=== PATIENT | female | born 1935 | race Caucasian/White ===

== ENCOUNTER 2022-04-01 21:53 | Outpatient (RCR) | payer OTHER, SELFPAY ==
[2022-04-01 22:41] LABS: Basophils Absolute Auto 0.02 K/uL (0.00-0.30); Basophils Percent Auto 0.3 % (0.0-3.0); Eosinophils Absolute Auto 0.11 K/uL (0.00-0.50); Eosinophils Percent Auto 1.4 % (0.0-7.0); Hematocrit 32.9 % (33.0-51.0); Hemoglobin* 10.2 gm/dL (12.0-16.0); Immature Granulocytes Abs Auto 0.04 K/uL (0.00-0.30); Lymphocytes Percent Auto 8.6 % (20-44); Mean Corpuscular HGB Conc 31 gm/dL (32-36); Mean Corpuscular Hemoglobin 27 pg (26-34); Mean Corpuscular Volume 88 fL (80-100); Monocytes Percent Auto 7.4 % (0.0-11.0); Neutrophils Percent Auto 81.8 % (42.0-72.0); Platelet Count* 230 K/uL (140-440); RDW Coefficient of Variation % 14.9 % (11.5-15.5); Red Blood Count 3.72 m/uL (4.00-5.20)
[2022-04-01 22:43] LABS: Slide Review Reflex No
[2022-04-01 22:58] LABS: Ferritin* 11.1 ng/mL (11.1-264.0)
== END 2023-03-08 23:00 | disposition home or self-care (01) ==
LOC: LAB 21:53
PROVIDERS: PCP Emergency Medicine; Visit Provider Internal Medicine Medical Oncology
DX: D50.9 Iron deficiency anemia, unspecified (principal)
CPT/HCPCS: 36415; 82728; 85025

== ENCOUNTER 2022-06-22 22:59 | Outpatient (REF) | payer OTHER, SELFPAY ==
--- OUTSIDE RECORDS SUMMARY | 2022-06-22 23:04 | XMS_ITS ---
:1935 Author Care Team Providers Name Role Phone Markell Bell Primary Care Provider Unavailable Allergies Code Code System Name Reaction Severity Status Onset 78539 RxNorm Oxybutynin ? ? Active ? Penicillins ? ? Active ? Medications Name Status Start Date Stop Date ? ? allopurinol 300 mg tablet Active ? Not av ailable amlodipine 5 mg tablet Active ? Not avail able atorvastatin 20 mg tablet Active ? Not av ailable cephalexin 500 mg capsule Active ? Not av ailable ciprofloxacin 250 mg tablet Active ? Not available levothyroxine 100 mcg tablet Active ? Not available levothyroxine 88 mcg tablet Active ? Not available lisinopril 40 mg tablet Active ? Not avai lable metoprolol tartrate 25 mg tablet Active ? Not available omeprazole 40 mg capsule,delayed release Active ? Not available sertraline 50 mg tablet Active ? Not avai lable warfarin 4 mg tablet Active ? Not availab le warfarin 5 mg tablet Active ? Not availab le Problems Name Status Onset Date Source ? Essential Hypertension Active 03/27/2019 ? Congestive Heart Failure Active 03/27/2019 ? History of Malignant Neoplasm of Skin Active 03/27/2019 ? Procedures Notes: hysterectomy Left hip Results Lab Results None recorded. Past Encounters None recorded. Social History Tobacco Smoking Status Never Smoker Vaccine List None recorded. Plan of Care Reminders Provider Appointments None recorded. ? ? Lab None recorded. ? ? Referral None recorded. ? ? Procedures None recorded. ? ? Surgeries None recorded. ? ? Imaging None recorded. ? ? Vitals None recorded.
--- OUTSIDE RECORDS SUMMARY | 2022-06-22 23:04 | XMS_ITS | Clinical Summary ---
:1935 Author Organization [place] Address [address] [facility] [place] [address] Care Team Providers Name Role Phone Gabriella Mariano MD Primary Care Provider Gabriella Mariano MD Unavailable Allergies Active Allergy Reactions Severity Noted Date Comments Oxybutynin 09/01/2016 Penicillins 09/01/2016 Medications Medication Sig Dispensed Refills Start Date End Date Status warfarin (COUMADIN) 4 Take 4 mg by 0 Active MG tablet mouth daily sertraline (ZOLOFT) 50 Take 50 mg by 0 Active MG tablet mouth daily omeprazole (PRILOSEC) Take 40 mg by 0 Active 40 MG capsule mouth daily metoprolol (LOPRESSOR) Take 25 mg by 0 Active 25 MG tablet mouth 2 times daily levothyroxine Take 88 mcg by 0 A ctive (SYNTHROID/LEVOTHROID) mouth daily 88 MCG tablet atorvastatin (LIPITOR) Take 20 mg by 0 Active 20 MG tablet mouth daily allopurinol (ZYLOPRIM) Take 300 mg by 0 Active 300 MG tablet mouth daily lisinopril Take 2 tablets 60 tablet 1 09/02/2016 Act adelaida (PRINIVIL/ZESTRIL) 20 (40 mg) by mouth MG tabletIndications: daily Essential hypertension amLODIPine (NORVASC) 5 Take 1 tablet (5 30 tablet 0 09/02/2016 Active MG tabletIndications: mg) by mouth Essential hypertension daily nitroFURantoin, Take 1 capsule 20 capsule 0 05/21/2017 Active macrocrystal-monohydra (100 mg) by mouth te, (MACROBID) 100 MG 2 times daily capsuleIndications: Urinary tract infection rosuvastatin (CRESTOR) Take 1 tablet by 0 11/29/2020 Active 10 MG tablet mouth every evening nitroGLYcerin Place 1 tablet 0 11/29/2020 Active (NITROSTAT) 0.4 MG under the tongue sublingual tablet every 5 minutes as needed for chest pain metoprolol tartrate Take 1 tablet by 0 11/29/2020 Active (LOPRESSOR) 25 MG mouth every 12 tablet hours loperamide (IMODIUM Take 1 capsule by 0 11/29/2020 Active A-D) 2 MG capsule mouth as needed After each loose stool, not to exceed 16 mg (8 capsules) per day. levothyroxine Take 100 mcg by 0 11/29/2020 Active (TIROSINT) 100 MCG mouth every 24 capsule hours ferrous fumarate 65 Take 2 tablets by 0 11/29/2020 Active mg, [place]. FE,-Vitamin mouth daily C 125 mg (VITRON-C) 65-125 MG TABS tablet Coenzyme Q10 (CO Q-10) Take 2 capsules 0 11/29/2020 Active 30 MG CAPS by mouth daily clobetasol (TEMOVATE) Apply topically 2 0 11/29/2020 Active 0.05 % external times daily as ointment needed amLODIPine (NORVASC) 5 Take 1 tablet by 0 11/29/2020 Active MG tablet mouth daily acetaminophen Take 2 tablets by 0 11/29/2020 Active (TYLENOL) 500 MG mouth daily as tablet needed for pain omeprazole (PRILOSEC) Take 40 mg by [address] capsule mouth daily lisinopril (ZESTRIL) Take 40 mg by 0 Active 40 MG tablet mouth daily sertraline (ZOLOFT) Take 100 mg by 0 Active 100 MG tablet mouth every evening warfarin ANTICOAGULANT Take 1 tablet 7 tablet 0 07/10/2021 Active (COUMADIN) 2.5 MG (2.5 mg) by mouth tabletIndications: daily Personal history of DVT (deep vein thrombosis) gabapentin (NEURONTIN) Take 1 capsule 60 capsule 1 07/10/2021 Active 100 MG (100 mg) by mouth capsuleIndications: 2 times daily Acute right-sided low back pain without sciatica oxyCODONE (ROXICODONE) Take 0.5 tablets 8 tablet 0 07/10/2021 Active 5 MG (2.5 mg) by mouth tabletIndications: every 6 hours as Acute right-sided low needed for back pain without moderate to sciatica severe pain methocarbamol Take 1 tablet 30 tablet 0 07/10/2021 A ctive (ROBAXIN) 500 MG (500 mg) by mouth tabletIndications: 3 times daily as Acute right-sided low needed for muscle back pain without spasms sciatica Active Problems Problem Noted Date Acute right-sided low back pain without sciatica 07/01 Severe uncontrolled hypertension 09/02/2016 Social History Tobacco Use Types Packs/Day Years Used Date Smoking Tobacco: Never Smokeless Tobacco: Never Sex Assigned at Date Recorded Female 10/29/2021 4:35 PM CDT Last Filed Vital Signs Vital Sign Reading Time Taken Comments Blood Pressure 119/53 07/10/2021 3:30 PM WIRE WEAVER CLOTH Pulse 56 07/10/2021 3:30 PM WIRE WEAVER CLOTH Temperature 36 ??C (96.8 ??F) 07/10/2021 3:30 PM WIRE WEAVER CLOTH Respiratory Rate 16 07/10/2021 3:30 PM WIRE WEAVER CLOTH Oxygen Saturation 93% 07/10/2021 3:30 PM WIRE WEAVER CLOTH Inhaled Oxygen Concentration - - Weight 74.8 kg (165 lb) 07/02/2021 2:30 PM WIRE WEAVER CLOTH Height 160 cm (5' 3) 07/02/2021 2:30 PM WIRE WEAVER CLOTH Body Mass Index 29.23 07/02/2021 2:30 PM WIRE WEAVER CLOTH Plan of Treatment Health Maintenance Due Date Last Done Comments ADVANCE CARE PLANNING 1935 ANNUAL REVIEW OF HM ORDERS 1935 DEXA 1935 HEPATITIS B IMMUNIZATION (1 1935 of 3 - 3-dose series) ZOSTER IMMUNIZATION (1 of 1987 2) FALL RISK ASSESSMENT 2002 MEDICARE ANNUAL WELLNESS 2002 VISIT DTAP/TDAP/TD IMMUNIZATION 02/03/2013 02/02/2013 (1 - Tdap) COVID-19 Vaccine (3 - 11/30/2020 10/05/2020, 09/14/2020 Booster for Pfizer series) PHQ-2 (once per calendar 08/09/2021 year) INFLUENZA VACCINE (#1) 2022 06/16/2021, 06/03/2020, 06/08/2019, Additional history exists Pneumococcal Vaccine: 65+ Completed 05/27/2018, 06/08/2017 , Years 06/06/2014 IPV IMMUNIZATION Aged Out No longer eligi ble based on patient 's age to complete this topic MENINGITIS IMMUNIZATION Aged Out No longe r eligible based on patient 's age to complete this topic Insurance Payer Benefit Plan / Subscriber ID Effective Dates Phone Addre ss Type Group HUMANA HUMANA MEDICARE [id number] 2019-Presen [id number] [address] [address] Medicare ADVANTAGE t [address] [place] [address] HUMANA HUMANA MEDICARE [id number] 2019-Presen [phone] [address] [address] Medicare ADVANTAGE t 0 [place] [address] Advance Directives For more information, please contact: [phone] Latest Code Status on File Code Status Date Activated Date Inactivated Comments No CPR- Do NOT Intubate 07/10/2021 12:48 PM Question Answer Comments Code status determined by: Discussion with patient/ legal de cision maker Code Status History Code Status Date Activated Date Inactivated Comments No CPR- Do NOT 07/02/2021 1:46 AM 07/10/2021 12:48 PM NO basic o r advanced Intubate life-sustaining interventions ar e performed Question Answer Comments Code status determined by: Discussion with patient/ legal de cision maker Full Code 09/02/2016 7:43 AM 02/27/2019 2:04 PM Full Code 09/02/2016 12:12 AM 09/02/2016 7:43 AM Care Teams Patch Machine Operator Relationship Specialty Start Date End Date Gabriella Mariano MD PCP - General 07/01/21 [facility] [address] [place] [address] Gabriella Mraiano MD 07/01/[address] [address]
--- OUTSIDE RECORDS SUMMARY | 2022-06-22 23:05 | XMS_ITS | Encounter Summary ---
:1935 Author Organization [place] Address [address] [facility] [place] [address] Care Team Providers Name Role Phone Gabriella Mariano MD Primary Care Provider Reason for Referral [employer] - Closed Specialty Diagnoses / Procedures Referred By Contact Refer red To Contact Diagnoses Labial irritation Lorena Mars MD [address] [facility] [address] [place], [place] [address] Referral ID Status Reason Start Date Expiration Date Visits Requ ested Visits Authorized [id number] Closed 05/19/2017 05/19/2018 1 1 Reason for Visit Reason Comments Follow Up Encounter Details Date Type Department Care Team Description 05/19/2017 Office Visit [facility] Lorena Mars (Primary Dx); U[facility] Clinic Vanessa Fernandez MD Mixed incontinence; [address] [facility] [address] Labial irritation [address] [facility] [address] [place] [address] [place], [place] [phone] (Wo rk) Social History Tobacco Use Types Packs/Day Years Used Date Smoking Tobacco: Never Smokeless Tobacco: Never Sex Assigned at Date Recorded Female 10/29/2021 4:35 PM CDT documented as of this encounter Last Filed Vital Signs Vital Sign Reading Time Taken Comments Blood Pressure 110/60 05/19/2017 12:37 PM CDT Pulse 60 05/19/2017 12:37 PM CDT Temperature - - Respiratory Rate - - Oxygen Saturation - - Inhaled Oxygen Concentration - - Weight 77.1 kg (170 lb) 05/19/2017 12:37 PM CDT Height 165.1 cm (5' 5) 05/19/2017 12:37 PM CDT Body Mass Index 28.29 05/19/2017 12:37 PM CDT documented in this encounter Patient Instructions Patient InstructionsLorena Mars MD - 05/19/2017 12:30 PM CDT Please see a cra officer for a biopsy We will let you know about the urine test results Please do a bladder diary (measure intake and output) Please schedule urodynamics testing (bladder testing) and then return to see me afterwards documented in this encounter Progress Notes Lorena Mars MD - 05/19/2017 12:30 PM CDT May 19, 2017 Return visit Patient returns today for follow up. She has not seen me since 02/2016. States that she is starting to have more urinary incontinence over the past couple months. Also some vaginal burning. She denies any changes in her health since last visit. BP 110/60 Pulse 60 Ht 1.651 m (5' 5) Wt 77.1 kg (170 lb) BMI 28.29 kg/m2 She is comfortable, in no distress, non-labored breathing. Her perineum is very erythematous and tender, barely able to do an exam A/P: 81 year old F with dysuria, mixed urinary incontinence, labial irritation Catheterized urine sent for UA/UC Given the persistent labial/perineal irritation for over a year I have recommended biopsy. We are unable to do this in our office today so will have her follow up with a guest services lead for this. RTC for UDS and possible cystoscopy in the near future 15 minutes were spent with the patient today, > 50% in counseling and coordination of care Lorena Mars MD MPH [facility] Patient Care Team: Gabriella Mariano MD as PCP - General documented in this encounter Plan of Treatment Scheduled Referrals Name Type Priority Associated Diagnoses Order S chedule [employer] REFERRAL Referral Routine Labial irritation Ordered : 05/19/2017 documented as of this encounter Procedures Procedure Name Priority Date/Time Associated Comments Diagnosis UREAPLASMA CULTURE Routine 05/19/2017 1:06 PM Dysuria Res ults for this CDT procedure are i n the results section. MYCOPLASM LARGE Routine 05/19/2017 1:06 PM Dysuria Result s for this COLONY CULTURE CDT procedure are in the results section. documented in this encounter Results Mycoplasma large colony culture [[id number]] (05/19/2017 1:06 PM CDT) Component Value Ref Test Analysis Performed At [facility] gist Range Method Time Signature Specimen Catheterized INFECTIOUS Description Urine DISEASE DIAGNOSTIC LABORATORY Special Specimen 05/19/2017 [facility] Requests received in 6:52 PM CDT [facility] Culture Micro No large colony 05/26/2017 INFECTIOU S Mycoplasma 1:30 PM CDT DISEASE species DIAGNOSTIC isolated LABORATORY Specimen (Source) Anatomical Collection Method Collection Time Re ceived Time Location / / Volume Laterality Urine specimen 05/19/2017 1:06 05/19/2017 1:07 collection, PM CDT PM CDT catheterized (procedure) Lorena Mars MD LAB - MICRO GENERAL ORDERABL ES Performing Organization Address City/State/ZIP Code Phon e Number INFECTIOUS DISEASES [address] [place] [address] DIAGNOSTIC LABORATORY, [facility] INFECTIOUS DISEASE [address] [place] [address], [facility] DIAGNOSTIC LABORATORY [address] [address], [facility] Ureaplasma culture [[id number]] (05/19/2017 1:06 PM CDT) Component Value Ref Test Analysis Performed At [facility] Range Method Time Signature Specimen Catheterized INFECTIOUS Description Urine DISEASE DIAGNOSTIC LABORATORY Special Specimen 05/19/2017 [facility] Requests received in 6:52 PM CDT [facility] Culture Micro No Ureaplasma 05/26/2017 INFECTIOUS species 1:31 PM CDT DISEASE isolated DIAGNOSTIC LABORATORY Specimen (Source) Anatomical Collection Method Collection Time Re ceived Time Location / / Volume Laterality Urine specimen 05/19/2017 1:06 05/19/2017 1:07 collection, PM CDT PM CDT catheterized (procedure) Lorena Mars MD LAB - MICRO GENERAL ORDERABL ES Performing Organization Address City/State/ZIP Code Phon e Number INFECTIOUS DISEASES [address] [place] [address] DIAGNOSTIC LABORATORY, [facility] INFECTIOUS DISEASE [address] [place], [place] [id number] [place] [address] DIAGNOSTIC LABORATORY [id number] [place] [address] documented in this encounter Visit Diagnoses Diagnosis Dysuria - Primary Mixed incontinence Mixed incontinence urge and stress (male )(female) Labial irritation Other specified noninflammatory disorder of vulva and perineum documented in this encounter Care Teams [employer] Social Worker Relationship Specialty Start Date End Date Gabriella Mariano MD PCP - General 02/27/16 06/30/21 [place] [address] [address], [place] [address] documented as of this encounter
--- OUTSIDE RECORDS SUMMARY | 2022-06-22 23:05 | XMS_ITS | Encounter Summary ---
:1935 Author Organization [place] Address [address] [facility] [place] [address] Care Team Providers Name Role Phone Gabriella Mariano MD Primary Care Provider Reason for Visit Reason Comments Diarrhea Encounter Details Date Type Department Care Team Description 08/18/2019 [facility] Emergency Dept [address] [place] [address] Social History Tobacco Use Types Packs/Day Years Used Date Smoking Tobacco: Never Smokeless Tobacco: Never Sex Assigned at Date Recorded Female 10/29/2021 4:35 PM CDT documented as of this encounter Last Filed Vital Signs Vital Sign Reading Time Taken Comments Blood Pressure 116/84 08/18/2019 11:23 AM NAME PLATE STAMPING MACHINE OPERATOR Pulse - - Temperature 36.6 ??C (97.9 ??F) 08/18/2019 11:23 AM NAME PLATE STAMPING MACHINE OPERATOR Respiratory Rate 16 08/18/2019 11:23 AM NAME PLATE STAMPING MACHINE OPERATOR Oxygen Saturation 97% 08/18/2019 11:23 AM NAME PLATE STAMPING MACHINE OPERATOR Inhaled Oxygen Concentration - - Weight 74.6 kg (164 lb 7.4 oz) 08/18/2019 11:23 AM NAME PLATE STAMPING MACHINE OPERATOR Height - - Body Mass Index 27.37 05/19/2017 12:37 PM CDT documented in this encounter Medications at Time of Discharge Medication Sig Dispensed Refills Start Date End Date allopurinol (ZYLOPRIM) 300 Take 300 mg by mouth 0 MG tablet daily amLODIPine (NORVASC) 5 MG Take 1 tablet (5 mg) 30 tablet 0 09/02/2016 tabletIndications: by mouth daily Essential hypertension atorvastatin (LIPITOR) 20 Take 20 mg by mouth 0 MG tablet daily levothyroxine Take 88 mcg by mouth 0 (SYNTHROID/LEVOTHROID) 88 daily MCG tablet lisinopril Take 2 tablets (40 60 tablet 1 09/02/2016 (PRINIVIL/ZESTRIL) 20 MG mg) by mouth daily tabletIndications: Essential hypertension metoprolol (LOPRESSOR) 25 Take 25 mg by mouth 0 MG tablet 2 times daily nitroFURantoin, Take 1 capsule (100 20 capsule 0 05/21/2017 macrocrystal-monohydrate, mg) by mouth 2 times (MACROBID) 100 MG daily capsuleIndications: Urinary tract infection omeprazole (PRILOSEC) 40 Take 40 mg by mouth 0 MG capsule daily sertraline (ZOLOFT) 50 MG Take 50 mg by mouth 0 tablet daily warfarin (COUMADIN) 4 MG Take 4 mg by mouth 0 tablet daily documented as of this encounter ED Notes Jessica Keller RN - 08/18/2019 11:21 AM CST A&Ox4. ABC's intact. Pt c/o diarrhea for years, but increasing frequency at least everyday. Stomach pain 2-3/10 at this time, 7/10 when it gets worse right before she is about to have a BM. Last BMthis morning. Odor is worse and consistency changes all the time. Denies ATB in the past 6 months. PLATE STAMPING MACHINE OPERATOR documented in this encounter Plan of Treatment Not on filedocumented as of this encounter Visit Diagnoses Not on filedocumented in this encounter Care Teams Freezing Room Worker Relationship Specialty Start Date End Date Gabriella Mariano MD PCP - General 02/27/16 06/30/21 [place] [address] documented as of this encounter
--- OUTSIDE RECORDS SUMMARY | 2022-06-22 23:05 | XMS_ITS | Encounter Summary ---
:1935 Author Organization [place] Address [address] [facility] [place] [address] Care Team Providers Name Role Phone Gabriella Mariano MD Primary Care Provider Encounter Details Date Type Department Care Team Description 08/18/2019 Travel Social History Tobacco Use Types Packs/Day Years Used Date Smoking Tobacco: Never Smokeless Tobacco: Never Sex Assigned at Date Recorded Female 10/29/2021 4:35 PM CDT documented as of this encounter Plan of Treatment Not on filedocumented as of this encounter Visit Diagnoses Not on filedocumented in this encounter Care Teams Accounting Director Relationship Specialty Start Date End Date Gabriella Mariano MD PCP - General 02/27/16 06/30/21 [facility] [address] [place] [address] documented as of this encounter
--- OUTSIDE RECORDS SUMMARY | 2022-06-22 23:05 | XMS_ITS | Encounter Summary ---
:1935 Author Organization [place] Address [address] [place] [address] Care Team Providers Name Role Phone Gabriella Mariano MD Primary Care Provider Gabriella Mariano MD Unavailable Reason for Visit Reason Comments Back Pain Auth/Cert Specialty Diagnoses / Procedures Referred By Contact Refer red To Contact EMERGENCY MEDICINE Diagnoses Acute right-sided low back pain without sciatica Acute right-sided low back pain without sciatica Emergency Dept [address] [place] [address] Phone: Fax: Referral ID Status Reason Start Date Expiration Date Visits Requ ested Visits Authorized [id number] 1 1 Encounter Details Date Type Department Care Team Description 07/01/2021 - Emergency [facility] Michael Sears MD [facility] [address] [place], [place] [id number] Personal history of DVT (deep vein throm bosis) (Primary Dx); 07/10/2021 [facility] Ally Zavaleta DO [facility] [address] [facility] [place] [id number] Acute right-sided low back pain without sciatica [address] Jamie Malave MD [address] [place], [place] [id number] [place], [place] Marito Fritz DO [facility] [address] [place], [place] [id number] Merary Jimenez, Social History Tobacco Use Types Packs/Day Years Used Date Smoking Tobacco: Never Assessed Sex Assigned at Date Recorded Female 10/29/2021 4:35 PM CDT COVID-19 Exposure Response Date Recorded In the last month, have you been in contact with No / Unsure 07/01/2021 3:51 PM DIRECTOR OF INTEGRATED MARKETING someone who was confirmed or suspected to have Coronavirus / COVID-19? documented as of this encounter Last Filed Vital Signs Vital Sign Reading Time Taken Comments Blood Pressure 119/53 07/10/2021 3:30 PM DIRECTOR OF INTEGRATED MARKETING Pulse 56 07/10/2021 3:30 PM DIRECTOR OF INTEGRATED MARKETING Temperature 36 ??C (96.8 ??F) 07/10/2021 3:30 PM DIRECTOR OF INTEGRATED MARKETING Respiratory Rate 16 07/10/2021 3:30 PM DIRECTOR OF INTEGRATED MARKETING Oxygen Saturation 93% 07/10/2021 3:30 PM DIRECTOR OF INTEGRATED MARKETING Inhaled Oxygen Concentration - - Weight 74.8 kg (165 lb) 07/02/2021 2:30 PM DIRECTOR OF INTEGRATED MARKETING Height 160 cm (5' 3) 07/02/2021 2:30 PM DIRECTOR OF INTEGRATED MARKETING Body Mass Index 29.23 07/02/2021 2:30 PM DIRECTOR OF INTEGRATED MARKETING documented in this encounter Discharge Summaries Alec Jordan MD - 07/10/2021 3:58 PM CST [facility] Discharge Summary Name: Meseret Lakhani Date of : 1935 Age: [age] year old Date of Discharge: 07/10/2021 Date of Admission: 07/01/2021 Primary Care Provider: Gabriella Mariano Discharge Physician: Alec Jordan MD Discharging Service: Hospitalist Discharge Diagnosis: Reason for Stay (Diagnosis): Acute hypoxic respiratory failure with unclear etiology possibly secondary to her underlying cardiomyopathy ?? Assessment and Plan: Summary of Stay: Meseret Lakhani is a 86 year old female with past medical history significant for hypertension, factor V Leiden with previous DVT on chronic anticoagulation, hyperlipidemia, major depressive disorder, anxiety, and GERD who presented to [facility] on 07/01/2021 with left lower back pain and was found to have musculoskeletal strain. ??Developed hypoxia in the emergency department without clear etiology at this time. ?? Acute Hypoxic Respiratory Failure, stable Possible Cardiomyopathy Patient now requiring oxygen which she does not use at baseline. ??She is not experiencing any dyspnea but was noted to be hypoxemic on bedside monitor. ??Chest x-ray without any lobar opacities but with some cardiomegaly, vascular congestion and interstitial edema. Procalcitonin and NTBNP negative. Two doses of Lasix IV were provided with improvement in respiratory function; she is now only requiring 1L oxygen. TTE, however, with normal systolic function and possible early diastolic dysfunction butwithout RV dilation. It did note that WMA could not be excluded; ECG obtained without ST segment changes or signs of ischemia. CXR also with possible tracheal deviation; considered external tracheal compression, though no stridor was appreciated on exam.ABG with notable hypoxemia. ??CT with atelectasis and cardiomegaly, but no sign of pulmonary edema or pneumonia. Suspect that patient has oxygen needs due to prolonged bedrest from injury. Continue incentive spirometry and wean as able. -Continuous oximetry -Supplemental oxygen PRN-oxygen support wean off. May discontinue continuous oximetry if continues to tolerate off oxygen support -Incentive spirometry -Currently not using any oxygen support ?? Low Back Pain Likely Muscular Strain Physical deconditioning Patient with left lower back pain for several days only present now with movement. ??Requiring 2 person assist when she has independent at baseline. ??Imaging nondiagnostic for any fractures. ??Suspectmusculoskeletal in etiology. ??PT/OT assisting with evaluation and treatment while in hospital. Willneed social work assistance in finding rehab facility as patient is still requiring assist of 1 without of bed activity. ??-Oxycodone 2.5mg Q6H PRN -Acetaminophen TID -Lidocaine patches -Ice packs -Pain consult work -She is working with therapy services and she is hopeful if she can just be discharged straight to home without doing TCU placement ?? Dysphagia: OVER SHORT AND DAMAGE CLERK consulting. 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 Increase lisinopril dosing to 20 mg daily Hyperlipidemia: Continue HOSPICE CLINICAL MARKETER statin. MDD/RONALDO: Continue HOSPICE CLINICAL MARKETER sertraline. GERD: Continue PPI. Hypothyroidism: Continue HOSPICE CLINICAL MARKETER levothyroxine. ?? -Black tarry stools occurred last 07/08/2021 as no further recurrence Repeat hemoglobin remained stable at 12 g Remain on anticoagulation. Therapeutic INR ? Diet:??Orders Placed This Encounter ?Regular Diet Adult ??DVT Prophylaxis: On warfarin Shearer Catheter:Not present Code Status:??No CPR- Do NOT Intubate? Expected discharge: Awaiting for TCU placement Remain on observation status as per previous utilization review recommendations ?? Other Diagnosis: No past medical history on file. Discharge Disposition: Discharged to rehabilitation facility Allergies: Allergies Allergen Reactions ??? Oxybutynin ??? Penicillins Discharge Medications: Discharge Medication List as of 07/10/2021 3:44 PM START taking these medications Details gabapentin (NEURONTIN) 100 MG capsule Take 1 capsule (100 mg) by mouth 2 times daily, Disp-60 capsule, R-1, Local Print oxyCODONE (ROXICODONE) 5 MG tablet Take 0.5 tablets (2.5 mg) by mouth every 6 hours as needed for moderate to severe pain, Disp-8 tablet, R-0, Local Print CONTINUE these medications which have CHANGED Details methocarbamol (ROBAXIN) 500 MG tablet Take 1 tablet (500 mg) by mouth 3 times daily as needed for muscle spasms, Disp-30 tablet, R-0, Local Print warfarin ANTICOAGULANT (COUMADIN) 2.5 MG tablet Take 1 tablet (2.5 mg) by mouth daily, Disp-7 tablet, R-0, Transitional CONTINUE these medications which have NOT CHANGED Details acetaminophen (TYLENOL) 500 MG tablet Take 2 tablets by mouth daily as needed for pain, Historical amLODIPine (NORVASC) 5 MG tablet Take 1 tablet by mouth daily, Historical clobetasol (TEMOVATE) 0.05 % external ointment Apply topically 2 times daily as neededHistorical Coenzyme Q10 (CO Q-10) 30 MG CAPS Take 2 capsules by mouth daily, Historical ferrous fumarate 65 mg, [place]. FE,-Vitamin C 125 mg (VITRON-C) 65-125 MG TABS tablet Take 2 tablets by mouth daily , Historical levothyroxine (TIROSINT) 100 MCG capsule Take 100 mcg by mouth every 24 hours, Historical lisinopril (ZESTRIL) 40 MG tablet Take 40 mg by mouth daily, Historical loperamide (IMODIUM A-D) 2 MG capsule Take 1 capsule by mouth as needed After each loose stool, not to exceed 16 mg (8 capsules) per day., Historical metoprolol tartrate (LOPRESSOR) 25 MG tablet Take 1 tablet by mouth every 12 hours, Historical nitroGLYcerin (NITROSTAT) 0.[address] 1 tablet under the tongue every 5 minutes as needed for chest pain, Historical omeprazole (PRILOSEC) [address] capsule Take 40 mg by mouth daily, Historical rosuvastatin (CRESTOR) 10 MG tablet Take 1 tablet by mouth every evening , Historical sertraline (ZOLOFT) 100 MG tablet Take 100 mg by mouth every evening, Historical Condition on Discharge: Discharge condition: Stable Discharge vitals: Blood pressure 119/53, pulse 56, temperature 96.8 ??F (36 ??C), temperature sourceTemporal, resp. rate 16, height 1.6 m (5' 3), weight 74.8 kg (165 lb), SpO2 93 %. Code status on discharge: DNR / DNI History of Present Illness: See detailed admission note for full details. Significant Physical Exam Findings Day of Discharge: HEENT; Atraumatic, normocephalic, pinkish conjuctiva, pupils bilateral reactive Skin: warm and moist, no rashes Lymphatics: no cervical or axillary lymphandenopathy Lungs: equal chest expansion, clear to auscultation, no wheezes, no stridor, no crackles, Heart: normal rate, normal rhythm, no rubs or gallops. Abdomen: normal bowel sounds, no tenderness, no peritoneal signs, no guarding Extremities: no deformities, no edema Neuro; follow commands, alert and oriented x3, spontaneous speech, coherent, moves all extremities spontaneously Psych; no hallucination, euthymic mood, not agitated Procedures other than Imaging: none Imaging: Results for orders placed or performed during the hospital encounter of 07/01/[address] w/o contrast Narrative EXAM: CT LUMBAR SPINE W/O CONTRAST LOCATION: [facility] DATE/TIME: 07/01/2021 6:19 PM INDICATION: Right-sided low back pain, on Coumadin. COMPARISON: None. TECHNIQUE: Routine CT lumbar spine without IV contrast. Multiplanar reformats. Dose reduction techniques were used. FINDINGS: VERTEBRA: There are five lumbar-type vertebral bodies identified. There is mild S-shaped lumbar curve convex to the right L1, convex to the left L4. Overall vertebral body height is satisfactory. Thereis 1 mm degenerative anterior subluxation L2-L3, L4-L5 noted. Articular pillars are intact. Lower lumbar spine facet joint arthropathy. No evidence for facet joint space widening or interspace widening. Perforating vascular channel right superior articular process L4 series 7 image 40, series 8 image 30. No fracture or posttraumatic subluxation. No displaced lower rib fractures are evident. Degenerative changes both SI joints. CANAL/FORAMINA: There is no high grade spinal stenosis present. No traumatic disc herniations. Moderate spinal stenoses are identified L1-L2, L3-L4, and L4- L5 levels. There is some ectasia of the nerveroot sleeves at L5-S1, left more prominent than right. No severe foraminal compromise. PARASPINAL: There is some dorsal paraspinous muscular atrophy/fatty replacement on a chronic basis at the lower lumbar level. No retroperitoneal solid mass or adenopathy. Vascular calcification is present. Degenerative changes anterior SI joints. Granite Polisher Apprentice localizer shows total hip arthroplasty components. Impression IMPRESSION: 1. No fracture or posttraumatic subluxation. 2. No high grade spinal canal or neural foraminal stenosis. 3. Multilevel moderate spinal stenosis on a chronic degenerative basis with no traumatic disc herniations evident. XR Chest 2 Views Narrative XR CHEST 2 VW 07/02/2021 2:24 PM INDICATION: dyspnea COMPARISON: None Impression IMPRESSION: Cardiomegaly with pulmonary vascular congestion and probable mild interstitial edema. No focal infiltrate or pleural effusion. JAISON JOHNSTON MD SYSTEM ID: [id number] CT Chest w/o Contrast Narrative EXAM: CT CHEST W/O CONTRAST LOCATION: [facility] DATE/TIME: 07/04/2021 6:20 PM INDICATION: Respiratory failure. COMPARISON: None. TECHNIQUE: CT chest without IV contrast. Multiplanar reformats were obtained. Dose reduction techniques were used. CONTRAST: None. FINDINGS: LUNGS AND PLEURA: Minor dependent atelectatic changes in both lungs. No pleural effusion. MEDIASTINUM/AXILLAE: Ascending thoracic aorta mildly ectatic at 4.1 cm. The heart is enlarged. No thoracic or axillary adenopathy. CORONARY ARTERY CALCIFICATION: Severe. UPPER ABDOMEN: The spleen is mildly enlarged. MUSCULOSKELETAL: Unremarkable. Impression IMPRESSION: 1. Cardiomegaly and severe coronary atherosclerosis. 2. Ectatic ascending thoracic aorta. Echocardiogram Complete Value LVEF 55-60% [facility] [id number]^ALEA^LOY [facility] Echocardiography Laboratory [address] [place] [id number] Name: MESERET LAKHANI : 1935 Study Date: 07/03/2021 09:37 AM Age: 86 yrs Gender: Female Patient Location: [facility] Reason For Study: Dyspnea Ordering Physician: LOY ARMAS Performed By: Lorena Bishop BSA: 1.8 m2 Height: 63 in Weight: 165 lb HR: 55 BP: 130/55 mmHg Procedure Complete Portable Echo Adult. Interpretation Summary Left ventricular systolic function is normal. The visual ejection fraction is 55-60%. Technically difficult, suboptimal study. No hemodynamically significant valvular abnormalities on 2D or color flow imaging. There is no comparison study available. Left Ventricle (The upper limit of normal is 5.6cm for left ventricular size in end- diastole.). Left ventricular systolic function is normal. The visual ejection fraction is 55-60%. Grade I or early diastolic dysfunction. Regional wall motion abnormalities cannot be excluded due to limited visualization. Right Ventricle The right ventricle is not well visualized. The right ventricular systolic function is normal. Atria Left atrial enlargement is noted on two-dimensional imaging. Right atrium not well visualized. Mitral Valve There is mild mitral annular calcification. There is trace mitral regurgitation. There is no mitral valve stenosis. Tricuspid Valve The tricuspid valve is not well visualized, but is grossly normal. The right ventricular systolic pressure is approximated at 21.7 mmHg plus the right atrial pressure. Aortic Valve The aortic valve is trileaflet with aortic valve sclerosis. No aortic stenosis is present. Pulmonic Valve The pulmonic valve is not well visualized. Normal pulmonic valve velocity. Vessels Normal size aorta. The ascending aorta is Mildly dilated. The inferior vena cava is normal. Pericardium There is no pericardial effusion. MMode/2D Measurements & Calculations IVSd: 1.0 cm LVIDd: 5.6 cm LVIDs: 4.0 cm LVPWd: 1.1 cm FS: 27.9 % LV mass(C)d: 233.0 grams LV mass(C)dI: 130.8 grams/m2 Ao root diam: 3.2 cm LA dimension: 4.3 cm asc Aorta Diam: 4.0 cm LA/Ao: 1.3 LVOT diam: 1.9 cm LVOT area: 2.8 cm2 RWT: 0.39 Doppler Measurements & Calculations MV E max martell: 77.6 cm/sec MV A max martell: 119.0 cm/sec MV E/A: 0.65 MV max P.2 mmHg MV mean P.0 mmHg MV V2 VTI: 36.9 cm MVA(VTI): 2.1 cm2 MV P1/2t max martell: 82.5 cm/sec MV P1/2t: 114.0 msec MVA(P1/2t): 1.9 cm2 MV dec slope: 212.0 cm/sec2 MV dec time: 0.32 sec LV V1 max P.3 mmHg LV V1 max: 125.0 cm/sec LV V1 VTI: 27.6 cm SV(LVOT): 78.3 ml SI(LVOT): 43.9 ml/m2 PA acc time: 0.13 sec TR max martell: 233.0 cm/sec TR max P.7 mmHg E/E' av.1 Lateral E/e': 11.9 Medial E/e': 18.3 Report approved by: Izabela Sarabia 07/03/2021 12:05 PM Consultations: No consultations were requested during this admission. Recent Lab Results: Recent Labs Lab 07/09/21 0835 07/08/21 1824 07/08/21 0607 07/07/21 0849 07/06/21 0749 WBC -- -- 5.5 6.1 4.8 HGB 12.8 12.1 11.4* 12.3 11.7 HCT -- -- 38.6 42.0 40.1 MCV -- -- 100 102* 102* PLT -- -- 154 184 148* No results for input(s): CULT in the last 168 hours. Recent Labs Lab 07/10/21 0816 07/09/21 0835 07/08/21 0607 07/07/21 0849 07/06/21 0749 NA -- -- 141 142 143 POTASSIUM 3.9 4.0 3.9 3.7 4.3 CHLORIDE -- -- 109 109 109 CO2 -- -- 28 28 31 ANIONGAP -- -- 4 5 3 GLC -- -- 142* 159* 117* BUN -- -- 20 20 18 CR -- -- 0.59 0.67 0.65 GFRESTIMATED -- -- 84 81 82 JAMIN -- -- 9.7 9.9 9.8 Recent Labs Lab 07/08/21 0607 07/07/21 0849 07/06/21 0749 07/05/21 0659 07/04/21 1244 GLC 142* 159* 117* 123* 118* No results for input(s): LACT in the last 168 hours. No results for input(s): TROPONIN, TROPI, TROPR in the last 168 hours. Invalid input(s): TROP, TROPONINIES No results for input(s): COLOR, APPEARANCE, URINEGLC, URINEBILI, URINEKETONE, SG, UBLD, URINEPH, PROTEIN, UROBILINOGEN, NITRITE, LEUKEST, RBCU, WBCU in the last 168 hours. Pending Results: Unresulted Labs Ordered in the Past 30 Days of this Admission No orders found from 06/01/2021 to 07/02/2021. Discharge Instructions and Follow-Up: Discharge diet: Orders Placed This Encounter Regular Diet Adult Diet Discharge activity: Activity as tolerated Discharge follow-up: 1-2 weeks with PCP Outpatient therapy: None Other instructions: None Hospital Course: Meseret Is doing well as she is not requiring any O2 support. Remained afebrile. Labs remained stable. Pain is under control Discharged with low dose oxycodone to continue at TCU, tolerating muscle relaxants. INR monitoring at TCU. Modified her warfarin dosing here and adjust accordingly. I was informed about TCU bed availability today as she has been waiting for bed placement for several days now. Total time spent in face to face contact with the patient and coordinating discharge was: > 30 Minutes. CTOR OF INTEGRATED MARKETING documented in this encounter Discharge Instructions Discharge InstructionsJennifer Dawn LSW - 07/04/2021 3:21 PM CST [facility] has arranged home care, for you after you return home from the hospital. The Home Care Agency Arranged is [facility] (p: [phone] or [phone] f: [phone]). You will be contacted by phone within a few days after your hospital stay by the Home Care Agency toset up your first visit. If you have not heard from the Home Care Agency within 1-2 Days after discharge from the hospital, please contact the number provided above. CTOR OF INTEGRATED MARKETING documented in this encounter Medications at Time of Discharge Medication Sig Dispensed Refills Start Date End Date acetaminophen (TYLENOL) Take 2 tablets by 0 11/29 500 MG tablet mouth daily as needed for pain allopurinol (ZYLOPRIM) Take 300 mg by mouth 0 300 MG tablet daily amLODIPine (NORVASC) 5 MG Take 1 tablet by 0 11/08 tablet mouth daily amLODIPine (NORVASC) 5 MG Take 1 tablet (5 mg) 30 tablet 0 09/02/2016 tabletIndications: by mouth daily Essential hypertension atorvastatin (LIPITOR) 20 Take 20 mg by mouth 0 MG tablet daily clobetasol (TEMOVATE) Apply topically 2 0 021 0.05 % external ointment times daily as needed Coenzyme Q10 (CO Q-10) 30 Take 2 capsules by 0 MG CAPS mouth daily ferrous fumarate 65 mg, Take 2 tablets by 0 11/29 [place]. FE,-Vitamin C 125 mouth daily mg (VITRON-C) 65-125 MG TABS tablet gabapentin (NEURONTIN) Take 1 capsule (100 60 capsule 1 09/2020 100 MG mg) by mouth 2 times capsuleIndications: Acute daily right-sided low back pain without sciatica levothyroxine Take 88 mcg by mouth 0 (SYNTHROID/LEVOTHROID) 88 daily MCG tablet levothyroxine (TIROSINT) Take 100 mcg by mouth 0 11/29/2020 100 MCG capsule every 24 hours lisinopril Take 2 tablets (40 60 tablet 1 09/02/2016 (PRINIVIL/ZESTRIL) 20 MG mg) by mouth daily tabletIndications: Essential hypertension lisinopril (ZESTRIL) 40 Take 40 mg by mouth 0 MG tablet daily loperamide (IMODIUM A-D) Take 1 capsule by 0 11/08 2 MG capsule mouth as needed After each loose stool, not to exceed 16 mg (8 capsules) per day. methocarbamol (ROBAXIN) Take 1 tablet (500 30 tablet 0 09/2020 500 MG tabletIndications: mg) by mouth 3 times Acute right-sided low daily as needed for back pain without muscle spasms sciatica metoprolol (LOPRESSOR) 25 Take 25 mg by mouth 2 0 MG tablet times daily metoprolol tartrate Take 1 tablet by 0 11/29/2020 (LOPRESSOR) 25 MG tablet mouth every 12 hours nitroFURantoin, Take 1 capsule (100 20 capsule 0 05/21/2017 macrocrystal-monohydrate, mg) by mouth 2 times (MACROBID) 100 MG daily capsuleIndications: Urinary tract infection nitroGLYcerin (NITROSTAT) Place 1 tablet under 0 11/29/2020 0.4 MG sublingual tablet the tongue every 5 minutes as needed for chest pain omeprazole (PRILOSEC) 40 Take 40 mg by mouth 0 MG capsule daily omeprazole (PRILOSEC) 40 Take 40 mg by mouth [address] capsule daily oxyCODONE (ROXICODONE) 5 Take 0.5 tablets (2.5 8 tablet 0 07/10/2021 MG tabletIndications: mg) by mouth every 6 Acute right-sided low hours as needed for back pain without moderate to severe sciatica pain rosuvastatin (CRESTOR) 10 Take 1 tablet by 0 11/08 MG tablet mouth every evening sertraline (ZOLOFT) 100 Take 100 mg by mouth 0 MG tablet every evening sertraline (ZOLOFT) 50 MG Take 50 mg by mouth 0 tablet daily warfarin (COUMADIN) 4 MG Take 4 mg by mouth 0 tablet daily warfarin ANTICOAGULANT Take 1 tablet (2.5 7 tablet 0 07/10 (COUMADIN) 2.5 MG mg) by mouth daily tabletIndications: Personal history of DVT (deep vein thrombosis) documented as of this encounter Progress Notes Shelli Tejada RN - 07/10/2021 3:58 PM CST Pt left for [facility] TCU via [facility] w/c transport. Personal belongings gathered and sent with pt. Orders faxed and sent with pt. Abigail Vila RN - 07/10/2021 1:33 PM CST PAS-RR D: Per [facility] regulation, SW completed and submitted PAS-RR to [place] [employer] on Aging Direct Connect via [facility] LinkAge Line. PAS-RR confirmation # is : [id number] P: Further questions may be directed to Senior LinkAge Line at # , option #4 for PAS-RRstaff. Little Bedolla RN BSN [facility] [phone] Alec Henson MD - 07/10/2021 10:37 AM CST [facility] Hospitalist Progress Note Alec Jordan MD, MD 07/10/2021 (Text Page) Reason for Stay (Diagnosis): Acute hypoxic respiratory failure with unclear etiology possibly secondary to her underlying cardiomyopathy Assessment and Plan: Summary of Stay: Meseret Lakhani is a 86 year old female with past medical history significant for hypertension, factor V Leiden with previous DVT on chronic anticoagulation, hyperlipidemia, major depressive disorder, anxiety, and GERD who presented to [facility] on 07/01/2021 with left lower back pain and was found to have musculoskeletal strain. Developed hypoxia in the emergency department without clear etiology at this time. ?? Acute Hypoxic Respiratory Failure, stable Possible Cardiomyopathy Patient now requiring oxygen which she does not use at baseline. She is not experiencing any dyspneabut was noted to be hypoxemic on bedside monitor. Chest x-ray without any lobar opacities but with some cardiomegaly, vascular congestion and interstitial edema. Procalcitonin and NTBNP negative. Two doses of Lasix IV were provided with improvement in respiratory function; she is now only requiring 1Loxygen. TTE, however, with normal systolic function and possible early diastolic dysfunction but without RV dilation. It did note that WMA could not be excluded; ECG obtained without ST segment changesor signs of ischemia. CXR also with possible tracheal deviation; considered external tracheal compression, though no stridor was appreciated on exam.ABG with notable hypoxemia. CT with atelectasis and cardiomegaly, but no sign of pulmonary edema or pneumonia. Suspect that patient has oxygen needs due to prolonged bedrest from injury. Continue incentive spirometry and wean as able. -Continuous oximetry -Supplemental oxygen PRN-oxygen support wean off. May discontinue continuous oximetry if continues to tolerate off oxygen support -Incentive spirometry -Currently not using any oxygen support ?? Low Back Pain Likely Muscular Strain Physical deconditioning Patient with left lower back pain for several days only present now with movement. Requiring 2 person assist when she has independent at baseline. Imaging nondiagnostic for any fractures. Suspect musculoskeletal in etiology. PT/OT assisting with evaluation and treatment while in hospital. Will need soc ial work assistance in finding rehab facility as patient is still requiring assist of 1 with out of bed activity. -Oxycodone 2.5mg Q6H PRN -Acetaminophen TID -Lidocaine patches -Ice packs -Pain consult work -She is working with therapy services and she is hopeful if she can just be discharged straight to home without doing TCU placement ?? Dysphagia: OVER SHORT AND DAMAGE CLERK consulting. 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 Increase lisinopril dosing to 20 mg daily Hyperlipidemia: Continue HOSPICE CLINICAL MARKETER statin. MDD/RONALDO: Continue HOSPICE CLINICAL MARKETER sertraline. GERD: Continue PPI. Hypothyroidism: Continue HOSPICE CLINICAL MARKETER levothyroxine. -Black tarry stools occurred last 07/08/2021 as no further recurrence Repeat hemoglobin remained stable at 12 g Remain on anticoagulation. Therapeutic INR ?? Diet: Orders Placed This Encounter Regular Diet Adult DVT Prophylaxis: On warfarin Shearer Catheter:Not present Code Status: No CPR- Do NOT Intubate Expected discharge: Awaiting for TCU placement Remain on observation status as per previous utilization review recommendations Interval History (Subjective): Continuing service care today. Seen and examined. Chart reviewed. Case discussed with nursing service. I found our patient sleeping soundly during this morning encounter. Reportedly she had a hard time getting decent sleep last night. No reported nausea, vomiting nor any recurrence of black tarry stooling. Afebrile. Not requiring any oxygen support. Physical Exam: Last Vital Signs: BP (!) 171/74 Pulse 74 Temp 97 ??F (36.1 ??C) Resp 16 Ht 1.6 m (5' 3) Wt 74.8 kg (165 lb) SpO2 92% BMI 29.23 kg/m?? I/O last 3 completed shifts: In: 120 [P.O.:120] Out: - Wt Readings from Last 1 Encounters: 07/02/21 74.8 kg (165 lb) Vitals: 07/02/21 1430 Weight: 74.8 kg (165 lb) Constitutional: Awake, alert, cooperative, no apparent distress Respiratory: Clear to auscultation bilaterally, no crackles or wheezing Cardiovascular: Normal rate at 60 bpm and rhythm, normal S1 and S2 Abdomen: Normal bowel sounds, soft, protuberant, non-tender Skin: No rashes, no cyanosis, dry to touch Neuro: Alert and oriented x3, no weakness, spontaneous and coherent speech Extremities: No edema, normal range of motion Other(s): Euthymic mood, not agitated All other systems: Negative Medications: All current medications were reviewed with changes reflected in problem list. Data: All new lab and imaging data was reviewed. Labs: No results for input(s): CULT in the last 168 hours. Recent Labs Lab 07/09/21 0835 07/08/21 1824 07/08/21 0607 07/07/21 0849 07/06/21 0749 WBC -- -- 5.5 6.1 4.8 HGB 12.8 12.1 11.4* 12.3 11.7 HCT -- -- 38.6 42.0 40.1 MCV -- -- 100 102* 102* PLT -- -- 154 184 148* Recent Labs Lab 07/10/21 0816 07/09/21 0835 07/08/21 0607 07/07/21 0849 07/06/21 0749 NA -- -- 141 142 143 POTASSIUM 3.9 4.0 3.9 3.7 4.3 CHLORIDE -- -- 109 109 109 CO2 -- -- 28 28 31 ANIONGAP -- -- 4 5 3 GLC -- -- 142* 159* 117* BUN -- -- 20 20 18 CR -- -- 0.59 0.67 0.65 GFRESTIMATED -- -- 84 81 82 JAMIN -- -- 9.7 9.9 9.8 No results for input(s): SED, CRP in the last 168 hours. Recent Labs Lab 07/08/21 0607 07/07/21 0849 07/06/21 0749 07/05/21 0659 07/04/21 1244 GLC 142* 159* 117* 123* 118* Recent Labs Lab 07/10/21 0816 07/09/21 0835 07/08/21 0607 INR 3.03* 2.79* 2.70* No results for input(s): CHOL, HDL, LDL, TRIG, CHOLHDLRATIO in the last 168 hours. No results for input(s): TROPONIN, TROPI, TROPR in the last 168 hours. Invalid input(s): TROP, TROPONINIES No results for input(s): COLOR, APPEARANCE, URINEGLC, URINEBILI, URINEKETONE, SG, UBLD, URINEPH, PROTEIN, UROBILINOGEN, NITRITE, LEUKEST, RBCU, WBCU in the last 168 hours. Imaging: Results for orders placed or performed during the hospital encounter of 07/01/[address] w/o contrast Narrative EXAM: CT LUMBAR SPINE W/O CONTRAST LOCATION: [facility] DATE/TIME: 07/01/2021 6:19 PM INDICATION: Right-sided low back pain, on Coumadin. COMPARISON: None. TECHNIQUE: Routine CT lumbar spine without IV contrast. Multiplanar reformats. Dose reduction techniques were used. FINDINGS: VERTEBRA: There are five lumbar-type vertebral bodies identified. There is mild S-shaped lumbar curve convex to the right L1, convex to the left L4. Overall vertebral body height is satisfactory. Thereis 1 mm degenerative anterior subluxation L2-L3, L4-L5 noted. Articular pillars are intact. Lower lumbar spine facet joint arthropathy. No evidence for facet joint space widening or interspace widening. Perforating vascular channel right superior articular process L4 series 7 image 40, series 8 image 30. No fracture or posttraumatic subluxation. No displaced lower rib fractures are evident. Degenerative changes both SI joints. CANAL/FORAMINA: There is no high grade spinal stenosis present. No traumatic disc herniations. Moderate spinal stenoses are identified L1-L2, L3-L4, and L4- L5 levels. There is some ectasia of the nerveroot sleeves at L5-S1, left more prominent than right. No severe foraminal compromise. PARASPINAL: There is some dorsal paraspinous muscular atrophy/fatty replacement on a chronic basis at the lower lumbar level. No retroperitoneal solid mass or adenopathy. Vascular calcification is present. Degenerative changes anterior SI joints. Granite Polisher Apprentice localizer shows total hip arthroplasty components. Impression IMPRESSION: 1. No fracture or posttraumatic subluxation. 2. No high grade spinal canal or neural foraminal stenosis. 3. Multilevel moderate spinal stenosis on a chronic degenerative basis with no traumatic disc herniations evident. XR Chest 2 Views Narrative XR CHEST 2 VW 07/02/2021 2:24 PM INDICATION: dyspnea COMPARISON: None Impression IMPRESSION: Cardiomegaly with pulmonary vascular congestion and probable mild interstitial edema. No focal infiltrate or pleural effusion. JAISON JOHNSTON MD SYSTEM ID: [id number] CT Chest w/o Contrast Narrative EXAM: CT CHEST W/O CONTRAST LOCATION: [facility] DATE/TIME: 07/04/2021 6:20 PM INDICATION: Respiratory failure. COMPARISON: None. TECHNIQUE: CT chest without IV contrast. Multiplanar reformats were obtained. Dose reduction techniques were used. CONTRAST: None. FINDINGS: LUNGS AND PLEURA: Minor dependent atelectatic changes in both lungs. No pleural effusion. MEDIASTINUM/AXILLAE: Ascending thoracic aorta mildly ectatic at 4.1 cm. The heart is enlarged. No thoracic or axillary adenopathy. CORONARY ARTERY CALCIFICATION: Severe. UPPER ABDOMEN: The spleen is mildly enlarged. MUSCULOSKELETAL: Unremarkable. Impression IMPRESSION: 1. Cardiomegaly and severe coronary atherosclerosis. 2. Ectatic ascending thoracic aorta. Echocardiogram Complete Value LVEF 55-60% Narrative [id number]^ARMAS^[facility] [address] [place] [id number] Name: MESERET LAKHANI : 1935 Study Date: 07/03/2021 09:37 AM Age: 86 yrs Gender: Female Patient Location: [facility] Reason For Study: Dyspnea Ordering Physician: LOY ARMAS Performed By: Lorena Bishop BSA: 1.8 m2 Height: 63 in Weight: 165 lb HR: 55 BP: 130/55 mmHg Procedure Complete Portable Echo Adult. Interpretation Summary Left ventricular systolic function is normal. The visual ejection fraction is 55-60%. Technically difficult, suboptimal study. No hemodynamically significant valvular abnormalities on 2D or color flow imaging. There is no comparison study available. Left Ventricle (The upper limit of normal is 5.6cm for left ventricular size in end- diastole.). Left ventricular systolic function is normal. The visual ejection fraction is 55-60%. Grade I or early diastolic dysfunction. Regional wall motion abnormalities cannot be excluded due to limited visualization. Right Ventricle The right ventricle is not well visualized. The right ventricular systolic function is normal. Atria Left atrial enlargement is noted on two-dimensional imaging. Right atrium not well visualized. Mitral Valve There is mild mitral annular calcification. There is trace mitral regurgitation. There is no mitral valve stenosis. Tricuspid Valve The tricuspid valve is not well visualized, but is grossly normal. The right ventricular systolic pressure is approximated at 21.7 mmHg plus the right atrial pressure. Aortic Valve The aortic valve is trileaflet with aortic valve sclerosis. No aortic stenosis is present. Pulmonic Valve The pulmonic valve is not well visualized. Normal pulmonic valve velocity. Vessels Normal size aorta. The ascending aorta is Mildly dilated. The inferior vena cava is normal. Pericardium There is no pericardial effusion. MMode/2D Measurements & Calculations IVSd: 1.0 cm LVIDd: 5.6 cm LVIDs: 4.0 cm LVPWd: 1.1 cm FS: 27.9 % LV mass(C)d: 233.0 grams LV mass(C)dI: 130.8 grams/m2 Ao root diam: 3.2 cm LA dimension: 4.3 cm asc Aorta Diam: 4.0 cm LA/Ao: 1.3 LVOT diam: 1.9 cm LVOT area: 2.8 cm2 RWT: 0.39 Doppler Measurements & Calculations MV E max martell: 77.6 cm/sec MV A max martell: 119.0 cm/sec MV E/A: 0.65 MV max P.2 mmHg MV mean P.0 mmHg MV V2 VTI: 36.9 cm MVA(VTI): 2.1 cm2 MV P1/2t max martell: 82.5 cm/sec MV P1/2t: 114.0 msec MVA(P1/2t): 1.9 cm2 MV dec slope: 212.0 cm/sec2 MV dec time: 0.32 sec LV V1 max P.3 mmHg LV V1 max: 125.0 cm/sec LV V1 VTI: 27.6 cm SV(LVOT): 78.3 ml SI(LVOT): 43.9 ml/m2 PA acc time: 0.13 sec TR max martell: 233.0 cm/sec TR max P.7 mmHg E/E' av.1 Lateral E/e': 11.9 Medial E/e': 18.3 Report approved by: Izabela Sarabia 07/03/2021 12:05 PM Eunice Camacho LICSW - 07/10/2021 10:12 AM CST Care Management Follow Up Length of Stay (days): 0 Expected Discharge Date: 07/11/2021 Concerns to be Addressed: all concerns addressed in this encounter Patient plan of care discussed at interdisciplinary rounds: Yes Anticipated Discharge Disposition: Transitional Care Disposition Comments: TCU Anticipated Discharge Services: None Anticipated Discharge DME: None Patient/family educated on Medicare website which has current facility and service quality ratings: yes Education Provided on the Discharge Plan: Patient/Family in Agreement with the Plan: yes Referrals Placed by CM/SW: Post Acute Facilities Private pay costs discussed: Not applicable Additional Information: BOB placed calls to referred TCU facilities to check on bed availability for the pt. [facility] reports [facility] do not have a bed for the pt at this time. SW left for [facility] requesting call back about ability to accept. STEFANY Fair Addendum: BOB checked back with [facility] who report they can review again. BOB resent referral. 10:57 AM SW received acceptance of pt to [facility]. They request pt bring her own cpap. BOB met with pt to discuss. Pt agreeable with placement at [facility]. She reports that the Cpap at the hospital is hers and she will bring it along. Discussed transport and she requests wheelchair transport be arranged. BOB informed her of the potential for private pay cost and she reports understanding and agreement. BOB provided her with information on [facility] as she had indicated to her nurse that she was interested in [facility] sometime in the near future. BOB discussed this process with pt and pt notes she has already done some work in considering [facility] and looking into options but needs to start meeting with some facilities. BOB encouraged her to also speak with the TCU SW about this.She reports understanding. BOB updated MD of accepting bed via text page. BOB set up [facility] wheelchair transport at 4:00 PM. BOB updated facility, RN, and charge of the ride time. BOB also updated pts daughter, Maryuri. Jesus completed orders to [facility]. 12:53 PM CTOR OF INTEGRATED MARKETING Chery Kate, OVER SHORT AND DAMAGE CLERK - 07/09/2021 1:21 PM CST Images from the original note were not included. [facility] OUTPATIENT SPEECH LANGUAGE PATHOLOGY EVALUATION PLAN OF TREATMENT FOR OUTPATIENT REHABILITATION (COMPLETE FOR INITIAL CLAIMS ONLY) Patient's Last Name, First Name, M.I. Date of : 1935 Meseret Lakhani Provider's Name [facility] Onset Date: 07/01/21 Start of Care Date: 07/02/21 Type: ___PT ___OT _X_SLP Medical Diagnosis: (P) Acute Hypoxic Respiratory Failure, dysphagia OVER SHORT AND DAMAGE CLERK Diagnosis: dysphagia Visits from SOC: 1 Plan of Treatment/Functional Goals Planned Interventions: Dysphagia Treatment Instruction of safe swallow strategies Goals: See Speech Language Pathology Goals on Care Plan in [facility] electronic health record. Therapy Frequency:2 times/wk Predicted Duration of Therapy Intervention: 1 week I CERTIFY THE NEED FOR THESE SERVICES FURNISHED UNDER THIS PLAN OF TREATMENT AND WHILE UNDER MY CARE (Physician co-signature of this document indicates review and certification of the therapy plan). Certification date from: 07/02/21 Certification date to: 07/09/21 Referring Physician: Loy Armas MD Initial Assessment See Speech Language Pathology documentation in Epic electronic health record, evaluation dated 07/02/21 [employer]OR OF INTEGRATED MARKETING Associated attestation - Loy Armas MD - 07/19/2021 4:16 PM DIRECTOR OF INTEGRATED MARKETING Physician Attestation I agree with the information in this note. Joan Oro MSW - 07/09/2021 9:31 AM CST Care Management Follow Up Length of Stay (days): 0 Expected Discharge Date: 07/09/2021 Concerns to be Addressed: Patient plan of care discussed at interdisciplinary rounds: Yes Anticipated Discharge Disposition: Anticipated Discharge Services: Anticipated Discharge DME: Patient/family educated on Medicare website which has current facility and service quality ratings: Education Provided on the Discharge Plan: Patient/Family in Agreement with the Plan: Referrals Placed by CM/SW: Private pay costs discussed: Not applicable Additional Information: Per chart review BOB Rodriguez on 07/04 sent a referral to [facility] p: [phone], f: [phone] for home care. However on 07/06 and going forward therapies have recommended TCU. Received a phone call from [facility] with [facility] who reports they are stillreviewing. BOB updated them at this time we are looking for TCU. Referrals pending at [facility]. Declined TCU at [facility] due to no bed ANAHI Guerrero CTOR OF INTEGRATED MARKETING Alec Jordan MD - 07/09/2021 9:27 AM CST [facility] Hospitalist Progress Note Alec Jordan MD, MD 07/09/2021 (Text Page) Reason for Stay (Diagnosis): Acute hypoxic respiratory failure with unclear etiology possibly secondary to her underlying cardiomyopathy Assessment and Plan: Summary of Stay: Meseret Lakhani is a 86 year old female with past medical history significant for hypertension, factor V Leiden with previous DVT on chronic anticoagulation, hyperlipidemia, major depressive disorder, anxiety, and GERD who presented to [facility] on 07/01/2021 with left lower back pain and was found to have musculoskeletal strain. Developed hypoxia in the emergency department without clear etiology at this time. ?? Acute Hypoxic Respiratory Failure, stable Possible Cardiomyopathy Patient now requiring oxygen which she does not use at baseline. She is not experiencing any dyspneabut was noted to be hypoxemic on bedside monitor. Chest x-ray without any lobar opacities but with some cardiomegaly, vascular congestion and interstitial edema. Procalcitonin and NTBNP negative. Two doses of Lasix IV were provided with improvement in respiratory function; she is now only requiring 1Loxygen. TTE, however, with normal systolic function and possible early diastolic dysfunction but without RV dilation. It did note that WMA could not be excluded; ECG obtained without ST segment changesor signs of ischemia. CXR also with possible tracheal deviation; considered external tracheal compression, though no stridor was appreciated on exam.ABG with notable hypoxemia. CT with atelectasis and cardiomegaly, but no sign of pulmonary edema or pneumonia. Suspect that patient has oxygen needs due to prolonged bedrest from injury. Continue incentive spirometry and wean as able. -Continuous oximetry -Supplemental oxygen PRN-oxygen support wean off. May discontinue continuous oximetry if continues to tolerate off oxygen support -Incentive spirometry -Currently not using any oxygen support ?? Low Back Pain Likely Muscular Strain Physical deconditioning Patient with left lower back pain for several days only present now with movement. Requiring 2 person assist when she has independent at baseline. Imaging nondiagnostic for any fractures. Suspect musculoskeletal in etiology. PT/OT assisting with evaluation and treatment while in hospital. Will need soc ial work assistance in finding rehab facility as patient is still requiring assist of 1 with out of bed activity. -Oxycodone 2.5mg Q6H PRN -Acetaminophen TID -Lidocaine patches -Ice packs -Pain consult work -She is working with therapy services and she is hopeful if she can just be discharged straight to home without doing TCU placement ?? Dysphagia: OVER SHORT AND DAMAGE CLERK consulting. 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 Acquired coagulopathy secondary to anticoagulant use with warfarin Hypertension: Continue HOSPICE CLINICAL MARKETER amlodipine, lisinopril, -Will decrease her metoprolol dosing given asymptomatic bradycardia -Currently blood pressure levels within acceptable ranges, heart rate stable Hyperlipidemia: Continue HOSPICE CLINICAL MARKETER statin. MDD/RONALDO: Continue HOSPICE CLINICAL MARKETER sertraline. GERD: Continue PPI. Hypothyroidism: Continue HOSPICE CLINICAL MARKETER levothyroxine. -Black tarry stools occurred last 07/08/2021 as no further recurrence Repeat hemoglobin remained stable at 12 g Remain on anticoagulation. Therapeutic INR ?? Diet: Orders Placed This Encounter Regular Diet Adult DVT Prophylaxis: On warfarin Shearer Catheter:Not present Code Status: No CPR- Do NOT Intubate Expected discharge: TCU placement awaiting Remain on observation status as per previous utilization review recommendations Interval History (Subjective): Continuing service care today. Seen and examined. Chart reviewed. Case discussed with nursing service. Ms. Carl is in good spirits as she mentioned that she was able to work better and participate more with therapy services. No reported recurrence of earlier black tarry stooling No bleeding tendencies seen. Stable hemodynamics. Not hypoxic. Afebrile. Physical Exam: Last Vital Signs: BP (!) 165/65 (BP Location: Left arm) Pulse 56 Temp (!) 96.4 ??F (35.8 ??C) (Temporal) Resp 18 Ht 1.6 m (5' 3) Wt 74.8 kg (165 lb) SpO2 96% BMI 29.23 kg/m?? I/O last 3 completed shifts: In: 925 [P.O.:925] Out: - Wt Readings from Last 1 Encounters: 07/02/21 74.8 kg (165 lb) Vitals: 07/02/21 1430 Weight: 74.8 kg (165 lb) Constitutional: Awake, alert, cooperative, no apparent distress Respiratory: Clear to auscultation bilaterally, no crackles or wheezing Cardiovascular: Normal rate at 60 bpm and rhythm, normal S1 and S2 Abdomen: Normal bowel sounds, soft, protuberant, non-tender Skin: No rashes, no cyanosis, dry to touch Neuro: Alert and oriented x3, no weakness, spontaneous and coherent speech Extremities: No edema, normal range of motion Other(s): Euthymic mood, not agitated All other systems: Negative Medications: All current medications were reviewed with changes reflected in problem list. Data: All new lab and imaging data was reviewed. Labs: No results for input(s): CULT in the last 168 hours. Recent Labs Lab 07/09/21 0835 07/08/21 1824 07/08/21 0607 07/07/21 0849 07/06/21 0749 WBC -- -- 5.5 6.1 4.8 HGB 12.8 12.1 11.4* 12.3 11.7 HCT -- -- 38.6 42.0 40.1 MCV -- -- 100 102* 102* PLT -- -- 154 184 148* Recent Labs Lab 07/09/21 0835 07/08/21 0607 07/07/21 0849 07/06/21 0749 NA -- 141 142 143 POTASSIUM 4.0 3.9 3.7 4.3 CHLORIDE -- 109 109 109 CO2 -- 28 31 ANIONGAP -- 4 5 3 GLC -- 142* 159* 117* BUN -- 20 20 18 CR -- 0.59 0.67 0.65 GFRESTIMATED -- 84 81 82 JAMIN -- 9.7 9.9 9.8 No results for input(s): SED, CRP in the last 168 hours. Recent Labs Lab 07/08/21 0607 07/07/21 0849 07/06/21 0749 07/05/21 0659 07/04/21 1244 GLC 142* 159* 117* 123* 118* Recent Labs Lab 07/09/21 0835 07/08/21 0607 07/07/21 0849 INR 2.79* 2.70* 2.55* No results for input(s): CHOL, HDL, LDL, TRIG, CHOLHDLRATIO in the last 168 hours. No results for input(s): TROPONIN, TROPI, TROPR in the last 168 hours. Invalid input(s): TROP, TROPONINIES No results for input(s): COLOR, APPEARANCE, URINEGLC, URINEBILI, URINEKETONE, SG, UBLD, URINEPH, PROTEIN, UROBILINOGEN, NITRITE, LEUKEST, RBCU, WBCU in the last 168 hours. Imaging: Results for orders placed or performed during the hospital encounter of 07/01/[address] w/o contrast Narrative EXAM: CT LUMBAR SPINE W/O CONTRAST LOCATION: [facility] DATE/TIME: 07/01/2021 6:19 PM INDICATION: Right-sided low back pain, on Coumadin. COMPARISON: None. TECHNIQUE: Routine CT lumbar spine without IV contrast. Multiplanar reformats. Dose reduction techniques were used. FINDINGS: VERTEBRA: There are five lumbar-type vertebral bodies identified. There is mild S-shaped lumbar curve convex to the right L1, convex to the left L4. Overall vertebral body height is satisfactory. Thereis 1 mm degenerative anterior subluxation L2-L3, L4-L5 noted. Articular pillars are intact. Lower lumbar spine facet joint arthropathy. No evidence for facet joint space widening or interspace widening. Perforating vascular channel right superior articular process L4 series 7 image 40, series 8 image 30. No fracture or posttraumatic subluxation. No displaced lower rib fractures are evident. Degenerative changes both SI joints. CANAL/FORAMINA: There is no high grade spinal stenosis present. No traumatic disc herniations. Moderate spinal stenoses are identified L1-L2, L3-L4, and L4- L5 levels. There is some ectasia of the nerveroot sleeves at L5-S1, left more prominent than right. No severe foraminal compromise. PARASPINAL: There is some dorsal paraspinous muscular atrophy/fatty replacement on a chronic basis at the lower lumbar level. No retroperitoneal solid mass or adenopathy. Vascular calcification is present. Degenerative changes anterior SI joints. Granite Polisher Apprentice localizer shows total hip arthroplasty components. Impression IMPRESSION: 1. No fracture or posttraumatic subluxation. 2. No high grade spinal canal or neural foraminal stenosis. 3. Multilevel moderate spinal stenosis on a chronic degenerative basis with no traumatic disc herniations evident. XR Chest 2 Views Narrative XR CHEST 2 VW 07/02/2021 2:24 PM INDICATION: dyspnea COMPARISON: None Impression IMPRESSION: Cardiomegaly with pulmonary vascular congestion and probable mild interstitial edema. No focal infiltrate or pleural effusion. JAISON JOHNSTON MD SYSTEM ID: [id number] CT Chest w/o Contrast Narrative EXAM: CT CHEST W/O CONTRAST LOCATION: [facility] DATE/TIME: 07/04/2021 6:20 PM INDICATION: Respiratory failure. COMPARISON: None. TECHNIQUE: CT chest without IV contrast. Multiplanar reformats were obtained. Dose reduction techniques were used. CONTRAST: None. FINDINGS: LUNGS AND PLEURA: Minor dependent atelectatic changes in both lungs. No pleural effusion. MEDIASTINUM/AXILLAE: Ascending thoracic aorta mildly ectatic at 4.1 cm. The heart is enlarged. No thoracic or axillary adenopathy. CORONARY ARTERY CALCIFICATION: Severe. UPPER ABDOMEN: The spleen is mildly enlarged. MUSCULOSKELETAL: Unremarkable. Impression IMPRESSION: 1. Cardiomegaly and severe coronary atherosclerosis. 2. Ectatic ascending thoracic aorta. Echocardiogram Complete Value LVEF 55-60% [facility] [id number]^ALEA^LOY [facility] Echocardiography Laboratory [address] [place] [address] Name: MESERET LAKHANI : 1935 Study Date: 07/03/2021 09:37 AM Age: 86 yrs Gender: Female Patient Location: [facility] Reason For Study: Dyspnea Ordering Physician: LOY ARMAS Performed By: Lorena Bishop BSA: 1.8 m2 Height: 63 in Weight: 165 lb HR: 55 BP: 130/55 mmHg Procedure Complete Portable Echo Adult. Interpretation Summary Left ventricular systolic function is normal. The visual ejection fraction is 55-60%. Technically difficult, suboptimal study. No hemodynamically significant valvular abnormalities on 2D or color flow imaging. There is no comparison study available. Left Ventricle (The upper limit of normal is 5.6cm for left ventricular size in end- diastole.). Left ventricular systolic function is normal. The visual ejection fraction is 55-60%. Grade I or early diastolic dysfunction. Regional wall motion abnormalities cannot be excluded due to limited visualization. Right Ventricle The right ventricle is not well visualized. The right ventricular systolic function is normal. Atria Left atrial enlargement is noted on two-dimensional imaging. Right atrium not well visualized. Mitral Valve There is mild mitral annular calcification. There is trace mitral regurgitation. There is no mitral valve stenosis. Tricuspid Valve The tricuspid valve is not well visualized, but is grossly normal. The right ventricular systolic pressure is approximated at 21.7 mmHg plus the right atrial pressure. Aortic Valve The aortic valve is trileaflet with aortic valve sclerosis. No aortic stenosis is present. Pulmonic Valve The pulmonic valve is not well visualized. Normal pulmonic valve velocity. Vessels Normal size aorta. The ascending aorta is Mildly dilated. The inferior vena cava is normal. Pericardium There is no pericardial effusion. MMode/2D Measurements & Calculations IVSd: 1.0 cm LVIDd: 5.6 cm LVIDs: 4.0 cm LVPWd: 1.1 cm FS: 27.9 % LV mass(C)d: 233.0 grams LV mass(C)dI: 130.8 grams/m2 Ao root diam: 3.2 cm LA dimension: 4.3 cm asc Aorta Diam: 4.0 cm LA/Ao: 1.3 LVOT diam: 1.9 cm LVOT area: 2.8 cm2 RWT: 0.39 Doppler Measurements & Calculations MV E max martell: 77.6 cm/sec MV A max martell: 119.0 cm/sec MV E/A: 0.65 MV max P.2 mmHg MV mean P.0 mmHg MV V2 VTI: 36.9 cm MVA(VTI): 2.1 cm2 MV P1/2t max martell: 82.5 cm/sec MV P1/2t: 114.0 msec MVA(P1/2t): 1.9 cm2 MV dec slope: 212.0 cm/sec2 MV dec time: 0.32 sec LV V1 max P.3 mmHg LV V1 max: 125.0 cm/sec LV V1 VTI: 27.6 cm SV(LVOT): 78.3 ml SI(LVOT): 43.9 ml/m2 PA acc time: 0.13 sec TR max martell: 233.0 cm/sec TR max P.7 mmHg E/E' av.1 Lateral E/e': 11.9 Medial E/e': 18.3 Report approved by: Dilcia uNnes MDon 07/03/2021 12:05 PM [employer] Joan Caruso MSW - 07/08/2021 2:10 PM CST Care Management Follow Up Length of Stay (days): 0 Expected Discharge Date: 07/08/2021 Concerns to be Addressed: Patient plan of care discussed at interdisciplinary rounds: Yes Anticipated Discharge Disposition: Anticipated Discharge Services: Anticipated Discharge DME: Patient/family educated on Medicare website which has current facility and service quality ratings: Education Provided on the Discharge Plan: Patient/Family in Agreement with the Plan: Referrals Placed by CM/SW: Private pay costs discussed: Not applicable Additional Information: PT re eval on 07/08 still recommending TCU. Referrals pending at [facility]. Declined at [facility] due to no bed ANAHI Guerrero [phone] [employer] Alec Jordan MD - 07/08/2021 12:00 PM CST [facility] Hospitalist Progress Note Alec Jordan MD, MD 07/08/2021 (Text Page) Reason for Stay (Diagnosis): Acute hypoxic respiratory failure with unclear etiology possibly secondary to her underlying cardiomyopathy Assessment and Plan: Summary of Stay: Meseret Lakhani is a 86 year old female with past medical history significant for hypertension, factor V Leiden with previous DVT on chronic anticoagulation, hyperlipidemia, major depressive disorder, anxiety, and GERD who presented to [facility] on 07/01/2021 with left lower back pain and was found to have musculoskeletal strain. Developed hypoxia in the emergency department without clear etiology at this time. ?? Acute Hypoxic Respiratory Failure, stable Possible Cardiomyopathy Patient now requiring oxygen which she does not use at baseline. She is not experiencing any dyspneabut was noted to be hypoxemic on bedside monitor. Chest x-ray without any lobar opacities but with some cardiomegaly, vascular congestion and interstitial edema. Procalcitonin and NTBNP negative. Two doses of Lasix IV were provided with improvement in respiratory function; she is now only requiring 1Loxygen. TTE, however, with normal systolic function and possible early diastolic dysfunction but without RV dilation. It did note that WMA could not be excluded; ECG obtained without ST segment changesor signs of ischemia. CXR also with possible tracheal deviation; considered external tracheal compression, though no stridor was appreciated on exam.ABG with notable hypoxemia. CT with atelectasis and cardiomegaly, but no sign of pulmonary edema or pneumonia. Suspect that patient has oxygen needs due to prolonged bedrest from injury. Continue incentive spirometry and wean as able. -Continuous oximetry -Supplemental oxygen PRN-oxygen support wean off. May discontinue continuous oximetry if continues to tolerate off oxygen support -Incentive spirometry ?? Low Back Pain Likely Muscular Strain Patient with left lower back pain for several days only present now with movement. Requiring 2 person assist when she has independent at baseline. Imaging nondiagnostic for any fractures. Suspect musculoskeletal in etiology. PT/OT assisting with evaluation and treatment while in hospital. Will need soc ial work assistance in finding rehab facility as patient is still requiring assist of 1 with out of bed activity. -Oxycodone 2.5mg Q6H PRN -Acetaminophen TID -Lidocaine patches -Ice packs -Pain consult work -She is working with therapy services and she is hopeful if she can just be discharged straight to home without doing TCU placement ?? Dysphagia: OVER SHORT AND DAMAGE CLERK consulting. 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 Coagulopathy secondary to anticoagulant use with warfarin Hypertension: Continue HOSPICE CLINICAL MARKETER amlodipine, lisinopril, -Will decrease her metoprolol dosing given asymptomatic bradycardia -Currently normotensive, heart rate normal rate Hyperlipidemia: Continue HOSPICE CLINICAL MARKETER statin. MDD/RONALDO: Continue HOSPICE CLINICAL MARKETER sertraline. GERD: Continue PPI. Hypothyroidism: Continue HOSPICE CLINICAL MARKETER levothyroxine. -Black tarry stools this morning. Continue to monitor for any GI bleeding events. Repeat hemoglobin this afternoon. -Most recent hemoglobin stable this morning however she is higher risk for bleeding given concurrentuse of anticoagulation with therapeutic INR. ?? Diet: Orders Placed This Encounter Regular Diet Adult DVT Prophylaxis: Enoxaparin (Lovenox) SQ Shearer Catheter:Not present Code Status: No CPR- Do NOT Intubate Expected discharge: TCU placement awaiting Remain on observation status as per previous utilization review recommendations Interval History (Subjective): Continuing service care today. Seen and examined. Chart reviewed. Case discussed with nursing service. Ms. Carl denies any ongoing abdominal pain, nausea, vomiting. Still with intermittent back discomfort. No complaints of chest pain, shortness of breath. Not hypoxic. Not requiring any oxygen support. However nursing service reported to me that they noticed black tarry stools during this morning nursing rounds No other bleeding tendencies reported such as hematuria, bright red blood per rectum, coffee-ground emesis Physical Exam: Last Vital Signs: BP (!) 148/58 Pulse 51 Temp 97.4 ??F (36.3 ??C) (Temporal) Resp 20 Ht 1.6 m (5' 3) Wt 74.8 kg (165 lb) SpO2 92% BMI 29.23 kg/m?? I/O last 3 completed shifts: In: 240 [P.O.:240] Out: - Wt Readings from Last 1 Encounters: 07/02/21 74.8 kg (165 lb) Vitals: 07/02/21 1430 Weight: 74.8 kg (165 lb) Constitutional: Awake, alert, cooperative, no apparent distress Respiratory: Clear to auscultation bilaterally, no crackles or wheezing Cardiovascular: Normal rate at 60 bpm and rhythm, normal S1 and S2 Abdomen: Normal bowel sounds, soft, protuberant, non-tender Skin: No rashes, no cyanosis, dry to touch Neuro: Alert and oriented x3, no weakness, spontaneous and coherent speech Extremities: No edema, normal range of motion Other(s): Euthymic mood, not agitated All other systems: Negative Medications: All current medications were reviewed with changes reflected in problem list. Data: All new lab and imaging data was reviewed. Labs: No results for input(s): CULT in the last 168 hours. Recent Labs Lab 07/08/21 0607 07/07/21 0849 07/06/21 0749 WBC 5.5 6.1 4.8 HGB 11.4* 12.3 11.7 HCT 38.6 42.0 40.1 MCV 100 102* 102* PLT 154 184 148* Recent Labs Lab 07/08/21 0607 07/07/21 0849 07/06/21 0749 NA 141 142 143 POTASSIUM 3.9 3.7 4.3 CHLORIDE 109 109 109 CO2 28 28 31 ANIONGAP 4 5 3 GLC 142* 159* 117* BUN 20 20 18 CR 0.59 0.67 0.65 GFRESTIMATED 84 81 82 JAMIN 9.7 9.9 9.8 No results for input(s): SED, CRP in the last 168 hours. Recent Labs Lab 07/08/21 0607 07/07/21 0849 07/06/21 0749 07/05/21 0659 07/04/21 1244 GLC 142* 159* 117* 123* 118* Recent Labs Lab 07/08/21 0607 07/07/21 0849 07/06/21 0749 INR 2.70* 2.55* 2.40* No results for input(s): CHOL, HDL, LDL, TRIG, CHOLHDLRATIO in the last 168 hours. No results for input(s): TROPONIN, TROPI, TROPR in the last 168 hours. Invalid input(s): TROP, TROPONINIES Recent Labs Lab 07/01/21 184 COLOR Yellow APPEARANCE Clear URINEGLC Negative URINEBILI Negative URINEKETONE Negative SG 1.017 UBLD Negative URINEPH 5.0 PROTEIN Negative NITRITE Negative LEUKEST Trace* RBCU 1 WBCU 4 Imaging: Results for orders placed or performed during the hospital encounter of 07/01/[address] w/o contrast Narrative EXAM: CT LUMBAR SPINE W/O CONTRAST LOCATION: [facility] DATE/TIME: 07/01/2021 6:19 PM INDICATION: Right-sided low back pain, on Coumadin. COMPARISON: None. TECHNIQUE: Routine CT lumbar spine without IV contrast. Multiplanar reformats. Dose reduction techniques were used. FINDINGS: VERTEBRA: There are five lumbar-type vertebral bodies identified. There is mild S-shaped lumbar curve convex to the right L1, convex to the left L4. Overall vertebral body height is satisfactory. Thereis 1 mm degenerative anterior subluxation L2-L3, L4-L5 noted. Articular pillars are intact. Lower lumbar spine facet joint arthropathy. No evidence for facet joint space widening or interspace widening. Perforating vascular channel right superior articular process L4 series 7 image 40, series 8 image 30. No fracture or posttraumatic subluxation. No displaced lower rib fractures are evident. Degenerative changes both SI joints. CANAL/FORAMINA: There is no high grade spinal stenosis present. No traumatic disc herniations. Moderate spinal stenoses are identified L1-L2, L3-L4, and L4- L5 levels. There is some ectasia of the nerveroot sleeves at L5-S1, left more prominent than right. No severe foraminal compromise. PARASPINAL: There is some dorsal paraspinous muscular atrophy/fatty replacement on a chronic basis at the lower lumbar level. No retroperitoneal solid mass or adenopathy. Vascular calcification is present. Degenerative changes anterior SI joints. [employer]ite [employer] Apprentice localizer shows total hip arthroplasty components. Impression IMPRESSION: 1. No fracture or posttraumatic subluxation. 2. No high grade spinal canal or neural foraminal stenosis. 3. Multilevel moderate spinal stenosis on a chronic degenerative basis with no traumatic disc herniations evident. XR Chest 2 Views Narrative XR CHEST 2 VW 07/02/2021 2:24 PM INDICATION: dyspnea COMPARISON: None Impression IMPRESSION: Cardiomegaly with pulmonary vascular congestion and probable mild interstitial edema. No focal infiltrate or pleural effusion. JAISON JOHNSTON MD SYSTEM ID: [id number] CT Chest w/o Contrast Narrative EXAM: CT CHEST W/O CONTRAST LOCATION: [facility] DATE/TIME: 07/04/2021 6:20 PM INDICATION: Respiratory failure. COMPARISON: None. TECHNIQUE: CT chest without IV contrast. Multiplanar reformats were obtained. Dose reduction techniques were used. CONTRAST: None. FINDINGS: LUNGS AND PLEURA: Minor dependent atelectatic changes in both lungs. No pleural effusion. MEDIASTINUM/AXILLAE: Ascending thoracic aorta mildly ectatic at 4.1 cm. The heart is enlarged. No thoracic or axillary adenopathy. CORONARY ARTERY CALCIFICATION: Severe. UPPER ABDOMEN: The spleen is mildly enlarged. MUSCULOSKELETAL: Unremarkable. Impression IMPRESSION: 1. Cardiomegaly and severe coronary atherosclerosis. 2. Ectatic ascending thoracic aorta. Echocardiogram Complete Value LVEF 55-60% [facility] [id number]^ALEA^LOY [facility] Echocardiography Laboratory [address] [place] [id number] Name: MESERET LAKHANI : 1935 Study Date: 07/03/2021 09:37 AM Age: 86 yrs Gender: Female Patient Location: [facility] Reason For Study: Dyspnea Ordering Physician: LOY ARMAS Performed By: Lorena Bishop BSA: 1.8 m2 Height: 63 in Weight: 165 lb HR: 55 BP: 130/55 mmHg Procedure Complete Portable Echo Adult. Interpretation Summary Left ventricular systolic function is normal. The visual ejection fraction is 55-60%. Technically difficult, suboptimal study. No hemodynamically significant valvular abnormalities on 2D or color flow imaging. There is no comparison study available. Left Ventricle (The upper limit of normal is 5.6cm for left ventricular size in end- diastole.). Left ventricular systolic function is normal. The visual ejection fraction is 55-60%. Grade I or early diastolic dysfunction. Regional wall motion abnormalities cannot be excluded due to limited visualization. Right Ventricle The right ventricle is not well visualized. The right ventricular systolic function is normal. Atria Left atrial enlargement is noted on two-dimensional imaging. Right atrium not well visualized. Mitral Valve There is mild mitral annular calcification. There is trace mitral regurgitation. There is no mitral valve stenosis. Tricuspid Valve The tricuspid valve is not well visualized, but is grossly normal. The right ventricular systolic pressure is approximated at 21.7 mmHg plus the right atrial pressure. Aortic Valve The aortic valve is trileaflet with aortic valve sclerosis. No aortic stenosis is present. Pulmonic Valve The pulmonic valve is not well visualized. Normal pulmonic valve velocity. Vessels Normal size aorta. The ascending aorta is Mildly dilated. The inferior vena cava is normal. Pericardium There is no pericardial effusion. MMode/2D Measurements & Calculations IVSd: 1.0 cm LVIDd: 5.6 cm LVIDs: 4.0 cm LVPWd: 1.1 cm FS: 27.9 % LV mass(C)d: 233.0 grams LV mass(C)dI: 130.8 grams/m2 Ao root diam: 3.2 cm LA dimension: 4.3 cm asc Aorta Diam: 4.0 cm LA/Ao: 1.3 LVOT diam: 1.9 cm LVOT area: 2.8 cm2 RWT: 0.39 Doppler Measurements & Calculations MV E max martell: 77.6 cm/sec MV A max martell: 119.0 cm/sec MV E/A: 0.65 MV max P.2 mmHg MV mean P.0 mmHg MV V2 VTI: 36.9 cm MVA(VTI): 2.1 cm2 MV P1/2t max martell: 82.5 cm/sec MV P1/2t: 114.0 msec MVA(P1/2t): 1.9 cm2 MV dec slope: 212.0 cm/sec2 MV dec time: 0.32 sec LV V1 max P.3 mmHg LV V1 max: 125.0 cm/sec LV V1 VTI: 27.6 cm SV(LVOT): 78.3 ml SI(LVOT): 43.9 ml/m2 PA acc time: 0.13 sec TR max martell: 233.0 cm/sec TR max P.7 mmHg E/E' av.1 Lateral E/e': 11.9 Medial E/e': 18.3 Report approved by: Dilcia Nunes MDon 07/03/2021 12:05 PM [employer] Corazon Varela OT - 07/08/2021 8:00 AM CST Images from the original note were not included. [facility] OUTPATIENT OCCUPATIONAL THERAPY EVALUATION PLAN OF TREATMENT FOR OUTPATIENT REHABILITATION (COMPLETE FOR INITIAL CLAIMS ONLY) Patient's Last Name, First Name, M.I. Date of : 1935 Meseret Lakhani Provider's Name [facility] Onset Date: 07/01/21 Start of Care Date: (P) 07/02/21 Type: ___PT _X_OT ___SLP Medical Diagnosis: (P) back pain OT Diagnosis: decreased ADLS/IADls Visits from SOC: 1 _ Plan of Treatment/Functional Goals Planned Interventions: ADL retraining,progressive activity/exercise,transfer training Goals: See Occupational Therapy Goals on Care Plan in [facility] electronic health record. Therapy Frequency: 5x/week Predicted Duration of Therapy Intervention: _ I CERTIFY THE NEED FOR THESE SERVICES FURNISHED UNDER THIS PLAN OF TREATMENT AND WHILE UNDER MY CARE (Physician co-signature of this document indicates review and certification of the therapy plan). Certification date from: (P) 07/02/21, Certification date to: (P) 07/12/21 Referring Physician: Loy Armas MD Initial Assessment See Occupational Therapy evaluation dated (P) 07/02/21 in [facility] electronic health record. [employer] Associated attestation - Loy Armas MD - 07/19/2021 4:21 PM DIRECTOR OF [employer] MARKETING Physician Attestation I agree with the information in this note. Racquel Redman SLP - 07/07/2021 11:36 AM CST Images from the original note were not included. [facility] OUTPATIENT SPEECH LANGUAGE PATHOLOGY EVALUATION PLAN OF TREATMENT FOR OUTPATIENT REHABILITATION (COMPLETE FOR INITIAL CLAIMS ONLY) Patient's Last Name, First Name, M.I. Date of : 1935 Meseret Lakhani Provider's Name [facility] Onset Date: 07/01/21 Start of Care Date: Type: ___PT ___OT _X_SLP Medical Diagnosis: OVER SHORT AND DAMAGE CLERK Diagnosis: dysphagia Visits from SOC: 1 Plan of Treatment/Functional Goals Planned Interventions: Dysphagia Treatment Instruction of safe swallow strategies Goals: See Speech Language Pathology Goals on Care Plan in [facility] electronic health record. Therapy Frequency:2 times/wk Predicted Duration of Therapy Intervention: 1 week I CERTIFY THE NEED FOR THESE SERVICES FURNISHED UNDER THIS PLAN OF TREATMENT AND WHILE UNDER MY CARE (Physician co-signature of this document indicates review and certification of the therapy plan). Referring Physician: Loy Armas MD Initial Assessment See Speech Language Pathology documentation in [facility] electronic health record, evaluation dated [employer] Associated attestation - Loy Armas MD - 07/19/2021 4:15 PM [employer]OR [employer]ET[employer] Physician Attestation I agree with the information in this note. Alec Davies MD - 07/07/2021 10:59 AM CST [facility] Hospitalist Progress Note Alec Jordan MD, MD 07/07/2021 (Text Page) Reason for Stay (Diagnosis): Acute hypoxic respiratory failure with unclear etiology possibly secondary to her underlying cardiomyopathy Assessment and Plan: Summary of Stay: Meseret Lakhani is a 86 year old female with past medical history significant for hypertension, factor V Leiden with previous DVT on chronic anticoagulation, hyperlipidemia, major depressive disorder, anxiety, and GERD who presented to [facility] on 07/01/2021 with left lower back pain and was found to have musculoskeletal strain. Developed hypoxia in the emergency department without clear etiology at this time. ?? Acute Hypoxic Respiratory Failure, stable Possible Cardiomyopathy Patient now requiring oxygen which she does not use at baseline. She is not experiencing any dyspneabut was noted to be hypoxemic on bedside monitor. Chest x-ray without any lobar opacities but with some cardiomegaly, vascular congestion and interstitial edema. Procalcitonin and NTBNP negative. Two doses of Lasix IV were provided with improvement in respiratory function; she is now only requiring 1Loxygen. TTE, however, with normal systolic function and possible early diastolic dysfunction but without RV dilation. It did note that WMA could not be excluded; ECG obtained without ST segment changesor signs of ischemia. CXR also with possible tracheal deviation; considered external tracheal compression, though no stridor was appreciated on exam.ABG with notable hypoxemia. CT with atelectasis and cardiomegaly, but no sign of pulmonary edema or pneumonia. Suspect that patient has oxygen needs due to prolonged bedrest from injury. Continue incentive spirometry and wean as able. -Continuous oximetry -Supplemental oxygen PRN-oxygen support wean off. May discontinue continuous oximetry if continues to tolerate off oxygen support -Incentive spirometry ?? Low Back Pain Likely Muscular Strain Patient with left lower back pain for several days only present now with movement. Requiring 2 person assist when she has independent at baseline. Imaging nondiagnostic for any fractures. Suspect musculoskeletal in etiology. PT/OT assisting with evaluation and treatment while in hospital. Will need soc ial work assistance in finding rehab facility as patient is still requiring assist of 1 with out of bed activity. -Oxycodone 2.5mg Q6H PRN -Acetaminophen TID -Lidocaine patches -Ice packs -Pain consult ?? Dysphagia: OVER SHORT AND DAMAGE CLERK consulting. 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 Coagulopathy secondary to anticoagulant use with warfarin Hypertension: Continue HOSPICE CLINICAL MARKETER amlodipine, lisinopril, -Will decrease her metoprolol dosing given asymptomatic bradycardia -Currently normotensive, heart rate normal rate Hyperlipidemia: Continue HOSPICE CLINICAL MARKETER statin. MDD/RONALDO: Continue HOSPICE CLINICAL MARKETER sertraline. GERD: Continue PPI. Hypothyroidism: Continue HOSPICE CLINICAL MARKETER levothyroxine. ?? Diet: Orders Placed This Encounter Regular Diet Adult DVT Prophylaxis: Enoxaparin (Lovenox) SQ Shearer Catheter:Not present Code Status: No CPR- Do NOT Intubate Expected discharge: TCU placement awaiting Remain on observation status as per previous utilization review recommendations Interval History (Subjective): Continuing service care today. Seen and examined. Chart reviewed. Case discussed with nursing service. No significant reported events overnight. Still having some intermittent back discomfort but currently controlled. Afebrile. Has been titrated and wean off from oxygen support Tolerating oral diet. No mental status changes. Physical Exam: Last Vital Signs: BP 130/55 (BP Location: Left arm) Pulse 61 Temp (!) 96.4 ??F (35.8 ??C) (Temporal) Resp 16 Ht 1.6 m (5' 3) Wt 74.8 kg (165 lb) SpO2 93% BMI 29.23 kg/m?? I/O last 3 completed shifts: In: 480 [P.O.:480] Out: - Wt Readings from Last 1 Encounters: 07/02/21 74.8 kg (165 lb) Vitals: 07/02/21 1430 Weight: 74.8 kg (165 lb) Constitutional: Awake, alert, cooperative, no apparent distress Respiratory: Clear to auscultation bilaterally, no crackles or wheezing Cardiovascular: Normal rate at 60 bpm and rhythm, normal S1 and S2 Abdomen: Normal bowel sounds, soft, protuberant, non-tender Skin: No rashes, no cyanosis, dry to touch Neuro: Alert and oriented x3, no weakness, spontaneous and coherent speech Extremities: No edema, normal range of motion Other(s): Euthymic mood, not agitated All other systems: Negative Medications: All current medications were reviewed with changes reflected in problem list. Data: All new lab and imaging data was reviewed. Labs: No results for input(s): CULT in the last 168 hours. Recent Labs Lab 07/07/21 0849 07/06/21 0749 07/05/21 0659 WBC 6.1 4.8 4.6 HGB 12.3 11.7 11.5* HCT 42.0 40.1 38.1 MCV 102* 102* 101* PLT 184 148* 145* Recent Labs Lab 07/07/21 0849 07/06/21 0749 07/05/21 0659 NA 142 143 145* POTASSIUM 3.7 4.3 3.6 CHLORIDE 109 109 110* CO2 28 31 31 ANIONGAP 5 3 4 GLC 159* 117* 123* BUN 20 18 17 CR 0.67 0.65 0.59 GFRESTIMATED 81 82 84 JAMIN 9.9 9.8 9.7 No results for input(s): SED, CRP in the last 168 hours. Recent Labs Lab 07/07/21 0849 07/06/21 0749 07/05/21 0659 07/04/21 1244 07/03/21 0834 GLC 159* 117* 123* 118* 149* Recent Labs Lab 07/07/21 0849 07/06/21 0749 07/05/21 0659 INR 2.55* 2.40* 2.59* No results for input(s): CHOL, HDL, LDL, TRIG, CHOLHDLRATIO in the last 168 hours. No results for input(s): TROPONIN, TROPI, TROPR in the last 168 hours. Invalid input(s): TROP, TROPONINIES Recent Labs Lab 07/01/21 1847 COLOR Yellow APPEARANCE Clear URINEGLC Negative URINEBILI Negative URINEKETONE Negative SG 1.017 UBLD Negative URINEPH 5.0 PROTEIN Negative NITRITE Negative LEUKEST Trace* RBCU 1 WBCU 4 Imaging: Results for orders placed or performed during the hospital encounter of 07/01/[address] w/o contrast Narrative EXAM: CT LUMBAR SPINE W/O CONTRAST LOCATION: [facility] DATE/TIME: 07/01/2021 6:19 PM INDICATION: Right-sided low back pain, on Coumadin. COMPARISON: None. TECHNIQUE: Routine CT lumbar spine without IV contrast. Multiplanar reformats. Dose reduction techniques were used. FINDINGS: VERTEBRA: There are five lumbar-type vertebral bodies identified. There is mild S-shaped lumbar curve convex to the right L1, convex to the left L4. Overall vertebral body height is satisfactory. Thereis 1 mm degenerative anterior subluxation L2-L3, L4-L5 noted. Articular pillars are intact. Lower lumbar spine facet joint arthropathy. No evidence for facet joint space widening or interspace widening. Perforating vascular channel right superior articular process L4 series 7 image 40, series 8 image 30. No fracture or posttraumatic subluxation. No displaced lower rib fractures are evident. Degenerative changes both SI joints. CANAL/FORAMINA: There is no high grade spinal stenosis present. No traumatic disc herniations. Moderate spinal stenoses are identified L1-L2, L3-L4, and L4- L5 levels. There is some ectasia of the nerveroot sleeves at L5-S1, left more prominent than right. No severe foraminal compromise. PARASPINAL: There is some dorsal paraspinous muscular atrophy/fatty replacement on a chronic basis at the lower lumbar level. No retroperitoneal solid mass or adenopathy. Vascular calcification is present. Degenerative changes anterior SI joints. Granite Polisher Apprentice localizer shows total hip arthroplasty components. Impression IMPRESSION: 1. No fracture or posttraumatic subluxation. 2. No high grade spinal canal or neural foraminal stenosis. 3. Multilevel moderate spinal stenosis on a chronic degenerative basis with no traumatic disc herniations evident. XR Chest 2 Views Narrative XR CHEST 2 VW 07/02/2021 2:24 PM INDICATION: dyspnea COMPARISON: None Impression IMPRESSION: Cardiomegaly with pulmonary vascular congestion and probable mild interstitial edema. No focal infiltrate or pleural effusion. JAISON JOHNSTON MD SYSTEM ID: [id number] CT Chest w/o Contrast Narrative EXAM: CT CHEST W/O CONTRAST LOCATION: [facility] DATE/TIME: 07/04/2021 6:20 PM INDICATION: Respiratory failure. COMPARISON: None. TECHNIQUE: CT chest without IV contrast. Multiplanar reformats were obtained. Dose reduction techniques were used. CONTRAST: None. FINDINGS: LUNGS AND PLEURA: Minor dependent atelectatic changes in both lungs. No pleural effusion. MEDIASTINUM/AXILLAE: Ascending thoracic aorta mildly ectatic at 4.1 cm. The heart is enlarged. No thoracic or axillary adenopathy. CORONARY ARTERY CALCIFICATION: Severe. UPPER ABDOMEN: The spleen is mildly enlarged. MUSCULOSKELETAL: Unremarkable. Impression IMPRESSION: 1. Cardiomegaly and severe coronary atherosclerosis. 2. Ectatic ascending thoracic aorta. Echocardiogram Complete Value LVEF 55-60% Narrative [id number]^ALEA^LOY [facility] Echocardiography Laboratory [address] [place] [id number] Name: MESEERT LAKHANI : 1935 Study Date: 07/03/2021 09:37 AM Age: 86 yrs Gender: Female Patient Location: [facility] Reason For Study: Dyspnea Ordering Physician: LOY ARMAS Performed By: Lorena Bishop BSA: 1.8 m2 Height: 63 in Weight: 165 lb HR: 55 BP: 130/55 mmHg Procedure Complete Portable Echo Adult. Interpretation Summary Left ventricular systolic function is normal. The visual ejection fraction is 55-60%. Technically difficult, suboptimal study. No hemodynamically significant valvular abnormalities on 2D or color flow imaging. There is no comparison study available. Left Ventricle (The upper limit of normal is 5.6cm for left ventricular size in end- diastole.). Left ventricular systolic function is normal. The visual ejection fraction is 55-60%. Grade I or early diastolic dysfunction. Regional wall motion abnormalities cannot be excluded due to limited visualization. Right Ventricle The right ventricle is not well visualized. The right ventricular systolic function is normal. Atria Left atrial enlargement is noted on two-dimensional imaging. Right atrium not well visualized. Mitral Valve There is mild mitral annular calcification. There is trace mitral regurgitation. There is no mitral valve stenosis. Tricuspid Valve The tricuspid valve is not well visualized, but is grossly normal. The right ventricular systolic pressure is approximated at 21.7 mmHg plus the right atrial pressure. Aortic Valve The aortic valve is trileaflet with aortic valve sclerosis. No aortic stenosis is present. Pulmonic Valve The pulmonic valve is not well visualized. Normal pulmonic valve velocity. Vessels Normal size aorta. The ascending aorta is Mildly dilated. The inferior vena cava is normal. Pericardium There is no pericardial effusion. MMode/2D Measurements & Calculations IVSd: 1.0 cm LVIDd: 5.6 cm LVIDs: 4.0 cm LVPWd: 1.1 cm FS: 27.9 % LV mass(C)d: 233.0 grams LV mass(C)dI: 130.8 grams/m2 Ao root diam: 3.2 cm LA dimension: 4.3 cm asc Aorta Diam: 4.0 cm LA/Ao: 1.3 LVOT diam: 1.9 cm LVOT area: 2.8 cm2 RWT: 0.39 Doppler Measurements & Calculations MV E max martell: 77.6 cm/sec MV A max martell: 119.0 cm/sec MV E/A: 0.65 MV max P.2 mmHg MV mean P.0 mmHg MV V2 VTI: 36.9 cm MVA(VTI): 2.1 cm2 MV P1/2t max martell: 82.5 cm/sec MV P1/2t: 114.0 msec MVA(P1/2t): 1.9 cm2 MV dec slope: 212.0 cm/sec2 MV dec time: 0.32 sec LV V1 max P.3 mmHg LV V1 max: 125.0 cm/sec LV V1 VTI: 27.6 cm SV(LVOT): 78.3 ml SI(LVOT): 43.9 ml/m2 PA acc time: 0.13 sec TR max martell: 233.0 cm/sec TR max P.7 mmHg E/E' av.1 Lateral E/e': 11.9 Medial E/e': 18.3 Report approved by: Izabela Sarabia 07/03/2021 12:05 PM [employer]OR [employer] Violette Lemos - 07/06/2021 3:20 PM CST Care Management Follow Up Length of Stay (days): 5 days (observation status) Expected Discharge Date: 07/07/2021 Concerns to be Addressed: Disposition plan: TCU vs home with home care Patient plan of care discussed at interdisciplinary rounds: Yes Anticipated Discharge Disposition: TCU vs Home with home care Anticipated Discharge Services: Rehab- PT/OT Anticipated Discharge DME: TBD Patient/family educated on Medicare website which has current facility and service quality ratings: yes Education Provided on the Discharge Plan: yes Patient/Family in Agreement with the Plan: yes Referrals Placed by CM/SW: TCU referrals. Private pay costs discussed: None discussed at this time. Additional Information: Human Resources Executive Assistant met with Meseret. Explained that PT is recommending TCU at this time. She is aware and is willing to go to TCU if needed. Meseret reports her preference is to return home and she is willing to participate in Home Care services. She reports she has a dog that her daughter is currently caring for. Second option is to attend a TCU. Human Resources Executive Assistant left pt with list of [employer] TCUs and SNF packet and explained that it could take a while to find an opening and obtain authorization for TCU and encouraged Isabela use this time to become more consistent with her mobility. Reviewed being able to look at medicare.gov star ratings. Meseret expressed desire to remain close to home if possible and was okay with referrals being made to [facility], [facility], and [facility]. SWS will follow up for more choices on Wednesday. Human Resources Executive Assistant called daughter Maryuri, with patient's permission, to review TCU recommendation and options for placement. Human Resources Executive Assistant left message for Maryuri and requested a return call. Addendum 3:54pm Daughter returned call, she is unable to come to hospital as she is sick. She is in support of plan to begin looking at TCUs, but focus on returning home if possible. She defers to pt regarding TCU choices. Violette Lemos [facility], [facility] Ed Transporter Inpatient Care Coordination [facility] [phone] [employer] Alec Jordan MD - 07/06/2021 10:09 AM CST [facility] Hospitalist Progress Note Alec Jordan MD, MD 07/06/2021 (Text Page) Reason for Stay (Diagnosis): Acute hypoxic respiratory failure with unclear etiology possibly secondary to her underlying cardiomyopathy Assessment and Plan: Summary of Stay: Meseret Lakhani is a 86 year old female with past medical history significant for hypertension, factor V Leiden with previous DVT on chronic anticoagulation, hyperlipidemia, major depressive disorder, anxiety, and GERD who presented to [facility] on 07/01/2021 with left lower back pain and was found to have musculoskeletal strain. Developed hypoxia in the emergency department without clear etiology at this time. ?? Acute Hypoxic Respiratory Failure, stable Possible Cardiomyopathy Patient now requiring oxygen which she does not use at baseline. She is not experiencing any dyspneabut was noted to be hypoxemic on bedside monitor. Chest x-ray without any lobar opacities but with some cardiomegaly, vascular congestion and interstitial edema. Procalcitonin and NTBNP negative. Two doses of Lasix IV were provided with improvement in respiratory function; she is now only requiring 1Loxygen. TTE, however, with normal systolic function and possible early diastolic dysfunction but without RV dilation. It did note that WMA could not be excluded; ECG obtained without ST segment changesor signs of ischemia. CXR also with possible tracheal deviation; considered external tracheal compression, though no stridor was appreciated on exam.ABG with notable hypoxemia. CT with atelectasis and cardiomegaly, but no sign of pulmonary edema or pneumonia. Suspect that patient has oxygen needs due to prolonged bedrest from injury. Continue incentive spirometry and wean as able. -Continuous oximetry -Supplemental oxygen PRN -Incentive spirometry ?? Low Back Pain Likely Muscular Strain Patient with left lower back pain for several days only present now with movement. Requiring 2 person assist when she has independent at baseline. Imaging nondiagnostic for any fractures. Suspect musculoskeletal in etiology. PT/OT assisting with evaluation and treatment while in hospital. Will need soc ial work assistance in finding rehab facility as patient is still requiring assist of 1 with out of bed activity. -Oxycodone 2.5mg Q6H PRN -Acetaminophen TID -Lidocaine patches -Ice packs -Pain consult ?? Dysphagia: OVER SHORT AND DAMAGE CLERK consulting. 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 Hypertension: Continue HOSPICE CLINICAL MARKETER amlodipine, lisinopril, -Will decrease her metoprolol dosing given asymptomatic bradycardia Hyperlipidemia: Continue HOSPICE CLINICAL MARKETER statin. MDD/RONALDO: Continue HOSPICE CLINICAL MARKETER sertraline. GERD: Continue PPI. Hypothyroidism: Continue HOSPICE CLINICAL MARKETER levothyroxine. ?? Diet: Orders Placed This Encounter Regular Diet Adult DVT Prophylaxis: Enoxaparin (Lovenox) SQ Shearer Catheter:Not present Code Status: No CPR- Do NOT Intubate Expected discharge: anticipate in the next 24-36 hours?? Interval History (Subjective): I assume service care today. Seen and examined. Chart reviewed. Case discussed with nursing service. She mentioned that she is doing better. Earlier pain issues is resolved. However she is still on minimal oxygen support. Denies any ongoing coughing spells, nausea, vomitingor abdominal pain. Passing gas and moving a BM. Voiding freely. No mental status changes. Afebrile. Earlier had some episodes of bradycardia but appears to be asymptomatic from it. Physical Exam: Last Vital Signs: BP (!) 160/58 (BP Location: Left arm) Pulse (!) 49 Temp (!) 96.4 ??F (35.8 ??C) (Temporal) Resp 16 Ht 1.6 m (5' 3) Wt 74.8 kg (165 lb) SpO2 96% BMI 29.23 kg/m?? I/O last 3 completed shifts: In: 660 [P.O.:660] Out: 240 [Urine:240] Wt Readings from Last 1 Encounters: 07/02/21 74.8 kg (165 lb) Vitals: 07/02/21 1430 Weight: 74.8 kg (165 lb) Constitutional: Awake, alert, cooperative, no apparent distress Respiratory: Clear to auscultation bilaterally, no crackles or wheezing Cardiovascular: Bradycardic rate at 54 and rhythm, normal S1 and S2, and no murmur noted Abdomen: Normal bowel sounds, soft, protuberant, non-tender Skin: No rashes, no cyanosis, dry to touch Neuro: Alert and oriented x3, no weakness, spontaneous and coherent speech Extremities: No edema, normal range of motion Other(s): Euthymic mood, not agitated All other systems: Negative Medications: All current medications were reviewed with changes reflected in problem list. Data: All new lab and imaging data was reviewed. Labs: No results for input(s): CULT in the last 168 hours. Recent Labs Lab 07/06/21 0749 07/05/21 0659 07/04/21 1244 WBC 4.8 4.6 6.9 HGB 11.7 11.5* 11.6* HCT 40.1 38.1 37.3 MCV 102* 101* 100 PLT 148* 145* 159 Recent Labs Lab 07/06/21 0749 07/05/21 0659 07/04/21 1244 NA 143 145* 143 POTASSIUM 4.3 3.6 4.2 CHLORIDE 109 110* 109 CO2 31 31 30 ANIONGAP 3 4 4 GLC 117* 123* 118* BUN 18 17 21 CR 0.65 0.59 0.58 GFRESTIMATED 82 84 85 JAMIN 9.8 9.7 9.7 No results for input(s): SED, CRP in the last 168 hours. Recent Labs Lab 07/06/21 0749 07/05/21 0659 07/04/21 1244 07/03/21 0834 07/01/21 1800 GLC 117* 123* 118* 149* 121* Recent Labs Lab 07/06/21 0749 07/05/21 0659 07/04/21 1244 INR 2.40* 2.59* 2.66* No results for input(s): CHOL, HDL, LDL, TRIG, CHOLHDLRATIO in the last 168 hours. No results for input(s): TROPONIN, TROPI, TROPR in the last 168 hours. Invalid input(s): TROP, TROPONINIES Recent Labs Lab 07/01/21 1847 COLOR Yellow APPEARANCE Clear URINEGLC Negative URINEBILI Negative URINEKETONE Negative SG 1.017 UBLD Negative URINEPH 5.0 PROTEIN Negative NITRITE Negative LEUKEST Trace* RBCU 1 WBCU 4 Imaging: Results for orders placed or performed during the hospital encounter of 07/01/[address] w/o contrast Narrative EXAM: CT LUMBAR SPINE W/O CONTRAST LOCATION: [facility] DATE/TIME: 07/01/2021 6:19 PM INDICATION: Right-sided low back pain, on Coumadin. COMPARISON: None. TECHNIQUE: Routine CT lumbar spine without IV contrast. Multiplanar reformats. Dose reduction techniques were used. FINDINGS: VERTEBRA: There are five lumbar-type vertebral bodies identified. There is mild S-shaped lumbar curve convex to the right L1, convex to the left L4. Overall vertebral body height is satisfactory. Thereis 1 mm degenerative anterior subluxation L2-L3, L4-L5 noted. Articular pillars are intact. Lower lumbar spine facet joint arthropathy. No evidence for facet joint space widening or interspace widening. Perforating vascular channel right superior articular process L4 series 7 image 40, series 8 image 30. No fracture or posttraumatic subluxation. No displaced lower rib fractures are evident. Degenerative changes both SI joints. CANAL/FORAMINA: There is no high grade spinal stenosis present. No traumatic disc herniations. Moderate spinal stenoses are identified L1-L2, L3-L4, and L4- L5 levels. There is some ectasia of the nerveroot sleeves at L5-S1, left more prominent than right. No severe foraminal compromise. PARASPINAL: There is some dorsal paraspinous muscular atrophy/fatty replacement on a chronic basis at the lower lumbar level. No retroperitoneal solid mass or adenopathy. Vascular calcification is present. Degenerative changes anterior SI joints. Granite Polisher Apprentice localizer shows total hip arthroplasty components. Impression IMPRESSION: 1. No fracture or posttraumatic subluxation. 2. No high grade spinal canal or neural foraminal stenosis. 3. Multilevel moderate spinal stenosis on a chronic degenerative basis with no traumatic disc herniations evident. XR Chest 2 Views Narrative XR CHEST 2 VW 07/02/2021 2:24 PM INDICATION: dyspnea COMPARISON: None Impression IMPRESSION: Cardiomegaly with pulmonary vascular congestion and probable mild interstitial edema. No focal infiltrate or pleural effusion. JAISON JOHNSTON MD SYSTEM ID: [id number] CT Chest w/o Contrast Narrative EXAM: CT CHEST W/O CONTRAST LOCATION: [facility] DATE/TIME: 07/04/2021 6:20 PM INDICATION: Respiratory failure. COMPARISON: None. TECHNIQUE: CT chest without IV contrast. Multiplanar reformats were obtained. Dose reduction techniques were used. CONTRAST: None. FINDINGS: LUNGS AND PLEURA: Minor dependent atelectatic changes in both lungs. No pleural effusion. MEDIASTINUM/AXILLAE: Ascending thoracic aorta mildly ectatic at 4.1 cm. The heart is enlarged. No thoracic or axillary adenopathy. CORONARY ARTERY CALCIFICATION: Severe. UPPER ABDOMEN: The spleen is mildly enlarged. MUSCULOSKELETAL: Unremarkable. Impression IMPRESSION: 1. Cardiomegaly and severe coronary atherosclerosis. 2. Ectatic ascending thoracic aorta. Echocardiogram Complete Value LVEF 55-60% [facility] [id number]^ALEA^LOY [facility] Echocardiography Laboratory [address] [place] [id number] Name: MESERET LAKHANI : 1935 Study Date: 07/03/2021 09:37 AM Age: 86 yrs Gender: Female Patient Location: [facility] Reason For Study: Dyspnea Ordering Physician: LOY ARMAS Performed By: Lorena Bishop BSA: 1.8 m2 Height: 63 in Weight: 165 lb HR: 55 BP: 130/55 mmHg Procedure Complete Portable Echo Adult. Interpretation Summary Left ventricular systolic function is normal. The visual ejection fraction is 55-60%. Technically difficult, suboptimal study. No hemodynamically significant valvular abnormalities on 2D or color flow imaging. There is no comparison study available. Left Ventricle (The upper limit of normal is 5.6cm for left ventricular size in end- diastole.). Left ventricular systolic function is normal. The visual ejection fraction is 55-60%. Grade I or early diastolic dysfunction. Regional wall motion abnormalities cannot be excluded due to limited visualization. Right Ventricle The right ventricle is not well visualized. The right ventricular systolic function is normal. Atria Left atrial enlargement is noted on two-dimensional imaging. Right atrium not well visualized. Mitral Valve There is mild mitral annular calcification. There is trace mitral regurgitation. There is no mitral valve stenosis. Tricuspid Valve The tricuspid valve is not well visualized, but is grossly normal. The right ventricular systolic pressure is approximated at 21.7 mmHg plus the right atrial pressure. Aortic Valve The aortic valve is trileaflet with aortic valve sclerosis. No aortic stenosis is present. Pulmonic Valve The pulmonic valve is not well visualized. Normal pulmonic valve velocity. Vessels Normal size aorta. The ascending aorta is Mildly dilated. The inferior vena cava is normal. Pericardium There is no pericardial effusion. MMode/2D Measurements & Calculations IVSd: 1.0 cm LVIDd: 5.6 cm LVIDs: 4.0 cm LVPWd: 1.1 cm FS: 27.9 % LV mass(C)d: 233.0 grams LV mass(C)dI: 130.8 grams/m2 Ao root diam: 3.2 cm LA dimension: 4.3 cm asc Aorta Diam: 4.0 cm LA/Ao: 1.3 LVOT diam: 1.9 cm LVOT area: 2.8 cm2 RWT: 0.39 Doppler Measurements & Calculations MV E max martell: 77.6 cm/sec MV A max martell: 119.0 cm/sec MV E/A: 0.65 MV max P.2 mmHg MV mean P.0 mmHg MV V2 VTI: 36.9 cm MVA(VTI): 2.1 cm2 MV P1/2t max martell: 82.5 cm/sec MV P1/2t: 114.0 msec MVA(P1/2t): 1.9 cm2 MV dec slope: 212.0 cm/sec2 MV dec time: 0.32 sec LV V1 max P.3 mmHg LV V1 max: 125.0 cm/sec LV V1 VTI: 27.6 cm SV(LVOT): 78.3 ml SI(LVOT): 43.9 ml/m2 PA acc time: 0.13 sec TR max martell: 233.0 cm/sec TR max P.7 mmHg E/E' av.1 Lateral E/e': 11.9 Medial E/e': 18.3 Report approved by: Dilcia Nunes MDon 07/03/2021 12:05 PM Jessica Antoine RN - 07/05/2021 7:00 PM CST Pt is A/O x4. VSS, on 1L of oxygen via NC. Up with A1 walker/gb. Incontinent of urine x1. PRN oxycodone given x1 for lower back pain which was effective. Loy Romo MD - 07/05/2021 11:00 AM CST [facility] Medicine Progress Note - Hospitalist Service Date of Admission: 07/01/2021 Assessment & Plan Meseret Lakhani is a 86 year old female with past medical history significant for hypertension, factor V Leiden with previous DVT on chronic anticoagulation, hyperlipidemia, major depressive disorder, anxiety, and GERD who presented to [facility] on 07/01/2021 with left lower back pain and was found to have musculoskeletal strain. Developed hypoxia in the emergency department without clear etiology at this time. Acute Hypoxic Respiratory Failure, stable Possible Cardiomyopathy Patient now requiring oxygen which she does not use at baseline. She is not experiencing any dyspneabut was noted to be hypoxemic on bedside monitor. Chest x-ray without any lobar opacities but with some cardiomegaly, vascular congestion and interstitial edema. Procalcitonin and NTBNP negative. Two doses of Lasix IV were provided with improvement in respiratory function; she is now only requiring 1Loxygen. TTE, however, with normal systolic function and possible early diastolic dysfunction but without RV dilation. It did note that WMA could not be excluded; ECG obtained without ST segment changesor signs of ischemia. CXR also with possible tracheal deviation; considered external tracheal compression, though no stridor was appreciated on exam.ABG with notable hypoxemia. CT with atelectasis and cardiomegaly, but no sign of pulmonary edema or pneumonia. Suspect that patient has oxygen needs due to prolonged bedrest from injury. Continue incentive spirometry and wean as able. -Continuous oximetry -Supplemental oxygen PRN -Incentive spirometry Low Back Pain Likely Muscular Strain Patient with left lower back pain for several days only present now with movement. Requiring 2 person assist when she has independent at baseline. Imaging nondiagnostic for any fractures. Suspect musculoskeletal in etiology. PT/OT assisting with evaluation and treatment while in hospital. Will need soc ial work assistance in finding rehab facility as patient is still requiring assist of 1 with out of bed activity. -Oxycodone 2.5mg Q6H PRN -Acetaminophen TID -Lidocaine patches -Ice packs -Pain consult Dysphagia: OVER SHORT AND DAMAGE CLERK consulting. 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 Hypertension: Continue HOSPICE CLINICAL MARKETER amlodipine, lisinopril, metoprolol. Hyperlipidemia: Continue HOSPICE CLINICAL MARKETER statin. MDD/RONALDO: Continue HOSPICE CLINICAL MARKETER sertraline. GERD: Continue PPI. Hypothyroidism: Continue HOSPICE CLINICAL MARKETER levothyroxine. Diet: Orders Placed This Encounter Regular Diet Adult DVT Prophylaxis: Enoxaparin (Lovenox) SQ Shearer Catheter:Not present Code Status: No CPR- Do NOT Intubate Expected discharge: Likely 2 to 3 days pending evaluation by physical, occupational, and speech therapies and possible placement to TCU. The patient's care was discussed with the Bedside Nurse and Patient. Loy Armas MD, S Hospitalist Service [facility] Securely message with the Vocera Web Console (learn more here) Text page via [facility] Paging/Directory Interval History Nursing notes reviewed; no acute events overnight. Patient continuing to have pain, but medications help. Was seen while working with therapies. A full 10+ point review of systems was performed and found to be negative with the exception of those items noted here. Physical Exam Vital signs: Temp: (!) 96.4 ??F (35.8 ??C) Temp src: Temporal BP: (!) 160/58 Pulse: (!) 49 Resp: 16 SpO2: 96 % [id number]: Nasal cannula Oxygen Delivery: 1 LPM Height: 160 cm (5' 3) Weight: 74.8 kg (165 lb) Estimated body mass index is 29.23 kg/m?? as calculated from the following: Height as of this encounter: 1.6 m (5' 3). Weight as of this encounter: 74.8 kg (165 lb). General: Very pleasant female sitting upright in bedside chair talking with therapies. Awake, alert,interactive. HEENT: Normocephalic, atraumatic. PERRL, EOMI. Conjunctiva clear, sclerae anicteric. Mucous membranes moist. Respiratory: Normal work of breathing. Musculoskeletal: Sitting upright in bedside chair. Moving all extremities appropriately. Skin: No rashes or abrasions on exposed skin. Neurologic: Alert and oriented x4. Psychologic: Appropriate mood and affect. Data All laboratory results and other diagnostic data from the past 24 hours is available in [place] and [place] [place] personally reviewed. 07/05/21 0659 4.6 11.5* 101* 145* 2.59* 145* 3.6 110* 31 17 0.59 4 9.7 123* I personally reviewed: CT chest with dependent atelectasis [employer] Lul Fishman RN - 07/05/2021 3:40 AM CST Pt. Bradycardic , Afebrile. A& O x 4. Using the pure wick overnight. On 2 L of oxygen, Rating pain 4/10 with activity. Up with an A-1 with gate belt and walker. On coumadin. Plan to discharge1-2 days. Will zander to monitor. Blood pressure (!) 143/61, pulse 57, temperature 97 ??F (36.1 ??C), temperature source Temporal, resp. rate 16, height 1.6 m (5' 3), weight 74.8 kg (165 lb), SpO2 94 %. Lul Cuevas RN - 07/05/2021 12:51 AM CST PRIMARY DIAGNOSIS: ACUTE BACK PAIN OUTPATIENT/OBSERVATION GOALS TO BE MET BEFORE DISCHARGE: 1. Pain Status: Improved with use of alternative comfort measures: PO meds, Lidocaine patch and ice packs. ?? 2. Return to near baseline physical activity: No, up with Ax1,gbelt and walker ?? 3. Cleared for discharge by consultants (if involved): No ?? Punching Machine Operator Nurse Safe discharge environment identified: Yes Barriers to discharge: No Please review provider order for any additional goals. Nurse to notify provider when observation goals have been met and patient is ready for discharge [employer] Loy Armas MD - 07/04/2021 4:03 PM CST [facility] Medicine Progress Note - Hospitalist Service Date of Admission: 07/01/2021 Assessment & Plan Meseret Lakhani is a 86 year old female with past medical history significant for hypertension, factor V Leiden with previous DVT on chronic anticoagulation, hyperlipidemia, major depressive disorder, anxiety, and GERD who presented to [facility] on 07/01/2021 with left lower back pain and was found to have musculoskeletal strain. Developed hypoxia in the emergency department without clear etiology at this time. Acute Hypoxic Respiratory Failure, stable Possible Cardiomyopathy Patient now requiring oxygen which she does not use at baseline. She is not experiencing any dyspneabut was noted to be hypoxemic on bedside monitor. Chest x-ray without any lobar opacities but with some cardiomegaly, vascular congestion and interstitial edema. Procalcitonin and NTBNP negative. Two doses of Lasix IV were provided with improvement in respiratory function; she is now only requiring 1Loxygen. TTE, however, with normal systolic function and possible early diastolic dysfunction but without RV dilation. It did note that WMA could not be excluded; ECG obtained without ST segment changesor signs of ischemia. CXR also with possible tracheal deviation; considered external tracheal compression, though no stridor was appreciated on exam.ABG with notable hypoxemia. Will obtain CT today to assess for definitive etiology if possible. If nothing was discovered on CT, patient can discharge torehab tomorrow (or whenever a bed is obtained) on 2 L of oxygen. -Continuous oximetry -Supplemental oxygen PRN -Check ABG -Incentive spirometry -CT chest without contrast Low Back Pain Likely Muscular Strain Patient with left lower back pain for several days only present now with movement. Requiring 2 person assist when she has independent at baseline. Imaging nondiagnostic for any fractures. Suspect musculoskeletal in etiology. PT/OT evaluation completed recommending patient stay in TCU. Will request social work consult in the morning. -Oxycodone 2.5mg Q6H PRN -Acetaminophen TID -Lidocaine patches -Ice packs -Pain consult Dysphagia: OVER SHORT AND DAMAGE CLERK consulting. 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 Hypertension: Continue HOSPICE [employer]INICAL MARKETER amlodipine, lisinopril, metoprolol. Hyperlipidemia: Continue HOSPICE [employer]INICAL MARKETER statin. MDD/RONALDO: Continue HOSPICE CLINICAL MARKETER sertraline. GERD: Continue PPI. Hypothyroidism: Continue H[employer]PICE [employer]INICAL MARKETER levothyroxine. Diet: Orders Placed This Encounter Regular Diet Adult DVT Prophylaxis: Enoxaparin (Lovenox) SQ Shearer Catheter:Not present Code Status: No CPR- Do NOT Intubate Expected discharge: Likely 2 to 3 days pending evaluation by physical, occupational, and speech therapies and possible placement to TCU. The patient's care was discussed with the Bedside Nurse and Patient. Loy Armas MD, S Hospitalist Service [facility] Securely message with the [employer] Console (learn more here) Text page via [employer] Paging/Directory Interval History Nursing notes reviewed; no acute events overnight. Patient stated that she is still having some painthat is constant, though exacerbated with movement. She noted that she was able to walk around the room with the use of a walker during her physical therapy assessment today. She did, however, require help out of bed. She continues to require some oxygen, though notes that she is not feeling short of breath and does not have a cough. She is slightly worried about discharging to a rehab facility or assisted living as she does have a dog that she would like to take with her, but does not know if that would be allowed. A full 10+ point review of systems was performed and found to be negative with the exception of those items noted here. Physical Exam Vital signs: Temp: 97.1 ??F (36.2 ??C) Temp src: Temporal BP: 131/57 Pulse: 54 Resp: 18 SpO2: 93 % O2 Device: Nasal cannula Oxygen Delivery: 2 LPM Height: 160 cm (5' 3) Weight: 74.8 kg (165 lb) Estimated body mass index is 29.23 kg/m?? as calculated from the following: Height as of this encounter: 1.6 m (5' 3). Weight as of this encounter: 74.8 kg (165 lb). General: Very pleasant female resting comfortably in hospital bed. Awake, alert, interactive. HEENT: Normocephalic, atraumatic. PERRL, EOMI. Conjunctiva clear, sclerae anicteric. Mucous membranes moist. Cardiac: Regular rate. Occasional PVCs. No peripheral edema. Respiratory: Normal work of breathing. Nasal cannula in place. CTAB. GI: Normal, active bowel sounds. Abdomen soft, nontender, nondistended. : Deferred. Musculoskeletal: Able to turn self in bed without significant pain. Moving all extremities appropriately. Skin: No rashes or abrasions on exposed skin. Neurologic: Alert and oriented x4. Cranial nerves II through XII grossly intact. Psychologic: Appropriate mood and affect. Data All laboratory results and other diagnostic data from the past 24 hours is available in [facility] and [facility] personally reviewed. Recent Labs Lab 07/04/21 1244 07/03/21 1522 07/03/21 1044 07/03/21 0834 07/02/21 1513 07/01/21 1800 WBC 6.9 -- -- 5.8 -- 6.6 HGB 11.6* -- -- 12.0 -- 11.9 MCV 100 -- -- 99 -- 99 PLT 159 -- -- 157 -- 156 INR 2.66* -- -- 2.43* 2.11* 2.24* NA 143 -- -- 141 -- 141 POTASSIUM 4.2 3.9 3.4 3.3* -- 4.0 CHLORIDE 109 -- -- 106 -- 107 CO2 30 -- -- 29 -- 30 BUN 21 -- -- 15 -- 17 CR 0.58 -- -- 0.56 -- 0.70 ANIONGAP 4 -- -- 6 -- 4 JAMIN 9.7 -- -- 9.5 -- 9.8 GLC 118* -- -- 149* -- 121* No results found for this or any previous visit (from the past 24 hour(s)). I personally reviewed: CT chest pending [employer] Lu Luz RN - 07/03/2021 6:44 PM CST PRIMARY DIAGNOSIS: ACUTE PAIN OUTPATIENT/OBSERVATION GOALS TO BE MET BEFORE DISCHARGE: 1. Pain Status: Improved-controlled with oral pain medications and ice 2. Return to near baseline physical activity: No up with assist of 1 with walker and gait belt 3. Cleared for discharge by consultants (if involved): No Punching Machine Operator Nurse Safe discharge environment identified: Yes Barriers to discharge: Yes pain control and ambulation Entered by: Lu Luz 07/03/2021 6:44 PM Please review provider order for any additional goals. Nurse to notify provider when observation goals have been met and patient is ready for discharge. Pt verbalized concern about moving to an assisted living as the MD recommended as she has a dog thatshe would want to keep with her. She also verbalized that she is concerned about the cost of assisted livings. Social work consult placed [employer] Merary Jimenez RT - 07/03/2021 5:45 PM CST RT Note: An ABG was completed on the pt's left radial artery @ 16:55 on an FIO2 of 1L NC with no complications noted during the procedure. Results: Recent Labs Lab 07/03/21 1655 PH 7.45 PCO2 44 PO2 52* HCO3 30* O2PER 1 [employer] Loy Armas MD - 07/03/2021 3:11 PM CST [facility] Medicine Progress Note - Hospitalist Service Date of Admission: 07/01/2021 Assessment & Plan Meseret Lakhani is a 86 year old female with past medical history significant for hypertension, factor V Leiden with previous DVT on chronic anticoagulation, hyperlipidemia, major depressive disorder, anxiety, and GERD who presented to [facility] on 07/01/2021 with left lower back pain and was found to have musculoskeletal strain. Developed hypoxia in the emergency department without clear etiology at this time, though slightly improving. Acute Hypoxic Respiratory Failure Possible Cardiomyopathy Patient now requiring oxygen which she does not use at baseline. She is not experiencing any dyspneabut was noted to be hypoxemic on bedside monitor. Chest x-ray without any lobar opacities but with some cardiomegaly, vascular congestion and interstitial edema. Procalcitonin and NTBNP negative. Two doses of Lasix IV were provided with improvement in respiratory function; she is now only requiring 1Loxygen. TTE, however, with normal systolic function and possible early diastolic dysfunction but without RV dilation. It did note that WMA could not be excluded; ECG obtained without ST segment changesor signs of ischemia. CXR also with possible tracheal deviation; considered external tracheal compression, though no stridor was appreciated on exam.Check ABG to assess for possible spurious hypoxia onperipheral oximetry. -Continuous oximetry -Supplemental oxygen PRN -Check ABG -Incentive spirometry Low Back Pain Likely Muscular Strain Patient with left lower back pain for several days only present now with movement. Requiring 2 person assist when she has independent at baseline. Imaging nondiagnostic for any fractures. Suspect musculoskeletal in etiology. PT/OT evaluation completed recommending patient stay in TCU. Will request social work consult in the morning. -Oxycodone 2.5mg Q6H PRN -Acetaminophen TID -Lidocaine patches -Ice packs -Pain consult Dysphagia: OVER SHORT AND DAMAGE CLERK consulting. 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 Hypertension: Continue HOSPICE CLINICAL MARKETER amlodipine, lisinopril, metoprolol. Hyperlipidemia: Continue HOSPICE CLINICAL MARKETER statin. MDD/RONALDO: Continue HOSPICE CLINICAL MARKETER sertraline. GERD: Continue PPI. Hypothyroidism: Continue HOSPICE CLINICAL MARKETER levothyroxine. Diet: Orders Placed This Encounter Regular Diet Adult DVT Prophylaxis: Enoxaparin (Lovenox) SQ Shearer Catheter:Not present Code Status: No CPR- Do NOT Intubate Expected discharge: Likely 2 to 3 days pending evaluation by physical, occupational, and speech therapies and possible placement to TCU. The patient's care was discussed with the Bedside Nurse and Patient. Loy Armas MD, S Hospitalist Service [facility] Securely message with the [employer] Console (learn more here) Text page via [employer] Paging/Directory Interval History Nursing notes reviewed; no acute events overnight. Patient stated that she is feeling slightly better today, though notes that the pain is still present and even at rest now. She stated that the oxycodone did help with the pain, but made her very sleepy and when she woke the pain returned. The lidocaine patch was provided last evening were not very helpful. Patient is wondering what can be done to help her feel more comfortable. She stated that she continues to breathe easily and does not notice anysignificant dyspnea. She does occasionally feel some dizziness with movement at home, but has not noticed any here. She is on any significant cough, fevers, chills. She has not been around anyone who has been exhibiting URI symptoms recently. She has not had any any significant unilateral lower extremity swelling indicative of possible DVT. Patient is eager to improve and is open to TCU to gain strength prior to returning home. A full 10+ point review of systems was performed and found to be negative with the exception of those items noted here. Physical Exam Vital signs: Temp: 97.9 ??F (36.6 ??C) Temp src: Temporal BP: (!) 144/61 Pulse: 56 Resp: 16 SpO2: 94 % O2 Device:Nasal cannula Oxygen Delivery: 2 LPM Height: 160 cm (5' 3) Weight: 74.8 kg (165 lb) Estimated body mass index is 29.23 kg/m?? as calculated from the following: Height as of this encounter: 1.6 m (5' 3). Weight as of this encounter: 74.8 kg (165 lb). General: Very pleasant female resting comfortably in hospital bed. Awake, alert, interactive. HEENT: Normocephalic, atraumatic. PERRL, EOMI. Conjunctiva clear, sclerae anicteric. Mucous membranes moist. Cardiac: Regular rate. Occasional PVCs. No peripheral edema. Respiratory: Normal work of breathing. Nasal cannula in place. CTAB. GI: Normal, active bowel sounds. Abdomen soft, nontender, nondistended. : Deferred. Musculoskeletal: Able to turn self in bed without significant pain. Moving all extremities appropriately. Skin: No rashes or abrasions on exposed skin. Neurologic: Alert and oriented x4. Cranial nerves II through XII grossly intact. Psychologic: Appropriate mood and affect. Data All laboratory results and other diagnostic data from the past 24 hours is available in [facility] and [facility] personally reviewed. Recent Labs Lab 07/03/21 1044 07/03/21 0834 07/02/21 1513 07/01/21 1800 WBC -- 5.8 -- 6.6 HGB -- 12.0 -- 11.9 MCV -- 99 -- 99 PLT -- 157 -- 156 INR -- 2.43* 2.11* 2.24* NA -- 141 -- 141 POTASSIUM 3.4 3.3* -- 4.0 CHLORIDE -- 106 -- 107 CO2 -- 29 -- 30 BUN -- 15 -- 17 CR -- 0.56 -- 0.70 ANIONGAP -- 6 -- 4 JAMIN -- 9.5 -- 9.8 GLC -- 149* -- 121* Recent Results (from the past 24 hour(s)) Echocardiogram Complete Result Value LVEF 55-60% [facility] [id number]^ALEA^LOY [facility] Echocardiography Laboratory [address] [place] [address] Name: MESERET LAKHANI : 1935 Study Date: 07/03/2021 09:37 AM Age: 86 yrs Gender: Female Patient Location: [facility] Reason For Study: Dyspnea Ordering Physician: LOY ARMAS Performed By: Lorena Bishop BSA: 1.8 m2 Height: 63 in Weight: 165 lb HR: 55 BP: 130/55 mmHg Procedure Complete Portable Echo Adult. Interpretation Summary Left ventricular systolic function is normal. The visual ejection fraction is 55-60%. Technically difficult, suboptimal study. No hemodynamically significant valvular abnormalities on 2D or color flow imaging. There is no comparison study available. Left Ventricle (The upper limit of normal is 5.6cm for left ventricular size in end- diastole.). Left ventricular systolic function is normal. The visual ejection fraction is 55-60%. Grade I or early diastolic dysfunction. Regional wall motion abnormalities cannot be excluded due to limited visualization. Right Ventricle The right ventricle is not well visualized. The right ventricular systolic function is normal. Atria Left atrial enlargement is noted on two-dimensional imaging. Right atrium not well visualized. Mitral Valve There is mild mitral annular calcification. There is trace mitral regurgitation. There is no mitral valve stenosis. Tricuspid Valve The tricuspid valve is not well visualized, but is grossly normal. The right ventricular systolic pressure is approximated at 21.7 mmHg plus the right atrial pressure. Aortic Valve The aortic valve is trileaflet with aortic valve sclerosis. No aortic stenosis is present. Pulmonic Valve The pulmonic valve is not well visualized. Normal pulmonic valve velocity. Vessels Normal size aorta. The ascending aorta is Mildly dilated. The inferior vena cava is normal. Pericardium There is no pericardial effusion. MMode/2D Measurements & Calculations IVSd: 1.0 cm LVIDd: 5.6 cm LVIDs: 4.0 cm LVPWd: 1.1 cm FS: 27.9 % LV mass(C)d: 233.0 grams LV mass(C)dI: 130.8 grams/m2 Ao root diam: 3.2 cm LA dimension: 4.3 cm asc Aorta Diam: 4.0 cm LA/Ao: 1.3 LVOT diam: 1.9 cm LVOT area: 2.8 cm2 RWT: 0.39 Doppler Measurements & Calculations MV E max martell: 77.6 cm/sec MV A max martell: 119.0 cm/sec MV E/A: 0.65 MV max P.2 mmHg MV mean P.0 mmHg MV V2 VTI: 36.9 cm MVA(VTI): 2.1 cm2 MV P1/2t max martell: 82.5 cm/sec MV P1/2t: 114.0 msec MVA(P1/2t): 1.9 cm2 MV dec slope: 212.0 cm/sec2 MV dec time: 0.32 sec LV V1 max P.3 mmHg LV V1 max: 125.0 cm/sec LV V1 VTI: 27.6 cm SV(LVOT): 78.3 ml SI(LVOT): 43.9 ml/m2 PA acc time: 0.13 sec TR max martell: 233.0 cm/sec TR max P.7 mmHg E/E' av.1 Lateral E/e': 11.9 Medial E/e': 18.3 Report approved by: Izabela Sarabia 07/03/2021 12:05 PM I personally reviewed: ECG with PVCs and no ST segment changes. [employer] Lu Luz RN - 07/03/2021 2:15 PM CST PRIMARY DIAGNOSIS: ACUTE PAIN OUTPATIENT/OBSERVATION GOALS TO BE MET BEFORE DISCHARGE: 1. Pain Status: No improvement noted. Consider adjustment in pain regimen. 2. Return to near baseline physical activity: No, up with assist of 1 with walker and gait belt 3. Cleared for discharge by consultants (if involved): No Punching Machine Operator Nurse Safe discharge environment identified: Yes Barriers to discharge: Yes, pain control Entered by: Lu Luz 07/03/2021 2:15 PM Please review provider order for any additional goals. Nurse to notify provider when observation goals have been met and patient is ready for discharge. [employer] Chery Kate, ELEANOR - 07/02/2021 4:00 PM CST Clinical Swallow Evaluation: Regular/thin liquids, self-selecting softer/moister food options, take a sip of liquid before any solids/meds to moisten oropharyngeal and esophageal mucosa, periodic liquid wash across meal, chew thoroughly. ?GI consult as IP vs OP. 07/02/21 3434 General Information Onset of Illness/Injury or Date of Surgery 07/01/21 Referring Physician Loy Armas MD Patient/Family Therapy Goal Statement (OVER SHORT AND DAMAGE CLERK) Did not state Pertinent History of Current Problem per hospitalist Meseret Lakhani is a 86 year old female with past medical history significant for hypertension, factor V Leiden with previous DVT on chronic anticoagulation, hyperlipidemia, major depressive disorder, anxiety, and GERD who presented to [facility] on 07/01/2021 with left lower back pain and was found to have musculoskeletal strain. Developed hypoxia in the emergency department with chest x-ray concerning for possible pulmonary edema; diuresis provided and work-up pending. Pt reportedly choking/coughing on eggs in ED, OVER SHORT AND DAMAGE CLERK consulted, c/o aspiration General Observations Pt alert, positioned upright, very pleasant, good historian Past History of Dysphagia Pt reports long-standing symptoms of globus sensation specifically with meats, breads, dryer foods -these incidents occur every couple of days. She reports having an EGD completed ~ 3 years ago, whichfollowing her symptoms resolved for ~ 2.5 years, globus sensation/coughing has returned recently. She is wondering if she needs to get that procedure done again. She reports they did not find anything,though i suspect some sort of stricture/dilation based on report/immediate improvements of her symptoms following. I do not see any hx of this within out EMR unfortunately. Type of Evaluation Type of Evaluation Swallow Evaluation Oral Motor Oral Musculature generally intact Structural Abnormalities none present Mucosal Quality good Dentition (Oral Motor) Dentition (Oral Motor) natural dentition Vocal Quality/Secretion Management (Oral Motor) Vocal Quality (Oral Motor) WFL Secretion Management (Oral Motor) WNL General Swallowing Observations Current Diet/Method of Nutritional Intake (General Swallowing Observations, NIS) regular diet;thin liquids (level 0) Respiratory Support (General Swallowing Observations) nasal cannula (1L) Swallowing Evaluation Clinical swallow evaluation Clinical Swallow Evaluation Feeding Assistance no assistance needed Clinical Swallow Evaluation Textures Trialed thin liquids;solid foods Clinical Swallow Eval: Thin Liquid Texture Trial Mode of Presentation, Thin Liquids straw;self-fed Volume of Liquid or Food Presented ~ 3 oz Oral Phase of Swallow WFL Pharyngeal Phase of Swallow intact Diagnostic Statement no overt clinical signs/sx oropharyngeal dysphagia or aspiration noted Clinical Swallow Evaluation: Solid Food Texture Trial Mode of Presentation self-fed Volume Presented 1 louise cracker Oral Phase WFL Pharyngeal Phase intact Diagnostic Statement no overt clinical signs/sx oropharyngeal dysphagia or aspiration noted Esophageal Phase of Swallow Patient reports or presents with symptoms of esophageal dysphagia Yes Esophageal comments see above Swallowing Recommendations Diet Consistency Recommendations regular diet;thin liquids (level 0) Supervision Level for Intake patient independent Mode of Delivery Recommendations bolus size, small;food moistened;slow rate of intake Swallowing Maneuver Recommendations alternate food and liquid intake Medication Administration Recommendations, Swallowing (OVER SHORT AND DAMAGE CLERK) whole as tolerated General Therapy Interventions Planned Therapy Interventions Dysphagia Treatment Dysphagia treatment Instruction of safe swallow strategies OVER SHORT AND DAMAGE CLERK Therapy Assessment/Plan Criteria for Skilled Therapeutic Interventions Met (OVER SHORT AND DAMAGE CLERK Eval) yes;treatment indicated OVER SHORT AND DAMAGE CLERK Diagnosis dysphagia Rehab Potential (OVER SHORT AND DAMAGE CLERK Eval) good, to achieve stated therapy goals Therapy Frequency (OVER SHORT AND DAMAGE CLERK Eval) 2 times/wk Predicted Duration of Therapy Intervention (OVER SHORT AND DAMAGE CLERK Eval) 1 week Comment, Therapy Assessment/Plan (OVER SHORT AND DAMAGE CLERK) Pt presents with a generally functional oropharyngeal swallow on clincal swallow evaluation, ?esophageal dysphagia. She demonstrated functional mastication/oral clearance, timely swallows, consistent laryngeal elevation to palpation/visualization, no overt clinical signs/sx aspiration. No globus sensat ion observed during today's evaluation, though primary symptoms of pt's. See above re: esophageal hx/symptoms. Recommend IP Vs OP GI consult. Offered softer/moister food options for pt during IP stay, though pt requesting regular solids with self-selecting softer and adding moisture to dry items. Trained in pharyngoesophageal clearance strategies. OVER SHORT AND DAMAGE CLERK to follow x1-2 for strategy reinforcement. Therapy Plan Review/Discharge Plan (OVER SHORT AND DAMAGE CLERK) Therapy Plan Review (OVER SHORT AND DAMAGE CLERK) evaluation/treatment results reviewed;care plan/treatment goals reviewed;risks/benefits reviewed;current/potential barriers reviewed;participants voiced agreement with care plan;participants included;patient OVER SHORT AND DAMAGE CLERK Discharge Planning OVER SHORT AND DAMAGE CLERK Discharge Recommendation (DC Rec) home OVER SHORT AND DAMAGE CLERK Rationale for DC Rec anticipate goals will be met during IP; recommend OP GI consult OVER SHORT AND DAMAGE CLERK Brief overview of current status Regular/thin liquids, self-selecting softer/moister food options, take a sip of liquid before any solids/meds to moisten oropharyngeal and esophageal mucosa, periodic liquid wash across meal, chew thoroughly. ?GI consult as IP vs OP. 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 Developed hypoxia in the emergency department with chestx-ray concerning for possible pulmonary edema; diuresis provided and work-up pending. Acute Hypoxic Respiratory Failure Possible Cardiomyopathy Patient now requiring oxygen which she does not use at baseline. She is not experiencing any dyspneabut was noted to be hypoxemic on bedside monitor. Chest x-ray without any lobar opacities but with some cardiomegaly, vascular congestion and interstitial edema. She does not have any history of heart f ailure, though her most recent echocardiogram was not since 2018 showing a preserved ejection fraction of 65 to 70%. Will provide Lasix and obtain a formal TTE. ECG pending. -Lasix 20 mg IV -Strict I's/O's -ECG pending -TTE -Continuous oximetry -Supplemental oxygen as needed -Procalcitonin & NTBNP Low Back Pain Likely Muscular Strain Patient with left lower back pain for several days only present now with movement. Requiring 2 person assist when she has independent at baseline. Imaging nondiagnostic for any fractures. Suspect musculoskeletal in etiology. PT/OT evaluation completed recommending patient stay in TCU. Will request social work consult in the morning. Dysphagia Patient reported that she often has coughing fits after eating. Concern for possible aspiration. Will request OVER SHORT AND DAMAGE CLERK consult. 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 Hypertension: Continue HOSPICE CLINICAL MARKETER amlodipine, lisinopril, metoprolol. Hyperlipidemia: Continue HOSPICE CLINICAL MARKETER statin. MDD/RONALDO: Continue HOSPICE CLINICAL MARKETER sertraline. GERD: Continue PPI. Hypothyroidism: Continue HOSPICE CLINICAL MARKETER levothyroxine. Diet: Orders Placed This Encounter Regular Diet Adult DVT Prophylaxis: Enoxaparin (Lovenox) SQ Shearer Catheter:Not present Code Status: No CPR- Do NOT Intubate Expected discharge: Likely 2 to 3 days pending evaluation by physical, occupational, and speech therapies and possible placement to TCU. The patient's care was discussed with the Bedside Nurse and Patient. Loy Armas MD, [facility] Hospitalist Service [facility] Securely message with the [employer] Console (learn more here) Text page via [employer] Paging/Directory Interval History Nursing notes reviewed; no acute events overnight. Patient states that her back pain has improved, though notes that it is still present when any movement including moving in bed. She stated that normally she is quite independent and does not have any help at home, but now she is requiring the assistance of nursing to help her stand or reposition in bed. Patient stated that she did not have any trauma, but has been limping recently due to recurrent gout attack in her left ankle. She is currently requiring 2 L of oxygen via nasal cannula, noting that she has never required oxygen in the past. She stated that she does not have any history of cardiac or lung disease. She did state that when she was eating lunch she had a coughing fit as some of the food went down the wrong tube. She wonders if shemight have atrial fibrillation due to intermittent feelings of heart palpitations strong pulsationsin my neck. A full 10+ point review of systems was performed and found to be negative with the exception of those items noted here. Physical Exam Vital signs: Temp: 97.2 ??F (36.2 ??C) Temp src: Temporal BP: 130/55 Pulse: 52 Resp: 18 SpO2: 93 % O2 Device: Nasal cannula Oxygen Delivery: 1 LPM Height: 160 cm (5' 3) Weight: 74.8 kg (165 lb) Estimated body mass index is 29.23 kg/m?? as calculated from the following: Height as of this encounter: 1.6 m (5' 3). Weight as of this encounter: 74.8 kg (165 lb). General: Very pleasant female resting comfortably in hospital bed. Awake, alert, interactive. HEENT: Normocephalic, atraumatic. PERRL, EOMI. Conjunctiva clear, sclerae anicteric. Mucous membranes moist. Cardiac: Regular rate. Occasional extra heart sounds auscultated, unclear if representing gallop or frequent PVCs. No peripheral edema. Respiratory: Normal work of breathing. Nasal cannula in place. Very scant bibasilar crackles, but exam limited by patient's inability to turn due to pain. GI: Normal, active bowel sounds. Abdomen soft, nontender, nondistended. : Deferred. Musculoskeletal: Unable to reposition self in bed. Moving all extremities. Left ankle slightly warm and edematous, but not painful. Skin: No rashes or abrasions on exposed skin. Neurologic: Alert and oriented x4. Cranial nerves II through XII grossly intact. Psychologic: Appropriate mood and affect. Data All laboratory results and other diagnostic data from the past 24 hours is available in [place] and hasbeen personally reviewed. Recent Labs Lab 07/01/21 1800 WBC 6.6 HGB 11.9 MCV 99 PLT 156 INR 2.24* NA 141 POTASSIUM 4.0 CHLORIDE 107 CO2 30 BUN 17 CR 0.70 ANIONGAP 4 JAMIN 9.8 GLC 121* Recent Results (from the past 24 hour(s)) Lumbar spine CT w/o contrast Narrative EXAM: CT LUMBAR SPINE W/O CONTRAST LOCATION: [facility] DATE/TIME: 07/01/2021 6:19 PM INDICATION: Right-sided low back pain, on Coumadin. COMPARISON: None. TECHNIQUE: Routine CT lumbar spine without IV contrast. Multiplanar reformats. Dose reduction techniques were used. FINDINGS: VERTEBRA: There are five lumbar-type vertebral bodies identified. There is mild S-shaped lumbar curve convex to the right L1, convex to the left L4. Overall vertebral body height is satisfactory. Thereis 1 mm degenerative anterior subluxation L2-L3, L4-L5 noted. Articular pillars are intact. Lower lumbar spine facet joint arthropathy. No evidence for facet joint space widening or interspace widening. Perforating vascular channel right superior articular process L4 series 7 image 40, series 8 image 30. No fracture or posttraumatic subluxation. No displaced lower rib fractures are evident. Degenerative changes both SI joints. CANAL/FORAMINA: There is no high grade spinal stenosis present. No traumatic disc herniations. Moderate spinal stenoses are identified L1-L2, L3-L4, and L4- L5 levels. There is some ectasia of the nerveroot sleeves at L5-S1, left more prominent than right. No severe foraminal compromise. PARASPINAL: There is some dorsal paraspinous muscular atrophy/fatty replacement on a chronic basis at the lower lumbar level. No retroperitoneal solid mass or adenopathy. Vascular calcification is present. Degenerative changes anterior SI joints. Granite Polisher Apprentice localizer shows total hip arthroplasty components. Impression IMPRESSION: 1. No fracture or posttraumatic subluxation. 2. No high grade spinal canal or neural foraminal stenosis. 3. Multilevel moderate spinal stenosis on a chronic degenerative basis with no traumatic disc herniations evident. XR Chest 2 Views Narrative XR CHEST 2 VW 07/02/2021 2:24 PM INDICATION: dyspnea COMPARISON: None Impression IMPRESSION: Cardiomegaly with pulmonary vascular congestion and probable mild interstitial edema. No focal infiltrate or pleural effusion. JAISON JOHNSTON MD SYSTEM ID: [id number] I personally reviewed: the chest x-ray image(s) showing pulmonary vascular congestion and mild interstitial edema.. CTOR OF INTEGRATED MARKETING Corazon Varela OT - 07/02/2021 2:09 PM CST 07/02/21 1357 Quick Adds Type of Visit Initial Occupational Therapy Evaluation Living Environment People in home alone Current Living Arrangements independent living facility Home Accessibility no concerns Transportation Anticipated family or friend will provide;other (see comments) ([employer]) Living Environment Comments elevated toilet, toilet safety frame, walk in shower with chair and grabbars Self-Care Usual Activity Tolerance moderate Current Activity Tolerance fair Equipment Currently Used at Home grab bar, toilet;grab bar, tub/shower;shower chair;raised toilet seat;walker, rolling (fww, 4ww) Activity/Exercise/Self-Care Comment Patient was I with ADL/IADls, does have A with laundry and housekeeping. Has been ordering groceries, has 2 dtrs in the area who have been A as well. Patient was reports she is typiucally able to ambulate throughout her apt comlex to retrieve mail. Does use MOW, therefore only needs to light juan prep Instrumental Activities of Daily Living (IADL) Previous Responsibilities medication management Disability/Function Fall history within last six months no Change in Functional Status Since Onset of Current Illness/Injury yes General Information Onset of Illness/Injury or Date of Surgery 07/01/21 Referring Physician Loy Armas MD Patient/Family Therapy Goal Statement (OT) decreased ADLs Additional Occupational Profile Info/Pertinent History of Current Problem Meseret Lakhani is a 86 year old female with a past medical history of hypertension, heart failure, diabetes mellitus, hyperlipidemia, depression/anxiety, chronic urinary incontinence who presents with low back pain. Existing Precautions/Restrictions oxygen therapy device and L/min (2 L) General Observations and Info patient was in bed, agreeable to OT/PT co-eval Cognitive Status Examination Orientation Status orientation to person, place and time Sensory Sensory Quick Adds No deficits were identified Pain Assessment Patient Currently in Pain Yes, see Vital Sign flowsheet (rating 5/10) Integumentary/Edema Integumentary/Edema no deficits were identifed Posture Posture not impaired Range of Motion Comprehensive General Range of Motion bilateral upper extremity ROM WFL Strength Comprehensive (MMT) Comment, General Manual Muscle Testing (MMT) Assessment general weakness noted, weak ranch cook strength Muscle Tone Assessment Muscle Tone Quick Adds No deficits were identified Coordination Coordination Comments patient reports increased dropping of items Bed Mobility Comment (Bed Mobility) mod A with sideline to sit, SBA for sit to supine, howeve moves slowly and patient reports increased pain Transfers Transfer Comments CGA, fww sit<>stand Balance Balance Comments LOB was not noted, patient reports using fww at baseline Activities of Daily Living BADL Assessment toileting Toileting [place] Level (Toileting) contact guard assist Comment (Toileting) SBA for seated pericares, CGA for brief management in stance Clinical Impression Criteria for Skilled Therapeutic Interventions Met (OT) yes;meets criteria;skilled treatment is necessary OT Diagnosis decreased ADLS/IADls OT Problem List-Impairments impacting ADL pain;strength Assessment of Occupational Performance 5 or more Performance Deficits Identified Performance Deficits dsg, bathing, functional/community mobility, summer school coordinator, meal prep, bed mobility Planned Therapy Interventions (OT) ADL retraining;progressive activity/exercise;transfer training Clinical Decision Making Complexity (OT) low complexity Therapy Frequency (OT) 5x/week Risk & Benefits of therapy have been explained evaluation/treatment results reviewed;care plan/treatment goals reviewed;risks/benefits reviewed;patient;participants voiced agreement with care plan OT Discharge Planning OT Discharge Recommendation (DC Rec) home with home care occupational therapy;Home with assist;Transitional Care Facility OT Rationale for DC Rec patient is below baseline for ADL and safe functional mobility, greatest limiting factor is pain control. Patient lives alone and I with ADls and mobility with fww at baseline. Currently mod w/bed mobility, CGA, fww for safe transfers and functional mobility. Skilled OT is recommeded in IP and TCU to maximize ADL, mobility I, increase safety and improve strength for safe return home. If patien to return home, would recommend A with all mobility, including bed mobility and ADls- dsg, toileting and bathing. As well as home OT/PT. Total Evaluation Time (Minutes) Total Evaluation Time (Minutes) 15 [employer] OF INTEGRATED MARKETING Anatoliy Sipmson, PT - 07/02/2021 2:08 PM CST 07/02/21 1400 Quick Adds Quick Adds Certification Type of Visit Initial PT Evaluation Living Environment People in home alone Current Living Arrangements independent living facility Home Accessibility no concerns Living Environment Comments Pt lives alone in an ILF. Uses a walker for mobility. Gets assistance with cleaning, meals on wheels service. Self-Care Usual Activity Tolerance moderate Current Activity Tolerance fair Activity/Exercise/Self-Care Comment Mod I with a walker; typically can walk through facility to get her own mail. Disability/Function Fall history within last six months no General Information Onset of Illness/Injury or Date of Surgery 07/01/21 Referring Physician Jamie Bush MD Patient/Family Therapy Goals Statement (PT) To get home MERVAT Pertinent History of Current Problem (include personal factors and/or comorbidities that impact the POC) 86 year old female with a past medical history of hypertension, heart failure, diabetes mellitus, hyperlipidemia, depression/anxiety, chronic urinary incontinence who presents with low back pain Existing Precautions/Restrictions fall Cognition Orientation Status (Cognition) oriented x 4 Pain Assessment Patient Currently in Pain Yes, see Vital Sign flowsheet Range of Motion (ROM) ROM Comment B LE AROM WFLs. Strength Strength Comments Pt with decreased global strength; requires assistance for bed mobility this session. Bed Mobility Comment (Bed Mobility) Supine>sit with modA Transfers Transfer Safety Comments Sit<>stand with CGA from EOB and toilet. Gait/Stairs (Locomotion) Comment (Gait/Stairs) Ambulates with FWW and CGA progressing to SBA Balance Balance Comments Requires B UE Support on FWW for safe dynamic mobility; baseline Clinical Impression Criteria for Skilled Therapeutic Intervention yes, treatment indicated PT Diagnosis (PT) Impaired functional mobility Influenced by the following impairments Pain, decreased strength, decreased activity tolerance Functional limitations due to impairments Decreased IND with bed mobility, transfers, gait Clinical Presentation Evolving/Changing Clinical Presentation Rationale Fluctuating strength and physical capabilities Clinical Decision Making (Complexity) low complexity Therapy Frequency (PT) 5x/week Predicted Duration of Therapy Intervention (days/wks) One week Planned Therapy Interventions (PT) bed mobility training;gait training;transfer training;progressiveactivity/exercise Risk & Benefits of therapy have been explained evaluation/treatment results reviewed;care plan/treatment goals reviewed;participants voiced agreement with care plan;participants included;patient PT Discharge Planning PT Discharge Recommendation (DC Rec) Transitional Care Facility;home with assist;home with home carephysical therapy PT Rationale for DC Rec Pt is below baseline for mobility. Will need Ax1 for mobility at home on discharge with HHPT; pt has demonstrated variable physical strength and abilities since admission. RN notes report intermittent need for Ax2. Pt would benefit from continued PT in a TCU setting to maximizestrength/IND prior to returning home. Therapy Certification Start of care date 07/02/21 Certification date from 07/02/21 Certification date to 07/05/21 Medical Diagnosis LBP Total Evaluation Time Total Evaluation Time (Minutes) 10 [employer] OF INTEGR[employer] MARKETING Christina Hernandez RT - 07/02/2021 2:25 AM CST Pt placed on CPAP +5 and 21% for sleep. RT will monitor. RT Arvind CTOR OF INTEGRATED MARKETING documented in this encounter H&P Notes Jamie Bush MD - 07/01/2021 9:59 PM CST [facility] History and Physical Hospitalist Date of Admission: 07/01/2021 Assessment & Plan Meseret Lakhani is a 86 year old female with a past medical history of hypertension, heart failure, diabetes mellitus, hyperlipidemia, depression/anxiety, chronic urinary incontinence who presents withlow back pain. #Low Back Pain, suspect MSK strain: Ms. Lakhani describes low back pain that started about a weekago. More localized to the right lower back. No radiation down the legs. Really localized to the lowback and worsened with any sort of movement. She denies any change in urination. She does have baseline urinary incontinence. No new fecal incontinence or constipation. She denies any numbness or tingling in her legs. There was no preceding fall or injury. She does note that she recently had some discomfort in her left foot which is now better which caused her to walk funny. -ED, patient afebrile and hemodynamically stable. Saturating well on room air. BMP and CBC unremarkable. CT lumbar spine done shows no fracture and no high- grade spinal stenosis or foraminal stenosis. Did show moderate spinal stenosis with chronic degenerative changes. Patient given [place] 5 mg and Flexeril. Patient was not able to ambulate independently and brought in for observation. -Suspect patient has musculoskeletal strain given worsening of back pain with movement. No red flag symptoms. She has baseline urinary incontinence which is no different. No fecal incontinence or constipation. No loss of sensation. -We will schedule Tylenol, low dose gabapentin, Lidocaine patch. Low-dose oxycodone. Trial Robaxin therapy. -PT consulted #History of DVT w Factor V leiden: Continue warfarin pharm to dose #HTN: Continue home meds once verified. Hydralazine prn #Anxiety/depression: Restart home lexapro once dose verified #HL: Continue home statin #GERD: PPI therapy #Hypothyrodism: Resume home LT4 once dose verified DVT Prophylaxis: Warfarin Code Status: DNR / DNI. Confirmed on admission. Dispo: [place] to observation Jamie Bush MD Primary Care Physician Gabriella Mariano Chief Complaint Low back pain History is obtained from the patient, patient's chart and discussed with the ER physician History of Present Illness Meseret Lakhani is a 86 year old female with a past medical history of hypertension, heart failure, diabetes mellitus, hyperlipidemia, depression/anxiety, chronic urinary incontinence who presents withlow back pain. Ms. Lakhani describes low back pain that started about a week ago. More localized to the right lower back. No radiation down the legs. Really localized to the low back and worsened with any sort of movement. She denies any change in urination. She does have baseline urinary incontinence. No new fecal incontinence or constipation. She denies any numbness or tingling in her legs. There was no preceding fall or injury. She does note that she recently had some discomfort in her left foot which is nowbetter which caused her to walk funny. She was reportedly seen at clinic yesterday where she was prescribed oxycodone which did not help much with the pain but caused her to be sleepy. In the ED, patient afebrile and hemodynamically stable. Saturating well on room air. BMP and CBC unremarkable. CT lumbar spine done shows no fracture and no high-grade spinal stenosis or foraminal stenosis. Did show moderate spinal stenosis with chronic degenerative changes. Patient given [place] 5 mg and Flexeril. Patient was not able to ambulate independently and brought in for observation. Past Medical History Hypertension CHF Diabetes Depression Factor V inhibitor disorder Gout Hypothyroidism Past Surgical History Bladder surgery Prior to Admission Medications None Zyloprim Norvasc Lipitor Levothyroxine Lisinopril Lopressor Prilosec Zoloft Coumadin Oxycodone Crestor Zoloft Allergies Allergies Allergen Reactions ??? Oxybutynin ??? Penicillins Social History I have reviewed this patient's social history and updated it with pertinent information if needed. Meseret Lakhani Non-smoker, nondrinker. Lives in a senior apartment. Lives alone. Family History Noncontributory Review of Systems The 10 point Review of Systems is negative other than noted in the HPI or here. Physical Exam Temp: 98.1 ??F (36.7 ??C) Temp src: Temporal BP: (!) 169/74 Pulse: 57 Resp: 18 SpO2: 92 % O2 Device:None (Room air) Vital Signs with Ranges Temp: [98.1 ??F (36.7 ??C)] 98.1 ??F (36.7 ??C) Pulse: [57-86] 57 Resp: [18] 18 BP: (155-169)/(73-74) 169/74 SpO2: [92 %-96 %] 92 % 0 lbs 0 oz Constitutional: Elderly female, no acute distress. Nontoxic HEENT: Normocephalic, MMM, no elevation of JVD noted Respiratory: Nl WOB, Clear bilaterally, No wheezes, no crackles Cardiovascular: Irregular, positive systolic murmur. GI: BS+, NT, ND, no rebound or guarding Lymph/Hematologic: No bruising. No cervical LAD Skin: No rash Musculoskeletal: Mild bilateral edema noted. She has no point tenderness along the lumbar spine. Minimal paraspinal tenderness more on the right. She is able to lift both legs off the bed independently. Dorsiflexion and plantar flexion intact. Negative straight leg raise bilaterally. Moves very slowlyin the bed when turning on her side. Neurologic: A&Ox3, Answers appropriately. CNII-XII intact. Moves all extremities. No tremor. Sensation is intact in her distal extremities. Psychiatric: Calm Data Data reviewed today: I personally reviewed Recent Labs Lab 07/01/21 1800 WBC 6.6 HGB 11.9 MCV 99 PLT 156 INR 2.24* NA 141 POTASSIUM 4.0 CHLORIDE 107 CO2 30 BUN 17 CR 0.70 ANIONGAP 4 JAMIN 9.8 GLC 121* Recent Results (from the past 24 hour(s)) Lumbar spine CT w/o contrast Narrative EXAM: CT LUMBAR SPINE W/O CONTRAST LOCATION: [facility] DATE/TIME: 07/01/2021 6:19 PM INDICATION: Right-sided low back pain, on Coumadin. COMPARISON: None. TECHNIQUE: Routine CT lumbar spine without IV contrast. Multiplanar reformats. Dose reduction techniques were used. FINDINGS: VERTEBRA: There are five lumbar-type vertebral bodies identified. There is mild S-shaped lumbar curve convex to the right L1, convex to the left L4. Overall vertebral body height is satisfactory. Thereis 1 mm degenerative anterior subluxation L2-L3, L4-L5 noted. Articular pillars are intact. Lower lumbar spine facet joint arthropathy. No evidence for facet joint space widening or interspace widening. Perforating vascular channel right superior articular process L4 series 7 image 40, series 8 image 30. No fracture or posttraumatic subluxation. No displaced lower rib fractures are evident. Degenerative changes both SI joints. CANAL/FORAMINA: There is no high grade spinal stenosis present. No traumatic disc herniations. Moderate spinal stenoses are identified L1-L2, L3-L4, and L4- L5 levels. There is some ectasia of the nerveroot sleeves at L5-S1, left more prominent than right. No severe foraminal compromise. PARASPINAL: There is some dorsal paraspinous muscular atrophy/fatty replacement on a chronic basis at the lower lumbar level. No retroperitoneal solid mass or adenopathy. Vascular calcification is present. Degenerative changes anterior SI joints. Granite Polisher Apprentice localizer shows total hip arthroplasty components. Impression IMPRESSION: 1. No fracture or posttraumatic subluxation. 2. No high grade spinal canal or neural foraminal stenosis. 3. Multilevel moderate spinal stenosis on a chronic degenerative basis with no traumatic disc herniations evident. Clinically Significant Risk Factors Present on Admission # Coagulation Defect: INR = 2.24 (Ref range: 0.85 - 1.15) and/or PTT = N/A on admission, will monitor for bleeding [employer]ET[employer] documented in this encounter Consult Notes Jennifer Dawn LSW - 07/04/2021 3:14 PM CST Care Management Initial Consult General Information Assessment completed with: Patient, Type of CM/SW Visit: Initial Assessment Primary Care Provider verified and updated as needed: Yes Readmission within the last 30 days: no previous admission in last 30 days Reason for Consult: discharge planning Advance Care Planning: none Communication Assessment Patient's communication style: spoken language (Vietnamese or Bilingual) Hearing Difficulty or Deaf: yes Wear Glasses or Blind: yes Cognitive Cognitive/Neuro/Behavioral: WDL Living Environment: People in home: alone Current living Arrangements: independent living facility Able to return to prior arrangements: yes Family/Social Support: Care provided by: self Provides care for: no one Marital Status: Children Description of Support System: Supportive,Involved Support Assessment: Adequate family and caregiver support,Adequate social supports Current Resources: Patient receiving home care services: No Community Resources: None Equipment currently used at home: grab bar, toilet,grab bar, tub/shower,walker, rolling Supplies currently used at home: Employment/Financial: Employment Status: retired Financial Concerns: insurance, none Referral to Financial Counselor: No Lifestyle & Psychosocial Needs: Social Determinants of Health Tobacco Use: Not on file Alcohol Use: Not on file Financial Resource Strain: Not on file Food Insecurity: Not on file Transportation Needs: Not on file Physical Activity: Not on file Stress: Not on file Social Connections: Not on file Intimate Partner Violence: Not on file Depression: Not on file Housing Stability: Not on file Functional Status: Prior to admission patient needed assistance: none Mental Health Status: Mental Health Status: No Current Concerns Chemical Dependency Status: Chemical Dependency Status: No Current Concerns Values/Beliefs: Spiritual, Cultural Beliefs, Oriental Orthodox Practices, Values that affect care: unknown Additional Information: SW met with patient at bedside for assessment of discharge planning needs. Patient is alert and oriented X3, conversant, and able to participate in discharge planning. Also present was patients daughter. Discussed with patient the need for home care services after discharge. The patient was given a listof home care agencies. Patient has chosen [facility] (p: [phone] or [phone] f: [phone]). The criteria for homebound status was explained as applicable. Home care was described to the patient as skilled, intermittent service. Length and frequency of home care visitswill be determined by the home care agency. SW called and they are able to accept patient pending ins verification. SW faxed over referral. [place]AL [place]aredes [facility] [place] [phone] [address] [facility]. [id number] [facility] MIKAL Anders [employer]OR OF [employer]TEGR[employer] MARKET[employer] documented in this encounter ED Notes Christina Crater RN - 07/02/2021 7:14 AM CST Bed: ED25 Expected date: Expected time: Means of arrival: Comments: Hold 13 [employer] OF [employer] Shell Acuña RN - 07/01/2021 9:55 PM CST [facility] ED Nurse Handoff Report Meseret Lakhani is a 86 year old female ED Chief complaint: Back Pain . ED Diagnosis: Final diagnoses: Acute right-sided low back pain without sciatica Allergies: Allergies Allergen Reactions ??? Oxybutynin ??? Penicillins Code Status: Full Code Activity level - Baseline/Home: Independent. Activity Level - Current: Assist X 2. Lift room needed:No. Bariatric: No Stitch Welder Needed: No Isolation: No. Infection: Not Applicable. Vital Signs: Vitals: 07/01/21 1552 07/01/21 1900 07/01/21 2100 BP: (!) 155/73 (!) 169/73 (!) 169/74 Pulse: 86 66 57 Resp: 18 Temp: 98.1 ??F (36.7 ??C) TempSrc: Temporal SpO2: 96% 94% 92% Cardiac Rhythm: , Pain level: Patient confused: No. Patient Falls Risk: Yes. Elimination Status: Has voided Patient Report - Initial Complaint: Back pain. Focused Assessment: Back pain, gen wkns Tests Performed: Labs Ordered and Resulted from Time of ED Arrival to Time of ED Departure ROUTINE UA WITH MICROSCOPIC REFLEX TO CULTURE - Abnormal Result Value Color Urine Yellow Appearance Urine Clear Glucose Urine Negative Bilirubin Urine Negative Ketones Urine Negative Specific [place] Urine 1.017 Blood Urine Negative pH Urine 5.0 Protein Albumin Urine Negative Urobilinogen Urine Normal Nitrite Urine Negative Leukocyte Esterase Urine Trace (*) Bacteria Urine Many (*) Mucus Urine Present (*) RBC Urine 1 WBC Urine 4 Squamous Epithelials Urine <1 BASIC METABOLIC PANEL - Abnormal Sodium 141 Potassium 4.0 Chloride 107 Carbon Dioxide (CO2) 30 Anion Gap 4 Urea Nitrogen 17 Creatinine 0.70 Calcium 9.8 Glucose 121 (*) GFR Estimate 80 INR - Abnormal INR 2.24 (*) CBC WITH PLATELETS AND DIFFERENTIAL - Abnormal WBC Count 6.6 RBC Count 3.92 Hemoglobin 11.9 Hematocrit 38.9 MCV 99 MCH 30.4 MCHC 30.6 (*) RDW 16.5 (*) Platelet Count 156 % Neutrophils 79 % Lymphocytes 10 % Monocytes 8 % Eosinophils 2 % Basophils 1 % Immature Granulocytes 0 NRBCs per 100 WBC 0 Absolute Neutrophils 5.2 Absolute Lymphocytes 0.7 (*) Absolute Monocytes 0.5 Absolute Eosinophils 0.2 Absolute Basophils 0.0 Absolute Immature Granulocytes 0.0 Absolute NRBCs 0.0 COVID-19 VIRUS (CORONAVIRUS) BY PCR - Normal SARS CoV2 PCR Negative Lumbar spine CT w/o contrast Final Result IMPRESSION: 1. No fracture or posttraumatic subluxation. 2. No high grade spinal canal or neural foraminal stenosis. 3. Multilevel moderate spinal stenosis on a chronic degenerative basis with no traumatic disc herniations evident. . Abnormal Results: See above. Treatments provided: Lidocaine, norco Family Comments: NA OBS brochure/video discussed/provided to patient: YES ED Medications: Medications Lidocaine (LIDOCARE) 4 % Patch 1 patch (1 patch Transdermal Patch/Med Applied 07/01/211811) HYDROcodone-acetaminophen (NORCO) 5-325 MG per tablet 1 tablet (has no administration in time range) cyclobenzaprine (FLEXERIL) tablet 5 mg (5 mg Oral Given 07/01/211758) Drips infusing: No For the majority of the shift, the patient's behavior Green. Interventions performed were NA. Sepsis treatment initiated: No Patient tested for COVID 19 prior to admission: YES ED Nurse Name/Phone Number: Preethi Boland RN, 9:55 PM Preethi Sadler RN - 07/01/2021 8:42 PM CST Pt pressed call light and auto service writer found pt lying sideways in bed (was previously sitting on edge of bed and states she was trying to lay down), incontinent of urine and unable to get self up. Human Resources Executive Assistant andtech helped sit pt up on edge of bed and it took two assist of people to help pt stand with walker from sitting position in bed to change brief. Pt was very weak and stiff. notified. [employer] MARKET[employer] Preethi Boland RN - 07/01/2021 8:[address] test completed by [employer]. Pt required assistance to get out of bed, but was able to walk independently with walker. Pt states she feels better with walking than upon arrival and wants to go home. Ptlives in independent detention facility with no services. Belén Young RN - 07/01/2021 3:47 PM CST Pt presents to ED via EMS. C/O low back pain x 1 week. Seen at yesterday and prescribed oxycodone. Pt has taken 2 doses, last dose at 8 AM. Does not feel like medication is working. Pt Ambulatory intriage. States she has gout and had been walking funny and believes that may have caused her pain.BG 11. VSS [employer] Mandeep Sears MD - 07/01/2021 3:42 PM CST History Chief Complaint: Back Pain The history is provided by the patient. Meseret Lakhani is a 86 year old female with history of hypertension, CHF, and diabetes, currently anticoagulated on Coumadin, who presents with back pain. The patient reports that she has had lower right back pain for about a week, and it has been steadily worsening since its onset. She believes she has gout in her left ankle, which has caused her to walk differently, and she thinks she could have pulled her back out due to this. She denies any falls or trauma. She has not had any numbness/tinglingin her legs or episodes of unexpected incontinence. She reports she has chronic urinary incontinence. She was seen at her clinic yesterday and was given oxycodone, but she notes that this only makes her sleepy and does not help with the pain. She last took oxycodone at 0800 this morning. She has not tried muscle relaxers. Review of Systems Musculoskeletal: Positive for back pain and gait problem. Neurological: Negative for numbness. All other systems reviewed and are negative. Allergies: Oxybutynin Penicillins Medications: Zyloprim Norvasc Lipitor Levothyroxine Lisinopril Lopressor Prilosec Zoloft Coumadin Oxycodone Crestor Zoloft Past Medical History: Hypertension CHF Diabetes Depression Factor V inhibitor disorder Gout Hypothyroidism Past Surgical History: Bladder surgery Family History: The patient denies past family history. Social History: Presents to ED alone. Lives alone. Physical Exam Patient Vitals for the past 24 hrs: BP Temp Temp src Pulse Resp SpO2 07/01/21 2100 (!) 169/74 -- -- 57 -- 92 % 07/01/21 1900 (!) 169/73 -- -- 66 -- 94 % 07/01/21 1552 (!) 155/73 98.1 ??F (36.7 ??C) Temporal 86 18 96 % Physical Exam Nursing note and vitals reviewed. HENT: Mouth/Throat: Moist mucous membranes. Eyes: EOMI, nonicteric sclera Cardiovascular: Normal rate, regular rhythm, no murmurs, rubs, or gallops Pulmonary/Chest: Effort normal and breath sounds normal. No respiratory distress. No wheezes. No rales. Abdominal: Soft. Nontender, nondistended, no guarding or rigidity. Musculoskeletal: Normal range of motion. Right lower back TTP. Slow, antalgic gait. Neurological: Alert. Moves all extremities spontaneously. Equal DF/PF bilaterally. Normal sensation all 5 distal nerve distributions. Skin: Skin is warm and dry. No rash noted. Psychiatric: Normal mood and affect. Emergency Department Course Imaging: Lumbar spine CT w/o contrast Final Result IMPRESSION: 1. No fracture or posttraumatic subluxation. 2. No high grade spinal canal or neural foraminal stenosis. 3. Multilevel moderate spinal stenosis on a chronic degenerative basis with no traumatic disc herniations evident. Report per radiology Laboratory: Labs Ordered and Resulted from Time of ED Arrival to Time of ED Departure ROUTINE UA WITH MICROSCOPIC REFLEX TO CULTURE - Abnormal Result Value Color Urine Yellow Appearance Urine Clear Glucose Urine Negative Bilirubin Urine Negative Ketones Urine Negative Specific [place] Urine 1.017 Blood Urine Negative pH Urine 5.0 Protein Albumin Urine Negative Urobilinogen Urine Normal Nitrite Urine Negative Leukocyte Esterase Urine Trace (*) Bacteria Urine Many (*) Mucus Urine Present (*) RBC Urine 1 WBC Urine 4 Squamous Epithelials Urine <1 BASIC METABOLIC PANEL - Abnormal Sodium 141 Potassium 4.0 Chloride 107 Carbon Dioxide (CO2) 30 Anion Gap 4 Urea Nitrogen 17 Creatinine 0.70 Calcium 9.8 Glucose 121 (*) GFR Estimate 80 INR - Abnormal INR 2.24 (*) CBC WITH PLATELETS AND DIFFERENTIAL - Abnormal WBC Count 6.6 RBC Count 3.92 Hemoglobin 11.9 Hematocrit 38.9 MCV 99 MCH 30.4 MCHC 30.6 (*) RDW 16.5 (*) Platelet Count 156 % Neutrophils 79 % Lymphocytes 10 % Monocytes 8 % Eosinophils 2 % Basophils 1 % Immature Granulocytes 0 NRBCs per 100 WBC 0 Absolute Neutrophils 5.2 Absolute Lymphocytes 0.7 (*) Absolute Monocytes 0.5 Absolute Eosinophils 0.2 Absolute Basophils 0.0 Absolute Immature Granulocytes 0.0 Absolute NRBCs 0.0 COVID-19 VIRUS (CORONAVIRUS) BY PCR - Normal SARS CoV2 PCR Negative Emergency Department Course: Reviewed: I reviewed nursing notes, vitals, past medical history, Care Everywhere and [facility]. Assessments: 1733 I obtained history and examined the patient as noted above. 2038 I rechecked the patient and explained findings. Consults: [address] Bush of the hospitalist service who accepts the patient for admission. Interventions: 1758 Flexeril 5 mg, PO 1811 Lidocare 1 Patch, Transdermal [address] [place] 5-325 mg 1 tablet, PO Disposition: The patient was admitted to the hospital under the care of Dr. Bush. Impression & Plan Medical Decision Making: Pt presents with right-sided low back pain. This seems musculoskeletal by history and exam, but given pt's age imaging obtained which is fortunately negative for acute etiology. Doubt dissection given no abdominal pain and lateral back pain worse with movement. Labs/urine unremarkable. Pt reports narco tics not providing pain relief at home. Tried lidoderm/flexeril here. Pt still not getting around well. (See RN note regarding pt unable to get in/out of bed and incontinent of urine.) Pt reports chronic urinary incontinence, therefore emergent MRI not obtained. Given inability of pt to function at home, obs admission indicated. Dr. Bush accepts for admission. All questions answered. Pt in agreement with plan. Diagnosis: ICD-10-CM 1. Acute right-sided low back pain without sciatica M54.50 Scribe Disclosure: I, Rosa Maria Givens, am serving as a scribe at 5:22 PM on 07/01/2021 to document services personally performed by Mandeep Sears MD based on my observations and the provider's statements to me. Mandeep Sears MD 07/01/21 5442 [employer] documented in this encounter Miscellaneous Notes Plan of Care - Vandana Manuel, PT - 07/10/2021 3:58 PM CST Physical Therapy Discharge Summary Reason for therapy discharge: Discharged to transitional care facility. Progress towards therapy goal(s). See goals on Care Plan in [facility] electronic health record for goal details. Goals not met. Barriers to achieving goals: limited tolerance for therapy and discharge from facility. Therapy recommendation(s): Continued therapy is recommended. Rationale/Recommendations: PT as indicated at TCU. [employer] Plan of Care - Mahi Lezama OT - 07/10/2021 3:20 PM CST Occupational Therapy Discharge Summary Reason for therapy discharge: Discharged to transitional care facility. Progress towards therapy goal(s). See goals on Care Plan in [facility] electronic health record for goal details. Goals not met. Barriers to achieving goals: discharge from facility. Therapy recommendation(s): Continued therapy is recommended. Rationale/Recommendations: OT eval and treat at TCU. Pt not seen by discharging therapist on this date, note written based on previous treating therapist's notes and recommendations [employer] Plan of Care - Shelli Tejada RN - 07/10/2021 3:02 PM CST PRIMARY DIAGNOSIS: ACUTE PAIN OUTPATIENT/OBSERVATION GOALS TO BE MET BEFORE DISCHARGE: 1. Pain Status: Improved-controlled with oral pain medications. 2. Return to near baseline physical activity: Yes 3. Cleared for discharge by consultants (if involved): Yes Punching Machine Operator Nurse Safe discharge environment identified: Yes Barriers to discharge: No Entered by: Shelli Tejada 07/10/2021 3:03 PM Please review provider order for any additional goals. Nurse to notify provider when observation goals have been met and patient is ready for discharge. A/Ox4. CMS intact. Pain managed with Oxycodone, Robaxin, and Tylenol. Voiding well. Ambulating with Ax1 et walker. [facility] w/c transport. 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 INR Goal= 2-3 Expected length of therapy undetermined. HOSPICE CLINICAL MARKETER warfarin regimen: 2.5mg Wed & 5mg ROW. Anticoagulation Dose History Recent Dosing and Labs Latest Ref Rng & Units 07/04/2021 07/05/2021 07/06/2021 07/07/2021 07/08/2021 07/09/2021 07/10/2021 ZZ IMS TEMPLATE - - 3.5 mg - - - - - Warfarin 2.5 mg - 2.5 mg - - - - 2.5 mg - Warfarin 5 mg - - - 5 mg 5 mg 5 mg - - INR 0.85 - 1.15 2.66(H) 2.59(H) 2.40(H) 2.55(H) 2.70(H) 2.79(H) 3.03(H) Vitamin K doses administered during the last 7 days: - FFP administered during the last 7 days: - Reviewed HOSPICE CLINICAL MARKETER, inpatient and discharge warfarin orders. The patient is discharged on reduced warfarindose of 2.5 mg daily with INR recheck on Wednesday (07/14). [employer] Plan of Care - Nathalia Garcia RN - 07/10/2021 3:57 AM CST PRIMARY DIAGNOSIS: ACUTE PAIN OUTPATIENT/OBSERVATION GOALS TO BE MET BEFORE DISCHARGE: 1. Pain Status: Improved-controlled with oral pain medications. 2. Return to near baseline physical activity: Yes 3. Cleared for discharge by consultants (if involved): No Punching Machine Operator Nurse Safe discharge environment identified: Yes Barriers to discharge: Yes Entered by: Nathalia Garcia 07/10/2021 3:58 AM Please review provider order for any additional goals. Nurse to notify provider when observation goals have been met and patient is ready for discharge. Pt A&Ox3, VSS-RA, Cpap on throughout the night. C/o pain, PO oxycodone administered, Denies N/V,Lidocaine patch applied to lower back. Pt A-1, GB and walker. Voiding well. Awaiting TCU placement, Will continue to monitor. [employer] Plan of Care - Navya Myles RN - 07/09/2021 10:37 PM CST RN 7p-11p A&Ox4, VSS, Ax1 GB/W. Smear BM, brown, formed. Denies dizziness w/ ambulation. Plan to dischargeto TCU once placement found. [employer] Plan of Care - Shelli Tejada RN - 07/09/2021 3:16 PM CST PRIMARY DIAGNOSIS: ACUTE PAIN OUTPATIENT/OBSERVATION GOALS TO BE MET BEFORE DISCHARGE: 1. Pain Status: Improved-controlled with oral pain medications. 2. Return to near baseline physical activity: Yes 3. Cleared for discharge by consultants (if involved): No Punching Machine Operator Nurse Safe discharge environment identified: Yes Barriers to discharge: Yes Entered by: Shelli Tejada 07/09/2021 3:16 PM Please review provider order for any additional goals. Nurse to notify provider when observation goals have been met and patient is ready for discharge. A/Ox4. CMS intact. Back pain controlled with Oxycodone and scheduled Robaxin. No further stools today or signs of bleeding. Hemoglobin stable. Up with Ax1 et walker. Awaiting TCU placement. [employer] Plan of Care - Nathalia Garcia RN - 07/09/2021 6:26 AM CST Bedside [id number] Pt A&Ox3, VSS, on Cpap throughout the night with 1L O2 bleed through. Denied pain, N/V, Lidocaine patch applied to lower back. Pt A-1, GB and walker. Voiding well. No stool noted during shift. Tried weaning off O2 early this AM Pt destat to 87-89%, remains on 1L and at 95%. Awaiting TCU placement,Will continue to monitor. [employer] Plan of Care - Leigh Ann Najera RN - 07/08/2021 9:25 PM CST Vital signs stable. CMS intact. Pain in back controlled with scheduled robaxin, prn oxycodone. Ambulated with walker gait and sba of 1. Hgb recheck 12.1. No bleeding or black stools noted. Pt uses c pap at hs.Pt decline use of lidocaine patch, stated it does not help a bit. Care plan reviewed with pt. [employer] Utilization Review - Karly Jefferson MD - 07/08/2021 2:30 PM CST Admission Status; Secondary Review Determination Admission Date: 07/01/2021 5:13 PM Under the authority of the Utilization Management Committee, the utilization review process indicated a secondary review on the above patient. The review outcome is based on review of the medical records, discussions with staff, and applying clinical experience noted on the date of the review. (x) Observation Status Appropriate - This patient does not meet hospital inpatient criteria and is placed in observation status. If this patient's primary payer is Medicare and was admitted as an inpatient, Condition Code 44 should be used and patient status changed to observation. RATIONALE FOR DETERMINATION Brief clinical presentation, information copied from the chart, abbreviated and edited for relevant content: Discussed with Dr. Jordan. She is waiting for TCU placement, there is a back log, no beds available. No criteria to advance status. Patient is a 86 year old female with past medical history significant for hypertension, factor V Leiden with previous DVT on chronic anticoagulation, hyperlipidemia, major depressive disorder, anxiety,and GERD who presented to [facility] on 07/01/2021 with left lower back pain and was found to have musculoskeletal strain. Developed hypoxia in the emergency department without clear etiology at this time, resolved. Her ejection fraction on echocardiogram is normal, and there is no clearinfiltrate or pulmonary edema on chest x-ray. She has been receiving PT for low back strain as well as conservative care while awaiting placement. Patient is clinically improving and there is no clear indication to change the patient's status to inpatient. The severity of illness, intensity of cares provided, risk for adverse outcome, and expected LOS make the care appropriate for observation. The information on this document is developed by the utilization review team in order for the business office to ensure compliance. This only denotes the appropriateness of proper admission status and does not reflect the quality of care rendered. The definitions of Inpatient Status and Observation Status used in making the determination above are those provided in the CMS Coverage Manual, Chapter 1 and Chapter 6, section 70.4. Sincerely, Karly Jefferson MD Utilization Review/ Case Management [facility]. [employer] OF [employer]TE[employer] MARKETING Plan of Care - Nora Almodovar RN - 07/08/2021 2:22 PM CST A/O x4. BP meds adjusted this AM with parameters in place. Bradycardic. On RA. Regular diet. A1 withwalker and gait belt. Voiding adequate amounts. Black tarry stool this afternoon, MD notified and will monitor for any signs of bleeding, hgb recheck scheduled for 1800 tonight. PRN oxy given along with scheduled pain meds to manage pain. Therapy still recommending TCU, awaiting placement. [employer]OR OF [employer] MARKETING Plan of Care - Navya Myles RN - 07/08/2021 6:36 AM CST RN [id number] A&Ox4, VSS on RA, up Ax1 GB/W. C/o right lower back pain, controlled w/ oxy, tylenol, lid patch.Home vs TCU on discharge. [employer]OR OF [employer] MARKETING Plan of Care - Nohemi Zapata - 07/07/2021 6:14 PM CST A&O x4. VSS, baseline bradycardia. Lungs clear and diminished. 91% RA. Pain managed with tylenoland oxycodone. A1, GB and walker. Voids spontaneously. Tolerating regular diet. Pt motivated to discharge home. Current plan is to discharge to TCU when there is a placement, however pt would like PT to re- evaluate her so she can discharge home. Pt states that she can get in and out of bed fine. [employer]ET[employer] Associated attestation - Brian Parra RN - 07/07/2021 7:34 PM DIRECTOR OF INTEGRATED MARKETING Brian Parra RN on 07/07/2021 at 7:34 PM Plan of Care - Niki Paul RN - 07/07/2021 2:36 AM CST PRIMARY DIAGNOSIS: ACUTE KNEE PAIN OUTPATIENT/OBSERVATION GOALS TO BE MET BEFORE DISCHARGE: 1. Pain Status: No pain reported overnight, sleeping comfortable, scheduled Tylenol given, Ice packsapplied. 2. Return to near baseline physical activity: No, Up with Ax1,gbelt and walker. 3. Cleared for discharge by consultants (if involved): Yes Punching Machine Operator Nurse Safe discharge environment identified: Yes, Possible discharge to TCU Barriers to discharge: NO. Entered by: Niki Paul 07/07/2021 2:44 AM A&Ox4, CPAP with 1L oxygen overnight. Denies pain. Voiding per Pure wick. Awaiting TCU Placement. [employer]OR OF [employer]TE[employer] MARKETING Plan of Care - Brian Parra RN - 07/06/2021 10:13 PM CST PRIMARY DIAGNOSIS: ACUTE PAIN OUTPATIENT/OBSERVATION GOALS TO BE MET BEFORE DISCHARGE: 1. Pain Status: reporting 5/10 pain. Pain managed with oxycodone, tylenol 2. Return to near baseline physical activity: No. Requiring A1 to get in and out of bed 3. Cleared for discharge by consultants (if involved):No, possible discharge tomorrow. Pending TCU placement Punching Machine Operator Nurse Safe discharge environment identified: Yes, TCU Barriers to discharge: No Entered by: Brian Parra 07/06/2021 10:13 PM Please review provider order for any additional goals. Nurse to notify provider when observation goals have been met and patient is ready for discharge. Pt A&O. Up with A1, walker. Pt feels anxious about going to TCU but understands why she must go.Lungs clear. On 1L O2. Voiding. Tolerating diet. VSS [employer] Plan of Care - Kesha Leija RN - 07/06/2021 2:52 PM CST VSS, 1LPM O2 NC to maintain sats. Bradycardic but asymptomatic. Complains of pain in lower back but reports it's much improved since previous days. Scheduled Tylenol and Robaxin given. Ambulating with 1a/walker/gb. Continue with POC, potential discharge tomorrow. BP 101/66 (BP Location: Left arm) Pulse 73 Temp (!) 96.6 ??F (35.9 ??C) (Temporal) Resp 16 Ht 1.6 m (5' 3) Wt 74.8 kg (165 lb) SpO2 96% BMI 29.23 kg/m?? [employer] Plan of Care - Triny Melvin RN - 07/06/2021 4:39 AM CST A&Ox4. VSS except bradycardia. On 1L via pts home Cpap at night. No IV access. Tolerating a regular diet. Ambulates with Ax1 using the walker with the gait belt on. Taking Oxycodone for pain. Pt spoke with nurse about concern for her unexplained back pain; pt would like an answer to why her back hurts; pt thought that maybe her Schwannoma had something to do with her back pain. Plan is for home with home care in 1-2 days. [employer] Plan of Care - Brian Parra RN - 07/05/2021 4:09 PM CST Pt A&Ox4. Up with A1, walker. Reporting mild pain. Pain managed with robaxin, tylenol. Lungs clear. Requiring 1L O2, unable to wean. Using IS. Voiding. Regular diet. Plan is TCU at discharge. [employer] Plan of Care - Racquel García SLP - 07/05/2021 12:39 PM CST Speech Language Therapy Discharge Summary Reason for therapy discharge: All goals and outcomes met, no further needs identified. Progress towards therapy goal(s). See goals on Care Plan in Epic electronic health record for goal details. Goals met Therapy recommendation(s): No further therapy is recommended. She should tolerate a regular diet with thin liquids. [employer] Plan of Care - Nohemi Zapata - 07/04/2021 3:44 PM CST PRIMARY DIAGNOSIS: ACUTE PAIN OUTPATIENT/OBSERVATION GOALS TO BE MET BEFORE DISCHARGE: 1. Pain Status: Improved-controlled with oral pain medications. 2. Return to near baseline physical activity: Yes 3. Cleared for discharge by consultants (if involved): No Punching Machine Operator Nurse Safe discharge environment identified: Yes Barriers to discharge: Yes, assess reason for hypoxia Entered by: Nohemi Zapata 07/04/2021 6:55 PM Please review provider order for any additional goals. Nurse to notify provider when observation goals have been met and patient is ready for discharge. A&O x4. Slower to respond, no aphasia. Irregular apical pulse, 55-60s. Lungs clear and diminished. 93% on 1 L oxygen via NS. Encouraged to use IS and deep breathe. Pt drops down to 85-88% without oxygen. CT scan ordered for hypoxia. Back pain managed with tylenol, robaxin, oxycodone, and ice pack.A1, GB and walker. Voids spontaneously. Last BM 07/04. IV site occluded, pt refused to get another IV. Pt will discharge with home care services when medically stable. [employer] Associated attestation - Brian Parra RN - 07/04/2021 7:01 PM DIRECTOR OF INTEGRATED MARKETING Brian Parra RN on 07/04/2021 at 7:01 PM Utilization Review - Tiago Valdez MD - 07/04/2021 2:38 PM CST Concurrent stay review; Secondary Review Determination [facility] Under the authority of the Utilization Management Committee, the utilization review process indicated a secondary review on the above patient. The review outcome is based on review of the medical records, discussions with staff, and applying clinical experience noted on the date of the review. (x) Observation Status Appropriate - Concurrent stay review RATIONALE FOR DETERMINATION 86 year old female with past medical history significant for hypertension, factor V Leiden with previous DVT on chronic anticoagulation, hyperlipidemia, major depressive disorder, anxiety, and GERD [facility]21 with left lower back pain and was found to have m usculoskeletal strain. Developed hypoxia in the emergency department without clear etiology at this time, though slightly improving. Work-up so far has revealed no clear etiology for her hypoxia, ejection fraction on echocardiogram is normal, and there is no clear infiltrate or pulmonary edema on chest x-ray, attending might do a chest CT scan. She is on 2 L of oxygen at the time of this review. Discussed with Dr. Armas The severity of illness, intensity of service provided, expected LOS and risk for adverse outcome make the care appropriate for observation. This document was produced using voice recognition software The information on this document is developed by the utilization review team in order for the business office to ensure compliance. This only denotes the appropriateness of proper admission status and does not reflect the quality of care rendered. The definitions of Inpatient Status and Observation Status used in making the determination above are those provided in the CMS Coverage Manual, Chapter 1 and Chapter 6, section 70.4. Sincerely, TIAGO VALDEZ MD System Fruit TesterHide Cooking Operator [facility]. [employer] Plan of Care - Niki Paul RN - 07/04/2021 4:29 AM CST PRIMARY DIAGNOSIS: ACUTE BACK PAIN OUTPATIENT/OBSERVATION GOALS TO BE MET BEFORE DISCHARGE: 1. Pain Status: Improved with use of alternative comfort measures: PO meds, Lidocaine patch and ice packs. 2. Return to near baseline physical activity: No, up with Ax1,gbelt and walker 3. Cleared for discharge by consultants (if involved): No Punching Machine Operator Nurse Safe discharge environment identified: Yes Barriers to discharge: No Entered by: Niki Paul 07/04/2021 4:30 AM Please review provider order for any additional goals. Nurse to notify provider when observation goals have been met and patient is ready for discharge. [employer] Plan of Anthony - Niki Paul RN - 07/03/2021 8:45 PM CST PRIMARY DIAGNOSIS: ACUTE BACK PAIN OUTPATIENT/OBSERVATION GOALS TO BE MET BEFORE DISCHARGE: 1. Pain Status: Improved with use of alternative comfort measures i.e. ICE pack help the most. 2. Return to near baseline physical activity: No, Up with [id number] and walker 3. Cleared for discharge by consultants (if involved): No Punching Machine Operator Nurse Safe discharge environment identified: Yes Barriers to discharge: No Entered by: Niki Paul 07/03/2021 8:46 PM Please review provider order for any additional goals. Nurse to notify provider when observation goals have been met and patient is ready for discharge. [employer] Plan of Care - Lu Luz RN - 07/03/2021 9:17 AM CST PRIMARY DIAGNOSIS: ACUTE PAIN OUTPATIENT/OBSERVATION GOALS TO BE MET BEFORE DISCHARGE: 1. Pain Status: No improvement noted. Consider adjustment in pain regimen. 2. Return to near baseline physical activity: no, assist of 1 with walker and gait belt 3. Cleared for discharge by consultants (if involved): No Punching Machine Operator Nurse Safe discharge environment identified: Yes Barriers to discharge: Yes, pain control Entered by: Lu Luz 07/03/2021 9:18 AM Please review provider order for any additional goals. Nurse to notify provider when observation goals have been met and patient is ready for discharge. [employer] Plan of Care - Wilson Quiroz RN - 07/03/2021 2:24 AM CST Pt A/O x4, VSS. Pain controlled with PO and lidocaine patch. Sleeping thru the night on hospital CPAP. 1L of O2 NC at 94%. 0330: pt up and ambulating in room with belt and walker. Working with PT/OT/SP, discharge TBD. [employer] Plan of Care - Niki Paul RN - 07/02/2021 8:20 PM CST PRIMARY DIAGNOSIS: ACUTE BACK PAIN OUTPATIENT/OBSERVATION GOALS TO BE MET BEFORE DISCHARGE: 1. Pain Status: Improved-controlled with oral pain medications. 2. Return to near baseline physical activity: No, pain with slight movements 3. Cleared for discharge by consultants (if involved): No Punching Machine Operator Nurse Safe discharge environment identified: No, possible TCU Barriers to discharge: Yes Entered by: Niki Paul 07/03/2021 12:50 AM Please review provider order for any additional goals. Nurse to notify provider when observation goals have been met and patient is ready for discharge. [employer] Plan of Care - Lu Luz RN - 07/02/2021 5:20 PM CST Patient vital signs are at baseline: Yes Patient able to ambulate as they were prior to admission or with assist devices provided by therapies during their stay: No, Reason: up with assist of 1 with walker and gait belt Patient MUST void prior to discharge: Yes Patient able to tolerate oral intake: Yes Pain has adequate pain control using Oral analgesics: Yes, scheduled PO pain meds managing pain [employer] Plan of Care - Anatoliy Simpson, PT - 07/02/2021 2:40 PM CST Images from the original note were not included. [facility] OUTPATIENT PHYSICAL THERAPY EVALUATION PLAN OF TREATMENT FOR OUTPATIENT REHABILITATION (COMPLETE FOR INITIAL CLAIMS ONLY) Patient's Last Name, First Name, M.I. Date of : 1935 Meseret Lakhani Provider's Name [facility] Onset Date: 07/01/21 Start of Care Date: 07/02/21 Type: _X_PT ___OT ___SLP Medical Diagnosis: LBP PT Diagnosis: Impaired functional mobility Visits from SOC: 1 _ Plan of Treatment/Functional Goals Planned Interventions: bed mobility training,gait training,transfer training,progressive activity/exercise Goals: See Physical Therapy Goals on Care Plan in [facility] electronic health record. Therapy Frequency: 5x/week Predicted Duration of Therapy Intervention: One week _ I CERTIFY THE NEED FOR THESE SERVICES FURNISHED UNDER THIS PLAN OF TREATMENT AND WHILE UNDER MY CARE (Physician co-signature of this document indicates review and certification of the therapy plan). Certification date from: 07/02/21, Certification date to: 07/05/21 Referring Physician: Jamie Bush MD Initial Assessment See Physical Therapy evaluation dated 07/02/21 in [facility] electronic health record. [employer] Associated attestation - Jamie Bush MD - 07/02/2021 4:18 PM DIRECTOR OF [employer] MARKETING I agree with note. I did not participate in PT assessment. Plan of Care - Danitza Villatoro RN - 07/02/2021 12:38 PM CST DX: Acute right sided low back pain w/o sciaticia Tele: na A&O x4 Activity: A-2 gb walker Diet: Reg VSS: Q4 O2: 1L 95% BG: na PIV: SL RA Pain: 2 Out of 10 GI/: chronic urinary incontinence Plan: Speech, OT, PT Discharge: TBD [employer] Pharmacy-Admission Medication History - Violette Parsons [facility] - 07/02/2021 10:34 AM CST Admission medication history interview status for this patient is complete. See [facility] admission navigator for allergy information, prior to admission medications and immunization status. 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 No Prior to Admission medications Medication Sig Last Dose Taking? Auth Provider acetaminophen (TYLENOL) 500 MG tablet Take 2 tablets by mouth daily as needed for pain Yes Unknown, Entered By History amLODIPine (NORVASC) 5 MG tablet Take 1 tablet by mouth daily 07/01/2021 at Unknown time Yes Unknown, Entered By History clobetasol (TEMOVATE) 0.05 % external ointment Apply topically 2 times daily as needed at prn Yes Unknown, Entered By History Coenzyme Q10 (CO Q-10) 30 MG CAPS Take 2 capsules by mouth daily 07/01/2021 at Unknown time Yes Unknown, Entered By History ferrous fumarate 65 mg, [place]. FE,-Vitamin C 125 mg (VITRON-C) 65-125 MG TABS tablet Take 2 tablets by mouth daily 07/01/2021 at Unknown time Yes Unknown, Entered By History levothyroxine (TIROSINT) 100 MCG capsule Take 100 mcg by mouth every 24 hours 07/01/2021 at Unknown time Yes Unknown, Entered By History lisinopril (ZESTRIL) 40 MG tablet Take 40 mg by mouth daily 07/01/2021 at Unknown time Yes Unknown, Entered By History loperamide (IMODIUM A-D) 2 MG capsule Take 1 capsule by mouth as needed After each loose stool, not to exceed 16 mg (8 capsules) per day. Yes Unknown, Entered By History metoprolol tartrate (LOPRESSOR) 25 MG tablet Take 1 tablet by mouth every 12 hours 07/01/2021 at Unknown time Yes Unknown, Entered By History nitroGLYcerin (NITROSTAT) 0.[address] 1 tablet under the tongue every 5 minutes as needed for chest pain Yes Unknown, Entered By History omeprazole (PRILOSEC) [address] capsule Take 40 mg by mouth daily 07/01/2021 at Unknown time Yes Unknown, Entered By History rosuvastatin (CRESTOR) 10 MG tablet Take 1 tablet by mouth every evening 06/30/2021 Yes Unknown, Entered By History sertraline (ZOLOFT) 100 MG tablet Take 100 mg by mouth every evening 06/30/2021 at Unknown time Yes Unknown, Entered By History warfarin ANTICOAGULANT (COUMADIN) 5 MG tablet Take 2.5 mg on Wednesdays and 5 mg all other days or as directed by INR clinic 07/01/2021 at 5 mg in ED Yes Unknown, Entered By History [employer] Pharmacy-Anticoagulation Service - Yehuda Brooks [facility] - 07/02/2021 2:32 AM CST Clinical Pharmacy - Warfarin Dosing Consult Pharmacy has been consulted to manage this patient???s warfarin therapy. 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 Pharmacy will monitorMeseret Lakhani daily and order warfarin doses to achieve specified goal. Please contact pharmacy as soon as possible if the warfarin needs to be held for a procedure or if the warfarin goals change. [employer] documented in this encounter Plan of Treatment Not on filedocumented as of this encounter Procedures Procedure Name Priority Date/Time Associated Comments Diagnosis INR Routine 07/10/2021 8:16 AM Results f or this [employer] procedure are i n the results section. POTASSIUM Routine 07/10/2021 8:16 AM Results f or this [employer] procedure are i n the results section. COVID-19 VIRUS STAT 07/09/2021 10:07 Results f or this (CORONAVIRUS) BY PCR AM [employer] MARK[employer] procedu re are in the results section. INR Routine 07/09/2021 8:35 AM Results f or this [employer] procedure are i n the results section. POTASSIUM Routine 07/09/2021 8:35 AM Results f or this [employer] procedure are i n the results section. HEMOGLOBIN Routine 07/09/2021 8:35 AM Results f or this [employer] procedure are i n the results section. HEMOGLOBIN Routine 07/08/2021 6:24 PM Results f or this [employer] procedure are i n the results section. INR Routine 07/08/2021 6:07 AM Results f or this [employer] procedure are i n the results section. BASIC METABOLIC PANEL Routine 07/08/2021 6:07 AM Results for this [employer] procedure are i n the results section. CBC WITH PLATELETS Routine 07/08/2021 6:07 AM Res ults for this [employer] procedure are i n the results section. INR Routine 07/07/2021 8:49 AM Results f or this [employer] procedure are i n the results section. BASIC METABOLIC PANEL Routine 07/07/2021 8:49 AM Results for this [employer] procedure are i n the results section. CBC WITH PLATELETS Routine 07/07/2021 8:49 AM Res ults for this [employer] procedure are i n the results section. INR Routine 07/06/2021 7:49 AM Results f or this [employer] procedure are i n the results section. BASIC METABOLIC PANEL Routine 07/06/2021 7:49 AM Results for this [employer] procedure are i n the results section. CBC WITH PLATELETS Routine 07/06/2021 7:49 AM Res ults for this [employer] procedure are i n the results section. INR Routine 07/05/2021 6:59 AM Results f or this [employer] procedure are i n the results section. BASIC METABOLIC PANEL Routine 07/05/2021 6:59 AM Results for this [employer] procedure are i n the results section. CBC WITH PLATELETS Routine 07/05/2021 6:59 AM Res ults for this [employer] procedure are i n the results section. CT CHEST W/O CONTRAST Routine 07/04/2021 6:31 PM Results for this [employer] procedure are i n the results section. INR Routine 07/04/2021 12:44 Results for this PM [employer] procedure are i n the results section. D DIMER QUANTITATIVE Timed 07/04/2021 12:44 Res ults for this PM [employer] MARKETING procedure are i n the results section. BASIC METABOLIC PANEL Routine 07/04/2021 12:44 Re sults for this PM [employer] procedure are i n the results section. CBC WITH PLATELETS Routine 07/04/2021 12:44 Resul ts for this PM [employer] procedure are i n the results section. BLOOD GAS ARTERIAL Routine 07/03/2021 4:55 PM Res ults for this [employer] procedure are i n the results section. POTASSIUM Timed 07/03/2021 3:22 PM Results f or this [employer] procedure are i n the results section. EKG 12-LEAD, TRACING STAT 07/03/2021 1:05 PM R esults for this ONLY [employer] procedure are i n the results section. POTASSIUM Timed 07/03/2021 10:44 Results for this AM [employer] MARK[employer]ING procedure are i n the results section. ECHO COMPLETE Routine 07/03/2021 10:27 Results fo r this AM [employer] procedure are i n the results section. INR Routine 07/03/2021 8:34 AM Results f or this [employer]ING procedure are i n the results section. BASIC METABOLIC PANEL Routine 07/03/2021 8:34 AM Results for this [employer]ING procedure are i n the results section. CBC WITH PLATELETS Routine 07/03/2021 8:34 AM Res ults for this [employer]ING procedure are i n the results section. PROCALCITONIN Routine 07/02/2021 5:01 PM Results for this [employer] procedure are i n the results section. NT PROBNP INPATIENT Routine 07/02/2021 5:01 PM Re sults for this [employer] procedure are i n the results section. EKG 12-LEAD, TRACING STAT 07/02/2021 3:33 PM R esults for this ONLY [employer] procedure are i n the results section. INR STAT 07/02/2021 3:13 PM Results f or this [employer] procedure are i n the results section. XR CHEST 2 VIEWS STAT 07/02/2021 2:24 PM Resul ts for this [employer] procedure are i n the results section. EKG 12-LEAD, TRACING STAT 07/02/2021 12:57 Res ults for this ONLY PM [employer] procedure are i n the results section. COVID-19 VIRUS STAT 07/01/2021 8:50 PM Results for this (CORONAVIRUS) BY PCR [employer] MARKET[employer] procedu re are in the results section. ROUTINE UA WITH STAT 07/01/2021 6:47 PM Result s for this MICROSCOPIC REFLEX TO [employer]OR OF INTEGRATED MARKETING proced ure are in CULTURE the results section. CT LUMBAR SPINE W/O STAT 07/01/2021 6:28 PM Re sults for this CONTRAST [employer]ING procedure are i n the results section. CBC WITH PLATELETS AND STAT 07/01/2021 6:00 PM Results for this DIFFERENTIAL [employer] OF INTEGRATED MARKETING procedure are i n the results section. CBC WITH PLATELETS & STAT 07/01/2021 6:00 PM R esults for this DIFFERENTIAL [employer] OF INTEGR[employer] MARKETING procedure are i n the results section. INR STAT 07/01/2021 6:00 PM Results f or this [employer]ING procedure are i n the results section. BASIC METABOLIC PANEL STAT 07/01/2021 6:00 PM Results for this [employer]ING procedure are i n the results section. documented in this encounter Results (ABNORMAL) INR (07/10/2021 8:16 AM DIRECT[employer] OF [employer]TE[employer] MARKETING) P athologist Signature INR 3.03 (H) 0.85 - 1.15 07/10/2021 [facility] 8:52 AM [employer] OF [employer]TE[employer] MARKETING Specimen Anatomical Collection Method / Collection Time Recei wendi Time (Source) Location / Volume Laterality Blood STRUCTURE OF LEFT Venipuncture / 07/10/2021 8:16 07/10 8:28 UPPER LIMB / Unknown AM [employer] OF IN[employer] MARKETING AM [employer] OF INTE[employer]ATED MARKETING Unknown Jamie Bush MD LAB - BLOOD ORDERABLES Performing Organization Address City/State/ZIP Code [place] [address] [facility] [address] Lab (1st floor, no room number) Potassium (07/10/2021 8:16 AM DIRECTOR OF INTEGRATED MARKETING) P athologist Signature Potassium 3.9 3.4 - 5.3 07/10/2021 LABORATORY mmol/L 8:45 AM DIRECT[employer] OF INTEGRATED MARKETING Specimen Anatomical Collection Method / Collection Time Recei wendi Time (Source) Location / Volume Laterality Blood STRUCTURE OF LEFT Venipuncture / 07/10/2021 8:16 07/10 8:28 UPPER LIMB / Unknown AM [employer] OF INTEGRATED MARKETING AM [employer] OF INTE[employer]ATED MARKETING Unknown Al Home Jordan MD LAB - BLOOD ORDERABLES Performing Organization Address City/State/ZIP Code [place] [address] [facility] [address] Lab (1st floor, no room number) Asymptomatic COVID-19 Virus (Coronavirus) by PCR Nasopharyngeal (07/09/2021 10:07 AM DIRECT[employer] OF INTE[employer] MARKETING) Analysis Performed At Patho logist Time Signature SARS CoV2 PCR Negative Negative 07/09/2021 LABORATORY 11:07 AM [employer] OF INTE[employer] MARKETING Comment: NEGATIVE: SARS-CoV-2 (COVID-19) RNA not detected, presumed negative. Specimen Anatomical Location / Collection Method Collection Ferny e Received Time (Source) Laterality / Volume Swab NASOPHARYNGEAL Non-blood 07/09/2021 10:07 STRUCTURE / Unknown Collection / AM [employer] MARKETING 10:15 AM [employer] OF INTEGRATED MARKETING Unknown Narrative LABORATORY - 07/09/2021 11:07 AM DIRECTOR OF INTEGRATED MARKETING Testing was performed using the suzanne?? SARS-CoV-2 & Influenza A/B Assay on the suzanne?? Fátima?? System. ??This test shoul d be ordered for the detection of SARS-COV-2 in individuals who meet SARS-CoV-2 clini jamin and/or epidemiological criteria. Test performance is unknown in asymptomatic p atients. ??This test is for in vitro diagnostic use under the FDA EUA for lab oratories certified under CLIA to perform moderate and/or high complexity testing. This test has not been FDA cleared or approved. ??A negative test does not rul e out the presence of PCR inhibitors in the specimen or target RNA in concentration below the limit of detection for the assay. The possibility of a false negative shou ld be considered if the patient's recent exposure or clinical presentation sugges ts COVID-19. ??[facility] are certified under the Clinical Laborat ory Improvement Amendments of 1988 (CLIA-88) as qualified to perform moderate and/or high complexity laboratory testing. Alec Jordan MD LAB - MICRO GENERAL ORDERABL ES Performing Organization Address City/[facility]/[place]IP [facility] [place] [address] [facility] [address] Lab (1st floor, no room number) (ABNORMAL) INR (07/09/2021 8:35 AM DIRECTOR OF [employer]TEGRATED MARKETING) P athologist Signature INR 2.79 (H) 0.85 - 1.15 07/09/2021 [facility] 9:02 AM DIRECTOR OF [employer] Specimen Anatomical Collection Method / Collection Time Recei wendi Time (Source) Location / Volume Laterality Blood STRUCTURE OF RIGHT Venipuncture / 07/09/2021 8:35 12/0 08/2020 8:44 HAND / Unknown Unknown AM DIRECTOR OF [employer]TE[employer] MARKETING AM [employer]ING Jamie Bush MD LAB - BLOOD ORDERABLES Performing Organization Address [facility]/ZIP [place] [address] Care Lab [address] Lab (1st floor, no room number) Hemoglobin (07/09/2021 8:35 AM DIRECTOR OF [employer] MARKETING) P athologist Signature Hemoglobin 12.8 11.7 - 15.7 07/09/2021 [facility] g/dL 8:48 AM [employer] Specimen Anatomical Collection Method / Collection Time Recei wendi Time (Source) Location / Volume Laterality Blood STRUCTURE OF RIGHT Venipuncture / 07/09/2021 8:35 12/0 08/2020 8:44 HAND / Unknown Unknown AM [employer]OR OF [employer] MARKETING AM [employer]ING Alec Jordan MD LAB - BLOOD ORDERABLES Performing Organization Address City/[facility]/[place]IP [facility] [address] Care Lab [address] Lab (1st floor, no room number) Potassium (07/09/2021 8:35 AM DIRECTOR OF [employer] MARK[employer]ING) P athologist Signature Potassium 4.0 3.4 - 5.3 07/09/2021 [facility] mmol/L 9:03 AM [employer] Specimen Anatomical Collection Method / Collection Time Recei wendi Time (Source) Location / Volume Laterality Blood STRUCTURE OF RIGHT Venipuncture / 07/09/2021 8:35 12/0 08/2020 8:44 HAND / Unknown Unknown AM [employer]ING AM [employer]ING Alec Jordan MD LAB - BLOOD ORDERABLES Performing Organization Address City/State/ZIP Code [place] [address] Care Lab [address] Lab (1st floor, no room number) Hemoglobin (07/08/2021 6:24 PM DIRECTOR OF [employer] MARKETING) athologist Signature Hemoglobin 12.1 11.7 - 15.7 07/08/2021 [facility] g/dL 6:39 PM [employer] Specimen Anatomical Collection Method / Collection Time Recei wendi Time (Source) Location / Volume Laterality Blood STRUCTURE OF RIGHT Venipuncture / 07/08/2021 6:24 11/3 6:34 UPPER LIMB / Unknown PM [employer] MARKETING PM DIRECTOR OF INTE[employer]ATED MARKETING Unknown Alec Jordan MD LAB - BLOOD ORDERABLES Performing Organization Address City/[facility]/ZIP Code [place] [address] Care Lab [address] Lab (1st floor, no room number) (ABNORMAL) Basic metabolic panel (07/08/2021 6:07 AM DIRECTOR OF [employer]) Analysis Performed At Patho logist Time Signature Sodium 141 133 - 144 07/08/2021 [facility] mmol/L 7:23 AM [employer] Potassium 3.9 3.4 - 5.3 07/08/2021 [facility] mmol/L 7:23 AM [employer] Chloride 109 94 - 109 07/08/2021 [facility] mmol/L 7:23 AM DIRECT[employer] OF [employer]ING Carbon Dioxide 28 20 - 32 07/08/2021 [facility] (CO2) mmol/L 7:23 AM DIRECTOR OF [employer]ING Anion Gap 4 3 - 14 07/08/2021 [facility] mmol/L 7:23 AM [employer] Urea Nitrogen 20 7 - 30 07/08/2021 [facility]ORY mg/dL 7:23 AM [employer] Creatinine 0.59 0.52 - 07/08/2021 [facility] 1.04 mg/dL 7:23 AM [employer]ING Calcium 9.7 8.5 - 10.1 07/08/2021 [facility] mg/dL 7:23 AM [employer] OF [employer]ING Glucose 142 (H) 70 - 99 07/08/2021 [facility] mg/dL 7:23 AM DIRECTOR OF [employer] GFR Estimate 84 >60 07/08/2021 [facility] mL/min/1.7 7:23 AM DIRECT[employer]ING 3m2 Comment: As of February 16, 2021, eGFR is ca lculated by the CKD-EPI creatinine equation, without race adjustment. eGFR can be inf luenced by muscle mass, exercise, and diet. The reported eGFR is an estimation only and is only applicable if the renal function is stable. Specimen Anatomical Collection Method / Collection Time Recei wendi Time (Source) Location / Volume Laterality Blood STRUCTURE OF RIGHT Venipuncture / 07/08/2021 6:07 11/3 6:55 UPPER LIMB / Unknown AM DIRECT[employer] OF [employer] MARKETING AM DIRECT[employer]TE[employer] MARKETING Unknown Loy Armas MD LAB - BLOOD ORDERABLES Performing Organization Address City/State/ZIP Code [place] [phone] Care Lab [address] Lab (1st floor, no room number) (ABNORMAL) CBC with platelets (07/08/2021 6:07 AM DIRECTOR OF [employer]TE[employer] MARKETING) [facility] gist Method Time Signature WBC Count 5.5 4.0 - 11.0 07/08/2021 [facility] 10e3/uL 7:03 AM DIRECT[employer] OF [employer] RBC Count 3.85 3.80 - 07/08/2021 [facility] 5.20 7:03 AM [employer]ING 10e6/uL Hemoglobin 11.4 (L) 11.7 - 07/08/2021 [facility] 15.7 g/dL 7:03 AM DIRECT[employer] OF [employer]ING Hematocrit 38.6 35.0 - 07/08/2021 [facility] 47.0 % 7:03 AM DIRECTOR OF [employer]ING MCV 100 78 - 100 07/08/2021 [facility] fL 7:03 AM DIRECT[employer] OF [employer]ING MCH 29.6 26.5 - 07/08/2021 [facility] 33.0 pg 7:03 AM DIRECT[employer] OF [employer]ING MCHC 29.5 (L) 31.5 - 07/08/2021 [facility] 36.5 g/dL 7:03 AM DIRECTOR OF [employer]ING RDW 15.2 (H) 10.0 - 07/08/2021 [facility] 15.0 % 7:03 AM DIRECTOR OF [employer]ING Platelet Count 154 150 - 450 07/08/2021 [facility] 10e3/uL 7:03 AM DIRECTOR OF [employer] Specimen Anatomical Collection Method / Collection Time Recei wendi Time (Source) Location / Volume Laterality Blood STRUCTURE OF RIGHT Venipuncture / 07/08/2021 6:07 / 6:55 UPPER LIMB / Unknown AM DIRECTOR OF [employer] MARKETING AM DIRECT[employer]TE[employer] MARKETING Unknown Loy Armas MD LAB - BLOOD ORDERABLES Performing Organization Address City/State/ZIP Code [place] [phone] Care Lab [address] Lab (1st floor, no room number) (ABNORMAL) INR (07/08/2021 6:07 AM DIRECTOR OF [employer] MARKETING) P athologist Signature INR 2.70 (H) 0.85 - 1.15 07/08/2021 [facility] 7:12 AM DIRECT[employer] Specimen Anatomical Collection Method / Collection Time Recei wendi Time (Source) Location / Volume Laterality Blood STRUCTURE OF RIGHT Venipuncture / 07/08/2021 6:07 06/11 6:55 UPPER LIMB / Unknown AM DIRECT[employer] OF [employer] MARKETING AM [employer] MARKETING Unknown Jamie Bush MD LAB - BLOOD ORDERABLES Performing Organization Address City/State/ZIP Code [place] [address] Care Lab [address] Lab (1st floor, no room number) (ABNORMAL) Basic metabolic panel (07/07/2021 8:49 AM DIRECTOR OF [employer] MARKETING) Analysis Performed At Patho logist Time Signature Sodium 142 133 - 144 07/07/2021 [facility] mmol/L 9:20 AM DIRECTOR OF [employer]ING Potassium 3.7 3.4 - 5.3 07/07/2021 [facility] mmol/L 9:20 AM DIRECT[employer] Chloride 109 94 - 109 07/07/2021 [facility] mmol/L 9:20 AM DIRECTOR OF [employer] MARK[employer]ING Carbon Dioxide 28 20 - 32 07/07/2021 [facility] (CO2) mmol/L 9:20 AM DIRECTOR OF [employer]ING Anion Gap 5 3 - 14 07/07/2021 [facility] mmol/L 9:20 AM [employer]ING Urea Nitrogen 20 7 - 30 07/07/2021 [facility] mg/dL 9:20 AM [employer]ING Creatinine 0.67 0.52 - 07/07/2021 [facility] 1.04 mg/dL 9:20 AM DIRECTOR OF [employer]ING Calcium 9.9 8.5 - 10.1 07/07/2021 [facility] mg/dL 9:20 AM [employer]ING Glucose 159 (H) 70 - 99 07/07/2021 [facility] mg/dL 9:20 AM DIRECTOR OF [employer] GFR Estimate 81 >60 07/07/2021 [facility] mL/min/1.7 9:20 AM [employer] 3m2 Comment: As of February 16, 2021, eGFR is ca lculated by the CKD-EPI creatinine equation, without race adjustment. eGFR can be inf luenced by muscle mass, exercise, and diet. The reported eGFR is an estimation only and is only applicable if the renal function is stable. Specimen Anatomical Collection Method / Collection Time Recei wendi Time (Source) Location / Volume Laterality Blood STRUCTURE OF RIGHT Venipuncture / 07/07/2021 8:49 /04/2021 8:58 UPPER LIMB / Unknown AM DIRECTOR OF [employer] MARKETING AM DIRECTOR OF INTE[employer] MARKETING Unknown Loy Armas MD LAB - BLOOD ORDERABLES Performing Organization Address City/State/ZIP Code [place] [phone] Care Lab [address] Lab (1st floor, no room number) (ABNORMAL) CBC with platelets (07/07/2021 8:49 AM DIRECTOR OF [employer]TEGR[employer] MARKETING) [facility] Method Time Signature WBC Count 6.1 4.0 - 11.0 07/07/2021 [facility] 10e3/uL 9:02 AM DIRECTOR OF [employer] MARK[employer]ING RBC Count 4.12 3.80 - 07/07/2021 [facility] 5.20 9:02 AM [employer] OF [employer]ING 10e6/uL Hemoglobin 12.3 11.7 - 07/07/2021 [facility] 15.7 g/dL 9:02 AM DIRECTOR OF [employer] MARK[employer]ING Hematocrit 42.0 35.0 - 07/07/2021 [facility] 47.0 % 9:02 AM DIRECTOR OF [employer] MARK[employer]ING MCV 102 (H) 78 - 100 07/07/2021 [facility] fL 9:02 AM DIRECTOR OF [employer] MARK[employer] MCH 29.9 26.5 - 07/07/2021 [facility] 33.0 pg 9:02 AM DIRECTOR OF [employer] MARK[employer]ING MCHC 29.3 (L) 31.5 - 07/07/2021 [facility] 36.5 g/dL 9:02 AM DIRECTOR OF [employer] MARK[employer]ING RDW 15.5 (H) 10.0 - 07/07/2021 [facility] 15.0 % 9:02 AM DIRECTOR OF [employer] MARK[employer]ING Platelet Count 184 150 - 450 07/07/2021 [facility] 10e3/uL 9:02 AM DIRECTOR OF [employer] MARK[employer]ING Specimen Anatomical Collection Method / Collection Time Recei wendi Time (Source) Location / Volume Laterality Blood STRUCTURE OF RIGHT Venipuncture / 07/07/2021 8:49 06/10 8:58 UPPER LIMB / Unknown AM DIRECTOR OF INTE[employer] MARKETING AM DIRECTOR OF INTE[employer]ATED MARKETING Unknown Loy Armas MD LAB - BLOOD ORDERABLES Performing Organization Address City/State/ZIP Code [place] [address] Care Lab [address] Lab (1st floor, no room number) (ABNORMAL) INR (07/07/2021 8:49 AM DIRECTOR OF [employer] MARKETING) P athologist Signature INR 2.55 (H) 0.85 - 1.15 07/07/2021 [facility] 9:09 AM DIRECT[employer] OF [employer] Specimen Anatomical Collection Method / Collection Time Recei wendi Time (Source) Location / Volume Laterality Blood STRUCTURE OF RIGHT Venipuncture / 07/07/2021 8:49 06/10 8:58 UPPER LIMB / Unknown AM DIRECTOR OF INTE[employer] MARKETING AM DIRECT[employer] OF INTE[employer] MARKETING Unknown Jamie Bush MD LAB - BLOOD ORDERABLES Performing Organization Address City/State/ZIP Code [place] [address] Care Lab [address] Lab (1st floor, no room number) (ABNORMAL) Basic metabolic panel (07/06/2021 7:49 AM DIRECTOR OF [employer] MARKETING) Analysis Performed At Patho logist Time Signature Sodium 143 133 - 144 07/06/2021 [facility] mmol/L 9:02 AM DIRECTOR OF [employer] MARK[employer]ING Potassium 4.3 3.4 - 5.3 07/06/2021 [facility] mmol/L 9:02 AM DIRECT[employer]ING Chloride 109 94 - 109 07/06/2021 [facility] mmol/L 9:02 AM DIRECT[employer] MARK[employer]ING Carbon Dioxide 31 20 - 32 07/06/2021 [facility] (CO2) mmol/L 9:02 AM DIRECT[employer] OF [employer] MARK[employer]ING Anion Gap 3 3 - 14 07/06/2021 [facility] mmol/L 9:02 AM [employer] OF [employer]ING Urea Nitrogen 18 7 - 30 07/06/2021 [facility] mg/dL 9:02 AM [employer]ING Creatinine 0.65 0.52 - 07/06/2021 [facility] 1.04 mg/dL 9:02 AM DIRECT[employer]ING Calcium 9.8 8.5 - 10.1 07/06/2021 [facility] mg/dL 9:02 AM [employer]ING Glucose 117 (H) 70 - 99 07/06/2021 [facility] mg/dL 9:02 AM DIRECTOR OF [employer] MARK[employer]ING GFR Estimate 82 >60 07/06/2021 [facility] mL/min/1.7 9:02 AM DIRECT[employer]ING 3m2 Comment: As of February 16, 2021, eGFR is ca lculated by the CKD-EPI creatinine equation, without race adjustment. eGFR can be inf luenced by muscle mass, exercise, and diet. The reported eGFR is an estimation only and is only applicable if the renal function is stable. Specimen Anatomical Collection Method / Collection Time Recei wendi Time (Source) Location / Volume Laterality Blood STRUCTURE OF RIGHT Venipuncture / 07/06/2021 7:49 06/10 8:38 HAND / Unknown Unknown AM DIRECTOR OF INTEGRATED MARKETING AM DIRECT[employer]TE[employer] MARKETING Loy Armas MD LAB - BLOOD ORDERABLES Performing Organization Address City/State/ZIP Code [place] [phone] Care Lab [address] Lab (1st floor, no room number) (ABNORMAL) CBC with platelets (07/06/2021 7:49 AM DIRECTOR OF [employer]TE[employer] MARKETING) [facility] gist Method Time Signature WBC Count 4.8 4.0 - 11.0 07/06/2021 [facility] 10e3/uL 8:42 AM DIRECTOR OF [employer] RBC Count 3.93 3.80 - 07/06/2021 [facility] 5.20 8:42 AM [employer]ING 10e6/uL Hemoglobin 11.7 11.7 - 07/06/2021 [facility] 15.7 g/dL 8:42 AM DIRECTOR OF [employer] MARK[employer]ING Hematocrit 40.1 35.0 - 07/06/2021 [facility] 47.0 % 8:42 AM DIRECTOR OF [employer] MARK[employer]ING MCV 102 (H) 78 - 100 07/06/2021 [facility] fL 8:42 AM DIRECT[employer] OF [employer] MARK[employer] MCH 29.8 26.5 - 07/06/2021 [facility] 33.0 pg 8:42 AM DIRECT[employer] OF [employer] MARK[employer] MCHC 29.2 (L) 31.5 - 07/06/2021 [facility] 36.5 g/dL 8:42 AM DIRECT[employer] OF [employer] RDW 15.5 (H) 10.0 - 07/06/2021 [facility] 15.0 % 8:42 AM DIRECT[employer] OF [employer]ING Platelet Count 148 (L) 150 - 450 07/06/2021 [facility] 10e3/uL 8:42 AM DIRECT[employer] OF [employer] Specimen Anatomical Collection Method / Collection Time Recei wendi Time (Source) Location / Volume Laterality Blood STRUCTURE OF RIGHT Venipuncture / 07/06/2021 7:49 06/10 8:37 HAND / Unknown Unknown AM DIRECTOR OF INTE[employer] MARKETING AM [employer]ING Loy Armas MD LAB - BLOOD ORDERABLES Performing Organization Address City/State/ZIP Code [place] [address] Care Lab [address] Lab (1st floor, no room number) (ABNORMAL) INR (07/06/2021 7:49 AM DIRECTOR [employer] MARK[employer]ING) P athologist Signature INR 2.40 (H) 0.85 - 1.15 07/06/2021 [facility] 9:02 AM DIRECT[employer] Specimen Anatomical Collection Method / Collection Time Recei wendi Time (Source) Location / Volume Laterality Blood STRUCTURE OF RIGHT Venipuncture / 07/06/2021 7:49 06/10 8:37 HAND / Unknown Unknown AM DIRECTOR OF [employer]TE[employer] MARKETING AM DIRECT[employer] MARK[employer]ING Jamie Bush MD LAB - BLOOD ORDERABLES Performing Organization Address City/State/ZIP Code [place] [address] Care Lab [address] Lab (1st floor, no room number) (ABNORMAL) Basic metabolic panel (07/05/2021 6:59 AM DIRECTOR OF [employer] MARK[employer]ING) Analysis Performed At Patho logist Time Signature Sodium 145 (H) 133 - 144 07/05/2021 [facility] mmol/L 7:58 AM [employer] Potassium 3.6 3.4 - 5.3 07/05/2021 [facility] mmol/L 7:58 AM [employer]ING Chloride 110 (H) 94 - 109 07/05/2021 [facility] mmol/L 7:58 AM [employer] MARK[employer]ING Carbon Dioxide 31 20 - 32 07/05/2021 [facility] (CO2) mmol/L 7:58 AM [employer] OF [employer]ING Anion Gap 4 3 - 14 07/05/2021 [facility] mmol/L 7:58 AM [employer]ING Urea Nitrogen 17 7 - 30 07/05/2021 [facility] mg/dL 7:58 AM [employer] Creatinine 0.59 0.52 - 07/05/2021 [facility] 1.04 mg/dL 7:58 AM [employer] Calcium 9.7 8.5 - 10.1 07/05/2021 [facility] mg/dL 7:58 AM [employer] OF [employer] Glucose 123 (H) 70 - 99 07/05/2021 [facility] mg/dL 7:58 AM DIRECTOR OF [employer] GFR Estimate 84 >60 07/05/2021 [facility] mL/min/1.7 7:58 AM [employer] 3m2 Comment: As of February 16, 2021, eGFR is ca lculated by the CKD-EPI creatinine equation, without race adjustment. eGFR can be inf luenced by muscle mass, exercise, and diet. The reported eGFR is an estimation only and is only applicable if the renal function is stable. Specimen Anatomical Collection Method / Collection Time Recei wendi Time (Source) Location / Volume Laterality Blood STRUCTURE OF RIGHT Venipuncture / 07/05/2021 6:59 /02/2021 7:36 UPPER LIMB / Unknown AM DIRECTOR OF [employer] MARKETING AM DIRECTOR OF [employer]TE[employer] MARKETING Unknown Loy Armas MD LAB - BLOOD ORDERABLES Performing Organization Address City/State/ZIP Code [place] [phone] Care Lab [address] Lab (1st floor, no room number) (ABNORMAL) CBC with platelets (07/05/2021 6:59 AM DIRECTOR OF [employer] MARK[employer]) [facility] Signature WBC Count 4.6 4.0 - 11.0 07/05/2021 [facility] 10e3/uL 7:39 AM [employer] RBC Count 3.78 (L) 3.80 - 07/05/2021 [facility] 5.20 7:39 AM [employer] 10e6/uL Hemoglobin 11.5 (L) 11.7 - 07/05/2021 [facility] 15.7 g/dL 7:39 AM DIRECT[employer] OF [employer] Hematocrit 38.1 35.0 - 07/05/2021 [facility] 47.0 % 7:39 AM DIRECT[employer] MCV 101 (H) 78 - 100 07/05/2021 [facility] fL 7:39 AM [employer] MCH 30.4 26.5 - 07/05/2021 [facility] 33.0 pg 7:39 AM DIRECT[employer] OF [employer] MCHC 30.2 (L) 31.5 - 07/05/2021 [facility] 36.5 g/dL 7:39 AM [employer] RDW 15.8 (H) 10.0 - 07/05/2021 [facility] 15.0 % 7:39 AM [employer] Platelet Count 145 (L) 150 - 450 07/05/2021 [facility] 10e3/uL 7:39 AM DIRECT[employer] Specimen Anatomical Collection Method / Collection Time Recei wendi Time (Source) Location / Volume Laterality Blood STRUCTURE OF RIGHT Venipuncture / 07/05/2021 6:59 06/10 7:36 UPPER LIMB / Unknown AM DIRECT[employer] OF [employer] MARKETING AM DIRECT[employer]ING Unknown Loy Armas MD LAB - BLOOD ORDERABLES Performing Organization Address City/State/ZIP [place] [phone] Care Lab [address] Lab (1st floor, no room number) (ABNORMAL) INR (07/05/2021 6:59 AM DIRECTOR OF [employer]) P athologist Signature INR 2.59 (H) 0.85 - 1.15 07/05/2021 [facility] 7:54 AM [employer] Specimen Anatomical Collection Method / Collection Time Recei wendi Time (Source) Location / Volume Laterality Blood STRUCTURE OF RIGHT Venipuncture / 07/05/2021 6:59 /02/2021 7:36 UPPER LIMB / Unknown AM DIRECTOR OF [employer] MARK[employer]ING AM DIRECT[employer] OF [employer]TE[employer] MARKETING Unknown Jamie Bush MD LAB - BLOOD ORDERABLES Performing Organization Address City/State/ZIP Code [place] [phone] Care Lab [address] Lab (1st floor, no room number) CT Chest w/o Contrast (07/04/2021 6:31 PM DIRECTOR OF [employer]ING) Anatomical Region Laterality Modality Chest, SUBRAD CT BODY, UMP CT CHEST, RAD CT Computed Tomography Specimen (Source) Anatomical Collection Method Collection Time Re ceived Time Location / / Volume Laterality 07/04/2021 6:20 PM [employer]OR [employer] Impressions 07/04/2021 6:51 PM DIRECTOR OF [employer] MARK[employer]ING IMPRESSION: 1. ??Cardiomegaly and severe coronary at herosclerosis. 2. ??Ectatic ascending thoracic aorta. Narrative 07/04/2021 6:51 PM DIRECTOR OF [employer]TE[employer] MARKETING EXAM: CT CHEST W/O CONTRAST LOCATION: [facility] DATE/TIME: 07/04/2021 6:20 PM INDICATION: Respiratory failure. COMPARISON: None. TECHNIQUE: CT chest without IV contrast. Multiplanar reformats were obtained. Dose reduction techniques were used. CONTRAST: None. FINDINGS: LUNGS AND PLEURA: Minor dependent atelec tatic changes in both lungs. No pleural effusion. MEDIASTINUM/AXILLAE: Ascending thoracic aorta mildly ectatic at 4.1 cm. The heart is enlarged. No thoracic or axillary adenopathy. CORONARY ARTERY CALCIFICATION: Severe. UPPER ABDOMEN: The spleen is mildly enla rged. MUSCULOSKELETAL: Unremarkable. Procedure Note Fredy Ballesteros MD - 07/04/2021Forma tting of this note might be different from the original. EXAM: CT CHEST W/O CONTRAST LOCATION: [facility] DATE/TIME: 07/04/2021 6:20 PM INDICATION: Respiratory failure. COMPARISON: None. TECHNIQUE: CT chest without IV contrast. Multiplanar reformats were obtained. Dose reduction techniques were used. CONTRAST: None. FINDINGS: LUNGS AND PLEURA: Minor dependent atelec tatic changes in both lungs. No pleural effusion. MEDIASTINUM/AXILLAE: Ascending thoracic aorta mildly ectatic at 4.1 cm. The heart is enlarged. No thoracic or axillary adenopathy. CORONARY ARTERY CALCIFICATION: Severe. UPPER ABDOMEN: The spleen is mildly enla rged. MUSCULOSKELETAL: Unremarkable. IMPRESSION: 1. Cardiomegaly and severe coronary athe rosclerosis. 2. Ectatic ascending thoracic aorta. Loy Armas MD IMG CT ORDERABLES D dimer quantitative (07/04/2021 12:44 PM DIRECTOR OF [employer]) Analysis Performed At [facility] Time Signature D-Dimer 0.33 0.00 - 07/04/2021 [facility] Quantitative 0.50 ug/mL 1:01 PM DIRECTOR [employer] FEU Specimen Anatomical Collection Method / Collection Time Recei wendi Time (Source) Location / Volume Laterality Blood STRUCTURE OF LEFT Venipuncture / 07/04/2021 12:44 11/01/2021 UPPER LIMB / Unknown PM [employer] 12:47 PM DIRECT[employer]ING Unknown Narrative [facility] - 07/04/2021 1:01 PM DIRECT[employer] This D-dimer assay is intended for use i n conjunction with a clinical pretest probability assessment model to exclude pulmonary embolism (PE) and deep venous thrombosis (DVT) in outpatients suspecte d of PE or DVT. The cut-off value is 0.50 ug/mL FEU. Loy Armas MD LAB - BLOOD ORDERABLES Performing Organization Address City/State/ZIP Code [place] [phone] Care Lab [address] Lab (1st floor, no room number) (ABNORMAL) Basic metabolic panel (07/04/2021 12:44 PM DIRECTOR [employer]) Analysis Performed At [facility] Sodium 143 133 - 144 07/04/2021 LAB[facility]ATORY mmol/L 1:08 PM [employer] Potassium 4.2 3.4 - 5.3 07/04/2021 [facility] mmol/L 1:08 PM [employer] Chloride 109 94 - 109 07/04/2021 [facility] mmol/L 1:08 PM [employer] Carbon Dioxide 30 20 - 32 07/04/2021 [facility] (CO2) mmol/L 1:08 PM [employer] Anion Gap 4 3 - 14 07/04/2021 [facility] mmol/L 1:08 PM [employer] Urea Nitrogen 21 7 - 30 07/04/2021 [facility] mg/dL 1:08 PM [employer] Creatinine 0.58 0.52 - 07/04/2021 [facility] 1.04 mg/dL 1:08 PM [employer] Calcium 9.7 8.5 - 10.1 07/04/2021 [facility] mg/dL 1:08 PM [employer] Glucose 118 (H) 70 - 99 07/04/2021 [facility] mg/dL 1:08 PM [employer] GFR Estimate 85 >60 07/04/2021 [facility] mL/min/1.7 1:08 PM [employer] 3m2 Comment: As of February 16, 2021, eGFR is ca lculated by the CKD-EPI creatinine equation, without race adjustment. eGFR can be inf luenced by muscle mass, exercise, and diet. The reported eGFR is an estimation only and is only applicable if the renal function is stable. Specimen Anatomical Collection Method / Collection Time Recei wendi Time (Source) Location / Volume Laterality Blood STRUCTURE OF LEFT Venipuncture / 07/04/2021 12:44 /01/2021 UPPER LIMB / Unknown PM [employer] 12:47 PM [employer] Unknown Loy Armas MD LAB - BLOOD ORDERABLES Performing Organization Address City/State/ZIP Code [place] [phone] [facility] [address] [facility] (ABNORMAL) CBC with platelets (07/04/2021 12:44 PM DIRECTOR [employer]) [facility] gist Method Time Signature WBC Count 6.9 4.0 - 11.0 07/04/2021 [facility] 10e3/uL 12:56 PM [employer] RBC Count 3.75 (L) 3.80 - 07/04/2021 [facility] 5.20 12:56 PM [employer] 10e6/uL Hemoglobin 11.6 (L) 11.7 - 07/04/2021 [facility] 15.7 g/dL 12:56 PM [employer] Hematocrit 37.3 35.0 - 07/04/2021 [facility] 47.0 % 12:56 PM [employer] MCV 100 78 - 100 07/04/2021 [facility] fL 12:56 PM [employer] MCH 30.9 26.5 - 07/04/2021 [facility] 33.0 pg 12:56 PM [employer] MCHC 31.1 (L) 31.5 - 07/04/2021 [facility] 36.5 g/dL 12:56 PM [employer] RDW 15.9 (H) 10.0 - 07/04/2021 [facility] 15.0 % 12:56 PM [employer] Platelet Count 159 150 - 450 07/04/2021 [facility] 10e3/uL 12:56 PM [employer] Specimen Anatomical Collection Method / Collection Time Recei wendi Time (Source) Location / Volume Laterality Blood STRUCTURE OF LEFT Venipuncture / 07/04/2021 12:44 11/01/2021 UPPER LIMB / Unknown PM [employer] 12:47 PM [employer] Unknown Loy Armas MD LAB - BLOOD ORDERABLES Performing Organization Address City/[facility]/ZIP Code Phon [place] [address] Care Lab [address] Lab (1st floor, no room number) (ABNORMAL) INR (07/04/2021 12:44 PM [employer]) P athologist Signature INR 2.66 (H) 0.85 - 1.15 07/04/2021 [facility] 1:01 PM [employer] Specimen Anatomical Collection Method / Collection Time Recei wendi Time (Source) Location / Volume Laterality Blood STRUCTURE OF LEFT Venipuncture / 07/04/2021 12:44 1101/2021 UPPER LIMB / Unknown PM [employer] 12:47 PM [employer] Unknown Jamie Bush MD LAB - BLOOD ORDERABLES Performing Organization Address City/[facility]/ZIP Code [place] [address] Care Lab [address] Lab (1st floor, no room number) (ABNORMAL) Blood gas arterial (07/03/2021 4:55 PM [employer]) P athologist Signature pH Arterial 7.45 7.35 - 07/03/2021 [facility] 7.45 5:13 PM [employer] pCO2 Arterial 44 35 - 45 mm 07/03/2021 [facility] Hg 5:13 PM [employer] pO2 Arterial 52 (L) 80 - 105 07/03/2021 [facility] mm Hg 5:13 PM [employer] FIO2 1 ANNETTA 07/03/2021 [facility] 5:13 PM [employer] Comment: 1L NC Bicarbonate Arterial 30 (H) 21 - 28 mmol/L 07/03/2021 5:1 3 PM [facility] [employer] Base Excess/Deficit 5.7 (H) -9.0 - 1.8 mmol/L 07/03/2021 5 :13 PM [facility] (+/-) [employer] Specimen Anatomical Collection Method Collection Time Receive d Time (Source) Location / / Volume Laterality Blood, arterial STRUCTURE OF LEFT Arterial Puncture 07/03/2021 4:55 PM 07/03/2021 5:03 UPPER LIMB / / Unknown [employer] PM [employer] Unknown Loy Armas MD LAB - BLOOD ORDERABLES Performing Organization Address City/[facility]/ZIP Code [place] [address] Care Lab [address] Lab (1st floor, no room number) Potassium (07/03/2021 3:22 PM [employer]) P athologist Signature Potassium 3.9 3.4 - 5.3 07/03/2021 [facility]ATORY mmol/L 4:00 PM [employer] Specimen Anatomical Collection Method / Collection Time Recei wendi Time (Source) Location / Volume Laterality Blood STRUCTURE OF LEFT Venipuncture / 07/03/2021 3:22 07/03 3:40 HAND / Unknown Unknown PM [employer] PM [employer] Loy Armas MD LAB - BLOOD ORDERABLES Performing Organization Address City/[facility]/ZIP Code [place] [address] Care Lab [address] Lab (1st floor, no room number) EKG 12-lead, tracing only (07/03/2021 1:05 PM [employer]) Component Value Ref Range Test Analysis Performed Pathologis t Method Time At Signature Systolic Blood mmHg RADIOLOGY Pressure RESULTS Diastolic Blood mmHg RADIOLOGY Pressure RESULTS Ventricular Rate 57 BPM RADIOLOGY RESULTS Atrial Rate 57 BPM RADIOLOGY RESULTS GA Interval 170 ms RADIOLOGY RESULTS QRS Duration 98 ms RADIOLOGY RESULTS QT 490 ms RADIOLOGY RESULTS QTc 476 ms RADIOLOGY RESULTS P [place] 47 degrees RADIOLOGY RESULTS R AXIS -40 degrees RADIOLOGY RESULTS T [place] -19 degrees RADIOLOGY RESULTS Interpretation Sinus bradycardia RADIOLO GY ECG Possible Left atrial enlargement RESULTS Left axis deviation Left ventricular hypertrophy ST & T wave abnormality, consider anterior ischemia Prolonged QT Abnormal ECG When compared with ECG of 02-JUL-2021 15:33, Premature ventricular complexes are no longer Present Inverted T waves have replac ed nonspecific T wave abnormality in Inferior leads Inverted T waves have replac ed nonspecific T wave abnormality in Anterior leads Nonspecific T wave abnormality no longer evident in Lateral leads Confirmed by MD TRIXIE, ST EVEN ([id number]), photography editor ANTOINE, DEB ([id number]) on 07/07/2021 7:01:02 AM Specimen Anatomical Collection Method Collection Time Receive d Time (Source) Location / / Volume Laterality 07/03/2021 1:05 PM 7:01 [employer] AM [employer] Loy Armas MD ECG ORDERABLES Performing Organization Address City/State/ZIP Code Phon e Number RADIOLOGY RESULTS Potassium (07/03/2021 10:44 AM [employer]) P athologist Signature Potassium 3.4 3.4 - 5.3 07/03/2021 [facility] mmol/L 11:15 AM [employer] Specimen Anatomical Collection Method / Collection Time Recei wendi Time (Source) Location / Volume Laterality Blood STRUCTURE OF RIGHT Venipuncture / 07/03/2021 10:44 HAND / Unknown Unknown AM [employer] 11:03 AM [employer] Loy Armas MD LAB - BLOOD ORDERABLES Performing Organization Address City/[facility]/ZIP Code [place] [address] Care Lab [address] [facility] Lab (1st floor, no room number) ECHO COMPLETE (07/03/2021 10:27 AM [employer]) athologist Signature LVEF 55-60% CARDIOLOGY RESULTS Anatomical Region Laterality Modality Echocardiography Specimen (Source) Anatomical Collection Method Collection Time Re ceived Time Location / / Volume Laterality 07/03/2021 9:37 AM [employer] Narrative 07/03/2021 12:05 PM [employer] [id number]^ALEA^LOY [facility] Echocardiography Laboratory [address] [place] [address] Name: MESERET LAKHANI : 1935 Study Date: 07/03/2021 09:37 AM Age: 86 yrs Gender: Female Patient Location: [facility] Reason For Study: Dyspnea Ordering Physician: LOY ARMAS Performed By: Lorena Bishop BSA: 1.8 m2 Height: 63 in Weight: 165 lb HR: 55 BP: 130/55 mmHg Procedure Complete Portable Echo Adult. Interpretation Summary Left ventricular systolic function is no rmal. The visual ejection fraction is 55-60%. Technically difficult, suboptimal study. No hemodynamically significant valvular abnormalities on 2D or color fl ow imaging. There is no comparison study available. Left Ventricle (The upper limit of normal is 5.6cm for left ventricular size in end- diastole.). Left ventricular systolic fu nction is normal. The visual ejection fraction is 55-60%. Grade I or early ricardo stolic dysfunction. Regional wall motion abnormalities cannot be excluded due to limited visualization. Right Ventricle The right ventricle is not well visualiz ed. The right ventricular systolic function is normal. Atria Left atrial enlargement is noted on two- dimensional imaging. Right atrium not well visualized. Mitral Valve There is mild mitral annular calcificati on. There is trace mitral regurgitation. There is no mitral valve stenosis. Tricuspid Valve The tricuspid valve is not well visualiz ed, but is grossly normal. The right ventricular systolic pressure is approxi mated at 21.7 mmHg plus the right atrial pressure. Aortic Valve The aortic valve is trileaflet with aort ic valve sclerosis. No aortic stenosis is present. Pulmonic Valve The pulmonic valve is not well visualize d. Normal pulmonic valve velocity. Vessels Normal size aorta. The ascending aorta i s Mildly dilated. The inferior vena cava is normal. Pericardium There is no pericardial effusion. MMode/2D Measurements & Calculations IVSd: 1.0 cm LVIDd: 5.6 cm LVIDs: 4.0 cm LVPWd: 1.1 cm FS: 27.9 % LV mass(C)d: 233.0 grams LV mass(C)dI: 130.8 grams/m2 Ao root diam: 3.2 cm LA dimension: 4.3 cm asc Aorta Diam: 4.0 cm LA/Ao: 1.3 LVOT diam: 1.9 cm LVOT area: 2.8 cm2 RWT: 0.39 Doppler Measurements & Calculations MV E max martell: 77.6 cm/sec MV A max martell: 119.0 cm/sec MV E/A: 0.65 MV max P.2 mmHg MV mean P.0 mmHg MV V2 VTI: 36.9 cm MVA(VTI): 2.1 cm2 MV P1/2t max martell: 82.5 cm/sec MV P1/2t: 114.0 msec MVA(P1/2t): 1.9 cm2 MV dec slope: 212.0 cm/sec2 MV dec time: 0.32 sec LV V1 max P.3 mmHg LV V1 max: 125.0 cm/sec LV V1 VTI: 27.6 cm SV(LVOT): 78.3 ml SI(LVOT): 43.9 ml/m2 PA acc time: 0.13 sec TR max martell: 233.0 cm/sec TR max P.7 mmHg E/E' av.1 Lateral E/e': 11.9 Medial E/e': 18.3 Report approved by: Dilcia Nunes MD on 07/03/2021 12:05 PM Procedure Note Dilcia Nunes DO - [id number]^ALEA^LOY [facility] Echocardiography Laboratory [address] [place] [address] Name: MESERET LAKHANI : 1935 Study Date: 07/03/2021 09:37 AM Age: 86 yrs Gender: Female Patient Location: [facility] Reason For Study: Dyspnea Ordering Physician: LOY ARMAS Performed By: Lorena Bishop BSA: 1.8 m2 Height: 63 in Weight: 165 lb HR: 55 BP: 130/55 mmHg Procedure Complete Portable Echo Adult. Interpretation Summary Left ventricular systolic function is no rmal. The visual ejection fraction is 55-60%. Technically difficult, suboptimal study. No hemodynamically significant valvular abnormalities on 2D or color fl ow imaging. There is no comparison study available. Left Ventricle (The upper limit of normal is 5.6cm for left ventricular size in end- diastole.). Left ventricular systolic fu nction is normal. The visual ejection fraction is 55-60%. Grade I or early ricardo stolic dysfunction. Regional wall motion abnormalities cannot be excluded due to limited visualization. Right Ventricle The right ventricle is not well visualiz ed. The right ventricular systolic function is normal. Atria Left atrial enlargement is noted on two- dimensional imaging. Right atrium not well visualized. Mitral Valve There is mild mitral annular calcificati on. There is trace mitral regurgitation. There is no mitral valve stenosis. Tricuspid Valve The tricuspid valve is not well visualiz ed, but is grossly normal. The right ventricular systolic pressure is approxi mated at 21.7 mmHg plus the right atrial pressure. Aortic Valve The aortic valve is trileaflet with aort ic valve sclerosis. No aortic stenosis is present. Pulmonic Valve The pulmonic valve is not well visualize d. Normal pulmonic valve velocity. Vessels Normal size aorta. The ascending aorta i s Mildly dilated. The inferior vena cava is normal. Pericardium There is no pericardial effusion. MMode/2D Measurements & Calculations IVSd: 1.0 cm LVIDd: 5.6 cm LVIDs: 4.0 cm LVPWd: 1.1 cm FS: 27.9 % LV mass(C)d: 233.0 grams LV mass(C)dI: 130.8 grams/m2 Ao root diam: 3.2 cm LA dimension: 4.3 cm asc Aorta Diam: 4.0 cm LA/Ao: 1.3 LVOT diam: 1.9 cm LVOT area: 2.8 cm2 RWT: 0.39 Doppler Measurements & Calculations MV E max martell: 77.6 cm/sec MV A max martell: 119.0 cm/sec MV E/A: 0.65 MV max P.2 mmHg MV mean P.0 mmHg MV V2 VTI: 36.9 cm MVA(VTI): 2.1 cm2 MV P1/2t max martell: 82.5 cm/sec MV P1/2t: 114.0 msec MVA(P1/2t): 1.9 cm2 MV dec slope: 212.0 cm/sec2 MV dec time: 0.32 sec LV V1 max P.3 mmHg LV V1 max: 125.0 cm/sec LV V1 VTI: 27.6 cm SV(LVOT): 78.3 ml SI(LVOT): 43.9 ml/m2 PA acc time: 0.13 sec TR max martell: 233.0 cm/sec TR max P.7 mmHg E/E' av.1 Lateral E/e': 11.9 Medial E/e': 18.3 Report approved by: Dilcia Nunes MD on 07/03/2021 12:05 PM Loy Armas MD CV ECHO ORDERABLES (ABNORMAL) INR (07/03/2021 8:34 AM [employer]) P athologist Signature INR 2.43 (H) 0.85 - 1.15 07/03/2021 [facility] 8:59 AM [employer] Specimen Anatomical Collection Method / Collection Time Recei wendi Time (Source) Location / Volume Laterality Blood STRUCTURE OF LEFT Venipuncture / 07/03/2021 8:34 07/03 8:45 UPPER LIMB / Unknown AM [employer] AM [employer] Unknown Jamie Bush MD LAB - BLOOD ORDERABLES Performing Organization Address City/State/ZIP Code Phon [place] [address] Care Lab [address] Lab (1st floor, no room number) (ABNORMAL) Basic metabolic panel (07/03/2021 8:34 AM [employer]) Analysis Performed At Patho logist Time Signature Sodium 141 133 - 144 07/03/2021 [facility] mmol/L 9:04 AM [employer] Potassium 3.3 (L) 3.4 - 5.3 07/03/2021 [facility] mmol/L 9:04 AM [employer] Chloride 106 94 - 109 07/03/2021 [facility] mmol/L 9:04 AM [employer] Carbon Dioxide 29 20 - 32 07/03/2021 [facility] (CO2) mmol/L 9:04 AM [employer] Anion Gap 6 3 - 14 07/03/2021 [facility] mmol/L 9:04 AM [employer] Urea Nitrogen 15 7 - 30 07/03/2021 LAB[facility]ORY mg/dL 9:04 AM [employer] Creatinine 0.56 0.52 - 07/03/2021 [facility] 1.04 mg/dL 9:04 AM [employer] Calcium 9.5 8.5 - 10.1 07/03/2021 LAB[facility]ATORY mg/dL 9:04 AM [employer] Glucose 149 (H) 70 - 99 07/03/2021 [facility]ORY mg/dL 9:04 AM [employer] GFR Estimate 86 >60 07/03/2021 [facility] mL/min/1.7 9:04 AM [employer] 3m2 Comment: As of February 16, 2021, eGFR is ca lculated by the CKD-EPI creatinine equation, without race adjustment. eGFR can be inf luenced by muscle mass, exercise, and diet. The reported eGFR is an estimation only and is only applicable if the renal function is stable. Specimen Anatomical Collection Method / Collection Time Recei wendi Time (Source) Location / Volume Laterality Blood STRUCTURE OF LEFT Venipuncture / 07/03/2021 8:34 07/03 8:45 UPPER LIMB / Unknown AM [employer] AM [employer] Unknown Loy Armas MD LAB - BLOOD ORDERABLES Performing Organization Address City/State/ZIP Code [place] [address] Care Lab [address] Lab (1st floor, no room number) (ABNORMAL) CBC with platelets (07/03/2021 8:34 AM [employer]) [facility] Method Time Signature WBC Count 5.8 4.0 - 11.0 07/03/2021 LABORATORY 10e3/uL 8:50 AM [employer] RBC Count 4.02 3.80 - 07/03/2021 LAB[facility]ATORY 5.20 8:50 AM [employer] 10e6/uL Hemoglobin 12.0 11.7 - 07/03/2021 [facility] 15.7 g/dL 8:50 AM [employer] Hematocrit 39.8 35.0 - 07/03/2021 [facility] 47.0 % 8:50 AM [employer] MCV 99 78 - 100 07/03/2021 [facility] fL 8:50 AM [employer] MCH 29.9 26.5 - 07/03/2021 [facility] 33.0 pg 8:50 AM [employer] MCHC 30.2 (L) 31.5 - 07/03/2021 [facility] 36.5 g/dL 8:50 AM [employer] RDW 15.9 (H) 10.0 - 07/03/2021 [facility] 15.0 % 8:50 AM [employer] Platelet Count 157 150 - 450 07/03/2021 [facility] 10e3/uL 8:50 AM [employer] Specimen Anatomical Collection Method / Collection Time Recei wendi Time (Source) Location / Volume Laterality Blood STRUCTURE OF LEFT Venipuncture / 07/03/2021 8:34 07/03 8:44 UPPER LIMB / Unknown AM [employer] AM [employer] Unknown Loy Armas MD LAB - BLOOD ORDERABLES Performing Organization Address City/State/ZIP Code [place] [phone] Care Lab [address] Lab (1st floor, no room number) Procalcitonin (07/02/2021 5:01 PM [employer]) P athologist Signature Procalcitonin <0.05 <0.05 ng/mL 07/02/2021 LAB[facility]AT[facility] 8:43 PM [employer] Comment: Interpretation and Recommendations <0.05 ng/mL Normal Very low risk of bacterial infection. Strongly discourage antibiotics. 0.05-0.24 ng/mL Low risk of systemic inf ection. Local bacterial infection possible. Assess other clinical features of infect ion. Discourage antibiotics. 0.25-0.49 ng/mL Possible early systemic infection or localized infection Encourage antibiotics only in correct cl inical context. Consider obtaining blood cultures or oth er relevant cultures. Recheck PCT in 6-12 hours to ensure base line low level. If repeat PCT is rising, consider early systemic infection and consider starting antibiotics. 0.50-1.99 ng/mL Moderate risk of systemi c infection. Recommend antibiotics. Evaluate culture results and clinical fe atures to target antibacterial therapy. Obtain blood cultures and other relevant cultures if not done. If empiric antibiotics were started, rec heck PCT in: ? 2 days to guide antibiotic de-esc alation. ? Discontinue or de-escalate antibi otics when PCT concentration is <80% of ?peak or abs PCT <0.5. If empiric antibiotics were NOT started, recheck PCT in: ? 6-24 hours to re-evaluate need fo r antibiotics. 2.00-9.99 g/mL High risk for progression to severe sepsis. Strongly recommend initiating or continu ing antibiotics. Evaluate culture results and clinical fe atures to target antibacterial therapy. Obtain blood cultures and other relevant cultures if not done. Repeat PCT in 2 days to guide antibiotic de-escalation. Consider de-escalating antibiotics when PCT concentration is <80% or peak or abs PCT < 0.05. Greater than or equal to 10 ng/mL Very h igh likelihood of severe sepsis or septic shock. Strongly recommend initiating or continu ing antibiotics. Evaluate culture results and clinical fe atures to target antibacterial therapy. Obtain blood cultures and other relevant cultures if not done. Repeat PCT in 2 days to guide antibiotic de-escalation. Consider de-escalating antibiotics when PCT concentration is <80% of peak or abs PCT < 1. Specimen Anatomical Collection Method / Collection Time Recei wendi Time (Source) Location / Volume Laterality Blood BLOOD SPECIMEN / Venipuncture / 07/02/2021 5:01 2020 5:05 Unknown Unknown PM [employer] PM [employer] Loy Armas MD LAB - BLOOD ORDERABLES Performing Organization Address City/State/ZIP Code [place] [address] Care Lab [address] 1st floor, Room [address] Nt probnp inpatient (07/02/2021 5:01 PM [employer]) athologist Signature N terminal Pro 677 0-1,800 07/02/2021 LABORATORY BNP Inpatient pg/mL 5:27 PM [employer] Comment: Reference range shown and results flagge d as abnormal are suggested inpatient cut points for confirming diagnosis if CHF in an acute setting. Establishing a baseline value for each individual patient is useful for follow-up. An inpatient or e mergency department NT-proPBNP <300 pg/mL effectively rules out acute CHF, with 99% negative predictive value. The outpatient non-acute reference range for ruling out CHF is: 0-125 pg/mL (age 18 to less than 75) 0-450 pg/mL (age 75 yrs and older) Specimen Anatomical Collection Method / Collection Time Recei wendi Time (Source) Location / Volume Laterality Blood BLOOD SPECIMEN / Venipuncture / 07/02/2021 5:01 2020 5:05 Unknown Unknown PM [employer] PM [employer] Loy Armas MD LAB - BLOOD ORDERABLES Performing Organization Address City/State/ZIP Code [place] [address] Care Lab [address] Lab (1st floor, no room number) EKG 12-lead, tracing only (07/02/2021 3:33 PM [employer]) Component Value Ref Range Test Analysis Performed Pathologis t Method Time At Signature Systolic Blood mmHg RADIOLOGY Pressure RESULTS Diastolic Blood mmHg RADIOLOGY Pressure RESULTS Ventricular Rate 61 BPM RADIOLOGY RESULTS Atrial Rate 61 BPM RADIOLOGY RESULTS GA Interval 170 ms RADIOLOGY RESULTS QRS Duration 96 ms RADIOLOGY RESULTS QT 482 ms RADIOLOGY RESULTS QTc 485 ms RADIOLOGY RESULTS P [place] 60 degrees RADIOLOGY RESULTS R AXIS -37 degrees RADIOLOGY RESULTS T [place] 69 degrees RADIOLOGY RESULTS Interpretation Sinus rhythm with frequent Premature ventricular compl exes RADIOLOGY ECG Left axis deviation RESULTS Minimal voltage criteria for LVH, may be normal variant Possible Left atrial enlargement Abnormal ECG When compared with ECG of 02-JUL-2021 12:57, Premature ventricular complexes are now Present Premature atrial complexes are no longer Present Nonspecific T wave abnormality now evident in Anterior leads QT has shortened Confirmed by MD TRIXIE, ST EVEN ([id number]), photography editor DEB SCHULTZ ([id number]) on 07/07/2021 7:03:59 AM Specimen Anatomical Collection Method Collection Time Receive d Time (Source) Location / / Volume Laterality 07/02/2021 3:33 PM 7:03 [employer] AM [employer] Loy Armas MD ECG ORDERABLES Performing Organization Address City/State/ZIP Code Phon e Number RADIOLOGY RESULTS (ABNORMAL) INR (07/02/2021 3:13 PM [employer]) P athologist Signature INR 2.11 (H) 0.85 - 1.15 07/02/2021 [facility] 3:36 PM [employer] Specimen Anatomical Collection Method / Collection Time Recei wendi Time (Source) Location / Volume Laterality Blood STRUCTURE OF LEFT Venipuncture / 07/02/2021 3:13 07/02 3:22 [place] / Unknown PM [employer] PM [employer] Unknown Jamie Bush MD LAB - BLOOD ORDERABLES Performing Organization Address City/State/ZIP Code [place] [address] Care Lab [address] Lab (1st floor, no room number) XR Chest 2 Views (07/02/2021 2:24 PM [employer]) Anatomical Region Laterality Modality Chest Digital Radiography Specimen (Source) Anatomical Location Collection Method / Collectio n Time Received Time / Laterality Volume Impressions 07/02/2021 2:39 PM [employer] IMPRESSION: Cardiomegaly with pulmonary vascular congestion and probable mild interstitial edema. No foc al infiltrate or pleural effusion. JAISON JOHNSTON MD SYSTEM ID: [id number] Narrative 07/02/2021 2:39 PM [employer] XR CHEST 2 VW 07/02/2021 2:24 PM ?? INDICATION: dyspnea COMPARISON: None Procedure Note Jaison Johnston MD - 07/02/2021Fo rmatting of this note might be different from the original. XR CHEST 2 VW 07/02/2021 2:24 PM INDICATION: dyspnea COMPARISON: None IMPRESSION: Cardiomegaly with pulmonary vascular congestion and probable mild interstitial edema. No foc al infiltrate or pleural effusion. JAISON JOHNSTON MD SYSTEM ID: [id number] Loy Armas MD IMG DIAGNOSTIC IMAGING ORDER NEFTALY EKG 12 lead (07/02/2021 12:57 PM [employer]) Component Value Ref Range Test Analysis Performed Pathologis t Method Time At Signature Systolic Blood mmHg RADIOLOGY Pressure RESULTS Diastolic Blood mmHg RADIOLOGY Pressure RESULTS Ventricular Rate 61 BPM RADIOLOGY RESULTS Atrial Rate 61 BPM RADIOLOGY RESULTS GA Interval 160 ms RADIOLOGY RESULTS QRS Duration 98 ms RADIOLOGY RESULTS QT 668 ms RADIOLOGY RESULTS QTc 672 ms RADIOLOGY RESULTS P [place] 47 degrees RADIOLOGY RESULTS R AXIS -39 degrees RADIOLOGY RESULTS T [place] 62 degrees RADIOLOGY RESULTS Interpretation Sinus rhythm with Premature atrial complexes RADIOLOGY ECG Possible Left atrial enlargement RESULTS Left axis deviation Left ventricular hypertrophy Nonspecific T wave abnormality Abnormal ECG No previous ECGs available Specimen Anatomical Collection Method Collection Time Receive d Time (Source) Location / / Volume Laterality 07/02/2021 12:57 07/03/2021 PM [employer] 12:56 PM [employer] Mandeep Sears MD ECG ORDERABLES Performing Organization Address City/State/ZIP Code Phon e Number RADIOLOGY RESULTS Asymptomatic COVID-19 Virus (Coronavirus) by PCR Nasopharyngeal (07/01/2021 8:50 PM DIRECTOR OF INTEGRATED MARKETING) Analysis Performed At Patho logist Time Signature SARS CoV2 PCR Negative Negative 07/01/2021 LABORATORY 9:45 PM DIRECT[employer] OF [employer]TEGRATED MARKET[employer] Comment: NEGATIVE: SARS-CoV-2 (COVID-19) RNA not detected, presumed negative. Specimen Anatomical Location / Collection Method Collection Ferny e Received Time (Source) Laterality / Volume Swab NASOPHARYNGEAL Non-blood 07/01/2021 8:50 07/01/2021 8:53 STRUCTURE / Unknown Collection / PM [employer] OF [employer] MARKET[employer] PM [employer] OF INTE[employer] MARKETING Unknown Narrative LABORATORY - 07/01/2021 9:45 PM DIRECTOR OF INTEGRATED MARKETING Testing was performed using the suzanne?? SARS-CoV-2 & Influenza A/B Assay on the suzanne?? Fátima?? System. ??This test shoul d be ordered for the detection of SARS-COV-2 in individuals who meet SARS-CoV-2 clini jamin and/or epidemiological criteria. Test performance is unknown in asymptomatic p atients. ??This test is for in vitro diagnostic use under the FDA EUA for lab oratories certified under CLIA to perform moderate and/or high complexity testing. This test has not been FDA cleared or approved. ??A negative test does not rul e out the presence of PCR inhibitors in the specimen or target RNA in concentration below the limit of detection for the assay. The possibility of a false negative shou ld be considered if the patient's recent exposure or clinical presentation sugges ts COVID-19. ??[facility] are certified under the Clinical Laborat ory Improvement Amendments of 1988 (CLIA-88) as qualified to perform moderate and/or high complexity laboratory testing. Mandeep Sears MD LAB - MICRO GENERAL ORDERABL ES Performing Organization Address City/[facility]/ZIP Code [place] [address] Care Lab [address] [facility] Lab (1st floor, no room number) (ABNORMAL) UA with Microscopic reflex to Culture (07/01/2021 6:47 PM DIRECTOR OF INTEGRATED MARKETING) [facility] Method Time Signature Color Urine Yellow Colorless, 07/01/2021 LABORATORY Straw, 7:03 PM [employer] Light Yellow, Yellow Appearance Urine Clear Clear 07/01/2021 RH LABORATOR Y 7:03 PM [employer] OF [employer] Glucose Urine Negative Negative 07/01/2021 LABORATORY mg/dL 7:03 PM [employer] OF [employer] MARK[employer]ING Bilirubin Urine Negative Negative 07/01/2021 LABORATORY 7:03 PM [employer] OF [employer] MARK[employer]ING Ketones Urine Negative Negative 07/01/2021 LABORATORY mg/dL 7:03 PM [employer]OR OF [employer] MARKETING Specific [place] 1.017 1.003 - 07/01/2021 LABORATOR Y Urine 1.035 7:03 PM [employer] OF [employer] MARK[employer]ING Blood Urine Negative Negative 07/01/2021 LABORATORY 7:03 PM [employer] pH Urine 5.0 5.0 - 7.0 07/01/2021 LABORATORY 7:03 PM [employer] Protein Albumin Negative Negative 07/01/2021 LABORATORY Urine mg/dL 7:03 PM [employer] OF [employer]ING Urobilinogen Normal Normal, 2.0 07/01/2021 LABORATORY Urine mg/dL 7:03 PM [employer] Nitrite Urine Negative Negative 07/01/2021 LABORATORY 7:03 PM [employer] OF [employer] Leukocyte Trace (A) Negative 07/01/2021 LABORATORY Esterase Urine 7:03 PM [employer] Bacteria Urine Many (A) None Seen 07/01/2021 [facility] LABORATORY /HPF 7:03 PM [employer] OF [employer] MARK[employer] Mucus Urine Present (A) None Seen 07/01/2021 LABORATORY /LPF 7:03 PM [employer] RBC Urine 1 <=2 /HPF 07/01/2021 RH LABORATORY 7:03 PM [employer] WBC Urine 4 <=5 /HPF 07/01/2021 RH LABORATORY 7:03 PM [employer] OF [employer]ING Squamous <1 <=1 /HPF 07/01/2021 LABORATORY Epithelials 7:03 PM [employer] MARK[employer]ING Urine Specimen Anatomical Collection Method Collection Time Receive d Time (Source) Location / / Volume Laterality Urine URINE SPECIMEN Non-blood 07/01/2021 6:47 PM 021 6:51 FROM URINARY Collection / [employer]ET[employer] PM [employer]TE[employer] CONDUIT / Unknown Unknown Narrative LABORATORY - 07/01/2021 7:03 PM DIRECTOR OF [employer] MARKETING Urine Culture not indicated Mandeep Sears MD LAB - URINE ORDERABLES Performing Organization Address City/State/ZIP [place] [phone] Care Lab [address] Lab (1st floor, no room number) Lumbar spine CT w/o contrast (07/01/2021 6:28 PM DIRECTOR OF INTEGR[employer] MARKETING) Anatomical Region Laterality Modality Spine, SUBRAD CT NEURO, UMP CT SPINE, RAD CT Computed Tomography Specimen (Source) Anatomical Collection Method Collection Time Re ceived Time Location / / Volume Laterality 07/01/2021 6:19 PM [employer] OF [employer]TE[employer] MARKETING Impressions 07/01/2021 6:49 PM DIRECTOR OF INTEGRATED MARKETING IMPRESSION: 1. ??No fracture or posttraumatic sublux ation. 2. ??No high grade spinal canal or neura l foraminal stenosis. 3. ??Multilevel moderate spinal stenosis on a chronic degenerative basis with no traumatic disc herniations evident. Narrative 07/01/2021 6:49 PM DIRECTOR OF INTEGRATED MARKETING EXAM: CT LUMBAR SPINE W/O CONTRAST LOCATION: [facility] DATE/TIME: 07/01/2021 6:19 PM INDICATION: Right-sided low back pain, o n Coumadin. COMPARISON: None. TECHNIQUE: Routine CT lumbar spine witho ut IV contrast. Multiplanar reformats. Dose reduction techniques were used. FINDINGS: VERTEBRA: There are five lumbar-type ngozi tebral bodies identified. There is mild S-shaped lumbar curve convex to the right L1, convex to the left L4. Overall vertebral body height is satisfactory. There is 1 mm degenerative anterior subluxatio n L2-L3, L4-L5 noted. Articular pillars are intac t. Lower lumbar spine facet joint arthropathy. No evidence for facet joint space widening or interspace widening. Perforating vascular channel right superior jimmie cular process L4 series 7 image 40, seri es 8 image 30. No fracture or posttraumatic subluxa tion. No displaced lower rib fractures are evident. Degenerative changes both SI joints. CANAL/FORAMINA: There is no high grade s li stenosis present. No traumatic disc herniations. Moderate spinal stenoses are identified L1-L2, L3-L4, and L4- L5 levels. There is some ectasia of the nerve root sleeves at L5-S1, left more prominent than right. No severe foraminal compromise. PARASPINAL: There is some dorsal paraspi nous muscular atrophy/fatty replacement on a chronic basis at the lower lumbar level. No retroperitoneal solid mass or adenopathy. Vascular calcification is prese nt. Degenerative changes anterior SI alexia nts. 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 Procedure Note Jaison Emanuel MD - 07/01/2021For matting of this note might be different from the original. EXAM: CT LUMBAR SPINE W/O CONTRAST LOCATION: [facility] DATE/TIME: 07/01/2021 6:19 PM INDICATION: Right-sided low back pain, o n Coumadin. COMPARISON: None. TECHNIQUE: Routine CT lumbar spine witho ut IV contrast. Multiplanar reformats. Dose reduction techniques were used. FINDINGS: VERTEBRA: There are five lumbar-type ngozi tebral bodies identified. There is mild S-shaped lumbar curve convex to the right L1, convex to the left L4. Overall vertebral body height is satisfactory. There is 1 mm degenerative anterior subluxation L2-L3, L4-L5 noted. Articular pillars are intac t. Lower lumbar spine facet joint arthropathy. No evidence for facet joint space widening or interspace widening. Perforating vascular channel right superior articular process L4 series 7 image 40, series 8 image 30. No fracture or posttraumatic subluxa tion. No displaced lower rib fractures are evident. Degenerative changes both SI joints. CANAL/FORAMINA: There is no high grade s li stenosis present. No traumatic disc herniations. Moderate spinal stenoses are identified L1-L2, L3-L4, and L4- L5 levels. There is some ectasia of the nerve root sleeves at L5-S1, left more prominent than right. No severe foraminal compromise. PARASPINAL: There is some dorsal paraspi nous muscular atrophy/fatty replacement on a chronic basis at the lower lumbar level. No retroperitoneal solid mass or adenopathy. Vascular calcification is present. Degenerative changes anterior S I joints. 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 IMPRESSION: 1. No fracture or posttraumatic subluxat ion. 2. No high grade spinal canal or neural foraminal stenosis. 3. Multilevel moderate spinal stenosis o n a chronic degenerative basis with no traumatic disc herniations evident. Mandeep Sears MD G CT ORDERABLES (ABNORMAL) CBC with platelets and differential (07/01/2021 6:00 PM DIRECTOR OF [employer]TE[employer] MARKETING) [facility] Method Time Signature WBC Count 6.6 4.0 - 07/01/2021 [facility] LABORATORY 11.0 6:28 PM [employer] 10e3/uL RBC Count 3.92 3.80 - 07/01/2021 [facility] LABORATORY 5.20 6:28 PM [employer] 10e6/uL Hemoglobin 11.9 11.7 - 07/01/2021 [facility] LABORATORY 15.7 g/dL 6:28 PM [employer] Hematocrit 38.9 35.0 - 07/01/2021 [facility] LABORATORY 47.0 % 6:28 PM [employer] MARKETING MCV 99 78 - 100 07/01/2021 [facility] LABORATORY fL 6:28 PM [employer] MARKETING MCH 30.4 26.5 - 07/01/2021 [facility] LABORATORY 33.0 pg 6:28 PM DIRECT[employer] OF [employer] MARKETING MCHC 30.6 (L) 31.5 - 07/01/2021 [facility] LABORATORY 36.5 g/dL 6:28 PM [employer] MARKET[employer] RDW 16.5 (H) 10.0 - 07/01/2021 [facility] LABORATORY 15.0 % 6:28 PM [employer]ING Platelet Count 156 150 - 450 07/01/2021 [facility] LABORATORY 10e3/uL 6:28 PM [employer]ING % Neutrophils 79 % 07/01/2021 RH LABORATORY 6:28 PM [employer] MARKETING % Lymphocytes 10 % 07/01/2021 RH LABORATORY 6:28 PM [employer] MARKETING % Monocytes 8 % 07/01/2021 RH LABORATORY 6:28 PM [employer]TE[employer] MARKETING % Eosinophils 2 % 07/01/2021 [facility] LABORATORY 6:28 PM [employer] MARKETING % Basophils 1 % 07/01/2021 RH LABORATORY 6:28 PM [employer] MARKETING % Immature 0 % 07/01/2021 [facility] LABORATORY Granulocytes 6:28 PM DIRECTOR OF INTEGR[employer] MARKETING NRBCs per 100 0 <1 /100 07/01/2021 [facility] LABORATORY WBC 6:28 PM [employer] MARKETING Absolute 5.2 1.6 - 8.3 07/01/2021 [facility] LABORATORY Neutrophils 10e3/uL 6:28 PM [employer] OF [employer] MARKETING Absolute 0.7 (L) 0.8 - 5.3 07/01/2021 [facility] LABORATORY Lymphocytes 10e3/uL 6:28 PM [employer] MARKETING Absolute 0.5 0.0 - 1.3 07/01/2021 [facility] LABORATORY Monocytes 10e3/uL 6:28 PM [employer] MARKETING Absolute 0.2 0.0 - 0.7 07/01/2021 [facility] LABORATORY Eosinophils 10e3/uL 6:28 PM DIRECT[employer] OF [employer] MARKETING Absolute 0.0 0.0 - 0.2 07/01/2021 [facility] LABORATORY Basophils 10e3/uL 6:28 PM [employer] MARKETING Absolute 0.0 <=0.0 07/01/2021 [facility] LABORATORY Immature 10e3/uL 6:28 PM DIRECT[employer] OF [employer]TE[employer] MARKETING Granulocytes Absolute NRBCs 0.0 10e3/uL 07/01/2021 RH LABORATORY 6:28 PM DIRECT[employer] OF [employer]TE[employer] MARKETING Specimen Anatomical Collection Method / Collection Time Recei wendi Time (Source) Location / Volume Laterality Blood VENOUS LINE / Venipuncture / 07/01/2021 6:00 6:23 Unknown Unknown PM DIRECT[employer] OF INTEGRATED MARKETING PM DIRECTOR OF INTE[employer]ATED MARKETING Mandeep Sears MD LAB - BLOOD ORDERABLES Performing Organization Address City/State/ZIP Code [place] [phone] Care Lab [address] Lab (1st floor, no room number) (ABNORMAL) INR (07/01/2021 6:00 PM DIRECTOR OF INTEGRATED MARKETING) P athologist Signature INR 2.24 (H) 0.85 - 1.15 07/01/2021 [facility] LABORATORY 6:43 PM DIRECT[employer] OF [employer] MARKETING Specimen Anatomical Collection Method / Collection Time Recei wendi Time (Source) Location / Volume Laterality Blood VENOUS LINE / Venipuncture / 07/01/2021 6:00 6:23 Unknown Unknown PM DIRECT[employer] OF INTEGRATED MARKETING PM DIRECT[employer] OF INTEGRATED MARKETING Mandeep Sears MD LAB - BLOOD ORDERABLES Performing Organization Address City/State/ZIP Code [place] [address] Care Lab [address] Lab (1st floor, no room number) (ABNORMAL) Basic metabolic panel (BMP) (07/01/2021 6:00 PM DIRECTOR OF INTEGRATED MARKETING) Analysis Performed At Patho logist Time Signature Sodium 141 133 - 144 07/01/2021 [facility] LABORATORY mmol/L 6:44 PM DIRECTOR OF INTEGRATED MARKETING Potassium 4.0 3.4 - 5.3 07/01/2021 [facility] LABORATORY mmol/L 6:44 PM DIRECT[employer] OF [employer] MARKETING Chloride 107 94 - 109 07/01/2021 LABORATORY mmol/L 6:44 PM DIRECT[employer] OF [employer]TE[employer] MARKETING Carbon Dioxide 30 20 - 32 07/01/2021 LABORATORY (CO2) mmol/L 6:44 PM DIRECTOR OF [employer]TEGR[employer] MARKETING Anion Gap 4 3 - 14 07/01/2021 LABORATORY mmol/L 6:44 PM [employer] OF INTE[employer] MARKETING Urea Nitrogen 17 7 - 30 07/01/2021 LABORATORY mg/dL 6:44 PM [employer] OF [employer] MARKETING Creatinine 0.70 0.52 - 07/01/2021 LABORATORY 1.04 mg/dL 6:44 PM [employer] OF [employer] MARKETING Calcium 9.8 8.5 - 10.1 07/01/2021 LABORATORY mg/dL 6:44 PM [employer] OF [employer] MARK[employer]ING Glucose 121 (H) 70 - 99 07/01/2021 LABORATORY mg/dL 6:44 PM [employer] OF [employer] MARKETING GFR Estimate 80 >60 07/01/2021 LABORATORY mL/min/1.7 6:44 PM DIRECT[employer] OF [employer]TE[employer] MARKETING 3m2 Comment: As of February 16, 2021, eGFR is ca lculated by the CKD-EPI creatinine equation, without race adjustment. eGFR can be inf luenced by muscle mass, exercise, and diet. The reported eGFR is an estimation only and is only applicable if the renal function is stable. 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 Personal history of venous thrombosis an d embolism Acute right-sided low back pain without sciatica Acute right-sided low back pain without sciatica documented in this encounter Admitting Diagnoses Diagnosis Acute right-sided low back pain without sciatica documented in this encounter Administered Medications Inactive Administered Medications - up to 3 most recent administrations Medication Order MAR Action Action Date Dose Rate Site acetaminophen (TYLENOL) tablet 975 Given 07/08/2021 6:11 AM DIRECTOR OF [employer] MARKETING 975 mg mg 975 mg, Oral, EVERY 8 HOURS, First dose on Wed07/02/21 at 0150, Maximum acetaminophen dose from all sources = 75 mg/kg/day not to exceed 4 grams/day. Given 07/07/2021 8:18 PM [employer] 975 mg Given 07/07/2021 1:52 PM DIRECT[employer] OF [employer] MARKETING 975 mg acetaminophen (TYLENOL) tablet 975 mg Given 07/10/2021 11:49 AM DIRECT[employer] MARKETING 975 mg 975 mg, Oral, EVERY 8 HOURS PRN, mild pain, fever, Starting on Wed07/08/21 at 1100, Maximum acetaminophen dose from all sources = 75 mg/kg/day not to exceed 4 grams/day. amLODIPine (NORVASC) tablet 10 mg Given 07/07/2021 7:48 AM DIRECT[employer] MARKETING 10 mg 10 mg, Oral, DAILY, First dose (after last modification) on Wed07/07/21 at 0800 amLODIPine (NORVASC) tablet 5 mg Given 07/06/2021 8:13 AM [employer] MARKETING 5 mg 5 mg, Oral, DAILY, First dose on Wed07/02/21 at 1530 Given 07/05/2021 10:17 AM [employer] MARK[employer]ING 5 mg Given 07/04/2021 8:57 AM [employer]TE[employer] MARKETING 5 mg amLODIPine (NORVASC) tablet 5 mg Given 07/10/2021 7:45 AM [employer] MARKETING 5 mg 5 mg, Oral, DAILY, First dose (after last modification) on Wed07/08/21 at 1100, Hold if systolic blood pressure less than 110 Given 07/09/2021 8:09 AM [employer] MARK[employer]ING 5 mg Given 07/08/2021 11:06 AM [employer] MARKETING 5 mg cyclobenzaprine (FLEXERIL) tablet 5 mg Given 07/01/2021 5:59 PM [employer] MARKETING 5 mg 5 mg, Oral, ONCE, On Wed07/01/21 at 1755, For 1 dose furosemide (LASIX) injection 20 mg Given 07/02/2021 3:46 PM [employer] MARK[employer]ING 20 mg 20 mg, Intravenous, ONCE, Administer over 1-3 Minutes, On Wed07/02/21 at 1600, For 1 dose gabapentin (NEURONTIN) capsule 100 mg Given 07/10/2021 7:45 AM [employer] MARKETING 100 mg 100 mg, Oral, 2 TIMES DAILY, First dose on Wed07/02/21 at 0800 Given 07/09/2021 7:35 PM [employer] MARKETING 100 mg Given 07/09/2021 8:09 AM DIRECT[employer] MARKETING 100 mg HYDROcodone-acetaminophen (NORCO) 5-325 MG Given 07/01 10:03 PM [employer] MARKETING 1 tablet per tablet 1 tablet 1 tablet, Oral, ONCE, On Wed07/01/21 at 2145, For 1 dose, Maximum acetaminophen dose from all sources= 75 mg/kg/day not to exceed 4 grams levothyroxine (SYNTHROID/LEVOTHROID) tablet Given 09/2020 7:45 AM DIRECT[employer] MARKETING 100 mcg 100 mcg 100 mcg, Oral, EVERY 24 HOURS, First dose on Wed07/02/21 at 1530 Given 07/09/2021 8:09 AM DIRECTOR [employer] INTE[employer] MARKETING 100 mcg Given 07/08/2021 9:11 AM DIRECTOR [employer]TE[employer] MARKETING 100 mcg Lidocaine (LIDOCARE) Patch/Med Applied 07/01/2021 6:12 PM 1 patch Other (see 4 % Patch 1 patch DIRECTOR OF [employer]TE[employer] MARKETING comments) 1 patch, Transdermal, ONCE, Administer over 12 Hours, On Wed07/01/21 at 1755, For 1 dose, Apply patch(s) to right lower back over area of maximum pain. To prevent lidocaine toxicity, patient should be patch free for 12 hrs daily. Patches may be cut to smaller size prior to removing release liner. Reminder: Remove previous patch before applying new patch. NEVER APPLY HEAT OVER PATCH which increases absorption and may lead to local anesthetic toxicity. Do not apply over area where liposomal bupivacaine was injected for 96 hours post injection. Lidocaine (LIDOCARE) 4 Patch/Med Applied 07/10/2021 12:59 AM 1 patch Right Lower % Patch 1 patch [employer]ING Back 1 patch, Transdermal, EVERY 24 HOURS 1999, Administer over 12 Hours, First dose on Wed07/02/21 at 2000, Apply patch(s) to low back. To prevent lidocaine toxicity, patient should be patch free for 12 hrs daily. Patches may be cut to smaller size prior to removing release liner. Reminder: Remove previous patch before applying new patch. NEVER APPLY HEAT OVER PATCH which increases absorption and may lead to local anesthetic toxicity. Do not apply over area where liposomal bupivacaine was injected for 96 hours post injection. Patch/Med Applied 07/09/2021 1:03 AM [employer] MARKETING 1 patch Right Lower Back Patch/Med Applied 07/07/2021 11:56 PM DIRECTOR OF INTE[employer] MARKETING 1 patch Right Lower Back lidocaine patch in PLACE First dose on Wed07/02/21 at 0150, Chart every shift, confirming that patch is still in place on patient (no barcode scan needed). Se e patch order for dose information. NEVER APPLY HEAT OVER PATCH which will in crease absorption and may lead to risk of local anesthetic toxicit y. Do not apply over area where liposomal bupivacaine injected for 96 hours. lisinopril (ZESTRIL) tablet 10 mg Given 07/10/2021 7:45 AM DIRECT[employer] MARKETING 10 mg 10 mg, Oral, DAILY, First dose (after last modification) on Wed07/09/21 at 0800, Hold if SBP < 140 or if HR <50 Given 07/09/2021 8:09 AM [employer] MARKETING 10 mg lisinopril (ZESTRIL) tablet 10 mg Given 07/10/2021 11:11 AM [employer] MARKETING 10 mg 10 mg, Oral, ONCE, On Wed07/10/21 at 0900, For 1 dose, To complete change of dosing lisinopril (ZESTRIL) tablet 20 mg 20 mg, Oral, DAILY, First dose (after la st modification) on Wed07/11/21 at 0800, Hold if SBP < 140 or if HR <50 lisinopril (ZESTRIL) tablet 40 mg Given 07/06/2021 8:13 AM [employer]ING 40 mg 40 mg, Oral, DAILY, First dose on Wed07/02/21 at 1530, Hold if SBP < 140 or if HR <50 Given 07/04/2021 8:57 AM [employer]ING 40 mg Given 07/03/2021 7:42 AM [employer] MARKETING 40 mg melatonin tablet 1 mg Given 07/07/2021 11:55 PM [employer] MARKETING 1 mg 1 mg, Oral, AT BEDTIME PRN, sleep, Starting on Wed07/02/21 at 0146, Do not give unless at least 6 hours of uninterrupted sleep is expected. methocarbamol (ROBAXIN) tablet 500 mg Given 07/10/2021 3:32 PM DIRECT[employer] MARK[employer]ING 500 mg 500 mg, Oral, 3 TIMES DAILY, First dose on Wed07/02/21 at 0800 Given 07/10/2021 7:45 AM [employer]ING 500 mg Given 07/09/2021 7:35 PM [employer] MARK[employer]ING 500 mg metoprolol tartrate (LOPRESSOR) half-tab Given 07/10/2021 7:45 A M [employer] 12.5 mg 12.5 mg 12.5 mg, Oral, EVERY 12 HOURS, First dose (after last modification) on 07/06/21 at 2000, Hold if HR <60 Given 07/09/2021 7:35 PM [employer] 12.5 mg Given 07/08/2021 8:10 PM [employer] OF [employer]TE[employer] MARKETING 12.5 mg metoprolol tartrate (LOPRESSOR) tablet 2 5 mg Given 07/04/2021 8:03 PM [employer] MARK[employer]ING 25 mg 25 mg, Oral, EVERY 12 HOURS, First dose on Wed07/02/21 at 2000, Hold if HR <50 Given 07/04/2021 8:58 AM [employer] MARK[employer]ING 25 mg Given 07/03/2021 8:14 PM DIRECT[employer] OF [employer] MARKETING 25 mg naloxone (NARCAN) injection 0.2 mg 0.2 mg, Intravenous, EVERY 2 MIN PRN, op ioid reversal, Starting on Jesus[place] 07/03/21 at 0938, Administer intravenous route when available and notify provider when administered. For unintended sedation or respiratory depression if all of the below criteria are met: ~ respiratory rate LES S than or EQUAL to 8. ~SaO2 less than 92% and or/end-tidal CO2 is greater than 50. ~ the patient is receiving an opioid, has unintended sedations assessed as RASS (-3), and is cur rently not on mechanical ventilation. RASS scale moderate (-3) is movement or eye opening to voice but no eye contact. Patient Monitoring Once the patient has demonstrated a response to the naloxone, continue to monitor respiratory rate, depth, oxygen saturation and end-tidal CO2 (if available) every 15 mi nutes x 2, then every 30 minutes x 2, then every 1 hour x 1 after each naloxone dose. Consider tr ansfer to ICU if patient respiratory parameters have not improved after 4 nalox one doses. naloxone (NARCAN) injection 0.2 mg 0.2 mg, Intramuscular, EVERY 2 MIN PRN, opioid reversal, Starting on [place] 07/03/21 at 0938, Administer intramuscular if an intravenous ro [place] is not available and notify provider when administered. For unintended mary beth tion or respiratory depression if all of the below criteria are met: ~ respiratory rate LESS than or EQUAL to 8. ~SaO2 less than 92% and or/end-tidal CO2 i s greater than 50. ~ the patient is receiving an opioid, has unin tended sedations assessed as RASS (-3), and is currently not on mechanical ventilati on. RASS scale moderate (-3) is movement or eye opening to voice but no eye contact. Patient Monitoring Once the patient has demonstrated a response to the naloxone, continue to m onitor respiratory rate, depth, oxygen saturation and end-tidal CO2 (if availab le) every 15 minutes x 2, then every 30 minutes x 2, then every 1 hour x 1 after each naloxone dose. Consider transfer to ICU if patient respiratory parameters have not improved after 4 naloxone doses. naloxone (NARCAN) injection 0.4 mg 0.4 mg, Intravenous, EVERY 2 MIN PRN, op ioid reversal, Starting on [place] 07/03/21 at 0938, Administer intravenous route when available and notify provider when administered. For unintended sedation or respiratory depression if all of the below criteria are met: ~ respiratory rate LES S than or EQUAL to 8. ~ SaO2 less than 92% and or/end-tidal CO2 is greater than 50. ~ the patient is receiving an opioid, has unintended sedation assessed as RASS (-4 ) or (-5) and patient is currently not on mechanical ventilation. RASS scale (-4) is deep sedation with no response to voice but movement or eye opening to physical stimulation. R ASS scale (-5) is unarousable. Patient Monitoring Once the patient has demonstrated a response to the naloxone, continue to monitor respiratory rate, depth, oxygen saturation and end-tidal CO2 (if available) every 15 mi nutes x 2, then every 30 minutes x 2, then every 1 hour x 1 after each naloxone dose. Consider tr ansfer to ICU if patient respiratory parameters have not improved after 4 nalox one doses. naloxone (NARCAN) injection 0.4 mg 0.4 mg, Intramuscular, EVERY 2 MIN PRN, opioid reversal, Starting on Jesusita 07/03/21 at 0938, Administer intramuscular if an intravenous ro [place] is not available and notify provider when administered. For unintended mary beth tion or respiratory depression if all of the below criteria are met: ~ respiratory rate LESS than or EQUAL to 8. ~ SaO2 less than 92% and or/end-tidal CO2 is greater than 50. ~ the patient is receiving an opioid, has unin tended sedation assessed as RASS (-4) or (-5) and patient is currently not on mechanical ventil ation. RASS scale (-4) is deep sedation with no response to voice but movement o r eye opening to physical stimulation. RASS scale (-5) is unarousa ble. Patient Monitoring Once the patient has demonstrated a response to the nalox one, continue to monitor respiratory rate, depth, oxygen saturation and end-tidal CO2 (if availab le) every 15 minutes x 2, then every 30 minutes x 2, then every 1 hour x 1 after each naloxone dose. Consider transfer to ICU if patient respiratory parameters have not improved after 4 naloxone doses. ondansetron (ZOFRAN) injection 4 mg 4 mg, Intravenous, EVERY 6 HOURS PRN, nausea, vomiting , Administer over 2-5 Minutes, Starting on Wed07/02/21 at 014 6, Give IF patient unable to tolerate oral medication. This is Step 1 of nausea and vomiting savanna gement. If nausea not resolved in 15 minutes, go to Step 2 prochlorperazine (COMPAZINE). Irritant. ondansetron (ZOFRAN-ODT) ODT tab 4 mg 4 mg, Oral, EVERY 6 HOURS PRN, nausea, v omiting, Starting on Wed07/02/21 at 0146, This is Step 1 of nausea and vomiting management. If n ausea not resolved in 15 minutes, go to Step 2 prochlorperazine ( COMPAZINE). With dry hands, peel back foil backing and gently remove tablet. Do not push oral disintegrating tablet through foil backing. Administer immediately on tongue and ora l disintegrating tablet dissolves in seconds, then swallow with saliva. Liquid not required. oxyCODONE IR (ROXICODONE) half-tab 2.5 m g Given 07/10/2021 3:32 PM [employer] 2.5 mg 2.5 mg, Oral, EVERY 4 HOURS PRN, moderate to severe pain, Starting on Wed07/02/21 at 0146, IF pain not managed with non-pharmacological and non-opioid interventions; may use concomitant with non-opioid analgesics. Given 07/10/2021 11:49 AM [employer] 2.5 mg Given 07/10/2021 7:48 AM [employer] 2.5 mg pantoprazole (PROTONIX) EC tablet 40 mg Given 07/10/2021 6:13 AM [employer] 40 mg 40 mg, Oral, EVERY MORNING BEFORE BREAKFAST, First dose on Wed07/02/21 at 0730, DO NOT CRUSH. Given 07/09/2021 6:01 AM [employer] 40 mg Given 07/08/2021 6:11 AM [employer] 40 mg potassium chloride ER (KLOR-CON M) CR tablet Given 11:12 AM [employer] 40 mEq 40 mEq 40 mEq, Oral, ONCE, On Jesusita 07/03/21 at 1130, For 1 dose, Potassium level 3.1 - 3.4 Ordered from the Potassium replacement order set. DO NOT CRUSH, Potassium Replacement: Potassium level 3.1-3.4 and CrCl GREATER than or EQUAL to 40 mL/min, Recheck: Potassium level 4 hours after last PO dose rosuvastatin (CRESTOR) tablet 10 mg Given 07/09/2021 7:35 PM [employer] 10 mg 10 mg, Oral, EVERY EVENING, First dose on Wed07/02/21 at 1999 Given 07/08/2021 8:10 PM [employer] 10 mg Given 07/07/2021 8:17 PM [employer] 10 mg sertraline (ZOLOFT) tablet 100 mg Given 07/09/2021 7:35 PM [employer] 100 mg 100 mg, Oral, EVERY EVENING, First dose on Wed07/02/21 at 1999 Given 07/08/2021 8:10 PM [employer] 100 mg Given 07/07/2021 8:17 PM [employer] 100 mg traMADol (ULTRAM) tablet 50 mg Given 07/03/2021 11:02 AM [employer] 50 mg 50 mg, Oral, ONCE, On Jesusita 07/03/21 at 1000, For 1 dose warfarin ANTICOAGULANT (COUMADIN) half-tab Given 07/05/2021 6:20 PM [employer] 3.5 mg 3.5 mg 3.5 mg, Oral, ONCE AT 6PM, On Wed07/05/21 at 1800, For 1 dose warfarin ANTICOAGULANT (COUMADIN) tablet 2 mg 2 mg, Oral, ONCE AT 6PM, On Jesusita 07/10/21 at 1800, For 1 dose warfarin ANTICOAGULANT (COUMADIN) tablet 2.5 Given 5:50 PM [employer] 2.5 mg mg 2.5 mg, Oral, ONCE AT 6PM, On Wed07/02/21 at 1800, For 1 dose warfarin ANTICOAGULANT (COUMADIN) tablet 2.5 Given 6:31 PM [employer] 2.5 mg mg 2.5 mg, Oral, ONCE AT 6PM, On Wed07/04/21 at 1800, For 1 dose warfarin ANTICOAGULANT (COUMADIN) tablet 2.5 Given 08/2020 6:03 PM [employer] 2.5 mg mg 2.5 mg, Oral, ONCE AT 6PM, On Wed07/09/21 at 1800, For 1 dose warfarin ANTICOAGULANT (COUMADIN) tablet 5 mg Given 07/02/2021 3:11 AM [employer] 5 mg 5 mg, Oral, ONCE, On Wed07/02/21 at 0235, For 1 dose, Per Pharmacy Warfarin Dosing Service warfarin ANTICOAGULANT (COUMADIN) tablet 5 mg Given 07/03/2021 6:04 PM [employer] 5 mg 5 mg, Oral, ONCE AT 6PM, On Wed07/03/21 at 1800, For 1 dose warfarin ANTICOAGULANT (COUMADIN) tablet 5 mg Given 07/06/2021 5:52 PM [employer] 5 mg 5 mg, Oral, ONCE AT 6PM, On Wed07/06/21 at 1800, For 1 dose warfarin ANTICOAGULANT (COUMADIN) tablet 5 mg Given 07/07/2021 6:08 PM [employer] 5 mg 5 mg, Oral, ONCE AT 6PM, On Wed07/07/21 at 1800, For 1 dose warfarin ANTICOAGULANT (COUMADIN) tablet 5 mg Given 07/08/2021 5:42 PM [employer] 5 mg 5 mg, Oral, ONCE AT 6PM, On Wed07/08/21 at 1800, For 1 dose zolpidem (AMBIEN) half-tab 2.5 mg 2.5 mg, Oral, AT BEDTIME PRN, sleep, Starting on Jesusita 09/10/20 at 0834 documented in this encounter Active and Recently Administered Medications Times are shown in [employer]. Scheduled Medication Order 07/08/2021 07/09/2021 07/10/2021 acetaminophen (TYLENOL) tablet 975 mg (CANCELED) 0611 (Given - Provider: Navya Myles RN) 975 mg, Oral, EVERY 8 HOURS, First dose on Wed07/02/21 at 0150, Maximum acetaminophen dose from all sources = 75 mg/kg/day not to exceed 4 grams/day. amLODIPine (NORVASC) tablet 5 mg 1106 (Given - Provider: Sukhdeep Almodovar RN) 0809 (Given - Provider: Shelli Tejada RN) 0745 (Given - Provider: Shelli Tejada RN) 5 mg, Oral, DAILY, First dose (after las t modification) on Wed07/08/21 at 1100, Hold if systolic blood pressure less than 110 gabapentin (NEURONTIN) capsule 100 mg 910 (Given - Pr ovider: Nora Almodovar RN)2009 (Given - Provider: Leigh Ann Najera RN) 08 (Given - Provider: Shelli Tejada RN)1934 (Given - Provider: Navya Myles RN) 0745 (Given - Provider: Shelli Tejada RN) 100 mg, Oral, 2 TIMES DAILY, First dose on Wed07/02/21 at 0800 levothyroxine (SYNTHROID/LEVOTHROID) tablet 100 mcg 04 19 (Given - Provider: Nora Almodovar RN) 08 (Given - Provider: Shelli Tejada RN) 0745 (Gi saturnino - Provider: Shelli Tejada RN) 100 mcg, Oral, EVERY 24 HOURS, First dose on Wed07/02/21 at 153 0 Lidocaine (LIDOCARE) 4 % Patch 1 patch(Linked Group 1) 1100 (Patch/Med Removed - Provider: Nora Almodovar RN) 0103 (Patch/Med Applied - Provider: Sonja Garcia RN)1400 (Patch/Med Removed - Provider: Shelli Tejada RN) 0059 (Patch/Med Applied - Provider: Nathalia Garcia RN)1300 (Patch/Med Removed - Provider: Shelli Tejada RN) 1 patch, Transdermal, EVERY 24 HOURS 200 0, Administer over 12 Hours, First dose on Wed07/02/21 at 2000, Apply patch(s) to low back. To prevent lidocaine toxicity, patient should be patch free for 12 hr s daily. Patches may be cut to smaller s ize prior to removing release liner. Reminder: Remove previous patch before applying new patch. NEVER APPLY HEAT OVER PATCH which increases absorption and may jose d to local anesthetic toxicity. Do not a pply over area where liposomal bupivacaine was injected for 96 hours post injection. lidocaine patch in PLACE(Linked Group 1) 911 (Patch i n Place - Provider: Nora Almodovar RN)1549 (Patch Free Period - Provider: Leigh Ann Najera RN) 0105 (Patch in Place - Provider: Nathalia Garcia RN)1006 (Patch in Place - Provider: Shelli Tejada RN)1515 (Patch Free Period - Provider: Shelli Tejada RN) 0103 (Patch in Place - Provider: Nathalia Garcia RN)0746 (Patch in Place - Provider: Shelli Tejada RN)1530 (Patch Free Period - Provider: Shelli Tejada RN) First dose on Wed07/02/21 at 0150, Danica t every shift, confirming that patch is still in place on patient (no barcode scan needed). See patch order for dose information. NEVER APPLY HEAT OVER PATCH whic h will increase absorption and may lead to risk of local anesthetic toxicity. Do not apply over area where liposomal bupivacaine injected for 96 hours. lisinopril (ZESTRIL) tablet 10 mg (CANCELED) 0809 (Given - Provider: Shelli Tejada RN) 0745 (Given - Provider: Shelli Tejada RN) 10 mg, Oral, DAILY, First dose (after la st modification) on Wed07/09/21 at 0800, Hold if SBP < 140 or if HR <50 lisinopril (ZESTRIL) tablet 10 mg (COMPLETED) 1111 (Given - Provider: Shelli Tejada RN) 10 mg, Oral, ONCE, On Wed07/10/21 at 090 0, For 1 dose, To complete change of dosing lisinopril (ZESTRIL) tablet 20 mg 20 mg, Oral, DAILY, First dose (after la st modification) on Wed07/11/21 at 0800, Hold if SBP < 140 or if HR <50 methocarbamol (ROBAXIN) tablet 500 mg 0911 (Given - Pr ovider: Nora Almodovar RN)1500 (Given - Provider: Nora Almodovar RN)2009 (Given - Provider: LeighA nn Najera RN) 0809 (Given - Provider: Shelli Tejada RN)1440 (Given - Provider: Shelli Tejada RN)1935 (Given - Provider: Navya Myles RN) 0745 (Given - Provider: Shelli Tejada RN)1532 (Given - Provider: Shelli Tejada RN) 500 mg, Oral, 3 TIMES DAILY, First dose on Wed07/02/21 at 0800 metoprolol tartrate (LOPRESSOR) half-tab 12.5 mg 1027 (Not Given - Provider: Nora Almodovar RN - Reason: Order parameters not met)2009 (Given - Provider: Leigh Ann Najera RN) 08 (Not Given - Provider: Shelli mcdowell RN - Reason: Order parameters not met)1934 (Given - Provider: Navya Myles RN) 0745 (Given - Provider: Shelli Tejada RN) 12.5 mg, Oral, EVERY 12 HOURS, First dos e (after last modification) on Wed07/06/21 at 1999, Hold if HR <60 pantoprazole (PROTONIX) EC tablet 40 mg 610 (Given - Provider: Navya Myles RN) 06 (Given - Provider: Nathalia Garcia RN) 06 (Giv en - Provider: Nathalia Garcia RN) 40 mg, Oral, EVERY MORNING BEFORE BREAKF AST, First dose on Wed07/02/21 at 0730, DO NOT CRUSH. rosuvastatin (CRESTOR) tablet 10 mg 2009 (Given - Prov ider: Leigh Ann Najera RN) 1934 (Given - Provider: Navya Myles RN) 10 mg, Oral, EVERY EVENING, First dose on Wed07/02/21 at 1999 sertraline (ZOLOFT) tablet 100 mg 2009 (Given - Provider: Amy Najera RN) 1934 (Given - Provider: Navya Myles RN) 100 mg, Oral, EVERY EVENING, First dose on Wed07/02/21 at 1999 warfarin ANTICOAGULANT (COUMADIN) tablet 2 mg 2 mg, Oral, ONCE AT 6PM, On Jesusita 07/10/21 at 1800, For 1 dose warfarin ANTICOAGULANT (COUMADIN) tablet 2.5 mg (COMPLETED) 1802 (Given - Provider: Shelli Tejada RN) 2.5 mg, Oral, ONCE AT 6PM, On Wed07/09/21 at 1800, For 1 dose warfarin ANTICOAGULANT (COUMADIN) tablet 5 mg (COMPLET ED) 6353 (Given - Provider: Leigh Ann Najera, NIA) 5 mg, Oral, ONCE AT 6PM, On Wed07/08/21 at 1800, For 1 dose PRN Medication Order 07/08/2021 07/09/2021 07/10/2021 acetaminophen (TYLENOL) tablet 975 mg 1149 (Given - Provider: Shelli Tejada RN) 975 mg, Oral, EVERY 8 HOURS PRN, mild pa in, fever, Starting on Wed07/08/21 at 1100, Maximum acetaminophen dose from all sources = 75 mg/kg/day not to exceed 4 grams/day. hydrALAZINE (APRESOLINE) injection 10 mg 10 mg, Intravenous, EVERY 4 HOURS PRN, h igh blood pressure, give for SBP > 180, Starting on Wed07/02/21 at 0146 melatonin tablet 1 mg 1 mg, Oral, AT BEDTIME PRN, sleep, Start ing on Wed07/02/21 at 0146, Do not give unless at least 6 hours of uninterrupted sleep is expected. naloxone (NARCAN) injection 0.2 mg(Linked Group 2) 0.2 mg, Intravenous, EVERY 2 MIN PRN, op ioid reversal, Starting on Jesusita 07/03/21 at 0938, Administer intravenous route when available and notify provider when administered. For unintended sedation or res piratory depression if all of the below criteria are met: ~ respiratory rate LESS than or EQUAL to 8. ~SaO2 less than 92% and or/end-tidal CO2 is greater than 50. ~ the patient is receiving an opioid, h as unintended sedations assessed as RASS (-3), and is currently not on mechanical ventilation. RASS scale moderate (-3) is movement or eye opening to voice but no eye contact. Patient Monitoring Once th e patient has demonstrated a response to the naloxone, continue to monitor respiratory rate, depth, oxygen saturation and end-tidal CO2 (if available) every 15 minutes x 2, then every 30 minutes x 2, th en every 1 hour x 1 after each naloxone dose. Consider transfer to ICU if patient respiratory parameters have not improved after 4 naloxone doses. naloxone (NARCAN) injection 0.2 mg(Linked Group 2) 0.2 mg, Intramuscular, EVERY 2 MIN PRN, opioid reversal, Starting on Jesusita 07/03/21 at 0938, Administer intramuscular if an intravenous route is not available and notify provider when administered. For un intended sedation or respiratory depress ion if all of the below criteria are met: ~ respiratory rate LESS than or EQUAL to 8. ~SaO2 less than 92% and or/end- tidal CO2 is greater than 50. ~ the patient i s receiving an opioid, has unintended se dations assessed as RASS (-3), and is currently not on mechanical ventilation. RASS scale moderate (-3) is movement or eye opening to voice but no eye contact. Pa tient Monitoring Once the patient has de monstrated a response to the naloxone, continue to monitor respiratory rate, depth, oxygen saturation and end-tidal CO2 (if available) every 15 minutes x 2, then every 30 minutes x 2, then every 1 hour x 1 after each naloxone dose. Consider transfer to ICU if patient respiratory parameters have not improved after 4 naloxone doses. naloxone (NARCAN) injection 0.4 mg(Linked Group 2) 0.4 mg, Intravenous, EVERY 2 MIN PRN, op ioid reversal, Starting on Jesusita 07/03/21 at 0938, Administer intravenous route when available and notify provider when administered. For unintended sedation or res piratory depression if all of the below criteria are met: ~ respiratory rate LESS than or EQUAL to 8. ~ SaO2 less than 92% and or/end-tidal CO2 is greater than 50. ~ the patient is receiving an opioid, has unintended sedation assessed as RASS (-4) or (-5) and patient is currently not on mechanical ventilation. RASS scale (-4) is deep sedation with no response to voice but movement or eye opening to ph ysical stimulation. RASS scale (-5) is u narousable. Patient Monitoring Once the patient has demonstrated a response to the naloxone, continue to monitor respiratory rate, depth, oxygen saturation and en d-tidal CO2 (if available) every 15 ammon renetta x 2, then every 30 minutes x 2, then every 1 hour x 1 after each naloxone dose. Consider transfer to ICU if patient respiratory parameters have not improved after 4 naloxone doses. naloxone (NARCAN) injection 0.4 mg(Linked Group 2) 0.4 mg, Intramuscular, EVERY 2 MIN PRN, opioid reversal, Starting on [facility] 07/03/21 at 0938, Administer intramuscular if an intravenous route is not available and notify provider when administered. For un intended sedation or respiratory depress ion if all of the below criteria are met: ~ respiratory rate LESS than or EQUAL to 8. ~ SaO2 less than 92% and or/end-tidal CO2 is greater than 50. ~ the patient is receiving an opioid, has unintended s edation assessed as RASS (-4) or (-5) and patient is currently not on mechanical ventilation. RASS scale (-4) is deep sedation with no response to voice but movem ent or eye opening to physical stimulati on. RASS scale (-5) is unarousable. Patient Monitoring Once the patient has demonstrated a response to the naloxone, continue to monitor respiratory rate, depth, oxygen saturation and end-tidal CO2 (if available) every 15 minutes x 2, then every 30 minutes x 2, then every 1 hour x 1 after each naloxone dose. Consider transfer to ICU if patient respiratory parameters have not improved after 4 naloxone doses. ondansetron (ZOFRAN) injection 4 mg(Linked Group 3) 4 mg, Intravenous, EVERY 6 HOURS PRN, na usea, vomiting, Administer over 2-5 Minutes, Starting on Wed07/02/21 at 0146, Give IF patient unable to tolerate oral medication. This is Step 1 of nausea and vo miting management. If nausea not resolve d in 15 minutes, go to Step 2 prochlorperazine (COMPAZINE). Irritant. ondansetron (ZOFRAN-ODT) ODT tab 4 mg(Linked Group 3) 4 mg, Oral, EVERY 6 HOURS PRN, nausea, v omiting, Starting on Wed07/02/21 at 0146, This is Step 1 of nausea and vomiting management. If nausea not resolved in 15 minutes, go to Step 2 prochlorperazine ( COMPAZINE). With dry hands, peel back fo il backing and gently remove tablet. Do not push oral disintegrating tablet through foil backing. Administer immediately on tongue and oral disintegrating tablet dissolves in seconds, then swallow with saliva. Liquid not requi red. oxyCODONE IR (ROXICODONE) half-tab 2.5 mg 0611 (Given - Provider: Navya Myles RN)1106 (Given - Provider: Nora Almodovar RN)2009 (Given - Provider: Leigh Ann Najera RN) 0810 (Given - Provider: Shelli Tejada , NIA)1508 (Given - Provider: Shelli Tejada, NIA) 0059 (Given - Provider: Nathalia Garcia RN)0748 (Given - Provider: Shelli Tejada, NIA)1149 (Given - Provider: Shelli Tejada, NIA)1532 (Given - Provider: Shelli Tejada RN - Comment: given early prior to pt discharge/transport) 2.5 mg, Oral, EVERY 4 HOURS PRN, moderat e to severe pain, Starting on Wed07/02/21 at 0146, IF pain not managed with non-pharmacological and non-opioid interventions; may use concomitant with non-opioid analgesics. Warfarin Therapy Reminder (Check START D ATE - warfarin may be starting in the FUTURE) CONTINUOUS PRN, Starting on Wed07/02/21 at 0146, Until Jesusita 07/10/21 at 1759, *Note to reorder warfarin daily* Pharmacy Warfarin Dosing Service Patient is on Warfarin Therapy - check for daily order zolpidem (AMBIEN) half-tab 2.5 mg 2.5 mg, Oral, AT BEDTIME PRN, sleep, Starting on Jesusita 07/10/21 at 0834 Linked Groups Order Group 1: Lidocaine (LIDOCARE) 4 % Patch 1 patchJump to med 1 patch, Transdermal, EVERY 24 HOURS 200 0, Administer over 12 Hours, First dose on Wed07/02/21 at 2000
Apply patch(s) to low back. To prevent lidocaine toxicity, patient should be patch free f or 12 hrs daily. Patches may be cut to s maller size prior to removing release liner. Reminder: Remove previous patch before applying new patch. NEVER APPLY HEAT OVER PATCH which increases absor ption and may lead to local anesthetic t oxicity. Do not apply over area where liposomal bupivacaine was injected for 96 hours post injection.
And lidocaine patch in PLACEJump to med First dose on Wed07/02/21 at 0150
Ch art every shift, confirming that patch is still in place on patient (no barcode scan needed). See patch order for dose information. NEVER APPLY HEA T OVER PATCH which will increase absorpt ion and may lead to risk of local anesthetic toxicity. Do not apply over area where liposomal bupivacaine injected for 96 hours.
Group 2: naloxone (NARCAN) injection 0.2 mgJump to med 0.2 mg, Intravenous, EVERY 2 MIN PRN, op ioid reversal, Starting on Jesusita 07/03/21 at 0938
Administer intravenous route when available and notify provider when administered. For unintende d sedation or respiratory depression if all of the below criteria are met: ~ respiratory rate LESS than or EQUAL to 8. ~SaO2 less than 92% and or/end-tidal CO2 is greater than 50.&amp ;nbsp;~ the patient is receiving an opio id, has unintended sedations assessed as RASS (-3), and is currently not on mechanical ventilation. RASS scale moderate (-3) is movement or eye opening to voice but no eye contact.&nb sp; Patient Monitoring Once the patient has demonstrated a response to the naloxone, continue to monitor respiratory rate, depth, oxygen sat uration and end-tidal CO2 (if available) every 15 minutes x 2, then every 30 minutes x 2, then every 1 hour x 1 after each naloxone dose. Consider transfer to ICU if patient respirato ry parameters have not improved after 4 naloxone doses.
Or naloxone (NARCAN) injection 0.4 mgJump to med 0.4 mg, Intravenous, EVERY 2 MIN PRN, op ioid reversal, Starting on Jesusita 07/03/21 at 0938
Administer intravenous route when available and notify provider when administered. For unintende d sedation or respiratory depression if all of the below criteria are met: ~ respiratory rate LESS than or EQUAL to 8. ~ SaO2 less than 92% and or/end-tidal CO2 is greater than 50.&amp ;nbsp;~ the patient is receiving an opio id, has unintended sedation assessed as RASS (-4) or (-5) and patient is currently not on mechanical ventilation. RASS scale (-4) is deep sedat ion with no response to voice but moveme nt or eye opening to physical stimulation. RASS scale (-5) is unarousable. Patient Monitoring O nce the patient has demonstrated a respo nse to the naloxone, continue to monitor respiratory rate, depth, oxygen saturation and end-tidal CO2 (if available) every 15 minutes x 2, then every 30 minutes x 2, then every 1 hour x 1 after each nal oxone dose. Consider transfer to ICU if patient respiratory parameters have not improved after 4 naloxone doses.
Or naloxone (NARCAN) injection 0.2 mgJump to med 0.2 mg, Intramuscular, EVERY 2 MIN PRN, opioid reversal, Starting on Jesusita 07/03/21 at 0938
Administer intramuscular if an intravenous route is not available and notify provider when administered . For unintended sedation or respir atory depression if all of the below criteria are met: ~ respiratory rate LESS than or EQUAL to 8. ~SaO2 less than 92% and or/end-tidal CO2 is greater than 50. ~ the patient is receiving an opioid, has unintended sedations assessed as RASS (-3), and is currently not on mechanical ventilation. RASS scale moderate (-3) is movement or eye opening to voic e but no eye contact. Patient Monitoring Once the patient has demonstrated a response to the naloxone, continue to monitor respiratory rate, depth, oxygen saturation and end- tidal CO2 (if available) every 15 minutes x 2, then every 30 minutes x 2, then every 1 hour x 1 after each naloxone dose. Consider transfer to ICU if patient respiratory parameters bills ve not improved after 4 naloxone doses.
Or naloxone (NARCAN) injection 0.4 mgJump to med 0.4 mg, Intramuscular, EVERY 2 MIN PRN, opioid reversal, Starting on Jesusita 07/03/21 at 0938
Administer intramuscular if an intravenous route is not available and notify provider when administered . For unintended sedation or respir atory depression if all of the below criteria are met: ~ respiratory rate LESS than or EQUAL to 8. ~ SaO2 less than 92% and or/end-tidal CO2 is greater than 50. ~ the patient is receiving an opioid, has unintended sedation assessed as RASS (-4) or (-5) and patient is currently not on mechanical ventilation. RASS scale (-4) is deep sedation with no resp onse to voice but movement or eye opening to physical stimulation. RASS scale (-5) is unarousable. Patie nt Monitoring Once the patient has demonstrated a response to the naloxone, continue to monitor respiratory rate, depth, oxygen saturation and end-tidal CO2 (if available) every 15 minutes x 2, then every 30 minutes x 2, then every 1 hour x 1 after each naloxone dose. Consider transfer to ICU if patient respiratory parameters have not improved after 4 naloxone doses.
Group 3: ondansetron (ZOFRAN-ODT) ODT tab 4 mgJump to med 4 mg, Oral, EVERY 6 HOURS PRN, nausea, v omiting, Starting on Wed07/02/21 at 0146
This is Step 1 of nausea and vomiting management. If nausea not resolved in 15 minutes, go t o Step 2 prochlorperazine (COMPAZINE).&n bsp;With dry hands, peel back foil backing and gently remove tablet. Do not push oral disintegrating tablet through foil backing. Administer immediately on to ngue and oral disintegrating tablet diss olves in seconds, then swallow with saliva. Liquid not required.
Or ondansetron (ZOFRAN) injection 4 mgJump to med 4 mg, Intravenous, EVERY 6 HOURS PRN, na usea, vomiting, Administer over 2-5 Minutes, Starting on Wed07/02/21 at 0146
Give IF patient unable to tolerate oral medication. This is Step 1 of nausea and vomiting management. If n ausea not resolved in 15 minutes, go to Step 2 prochlorperazine (COMPAZINE). Irritant.
documented in this encounter Care Teams Marketing Graphics Specialist Relationship Specialty Start Date End Date Gabriella Mariano MD PCP - General 07/01/21 [facility] [address] [place], [place] [id number] Gabriella Mariano MD 07/01/21 [facility] [address] [place], [place] [id number] documented as of this encounter
--- OUTSIDE RECORDS SUMMARY | 2022-06-22 23:05 | XMS_ITS | Encounter Summary ---
:1935 Author Organization [facility] Address [address] [facility] [place] [address] Care Team Providers Name Role Phone Gabriella Mariano MD Primary Care Provider Reason for Visit Reason Onset Date Comments Refill Request 05/21/2017 Encounter Details Date Type Department Care Team Description 05/21/2017 Refill [facility] Urology Felicita Mars MD Refill Request Clinic [address] [facility] [address] [place] [address] [place] [address] [phone] Social History Tobacco Use Types Packs/Day Years Used Date Smoking Tobacco: Never Smokeless Tobacco: Never Sex Assigned at Date Recorded Female 10/29/2021 4:35 PM CDT documented as of this encounter Plan of Treatment Not on filedocumented as of this encounter Visit Diagnoses Diagnosis Urinary tract infection - Primary Urinary tract infection, site not specif ied documented in this encounter Care Teams Machine Room Engineer Relationship Specialty Start Date End Date Gabriella Mariano MD PCP - General 02/27/16 06/30/21 [facility] [address] [place] [address] documented as of this encounter
--- OUTSIDE RECORDS SUMMARY | 2022-06-22 23:05 | XMS_ITS | Encounter Summary ---
:1935 Author Organization [place] Address [address] [facility] [place] [address] Care Team Providers Name Role Phone Gabriella Mariano MD Primary Care Provider Reason for Visit Reason Comments Dizziness Encounter Details Date Type Department Care Team Description 02/27/2019 Emergency [facility] Ally Zavaleta Di zziness; [facility] Emergency Dep t DO Orthostatic hypotension; [address] [facility] Sinus bradycardia [facility] [id number] [address] [phone] [place] [address] (Wo rk) Social History Tobacco Use Types Packs/Day Years Used Date Smoking Tobacco: Never Smokeless Tobacco: Never Sex Assigned at Date Recorded Female 10/29/2021 4:35 PM CDT documented as of this encounter Last Filed Vital Signs Vital Sign Reading Time Taken Comments Blood Pressure 162/80 02/27/2019 4:31 PM CDT Pulse 51 02/27/2019 4:31 PM CDT Temperature 36.4 ??C (97.5 ??F) 02/27/2019 2:06 PM CDT Respiratory Rate 19 02/27/2019 2:45 PM CDT Oxygen Saturation 94% 02/27/2019 4:34 PM CDT Inhaled Oxygen Concentration - - Weight - - Height - - Body Mass Index - - documented in this encounter Discharge Instructions AttachmentsThe following attachments cannot be sent through Care Everywhere. Hypotension, Orthostatic (Frisian)documented in this encounter Medications at Time of Discharge Medication Sig Dispensed Refills Start Date End Date allopurinol (ZYLOPRIM) Take 300 mg by 0 300 MG tablet mouth daily amLODIPine (NORVASC) 5 MG Take 1 tablet (5 30 tablet 0 08/10 tabletIndications: mg) by mouth daily Essential hypertension atorvastatin (LIPITOR) 20 Take 20 mg by mouth 0 MG tablet daily levothyroxine Take 88 mcg by 0 (SYNTHROID/LEVOTHROID) 88 mouth daily MCG tablet lisinopril Take 2 tablets (40 60 tablet 1 09/02/2016 (PRINIVIL/ZESTRIL) 20 MG mg) by mouth daily tabletIndications: Essential hypertension metoprolol (LOPRESSOR) 25 Take 25 mg by mouth 0 MG tablet 2 times daily nitroFURantoin, Take 1 capsule (100 20 capsule 0 05/21/2017 macrocrystal-monohydrate, mg) by mouth 2 (MACROBID) 100 MG times daily capsuleIndications: Urinary tract infection omeprazole (PRILOSEC) 40 Take 40 mg by mouth 0 MG capsule daily sertraline (ZOLOFT) 50 MG Take 50 mg by mouth 0 tablet daily warfarin (COUMADIN) 4 MG Take 4 mg by mouth 0 tablet daily cephALEXin (KEFLEX) 500 Take 1 capsule (500 10 capsule 0 03/04/2019 MG capsule mg) by mouth 2 times daily for 5 days documented as of this encounter ED Notes Corazon Talley RN - 02/27/2019 2:16 PM CDT Bed: [id number] Expected date: 02/27/19 Expected time: 1:51 PM Means of arrival: Ambulance Comments: [id number] Corazon Talley RN - 02/27/2019 2:05 PM CDT Patient presents to the ED with dizziness. Reports that began feeling dizzy when standing this morning. Denies dizziness when laying or sitting. Denies recent illness, normal PO intake per patient. Ally Zavaleta DO - 02/27/2019 2:03 PM CDT History Chief Complaint: Dizziness HPI Meseret Lakhani is a 83 year old female on coumadin who presents with dizziness with the feelingof the room spinning. This is worse with standing and sitting up but resolves when she lies down. She denies any nausea, vomiting, headache, dysuria, or hematuria. She denies any recent falls and uses a cane to walk at home and a walker when leaving the house. Allergies: Oxybutynin Penicillins Medications: Zyloprim Norvasc Lipitor Synthroid Lisinopril Lopressor Macrobid Prilosec Zoloft Warfarin Past Medical History: HTN Depressive disorder Gout History of thrombophlebitis Mumps Thyroid disease UTI Past Surgical History: Bladder augmentation Family History: History reviewed. No pertinent family history. Social History: Smoking status: never Marital Status: [5] Review of Systems Gastrointestinal: Negative for nausea and vomiting. Genitourinary: Negative for dysuria and hematuria. Neurological: Positive for dizziness. Negative for headaches. All other systems reviewed and are negative. Physical Exam Patient Vitals for the past 24 hrs: BP Temp Pulse Heart Rate Resp SpO2 02/27/19 1634 -- -- -- -- -- 94 % 02/27/19 1631 162/80 -- 51 -- -- -- 02/27/19 1604 185/86 -- 56 -- -- -- 02/27/19 1600 185/86 -- -- -- -- -- 02/27/19 1445 172/85 -- 56 60 19 91 % 02/27/19 1430 165/77 -- 52 56 17 -- 02/27/19 1406 170/79 97.5 ??F (36.4 ??C) 52 -- 18 97 % Physical Exam Nursing note and vitals reviewed. Constitutional: Well nourished. Resting comfortably. Eyes: Conjunctiva normal. Pupils are equal, round, and reactive to light. EOMI. No nystagmus ENT: Nose normal. Mucous membranes pink and moist. TM normal. Neck: Normal range of motion. CVS: Sinus bradycardia. Normal heart sounds. No murmur. Pulmonary: Lungs clear to auscultation bilaterally. No wheezes/rales/rhonchi. GI: Abdomen soft. Nontender, nondistended. No rigidity or guarding. MSK: No calf tenderness or swelling. Neuro: Awake, alert. Speech is normal and fluent. Face is symmetric. Moves all extremities. Normal [id number]. 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 Equal sensation bilaterally on UE/LE and face. Noarm or leg drift. Gait stable Skin: Skin is warm and dry. No rash noted. Psychiatric: Normal affect. Emergency Department Course ECG (14:13:43): Rate 52 bpm. NH interval 166. QRS duration 96. QT/QTc 448/416. P-R-T axes 53 -33 14. Sinus bradycardia with premature atrial complexes. Left axis deviation, moderate voltage criteria for LVH may be normal variant, T wave abnormality, consider anterior ischemia, abnormal ECG. No change from EKG on 01/30Interpreted at 1415 by Ally Zavaleta DO. Imaging: Radiographic findings were communicated with the patient who voiced understanding of the findings. Head CT w/o contrast IMPRESSION: ??Diffuse cerebral volume loss and cerebral white matter changes consistent with chronic small vessel ischemic disease. No evidence for acute intracranial pathology. Reading per radiology Laboratory: CBC: o/w WNL. (WBC 7.3, HGB 12.7, PLT 158) BMP: Glucose 102(H), , o/w WNL (Creatinine: 0.52) UA: Nitrate positive, bacteria moderate, o/w Negative Troponin (Collected 1504): <0.015 INR 2.15(H) Interventions: 1445 NS 500 mL IV Bolus Emergency Department Course: Past medical records, nursing notes, and vitals reviewed. 1428: I performed an exam of the patient and obtained history, as documented above. The patient was sent for a Head CT while in the emergency department, findings above. IV was inserted and blood was drawn for laboratory testing, results above. The patient provided a urine sample here in the emergency department. This was sent for laboratory testing, findings above. 1600: Patient ambulated with steady gait. 1633: I rechecked the patient. Explained findings to patient. Findings and plan explained to the Patient. Patient discharged home with instructions regarding supportive care, medications, and reasons to return. The importance of close follow-up was reviewed. Impression & Plan Medical Decision Making: Meseret Lakhani is a 83 year old female presenting with reported dizziness. She is nontoxic on arrival and without focal neuro deficits. ECG with sinus bradycardia though no AV conduction jaspal or focal ischemia that appears new. She had a screening troponin draw given presentation and this was negative. She denies any active chest pain and I doubt ACS. There is no significant murmur on exam. She did undergo a formal CT head given her reported complaint and being on anticoagulation though this was fortunately negative. The remainder of her labs are unremarkable. UA does show positive nitrates and moderate bacteria. The patient reports a history of frequent UTI's. Urine has been sent for culture though given the presentation I can exclude an early UTI. She is requesting antibiotics at this timeand will be discharged home with Keflex. She was orthostatic positive during her time in the ED and I do suspect this is contributing at least in part to her presentation. I recommended close outpatient follow up. Return to ED for fever, headache, or should symptoms worsen or change. Diagnosis: ICD-10-CM 1. Dizziness R42 2. Orthostatic hypotension I95.1 3. Sinus bradycardia R00.1 Disposition: discharged to home Discharge Medications: Medication List Started cephALEXin 500 MG capsule Commonly known as: KEFLEX 500 mg, Oral, 2 TIMES DAILY Swapna Gallardo 02/27/2019 [facility] Scribe Disclosure: Swapna Cuenca, am serving as a scribe at 2:28 PM on 02/27/2019 to document services personally performed by Ally Zavaleta DO based on my observations and the provider's statements to me. Ally Zavaleta DO 02/27/192046 documented in this encounter Plan of Treatment Not on filedocumented as of this encounter Procedures Procedure Name Priority Date/Time Associated Comments Diagnosis ROUTINE UA WITH STAT 02/27/2019 4:04 PM Result s for this MICROSCOPIC CDT procedure are i n the results section. CT HEAD W/O CONTRAST STAT 02/27/2019 3:36 PM R esults for this CDT procedure are i n the results section. EKG 12-LEAD, TRACING STAT 02/27/2019 2:13 PM R esults for this ONLY CDT procedure are i n the results section. CBC WITH PLATELETS & STAT 02/27/2019 2:12 PM R esults for this DIFFERENTIAL CDT procedure are i n the results section. TROPONIN I STAT 02/27/2019 2:12 PM Results f or this CDT procedure are i n the results section. INR Routine 02/27/2019 2:12 PM Results f or this CDT procedure are i n the results section. BASIC METABOLIC PANEL STAT 02/27/2019 2:12 PM Results for this CDT procedure are i n the results section. documented in this encounter Results (ABNORMAL) UA with Microscopic (02/27/2019 4:04 PM CDT) [facility] Method Time Signature Color Urine Light Yellow 02/27/2019 [facility] 4:31 PM [facility] Appearance Urine Clear 02/27/2019 [facility] 4:31 PM [facility] Glucose Urine Negative NEG^Negat 02/27/2019 [facility] adelaida mg/dL 4:31 PM [facility] Bilirubin Urine Negative NEG^Negat 02/27/2019 [facility] adelaida 4:31 PM [facility] Ketones Urine Negative NEG^Negat 02/27/2019 [facility] adelaida mg/dL 4:31 PM [facility] Specific Issue 1.009 1.003 - 02/27/2019 [facility] Urine 1.035 4:31 PM [facility] Blood Urine Negative NEG^Negat 02/27/2019 [facility] adelaida 4:31 PM [facility] pH Urine 6.0 5.0 - 7.0 02/27/2019 [facility] pH 4:31 PM [facility] Protein Albumin Negative NEG^Negat 02/27/2019 [facility] Urine adelaida mg/dL 4:31 PM [facility] Urobilinogen Normal 0.0 - 2.0 02/27/2019 [facility] mg/dL mg/dL 4:31 PM [facility] Nitrite Urine Positive (A) NEG^Negat 02/27/2019 [facility] adelaida 4:31 PM [facility] Leukocyte Negative NEG^Negat 02/27/2019 [facility] Esterase Urine adelaida 4:31 PM [facility] Source Midstream 02/27/2019 [facility] Urine 4:04 PM [facility] WBC Urine <1 0 - 5 02/27/2019 [facility] /HPF 4:31 PM [facility] RBC Urine 0 0 - 2 02/27/2019 [place] /HPF 4:31 PM [facility] Bacteria Urine Moderate (A) NEG^Negat 02/27/2019 [place] adelaida /HPF 4:31 PM [facility] Specimen (Source) Anatomical Collection Method Collection Time Re ceived Time Location / / Volume Laterality Examination of URINE SPECIMEN 02/27/2019 4:04 02/28/20 19 4:17 midstream urine OBTAINED BY CLEAN PM CDT PM CDT specimen CATCH PROCEDURE / (procedure) Unknown Ally Echo Zavaleta DO LAB - URINE ORDERABLES Performing Organization Address City/State/ZIP Code Phon e Number [place] [address] [address] [facility] [address] [place], [place] [address] [place] [address] w/o contrast (02/27/2019 3:36 PM CDT) Anatomical Region Laterality Modality Head, SUBRAD CT NEURO, SUBRAD CT NEURO, UMP CT NEURO, Computed Tomography RAD CT Specimen (Source) Anatomical Location Collection Method / Collectio n Time Received Time / Laterality Volume Impressions 02/27/2019 10:03 PM CDT IMPRESSION: ??Diffuse cerebral volume loss and cerebral white matter changes consistent with chronic small ve ssel ischemic disease. No evidence for acute intracranial patholog y. Radiation dose for this scan was reduced using automated exposure control, adjustment of the mA and/or kV according to patient size, or iterative reconstruction technique. NANCY NICHOLE MD Narrative 02/27/2019 10:[address] OF THE HEAD WITHOUT CONTRAST 02/27/2019 3:36 PM COMPARISON: None. HISTORY: Dizzy. TECHNIQUE: [address] images of the head were acquired without IV contrast material. FINDINGS: ??There is moderate diffuse ce rebral volume loss. There are subtle patchy areas of decreased density in the cerebral white matter bilaterally that are consistent with seq uela of chronic small vessel ischemic disease. The ventricles and basal cisterns are wi thin normal limits in configuration given the degree of cerebr al volume loss. ??There is no midline shift. There are no extra-axial fluid collections. No intracranial hemorrhage, mass or rece nt infarct. The visualized paranasal sinuses are wel l-aerated. There is no mastoiditis. There are no fractures of t he visualized bones. Procedure Note Nancy Nichole MD - 02/27/2019Forma tting of this note might be different from the original. CT OF THE HEAD WITHOUT CONTRAST 9 3:36 PM COMPARISON: None. HISTORY: Dizzy. TECHNIQUE: [address] images of the head were acquired without IV contrast material. FINDINGS: There is moderate diffuse cere bral volume loss. There are subtle patchy areas of decreased density in the cerebral white matter bilaterally that are consistent with seq uela of chronic small vessel ischemic disease. The ventricles and basal cisterns are wi thin normal limits in configuration given the degree of cerebr al volume loss. There is no midline shift. There are no extra-axial fluid collections. No intracranial hemorrhage, mass or rece nt infarct. The visualized paranasal sinuses are wel l-aerated. There is no mastoiditis. There are no fractures of t he visualized bones. IMPRESSION: Diffuse cerebral volume loss and cerebral white matter changes consistent with chronic small ve ssel ischemic disease. No evidence for acute intracranial patholog y. Radiation dose for this scan was reduced using automated exposure control, adjustment of the mA and/or kV according to patient size, or iterative reconstruction technique. NANCY NICHOLE MD Ally Zavaleta DO IMG CT ORDERABLES EKG 12-lead, tracing only (02/27/2019 2:13 PM CDT) [facility] gist Method Time Signature Interpretation ECG Click View RADIOLOGY Image link RESULTS to view waveform and result Specimen (Source) Anatomical Collection Method Collection Time Re ceived Time Location / / Volume Laterality 02/27/2019 2:13 PM CDT Ally Zavaleta DO ECG ORDERABLES Performing Organization Address City/State/ZIP Code Phon e Number RADIOLOGY RESULTS (ABNORMAL) INR (02/27/2019 2:12 PM CDT) athologist Signature INR 2.15 (H) 0.86 - 1.14 02/27/2019 [place] 2:48 PM CDT [facility] Specimen Anatomical Collection Method Collection Time Receive d Time (Source) Location / / Volume Laterality 02/27/2019 2:12 PM 9 2:35 CDT PM CDT Ally Zavaleta DO LAB - BLOOD ORDERABLES Performing Organization Address [facility]/ZIP Code Phon e Number [facility] [address] [place], [place] [address] [facility] [address] [place], [place] [address], [facility] [phone] Troponin I (02/27/2019 2:12 PM CDT) athologist [facility] Troponin I ES <0.015 0.000 - 02/27/2019 [place] 0.045 ug/L 3:04 PM T [facility] Comment: The 99th percentile for upper reference range is 0.045 ug/L. ??Troponin values in the range of 0.045 - 0.120 ug/L may b e associated with risks of adverse clinical events. Specimen Anatomical Collection Method Collection Time Receive d Time (Source) Location / / Volume Laterality Blood specimen 02/27/2019 2:12 PM 019 2:35 (specimen) CDT PM CDT Ally Zavaleta DO LAB - BLOOD ORDERABLES Performing Organization Address City/[facility] Code Phon e Number [facility] [address] [place], [place] [address] [facility] [address] [place], [place] [address], [facility] [phone] (ABNORMAL) Basic metabolic panel (02/27/2019 2:12 PM CDT) [facility] Sodium 140 133 - 144 02/27/2019 [place] mmol/L 2:52 PM [facility] Potassium 4.2 3.4 - 5.3 02/27/2019 [place] mmol/L 2:52 PM [facility] Chloride 106 94 - 109 02/27/2019 [place] mmol/L 2:52 PM [facility] Carbon Dioxide 28 20 - 32 02/27/2019 [place] mmol/L 2:[address] [facility] Anion Gap 6 3 - 14 02/27/2019 [place] mmol/L 2:[address] [facility] Glucose 102 (H) 70 - 99 02/27/2019 [place] mg/dL 2:[address] [facility] Urea Nitrogen 21 7 - 30 02/27/2019 [place] mg/dL 2:[address] [facility] Creatinine 0.52 0.52 - 02/27/2019 [place] 1.04 mg/dL 2:[address] [facility] GFR Estimate 89 >60 02/27/2019 [place] mL/min/{1. 2:59 PM T [facility] 73_m2} HOSPITAL Comment: Non GFR Calc Starting 07/26/2018, serum creatinine ba sed estimated GFR (eGFR) will be calculated using the Chronic Kidney Dise [facility] Epidemiology Collaboration (CKD-EPI) equation. GFR Estimate If >90 >60 mL/min/{1.73_m2} 02/27/2019 2: 59 PM [facility] Comment: GFR Calc Starting 07/26/2018, serum creatinine ba sed estimated GFR (eGFR) will be calculated using the Chronic Kidney Dise [facility] Epidemiology Collaboration (CKD-EPI) equation. Calcium 9.9 8.5 - 10.1 mg/dL 02/27/2019 2:[address] [facility] Specimen Anatomical Collection Method Collection Time Receive d Time (Source) Location / / Volume Laterality Blood specimen 02/27/2019 2:12 PM 019 2:35 (specimen) CDT PM CDT Ally Zavaleta DO LAB - BLOOD ORDERABLES Performing Organization Address City/State/ZIP Code Phon e Number [facility] [address] [address] [facility] [address] [place], [place] [address], [facility] [phone] [place] [address] [address] [id number], [facility] CBC with platelets differential (02/27/2019 2:12 PM CDT) [facility] Method Time Signature WBC 7.3 4.0 - 02/27/2019 [place] 11.0 2:40 PM [facility] 10e9/L [facility] RBC Count 4.02 3.8 - 5.2 02/27/2019 [facility] 10e12/L 2:40 PM [facility] Hemoglobin 12.7 11.7 - 02/27/2019 [facility] 15.7 g/dL 2:40 PM [facility] Hematocrit 38.9 35.0 - 02/27/2019 [facility] 47.0 % 2:40 PM [facility] MCV 97 78 - 100 02/27/2019 [facility] fl 2:40 PM [facility] MCH 31.6 26.5 - 02/27/2019 [facility] 33.0 pg 2:40 PM [facility] MCHC 32.6 31.5 - 02/27/2019 [facility] 36.5 g/dL 2:40 PM [facility] RDW 13.9 10.0 - 02/27/2019 [facility] 15.0 % 2:40 PM [facility] Platelet Count 158 150 - 450 02/27/2019 [facility] 10e9/L 2:40 PM [facility] Diff Method Automated 02/27/2019 [facility] Method 2:40 PM [facility] % Neutrophils 74.7 % 02/27/2019 [facility] 2:40 PM [facility] % Lymphocytes 14.3 % 02/27/2019 [facility] 2:40 PM [facility] % Monocytes 7.7 % 02/27/2019 [facility] 2:40 PM [facility] % Eosinophils 2.5 % 02/27/2019 [facility] 2:40 PM [facility] % Basophils 0.4 % 02/27/2019 [facility] 2:40 PM [facility] % Immature 0.4 % 02/27/2019 [facility] Granulocytes 2:40 PM [facility] Nucleated RBCs 0 0 /100 02/27/2019 [facility] 2:40 PM [facility] Absolute 5.5 1.6 - 8.3 02/27/2019 [facility] Neutrophil 10e9/L 2:40 PM [facility] Absolute 1.0 0.8 - 5.3 02/27/2019 [facility] Lymphocytes 10e9/L 2:40 PM [facility] Absolute 0.6 0.0 - 1.3 02/27/2019 [facility] Monocytes 10e9/L 2:40 PM [facility] Absolute 0.2 0.0 - 0.7 02/27/2019 [facility] Eosinophils 10e9/L 2:40 PM [facility] Absolute 0.0 0.0 - 0.2 02/27/2019 [place] Basophils 10e9/L 2:40 PM [facility] Abs Immature 0.0 0 - 0.4 02/27/2019 [place] Granulocytes 10e9/L 2:40 PM [facility] Absolute 0.0 02/27/2019 [place] Nucleated RBC 2:40 PM [facility] Specimen Anatomical Collection Method Collection Time Receive d Time (Source) Location / / Volume Laterality Blood specimen 02/27/2019 2:12 PM 019 2:35 (specimen) CDT PM CDT Ally Zavaleta DO LAB - BLOOD ORDERABLES Performing Organization Address City/State/ZIP Code Phon e Number [place] [address] [place] [address] [facility] [address] [phone] documented in this encounter Visit Diagnoses Diagnosis Dizziness Dizziness and giddiness Orthostatic hypotension Sinus bradycardia Other specified cardiac dysrhythmias documented in this encounter Administered Medications Inactive Administered Medications - up to 3 most recent administrations Medication Order MAR Action Action Date Dose Rate Site 0.9% sodium chloride BOLUS New Bag 02/27/2019 2:45 PM CDT 500 mLs 500 mL/hr Intravenous, 500 mL, ONCE, at 500 mL/hr, Administer over 1 Hours, On Wed02/27/19 at 1429, For 1 dose documented in this encounter Active and Recently Administered Medications Times are shown in CDT. Scheduled Medication Order 02/25/2019 02/26/2019 02/27/2019 0.9% sodium chloride BOLUS (COMPLETED) 1445 (New Bag - Provider: Simone Rodrigez RN) Intravenous, 500 mL, ONCE, at 500 mL/hr, Administer over 1 Hours, Wed02/27/19 at 1429, For 1 dose documented in this encounter Care Teams Maintenance Controller Relationship Specialty Start Date End Date Gabriella Mariano MD PCP - General 02/27/16 06/30/21 [facility] [address] [place] [address] documented as of this encounter
--- OUTSIDE RECORDS SUMMARY | 2022-06-22 23:05 | XMS_ITS | Encounter Summary ---
:1935 Author Organization [place] Address [address] [facility] [place] [address] Care Team Providers Name Role Phone Gabriella Mariano MD Primary Care Provider Encounter Details Date Type Department Care Team Description 05/19/2017 Orders Only [facility] Lorena Mars See Person al history of urinary tract infection (Primary Dx); Urology Clinic Tiesha Fernandez MD Urinary incontinence [address] [facility] [address] [facility] [address] [facility] [address] [place] [address] [place], [place] [phone] (Wo rk) Social History Tobacco Use Types Packs/Day Years Used Date Smoking Tobacco: Never Smokeless Tobacco: Never Sex Assigned at Date Recorded Female 10/29/2021 4:35 PM CDT documented as of this encounter Plan of Treatment Not on filedocumented as of this encounter Procedures Procedure Name Priority Date/Time Associated Diagnosis Comme nts URINE CULTURE Routine 05/19/2017 12:54 Urinary incontinence Re sults for this PM CDT procedure are i n the results section. URINE MACROSCOPIC Routine 05/19/2017 12:53 Personal history of Results for this ONLY PM CDT urinary tract procedure are in infection the results section. documented in this encounter Results (ABNORMAL) Urine Culture Aerobic Bacterial [[id number]] (05/19/2017 12:54 PM CDT) Component Value Ref Test Analysis Performed At [facility] Range Method Time Signature Specimen Midstream Urine [facility] Special Specimen 05/19/2017 [facility] Requests received in 8:22 PM CDT [facility] preservative [facility] Culture Micro 50,000 to 100,000 colonies/mL 2016 [facility] Klebsiella pneumoniae 3:17 AM CDT [facility] ICAL (A) [facility] Specimen (Source) Anatomical Location Collection Method Collection Time Received Time / Laterality / Volume Examination of URINE SPECIMEN 05/19/2017 12:54 017 midstream urine COLLECTION, PM CDT 12:55 PM CDT specimen CATHETERIZED / (procedure) Unknown Organism Antibiotic Method Susceptibility Klebsiella pneumoniae Ampicillin ANNETTA >32.0 ug/m L: Resistant Klebsiella pneumoniae Cefazolin ANNETTA <=4 ug/mL: Susceptible Comment: Cefazolin ANNETTA breakpoints ar e for the treatment of uncomplicated urinary tract infections. ??For the treat ment of systemic infections, please contact the laboratory for additional te sting. Klebsiella pneumoniae Cefoxitin ANNETTA <=4 ug/mL: Susceptible Klebsiella pneumoniae Ceftazidime ANNETTA <=1 ug/mL: Susceptible Klebsiella pneumoniae Ceftriaxone ANNETTA <=1 ug/mL: Susceptible Klebsiella pneumoniae Ciprofloxacin ANNETTA <=0.25 ug/ mL: Susceptible Klebsiella pneumoniae Gentamicin ANNETTA <=1 ug/mL: Susceptible Klebsiella pneumoniae Levofloxacin ANNETTA <=0.12 ug/ mL: Susceptible Klebsiella pneumoniae Nitrofurantoin ANNETTA 32 ug/mL: Susceptible Klebsiella pneumoniae Tobramycin ANNETTA <=1 ug/mL: Susceptible Klebsiella pneumoniae Trimethoprim/Sulfamethoxazole ANNETTA <=1/19 ug/mL: Susceptible Klebsiella pneumoniae Ampicillin/Sulbactam ANNETTA 4 ug/ mL: Susceptible Klebsiella pneumoniae Piperacillin/Tazo ANNETTA <=4 ug/m L: Susceptible Klebsiella pneumoniae Cefepime ANNETTA <=1 ug/mL: Susceptible Lorena Walt Mars MD LAB - MICRO GENERAL ORDERABL ES Performing Organization Address City/State/ZIP Code Phon e Number [facility] [address] [place] [address] [place] UA without Microscopic [[id number]] (05/19/2017 12:53 PM CDT) Component Value Ref Test Analysis Performed At [facility] gist Range Method Time Signature Color Urine Yellow 05/19/2017 [facility] 12:57 PM [facility] Appearance Clear 05/19/2017 [place] Urine 12:57 PM [facility] Glucose Urine Negative NEG^Nega 05/19/2017 [place] tive 12:57 PM [facility]OLOGIC mg/dL [facility] Bilirubin Urine Negative NEG^Nega 05/19/2017 [place] tive 12:57 PM [facility] Ketones Urine Negative NEG^Nega 05/19/2017 [place] tive 12:57 PM [facility]OLOG[facility] mg/dL [facility] Specific 1.015 1.003 - 05/19/2017 [facility] [place] Urine 1.035 12:57 PM [facility] Blood Urine Negative NEG^Nega 05/19/2017 [place] tive 12:57 PM [facility] pH Urine 5.0 5.0 - 05/19/2017 [facility] 7.0 pH 12:57 PM [facility] Protein Albumin Negative NEG^Nega 05/19/2017 [facility] Urine tive 12:57 PM [facility]OLOG[facility] mg/dL [facility] Urobilinogen 0.2 0.2 - 05/19/2017 [place] Urine 1.0 12:57 PM [facility]OLOGIC EU/dL [facility] Nitrite Urine Negative NEG^Nega 05/19/2017 [place] tive 12:57 PM [facility] Leukocyte Negative NEG^Nega 05/19/2017 [facility] Esterase Urine tive 12:57 PM [facility] Source Catheterized 05/19/2017 [place] Urine 12:57 PM [facility] Specimen (Source) Anatomical Collection Method Collection Time Re ceived Time Location / / Volume Laterality Urine specimen 05/19/2017 12:53 7 collection, PM CDT 12:54 PM CDT catheterized (procedure) Lorena Walt Mars MD LAB - URINE ORDERABLES Performing Organization Address City/State/ZIP Code Phon e Number [facility] [address] [address] [address] documented in this encounter Visit Diagnoses Diagnosis Personal history of urinary tract infect ion - Primary Personal history of urinary (tract) infe ction Urinary incontinence Unspecified urinary incontinence documented in this encounter Care Teams Svp Operations Relationship Specialty Start Date End Date Gabriella Mariano MD PCP - General 02/27/16 06/30/[address] [address] documented as of this encounter
--- OUTSIDE RECORDS SUMMARY | 2022-06-22 23:05 | XMS_ITS | Encounter Summary ---
:1935 Author Organization [place] Address [address] [facility] 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
--- OUTSIDE RECORDS SUMMARY | 2022-06-22 23:05 | XMS_ITS | Encounter Summary ---
:1935 Author Organization [facility] Address [address] [place] [address] Care Team Providers Name Role Phone Gabriella Mariano MD Primary Care Provider Reason for Visit Reason Comments Palpitations Auth/Cert Specialty Diagnoses / Procedures Referred By Contact Refer red To Contact Med Surg Diagnoses Essential hypertension Severe uncontrolled hypertension Rh Observation Dept [address] [place], [place] [address] Phone: Referral ID Status Reason Start Date Expiration Date Visits Requ ested Visits Authorized [id number] 09/02/2016 09/02/2017 1 1 Encounter Details Date Type Department Care Team Description 09/01/2016 - Emergency [facility] Jean Claude Savage MD [facility] [address] [place] [address] Essential hypertension; 09/02/2016 [facility] Observation Alec Jordan MD [address] [place], [place] [address] Palpitations Dept [address] [place] [address] Social History Tobacco Use Types Packs/Day Years Used Date Smoking Tobacco: Never Sex Assigned at Date Recorded Female 10/29/2021 4:35 PM CDT documented as of this encounter Last Filed Vital Signs Vital Sign Reading Time Taken Comments Blood Pressure 148/70 09/02/2016 7:41 AM [facility] Pulse 55 09/02/2016 7:41 AM [facility] Temperature 36.3 ??C (97.4 ??F) 09/02/2016 7:41 AM [facility] Respiratory Rate 16 09/02/2016 7:41 AM [facility] Oxygen Saturation 93% 09/02/2016 7:41 AM [facility] Inhaled Oxygen Concentration - - Weight 77.4 kg (170 lb 9.6 oz) 09/02/2016 12:20 AM [facility] Height 165.1 cm (5' 5) 09/02/2016 12:20 AM [facility] Body Mass Index 28.39 09/02/2016 12:20 AM [facility] documented in this encounter Discharge Summaries Geneva Mabry PA-C - 09/02/2016 7:59 AM CST [facility] Outpatient / Observation Unit Discharge Summary Meseret Lakhani Date of : 1935 Age: [age] year old Date of Admission: 09/01/2016 Date of Discharge: 09/02/2016 Admitting Physician: Alec Jordan MD Discharge Physician: Geneva Mabry PA-C Discharging Service: Hospitalist Primary Provider: Gabriella Mariano Primary Care Physician Primary Discharge Diagnoses: Meseret Lakhani was admitted on 09/01/2016 for concerns of palpitations and found to have significantly elevated blood pressures. 1. Accelerated HTN - improved. Increased home Lisinopril to 40 mg daily and started Amlodipine 5 mg PO daily, continue metoprolol at current dose. Follow up with PCP within 1 week to recheck blood pressure, titrate meds as needed. Pt instructed to call PCP if develops dizziness and lightheadedness andblood pressure is noted to be low. If palpitations persists, PCP may consider cardiac event monitor Secondary Discharge Diagnoses: Past Medical History Diagnosis Date ??? Depressive disorder ??? Thyroid disease ??? Factor V inhibitor disorder (H) Code Status: Full Code Brief Hospital Summary: Reason for your hospital stay Palpitations and found to have elevated blood pressures. Blood pressure medications adjusted and blood pressure improved. Palpitations resolved. Please refer to initial admission history and physical for further details. Briefly, Meseret Lakhani was admitted on 09/01/2016 for concerns of palpitations and found to have significantly elevated blood pressures. Initial work up in the ED did not reveal evidence of STEMI or findings consistent with unstable angina or acute coronary ischemia. Pt was registered to the Observation Unit for further evaluation. Pt was monitored on tele and antihypertensives were adjusted. PRN antihypertensive were also available. Labs were reviewed and significant results addressed. On the day of discharge, pt denied palpitations and blood pressure was improved. Medications were reviewed and adjustments made as necessary. Ptis instructed to follow up as below. Significant Lab During Hospitalization: Recent Labs Lab 09/01/161840 WBC 7.5 HGB 13.4 HCT 39.9 MCV 93 PLT 186 Recent Labs Lab 09/01/161840 NA 141 POTASSIUM 3.8 CHLORIDE 105 CO2 28 ANIONGAP 8 GLC 81 BUN 16 CR 0.69 GFRESTIMATED 82 GFRESTBLACK >90African Slovenian GFR Calc JAMIN 9.0 PROTTOTAL 6.6* ALBUMIN 3.6 BILITOTAL 0.4 ALKPHOS 107 AST 32 ALT 27 Recent Labs Lab 09/01/16 184 NTBNPI 186 Recent Labs Lab 09/01/16 184 INR 1.81* Recent Labs Lab 09/01/16 184 TSH 2.28 Recent Labs Lab 09/01/161840 TROPI <0.015The 99th percentile for upper reference range is 0.045 ug/L. Troponin values in the range of 0.045 - 0.120 ug/L may be associated with risks of adverse clinical events. Significant Imaging During Hospitalization: Recent Results (from the past 48 hour(s)) Chest XR, PA & LAT Narrative CHEST TWO VIEWS 09/01/2016 7:03 PM HISTORY: palpitations COMPARISON: None. Impression IMPRESSION: Cardiomegaly. Otherwise normal. CHAPINCITO WOODY MD Pending Results: Unresulted Labs Ordered in the Past 30 Days of this Admission No orders found for last 60 day(s). Consultations This Hospital Stay: No consultations were requested during this admission Discharge Instructions and Follow-Up: Follow-up Appointments Follow-up and recommended labs and tests Follow up with primary care provider, Gabriella Mariano, within 7 days to evaluate medication change and for hospital follow- up. No follow up labs or test are needed. Lisinopril - you may continue to take 10 mg tablets at home until they're finished, take 4 tablets daily (40 mg). New prescription will be 20 mg tablets, take 2 tablets daily (40 mg) Start amlodipine If feeling dizzy and lightheaded, check BP and if low (top number <95), call PCP Pt instructed to follow up with PCP in 7 days Follow-up Labs None Discharge Disposition: Discharged to home Discharge Medications: Current Discharge Medication List START taking these medications Details amLODIPine (NORVASC) 5 MG tablet Take 1 tablet (5 mg) by mouth daily Qty: 30 tablet, Refills: 0 Associated Diagnoses: Essential hypertension CONTINUE these medications which have CHANGED Details lisinopril (PRINIVIL/ZESTRIL) 20 MG tablet Take 2 tablets (40 mg) by mouth daily Qty: 60 tablet, Refills: 1 Associated Diagnoses: Essential hypertension CONTINUE these medications which have NOT CHANGED Details warfarin (COUMADIN) 4 MG tablet Take 4 mg by mouth daily sertraline (ZOLOFT) 50 MG tablet Take 50 mg by mouth daily omeprazole (PRILOSEC) 40 MG capsule Take 40 mg by mouth daily metoprolol (LOPRESSOR) 25 MG tablet Take 25 mg by mouth 2 times daily levothyroxine (SYNTHROID/LEVOTHROID) 88 MCG tablet Take 88 mcg by mouth daily atorvastatin (LIPITOR) 20 MG tablet Take 20 mg by mouth daily allopurinol (ZYLOPRIM) 300 MG tablet Take 300 mg by mouth daily Allergies: Allergies Allergen Reactions ??? Oxybutynin ??? Penicillins Condition and Physical on Discharge: Discharge condition: Stable Vitals: Blood pressure 148/70, pulse 55, temperature 97.4 ??F (36.3 ??C), temperature source Oral, resp. rate 16, height 1.651 m (5' 5), weight 77.384 kg (170 lb 9.6 oz), SpO2 93 %. 170 lbs 9.6 oz GENERAL: Comfortable. PSYCH: pleasant, oriented, No acute distress. HEART: RRR. LUNGS: Nrmal Respiratory effort. EXTREMITIES: No pedal edema, +2 pulses bilateral and equal. SKIN: Dry to touch, No rash, wound or ulcerations. NEUROLOGIC: Grossly intact Geneva Mabry PA-C ER HAND Associated attestation - Valeriy Parsons MD - 09/02/2016 3:00 PM [facility] Physician Attestation I, Valeriy Parsons, have reviewed and discussed with the advanced practice provider their discharge plan for Meseret Lakhani. I did not participate in a shared visit by interviewing or examining the patient and this should be billed as an advanced practice provider only discharge. Valeriy Parsons Date of Service (when I saw the patient): I did not personally see this patient today. documented in this encounter Discharge Instructions Discharge InstructionsRoJean Claude moeller MD - 09/01/2016 9:10 PM CST Follow-up: Please follow-up with your primary care provider in 1-2 days for re-evaluation and discussion of your visit to the emergency department today. Home treatments: Recommended home therapies include increase lisinopril to 40 mg per day. Keep a log of your blood pressure Holter monitor (ordered) Return precautions: Warning signs which should prompt you to return to the ER include persistent BP>180/100, chest pain, shortness of breath, dizziness, or any other new or troubling symptoms. We are always happy to see you again. ER HAND documented in this encounter Medications at Time [...] mouth 0 MG tablet 2 times daily omeprazole (PRILOSEC) 40 MG Take 40 mg by mouth 0 capsule daily sertraline (ZOLOFT) 50 MG Take 50 mg by mouth 0 tablet daily warfarin (COUMADIN) 4 MG Take 4 mg by mouth 0 tablet daily documented as of this encounter H&P Notes Alec Jordan MD - 09/01/2016 10:58 PM CST [facility] Hospitalist Admission Note Name: Meseret Lakhani Date of : 1935 Age: [age] year old Date of admission: 09/01/2016 Primary care provider: Gabriella Mariano Assessment and Plan: Meseret Lakhani is a 81 year old female with 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 1. Severe uncontrolled hypertension 2. 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 Dyslipidemia 4. Hx of GERD 5. Hypothyroidism 6. Hx of depression [place] under observation. Maximize her lisinopril at 40 mg daily. She is already on 30 mg daily for the past few days. add norvasc at 5 mg daily Continue current metoprolol and further increase is now limited due to low HR levels. Resume oral warfarin dosing. Prn IV hydralazine for now Code status: full Admit to OBS Prophylaxis: ambulate and on warfrin Disposition: home in 1 day Chief Complaint: Elevated BP levels. 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 Earlier she was increasing her Lisinopril to 30 mg daily as instructed by her PCP due to elevated levels but she noticed no changes on her BP levels. She endorses no accompanying chest pain, SOB, nausea/vomiting, abdominal pain nor focal weakness. Upon presentation she was found still with elevated BP levels and was given with IV hydralazine and Clonidine, EKG showed no acute changes. Her BP was still elevated hence this referral to us for further care. During the time of exam Ms Carl remained very pleasant and has no ongoing complaints. Past Medical History: Past Medical History Diagnosis Date ??? Depressive disorder ??? Thyroid disease ??? Factor V inhibitor disorder (H) Past Surgical History: History reviewed. No pertinent past surgical history. Social History: Social History Substance Use Topics ??? Smoking status: Never Smoker ??? Smokeless tobacco: Not on file ??? Alcohol Use: Not on file Family History: Family history was fully reviewed and non-contributory in this case. Allergies: Allergies Allergen Reactions ??? Oxybutynin ??? Penicillins Medications: Prior to Admission medications Medication Sig Last Dose Taking? Auth Provider warfarin (COUMADIN) 4 MG tablet Take 4 mg by mouth daily 08/31/2016 at 2200 Yes Unknown, Entered By History sertraline (ZOLOFT) 50 MG tablet Take 50 mg by mouth daily 08/31/2016 at 2200 Yes Unknown, Entered ByHistory omeprazole (PRILOSEC) 40 MG capsule Take 40 mg by mouth daily 09/01/2016 at 0700 Yes Unknown, EnteredBy History metoprolol (LOPRESSOR) 25 MG tablet Take 25 mg by mouth 2 times daily 09/01/2016 at 0700 Yes Unknown,Entered By History lisinopril (PRINIVIL/ZESTRIL) 10 MG tablet Take 10 mg by mouth daily 09/01/2016 at 0700 Yes Unknown, Entered By History levothyroxine (SYNTHROID/LEVOTHROID) 88 MCG tablet Take 88 mcg by mouth daily 09/01/2016 at 0700 Yes Unknown, Entered By History atorvastatin (LIPITOR) 20 MG tablet Take 20 mg by mouth daily 08/31/2016 at 2200 Yes Unknown, EnteredBy History allopurinol (ZYLOPRIM) 300 MG tablet Take 300 mg by mouth daily 09/01/2016 at 0700 Yes Unknown, Entered By History Review of Systems: A Comprehensive greater than 10 system review of systems was carried out. Pertinent positives and negatives are noted above. Otherwise negative for contributory information. Physical Exam: Blood pressure 202/94, pulse 53, temperature 98.1 ??F (36.7 ??C), resp. rate 18, SpO2 97 %. Wt Readings from Last 1 Encounters: No data found for Wt Exam: GENERAL: No apparent distress. Awake, alert, and fully oriented. HEENT: Normocephalic, atraumatic. Extraocular movements intact. CARDIOVASCULAR: Regular rate and rhythm without murmurs or rubs. No JVD PULMONARY: Clear to auscultation, no wheezes, crackles ABDOMINAL: Soft, non-tender, non-distended. Bowel sounds normoactive. No hepatosplenomegaly. EXTREMITIES: No cyanosis or clubbing. No edema. NEUROLOGICAL: CN 2-12 grossly intact, awake and alert x3, spontaneous and coherent speech. no focal neurological deficits. DERMATOLOGICAL: No rash, ulcer, ecchymoses, jaundice. Psych: not agitation, not combative, pleasant mood Data: EKG: Sinus bradycardia at 52 bpm. LVH, non specific ST changes. ED reported that old EKG was reviewed and has no change Imaging: Results for orders placed or performed during the hospital encounter of 09/01/16 Chest XR, PA & LAT Narrative CHEST TWO VIEWS 09/01/2016 7:03 PM HISTORY: palpitations COMPARISON: None. Impression IMPRESSION: Cardiomegaly. Otherwise normal. CHAPINCITO WOODY MD Labs: Recent Labs Lab 09/01/16 1841 NA 141 POTASSIUM 3.8 CHLORIDE 105 CO2 28 ANIONGAP 8 GLC 81 BUN 16 CR 0.69 GFRESTIMATED 82 GFRESTBLACK >90African Slovenian GFR Calc JAMIN 9.0 Recent Labs Lab 09/01/16 1841 WBC 7.5 HGB 13.4 HCT 39.9 MCV 93 PLT 186 Recent Labs Lab 09/01/16 1841 GLC 81 Recent Labs Lab 09/01/16 1841 TROPI <0.015The 99th percentile for upper reference range is 0.045 ug/L. Troponin values in the range of 0.045 - 0.120 ug/L may be associated with risks of adverse clinical events. ER HAND documented in this encounter ED Notes Patsy Ibarra RN - 09/02/2016 7:49 AM CST PRIMARY DIAGNOSIS: Hypertension Primary Symptoms: Palpitations OUTPATIENT/OBSERVATION GOALS TO BE MET BEFORE DISCHARGE: 1. Orthostatic symptoms (BP decrease or HR increase with patient upright)? N/A 2. Vital Signs stable? Yes 3. Documented urine output: No 4. Tolerating PO fluid: Yes 5. Symptoms improved: Yes 6. Labs WNL? Yes 7. ADLs back to baseline? Yes 8. Activity and level of assistance: Ambulating independently. 9. Pain status: C/o headache - dull 10. Barriers to discharge noted No Deborah Jaramillo RN - 09/02/2016 2:37 AM CST PRIMARY DIAGNOSIS: Hypertension Primary Symptoms: Palpitations OUTPATIENT/OBSERVATION GOALS TO BE MET BEFORE DISCHARGE: 1. Orthostatic symptoms (BP decrease or HR increase with patient upright)? N/A 2. Vital Signs stable? Yes 3. Documented urine output: No 4. Tolerating PO fluid: Yes 5. Symptoms improved: Yes 6. Labs WNL? INR 1.81 7. ADLs back to baseline? Yes 8. Activity and level of assistance: Ambulating independently. 9. Pain status: C/o headache 10. Barriers to discharge noted No Interpretation of rhythm per gastroenterology technician: Sinus Jeff HR 54 Pt denies any feelings of palpitations or shortness of breath. HS metoprolol given. BP 145/55. Pt c/o 610 headache - prn tylenol given. Pt states she had left her wallet on the transport cart that brought her up from the ED. Nursing Staff called the ED - ED states they checked the room the pt was in and the cart and wallet was not found. Nursing staff helped pt go through her belongings here on the floor and wallet was not found. Pt very concerned. Will continue to monitor and provide supportive cares. Is patient a falls risk? No Falls armband on? No Within Arm's Reach? No.Reason not within arm's reach is: Pt A&O. Stable Bed alarm turned on? Not applicable Personal alarm in place and turned on? Not applicable Deborah Jaramillo RN - 09/02/2016 12:31 AM CST OBSERVATION patient IN TIME: 0011 ROOM #206-1 Living Situation (if not independent, order SW consult): independent usp Facility name: Activity level at baseline: independent w/ cane Activity level on admit: ind w/ cane Is patient a falls risk? No Falls armband on? No Within Arm's Reach? No.Reason not within arm's reach is: Pt A&O Bed alarm turned on? Not applicable Personal alarm in place and turned on? Not applicable Patient registered to observation; given Patient Bill of Rights; given the opportunity to ask questions about observation status and their plan of care. Patient has been oriented to the observation room, bathroom, and call light is in place. key person: Daughter Fernanda ([phone]) Janki Iraheta RN - 09/02/2016 12:03 AM CST Patient Ambulated to bathroom without assistance. Tolerated well ER HAND Janki Barba RN - 09/01/2016 11:57 PM CST OBs video given to patient. Jean Claude Weiss MD - 09/01/2016 6:05 PM CST History Chief Complaint: Palpitations HPI Meseret Lakhani is a 81 year old female, with an extensive past medical history, who presents with heart palpitations. The patient states over the past approximately 14 days she has been having intermittent episodes of heart palpitations that feel as if her heart is pounding out of her chest. The patient states each episode varies but can last from 1 to 10 minutes. The patient states approximately 7 days ago she noticed a worsening in her episodes for which she visited her primary care provider who raised her blood pressure medications (lisinopril from 10 mg daily to 30 mg daily). The patientstates she has also noticed worsening hypertension with values around 200/100. The patient states she feels baseline otherwise. The patient denies any chest pain or chest pressure, exertional fatigue, shortness of breath, syncopal episode, loss of consciousness, lightheadedness, dizziness, vision changes, new numbness or weakness or new major stressful life events. The patient does not voice any further concerns or complaints at this time. She is on Coumadin for Factor 5 Leiden mutation. Allergies: Oxybutynin Penicillins Medications: Coumadin daily Omeprazole daily Allopurinol daily Metoprolol 25 mg PO BID Lisinopril 10 mg daily Sertraline 50 mg daily Atorvastatin 20 mg daily Levothyroxine 80 mcg daily Past Medical History: HTN Factor 5 Leiden Hypothyroidism Urinary incontinence Depression DVT CAD- S/P non-ST elevation [place] in 2013 Sleep apnea Gait imbalance Chronic diarrhea Trigeminal neurologia right side of face Gout Tubular adenoma Dyslipidemia with significant hypertriglyceridemia Past Surgical History: History reviewed. No pertinent surgical history. Family History: History reviewed. No pertinent family history. Social History: Marital Status: [5] Review of Systems Eyes: Negative for visual disturbance. Respiratory: Negative for chest tightness and shortness of breath. Cardiovascular: Positive for palpitations. Negative for chest pain. Neurological: Negative for dizziness, syncope, weakness, light-headedness and numbness. All other systems reviewed and are negative. Physical Exam First Vitals: BP: (!) 213/106 mmHg Pulse: 51 Temp: 98.1 ??F (36.7 ??C) Resp: 18 SpO2: 97 % Physical Exam General: ?Well-nourished ?Speaking in full sentences Eyes: ?Conjunctiva without injection or scleral icterus ?PERRL ENT: ?Moist mucous membranes ?Posterior oropharynx clear without erythema or exudate ?Nares patent ?Pinnae normal Neck: ?Full ROM ?No stiffness appreciated Resp: ?Lungs CTAB ?No crackles, wheezing or audible rubs ?Good air movement CV:?Bradycardic rate, regular rhythm ?S1 and S2 present ?No murmur, gallop or rub GI: ?BS present ?Abdomen soft without distention ?Non-tender to light and deep palpation ?No guarding or rebound tenderness Skin: ?Warm, dry, well perfused ?No rashes or open wounds on exposed skin MSK: ?Moves all extremities ?No focal deformities or swelling Neuro: ?Alert ?Answers questions appropriately ?Moves all extremities equally ?Gait stable Psych: ?Normal affect, normal mood Emergency Department Course ECG: ECG (17:56:24): Rate 51 bpm. CA interval 160. QRS duration 94. QT/QTc 450/414. P-R-T axes 43 -39 29. Sinus bradycardia. Moderate voltage criteria for LVH, may be normal variant. Borderline ECG. Interpreted at 1809 by Jean Claude Savage MD. ECG (19:54:10): Rate 52 bpm. CA interval 132. QRS duration 94. QT/QTc 434/403. P-R-T axes 7 -31 -2. Sinus bradycardia. Left axis deviation. Moderate voltage criteria for LVH, may be normal variant. Nonspecific T wave abnormality. Abnormal ECG. Interpreted at 1955 by Jean Claude Savage MD. Imaging: Radiographic findings were communicated with the patient and Admitting MD who voiced understanding of the findings. Chest X-ray PA & Lateral Cardiomegaly. Otherwise normal. CHAPINCITO WOODY MD Laboratory: INR: 1.81 (H) TSH with free T4: 2.28 BNP: 186 Troponin: <0.015 Comprehensive Metabolic Panel: Protein 6.6 (L) o/w WNL Cr 0.69, GFR 82 CBC: WNL WBC 7.5, RBC 4.29, HGB 13.4, PLT 186 Interventions: 1841: Apresoline 5 mg IV 2119: Catapres 0.1 mg PO 2214: Apresoline 5 mg IV Emergency Department Course: Past medical records, nursing notes, and vitals reviewed. 1804: I performed an exam of the patient and obtained history, as documented above. IV inserted and blood drawn. The patient was sent for a x-ray while in the emergency department, findings above. An above EKG was obtained and can be read as above. An IV was inserted to administer the above interventions. I reviewed the patient's records and was noted to have an unchanged EKG from November 19, 2015. 1934: I rechecked the patient. The patient had a systolic BP of 153 and was symptom free. Explained findings to the patient. Findings and plan explained to the Patient who consents to admission. 2226: Discussed the patient with Dr. Jordan, who will admit the patient to a observation bed for further monitoring, evaluation, and treatment. Impression & Plan Medical Decision Making: Meseret Lakhani is a very pleasant 81 year old female presenting to the ER at the recommendationof her primary care provider for evaluation of hypertensin and palpitations. Vital signs on presentation include a BP of 213/106 with a HR of 51. History, exam and ED course as above. Symptoms are consistent with hypertensive urgency. The patient has been followed by her PCP over the past 2 weeks withtitration up of Lisinopril. She presents today with ongoing hypertension with associated intermittent palpitations. Her EKG demonstrates sinus rhythm with findings of T wave inversion in the anterior leads. On review of prior records from [facility], these are old and no other acute ischemic changes are identified. Work up in the ED reveals normal CBC, CMP, negative troponin, normal BNP and normal TSH. INR is slightly sub-theraputic at 1.81. BP was quite difficult to control here in the ED despite Clonidine and Hydralazine. She certainly will require further titration and consideration of m edication management for control of her BP. However, in light of her persistently elevated BPs here she will be admitted to the observation unit under the care of Dr. Jordan for further treatment andcare. All the patient's questions are answered. Diagnosis: ICD-10-CM 1. Essential hypertension I10 2. Palpitations R00.2 Disposition: Admitted to an observation bed for further monitoring and treatment Linda Leavitt 09/01/2016 [facility] EMERGENCY DEPARTMENT I, Linda Leavitt, am serving as a scribe at 6:05 PM on 09/01/2016 to document services personally performed by Jean Claude Savage MD based on my observations and the provider's statements to me. Jean Claude Savage MD 09/02/16 0109 ER HAND Corazon Talley RN - 09/01/2016 6:01 PM CST Patient presents to the ED reporting that it feels like my heart is beating out of my chest. Denies pain. was seen at doctor for symptoms 1 week ago and had BP meds changed. [facility] BP has continued to be high. 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 INR Goal= unknown Expected length of therapy lifetime. Anticoagulation Dose History Recent Dosing and Labs Latest Ref Rng 09/01/2016 09/02/2016 Warfarin 4 mg - - 4 mg INR 0.86 - 1.14 1.81(H) - Agree with provider to discharge the patient on [facility] warfarin regimen of 4 mg with a prescription forwarfarin 4mg tablets. The patient should have an INR checked per PCP. Sandi Quick, [place] September 02, 2016 ER [facility] Pharmacy-Admission Medication History - Lul Quiroz - 09/01/2016 10:27 PM [facility] Admission medication history interview status for this patient is complete. See [facility] admission navigator for allergy information, prior to admission medications and immunization status. Medication history interview source(s):Patient Medication history resources (including written lists, pill bottles, clinic record):Medication List Primary pharmacy:[facility] Changes made to [facility] medication list: Added(0): None Deleted(0): None Changed(2): Lisinopril(40mg to 10mg daily), Metoprolol(10 mg/mL liquid to 25mg tablet) Actions taken by pharmacist (provider contacted, etc):None Additional medication history information: -Patient has been consistently taking warfarin 4mg daily for several months Medication reconciliation/reorder completed by provider prior to medication history? No For patients on insulin therapy: No (Yes/No) Lantus/levemir/NPH/Mix 70/30 dose: in AM/PM or twice daily Sliding scale Novolog Y/N If Yes, do you have a baseline novolog pre-meal dose: units with meals Patients eat three meals a day: Y/N Any Barriers to therapy: cost of medications/comfortable with giving injections (if applicable)/ comfortable and confident with current diabetes regimen Prior to Admission medications Medication Sig Last Dose Taking? Auth Provider warfarin (COUMADIN) 4 MG tablet Take 4 mg by mouth daily 08/31/2016 at 2200 Yes Unknown, Entered By History sertraline (ZOLOFT) 50 MG tablet Take 50 mg by mouth daily 08/31/2016 at 2200 Yes Unknown, Entered ByHistory omeprazole (PRILOSEC) 40 MG capsule Take 40 mg by mouth daily 09/01/2016 at 0700 Yes Unknown, EnteredBy History metoprolol (LOPRESSOR) 25 MG tablet Take 25 mg by mouth 2 times daily 09/01/2016 at 0700 Yes Unknown,Entered By History lisinopril (PRINIVIL/ZESTRIL) 10 MG tablet Take 10 mg by mouth daily 09/01/2016 at 0700 Yes Unknown, Entered By History levothyroxine (SYNTHROID/LEVOTHROID) 88 MCG tablet Take 88 mcg by mouth daily 09/01/2016 at 0700 Yes Unknown, Entered By History atorvastatin (LIPITOR) 20 MG tablet Take 20 mg by mouth daily 08/31/2016 at 2200 Yes Unknown, EnteredBy History allopurinol (ZYLOPRIM) 300 MG tablet Take 300 mg by mouth daily 09/01/2016 at 0700 Yes Unknown, Entered By History ER HAND documented in this encounter Plan of Treatment Not on filedocumented as of this encounter Procedures Procedure Name Priority Date/Time Associated Comments Diagnosis EKG 12-LEAD, TRACING STAT 09/01/2016 7:54 PM R esults for this ONLY [facility] procedure are i n the results section. XR CHEST 2 VIEWS STAT 09/01/2016 7:03 PM Resul ts for this [facility] procedure are i n the results section. TSH WITH FREE T4 STAT 09/01/2016 6:41 PM Resul ts for this REFLEX [facility] procedure are i n the results section. TROPONIN I STAT 09/01/2016 6:41 PM Results f or this [facility] procedure are i n the results section. INR Routine 09/01/2016 6:41 PM Results f or this [facility] procedure are i n the results section. NT PROBNP INPATIENT STAT 09/01/2016 6:41 PM Re sults for this [facility] procedure are i n the results section. COMPREHENSIVE STAT 09/01/2016 6:41 PM Results for this METABOLIC PANEL [facility] procedure ar e in the results section. CBC WITH PLATELETS STAT 09/01/2016 6:41 PM Res ults for this [facility] procedure are i n the results section. EKG 12-LEAD, TRACING STAT 09/01/2016 5:56 PM R esults for this ONLY [facility] procedure are i n the results section. documented in this encounter Results EKG 12 lead (09/01/2016 7:54 PM [facility]) [facility] gist Method Time Signature Interpretation ECG Click View RADIOLOGY Image link RESULTS to view waveform and result Specimen (Source) Anatomical Collection Method Collection Time Re ceived Time Location / / Volume Laterality 09/01/2016 7:54 PM [facility] Jean Claude Savage MD ECG ORDERABLES Performing Organization Address City/State/ZIP Code Phon e Number RADIOLOGY RESULTS Chest XR, PA & LAT (09/01/2016 7:03 PM [facility]) Anatomical Region Laterality Modality Chest Computed Radiography Specimen (Source) Anatomical Location Collection Method / Collectio n Time Received Time / Laterality Volume Impressions 09/01/2016 7:15 PM [facility] IMPRESSION: Cardiomegaly. Otherwise normal. CHAPINCITO WOODY MD Narrative 09/01/2016 7:15 PM [facility] CHEST TWO VIEWS ??09/01/2016 7:03 PM HISTORY: palpitations COMPARISON: None. Procedure Note [place] Woody MD - 09/01/2016Formatt ing of this note might be different from the original. CHEST TWO VIEWS 09/01/2016 7:03 PM HISTORY: palpitations COMPARISON: None. IMPRESSION: Cardiomegaly. Otherwise norm al. CHAPINCITO WOODY MD Jean Claude Savage MD IMG DIAGNOSTIC IMAGING ORDER NEFTALY (ABNORMAL) INR (09/01/2016 6:41 PM [facility]) athologist Signature INR 1.81 (H) 0.86 - 1.14 [facility] Specimen Anatomical Collection Method Collection Time Receive d Time (Source) Location / / Volume Laterality 09/01/2016 6:41 PM 7 6:48 [facility] PM [facility] Jean Claude Savage MD LAB - BLOOD ORDERABLES Performing Organization Address City/State/ZIP Code Phon e Number [facility] [address], [place] [address] [facility] [address] [place] [address], [facility] [phone] TSH with free T4 reflex (09/01/2016 6:41 PM [facility]) athologist Signature TSH 2.28 0.40 - 4.00 [facility] Specimen Anatomical Collection Method Collection Time Receive d Time (Source) Location / / Volume Laterality Blood specimen 09/01/2016 6:41 PM 017 6:48 (specimen) [facility] PM [facility] Jean Claude Savage MD LAB - BLOOD ORDERABLES Performing Organization Address City/[facility]/ZIP [facility] [place] Phon e Number [facility] [address], [place] [address] [facility] [address] [place], [place] [address] 7, [facility] [phone] BNP (09/01/2016 6:41 PM [facility]) athologist Signature N-Terminal Pro 186 0 - 1,800 [place] BNP Inpatient pg/mL [facility] Comment: Reference range shown and results flagge d as abnormal are suggested inpatient cut points for confirming diagnosis if CHF in an acute setting. Establishing a baseline value for each individual valdemar ent is useful for follow-up. An inpatient or emergency department NT-pr oPBNP <300 pg/mL effectively rules out acute CHF, with 99% negative predictive value. The outpatient non-acute reference range for ruling out CHF is: 0-125 pg/mL (age 18 to less than 75) 0-450 pg/mL (age 75 yrs and older) Specimen Anatomical Collection Method Collection Time Receive d Time (Source) Location / / Volume Laterality Blood specimen 09/01/2016 6:41 PM 017 6:48 (specimen) [facility] PM [facility] Jean Claude Savage MD LAB - BLOOD ORDERABLES Performing Organization Address [facility]/ZIP [facility] e Number M [facility] [address], [place] [address] [facility] [address] [place], [place] [address] 7, [facility] [phone] Troponin I (now) (09/01/2016 6:41 PM [facility]) Patholo gist Method Time Signature Troponin I ES <0.015 0.000 - [place] The 99th percentile for uppe r reference range is 0.045 ug/L. ??Troponin values in 0.045 [facility] the range of 0.045 - 0.120 ug/L may be associated wit h risks of adverse ug/L HOSPITAL clinical events. Specimen Anatomical Collection Method Collection Time Receive d Time (Source) Location / / Volume Laterality Blood specimen 09/01/2016 6:41 PM 017 6:48 (specimen) [facility] PM [facility] Jean Claude Savage MD LAB - BLOOD ORDERABLES Performing Organization Address [facility] e Number [facility] [address], [place] [address] [place] [address] [place], [place] [address] 7, [facility] [phone] (ABNORMAL) Comprehensive metabolic panel (09/01/2016 6:41 PM [facility]) P athologist Signature Sodium 141 133 - 144 [place] mmol/L [facility] Potassium 3.8 3.4 - 5.3 [place] mmol/L [facility] Chloride 105 94 - 109 [place] mmol/L [facility] Carbon Dioxide 28 20 - 32 [place] mmol/L [facility] Anion Gap 8 3 - 14 [place] mmol/L [facility] Glucose 81 70 - 99 [place] mg/dL [facility] Urea Nitrogen 16 7 - 30 [place] mg/dL [facility] Creatinine 0.69 0.52 - [place] 1.04 mg/dL [facility] GFR Estimate 82 >60 [place] mL/min/1.[address] Comment: Non GFR Calc GFR Estimate If Black >90 >60 mL/min/1.7m2 F [facility] GFR Calc HOSP ITAL Calcium 9.0 8.5 - 10.1 mg/dL [facility] Bilirubin Total 0.4 0.2 - 1.3 mg/dL [facility] Albumin 3.6 3.4 - 5.0 g/dL [facility] Protein Total 6.6 (L) 6.8 - 8.8 g/dL [facility] Alkaline Phosphatase 107 40 - 150 U/L [facility] ALT 27 0 - 50 U/L [facility] AST 32 0 - 45 U/L [facility] Specimen Anatomical Collection Method Collection Time Receive d Time (Source) Location / / Volume Laterality Blood specimen 09/01/2016 6:41 PM 017 6:48 (specimen) [facility] PM [facility] Jean Claude Savage MD LAB - BLOOD ORDERABLES Performing Organization Address City/State/ZIP Code Phon e Number [place] [address] [place] [address] [phone] CBC (platelets, no diff) (09/01/2016 6:41 PM [facility]) P athologist Signature WBC 7.5 4.0 - 11.0 [place] 10e9/L [facility] RBC Count 4.29 3.8 - 5.2 [place] 10e12/L [facility] Hemoglobin 13.4 11.7 - [place] 15.7 g/dL [facility] Hematocrit 39.9 35.0 - [place] 47.0 % [facility] MCV 93 78 - 100 [facility] MCH 31.2 26.5 - [facility] 33.0 pg [facility] MCHC 33.6 31.5 - [place] 36.5 g/dL [facility] RDW 13.6 10.0 - [place] 15.0 % [facility] Platelet Count 186 150 - 450 [place] 10e9/L [facility] Specimen Anatomical Collection Method Collection Time Receive d Time (Source) Location / / Volume Laterality Blood specimen 09/01/2016 6:41 PM 017 6:48 (specimen) [facility] PM [facility] Jean Claude Savage MD LAB - BLOOD ORDERABLES Performing Organization Address City/State/ZIP Code Phon e Number [place] [address] [address], [place] [address] [phone] [facility] [address] [place], [place] [address] [phone] EKG 12 lead (09/01/2016 5:56 PM [facility] HAND) [facility] gist Method Time Signature Interpretation ECG Click View RADIOLOGY Image link RESULTS to view waveform and result Specimen (Source) Anatomical Collection Method Collection Time Re ceived Time Location / / Volume Laterality 09/01/2016 5:56 PM [facility] Jean Claude Savage MD ECG ORDERABLES Performing Organization Address City/State/ZIP [facility] [place] Number RADIOLOGY RESULTS documented in this encounter Visit Diagnoses Diagnosis Essential hypertension Unspecified essential hypertension Palpitations Severe uncontrolled hypertension Unspecified essential hypertension documented in this encounter Administered Medications Inactive Administered Medications - up to 3 most recent administrations Medication Order MAR Action Action Date Dose Rate Site acetaminophen (TYLENOL) tablet 650 Given 09/02/2016 5:15 AM [facility] 650 mg mg 650 mg, Oral, EVERY 4 HOURS PRN, mild pain, Starting on Wed09/02/16 at 0012, Alternate ibuprofen (if ordered) with acetaminophen. Maximum acetaminophen dose from all sources = 75 mg/kg/day not to exceed 4 grams/day. Given 09/02/2016 1:12 AM [facility] 650 mg allopurinol (ZYLOPRIM) tablet 300 mg Given 09/02/2016 7:44 AM [facility] 300 mg 300 mg, Oral, DAILY, First dose on Wed09/02/16 at 0800 amLODIPine (NORVASC) tablet 5 mg Given 09/02/2016 7:44 AM [facility] 5 mg 5 mg, Oral, DAILY, First dose on Wed09/02/16 at 0800 atorvastatin (LIPITOR) tablet 20 mg Given 09/02/2016 2:10 AM [facility] 20 mg 20 mg, Oral, AT BEDTIME, First dose on Wed09/02/16 at 0040 cloNIDine (CATAPRES) tablet 0.1 mg Given 09/01/2016 9:20 PM [facility] 0.1 mg 0.1 mg, Oral, ONCE, On Wed09/01/16 at 2109, For 1 dose hydrALAZINE (APRESOLINE) injection 5 mg Given 09/01/2016 6:41 PM [facility] 5 mg 5 mg, Intravenous, ONCE, On Wed09/01/16 at 1818, For 1 dose hydrALAZINE (APRESOLINE) injection 5 mg Given 09/01/2016 10:15 PM [facility] 5 mg 5 mg, Intravenous, ONCE, On Wed09/01/16 at 2206, For 1 dose levothyroxine (SYNTHROID/LEVOTHROID) tablet Given 09/02/2016 7:44 AM [facility] 88 mcg 88 mcg 88 mcg, Oral, EVERY MORNING BEFORE BREAKFAST, First dose on Wed09/02/16 at 0730, Do not co-administer with multivitamin/multimineral products or calcium- or magnesium-containing antacids/supplements/laxatives. lisinopril (PRINIVIL/ZESTRIL) tablet 40 mg Given 09/02/2016 7:43 AM [facility] 40 mg 40 mg, Oral, DAILY, First dose on Wed09/02/16 at 0800 metoprolol (LOPRESSOR) tablet 25 mg Given 09/02/2016 7:44 AM [facility] 25 mg 25 mg, Oral, 2 TIMES DAILY, First dose on Wed09/02/16 at 0041 Given 09/02/2016 1:13 AM [facility] 25 mg omeprazole (priLOSEC) CR capsule 40 mg Given 09/02/2016 7:43 AM [facility] 40 mg 40 mg, Oral, EVERY MORNING BEFORE BREAKFAST, First dose on Wed09/02/16 at 0730 sertraline (ZOLOFT) tablet 50 mg Given 09/02/2016 2:10 AM [facility] 50 mg 50 mg, Oral, AT BEDTIME, First dose on Wed09/02/16 at 0042 warfarin (COUMADIN) tablet 4 mg Given 09/02/2016 2:10 AM [facility] 4 mg 4 mg, Oral, ONCE, On Wed09/02/16 at 0132, For 1 dose documented in this encounter Active and Recently Administered Medications Times are shown in [facility]. Scheduled Medication Order 08/31/2016 09/01/2016 09/02/2016 allopurinol (ZYLOPRIM) tablet 300 mg (CANCELED) 0744 (Given - Provider: Patsy Ibarra RN) 300 mg, Oral, DAILY, First dose on Wed09/02/16 at 0800 amLODIPine (NORVASC) tablet 5 mg 0744 (Given - Provider: Patsy Ibarra RN) 5 mg, Oral, DAILY, First dose on Wed09/02/16 at 0800 atorvastatin (LIPITOR) tablet 20 mg (CANCELED) 0210 (Given - Provider: Deborah Rosenbaum RN) 20 mg, Oral, AT BEDTIME, First dose on Wed09/02/16 at 0040 cloNIDine (CATAPRES) tablet 0.1 mg (COMPLETED) 2119 (Given - Provider: Marixa Ivy RN) 0.1 mg, Oral, ONCE, Wed09/01/16 at 2109, For 1 dose hydrALAZINE (APRESOLINE) injection 5 mg (COMPLETED) 184 (Given - Provider: Theodora Boyle RN) 5 mg, Intravenous, ONCE, Wed09/01/16 at 1818, For 1 dose hydrALAZINE (APRESOLINE) injection 5 mg (COMPLETED) 2214 (Given - Provider: Marixa Ivy RN) 5 mg, Intravenous, ONCE, Wed09/01/16 at 2206, For 1 dose levothyroxine (SYNTHROID/LEVOTHROID) tablet 88 mcg (CANCELED) 0744 (Given - Provider: Patsy Ibarra RN) 88 mcg, Oral, EVERY MORNING BEFORE BREAK FAST, First dose on Wed09/02/16 at 0730, Do not co-administer with multivitamin/multimineral products or calcium- or magnesium-containing antacids/supplements/laxatives. lisinopril (PRINIVIL/ZESTRIL) tablet 40 mg (CANCELED) 0743 (Given - Provider: Patsy Ibarra RN) 40 mg, Oral, DAILY, First dose on Wed09/02/16 at 0800 metoprolol (LOPRESSOR) tablet 25 mg (CANCELED) 0113 (Given - Provider: Deborah Rosenbaum RN)0744 (Given - Provider: Patsy Ibarra RN) 25 mg, Oral, 2 TIMES DAILY, First dose on Wed09/02/16 at 0041 omeprazole (priLOSEC) CR capsule 40 mg (CANCELED) 0743 (Given - Provider: Patsy Ibarra RN) 40 mg, Oral, EVERY MORNING BEFORE BREAKFAST, First dose on W ed 09/02/16 at 0730 sertraline (ZOLOFT) tablet 50 mg (CANCELED) 0210 (Given - Provider: Deborah Rosenbaum RN) 50 mg, Oral, AT BEDTIME, First dose on Wed09/02/16 at 0042 warfarin (COUMADIN) tablet 4 mg (COMPLETED) 0210 (Given - Provider: Deborah Rosenbaum RN) 4 mg, Oral, ONCE, Wed09/02/16 at 0132, For 1 dose PRN Medication Order 08/31/2016 09/01/2016 09/02/2016 acetaminophen (TYLENOL) tablet 650 mg (CANCELED) 0112 (Given - Provider: Deborah Rosenbaum RN)0515 (Given - Provider: Deborah Rosenbaum RN) 650 mg, Oral, EVERY 4 HOURS PRN, mild pa in, Starting Wed09/02/16 at 0012, Alternate ibuprofen (if ordered) with acetaminophen. Maximum acetaminophen dose from all sources = 75 mg/kg/day not to exceed 4 grams/day. documented in this encounter Care Teams Technical Stenographer Relationship Specialty Start Date End Date Gabriella Mariano MD PCP - General 02/27/16 06/30/21 [place] [phone] documented as of this encounter
--- OUTSIDE RECORDS SUMMARY | 2022-06-22 23:05 | XMS_ITS | Encounter Summary ---
:1935 Author Organization [facility] Address [address] [place] [address] Care Team Providers Name Role Phone Gabriella Mariano MD Primary Care Provider Reason for Visit Reason Comments Fall Encounter Details Date Type Department Care Team Description 01/02/[address] [facility] Vsihnu Chance injury, initial encounter; [facility] Emergency [facility] JOSE ALFREDO Blank Fall, initial encounter [address] [facility] [place], [place] [address] [address] [phone] [facility] [address] [place] [address] (Wo rk) Social History Tobacco Use Types Packs/Day Years Used Date Smoking Tobacco: Never Smokeless Tobacco: Never Sex Assigned at Date Recorded Female 10/29/2021 4:35 PM CDT COVID-19 Exposure Response Date Recorded In the last month, have you been in contact with No / Unsure 01/02/2020 4:37 PM CDT someone who was confirmed or suspected to have Coronavirus / COVID-19? documented as of this encounter Last Filed Vital Signs Vital Sign Reading Time Taken Comments Blood Pressure 161/81 01/02/2020 6:55 PM CDT Pulse - - Temperature 36.7 ??C (98 ??F) 01/02/2020 4:35 PM CDT Respiratory Rate 18 01/02/2020 4:35 PM CDT Oxygen Saturation 97% 01/02/2020 6:55 PM CDT Inhaled Oxygen Concentration - - Weight 77.1 kg (170 lb) 01/02/2020 4:38 PM CDT Height 160 cm (5' 3) 01/02/2020 4:38 PM CDT Body Mass Index 30.11 01/02/2020 4:38 PM CDT documented in this encounter Discharge Instructions Discharge InstructionsVishnu Chance PA-C - 01/02/2020 6:49 PM CDT Discharge Instructions Head Injury You have been seen today for a head injury. Your evaluation included a history and physical examination. You may have had a CT (CAT) scan performed, though most head injuries do not require a scan. Based on this evaluation, your provider today does not feel that your head injury is serious. Generally, every Emergency Department visit should have a follow-up clinic visit with either a primary or a specialty clinic/provider. Please follow-up as instructed by your emergency provider today. Return to the Emergency Department if: You are confused or you are not acting right. Your headache gets worse or you start to have a really bad headache even with your recommended treatment plan. You vomit (throw up) more than once. You have a seizure. You have trouble walking. You have weakness or paralysis (cannot move) in an arm or a leg. You have blood or fluid coming from your ears or nose. You have new symptoms or anything that worries you. Sleeping: It is okay for you to sleep, but someone should wake you up if instructed by your provider, and someone should check on you at your usual time to wake up. Activity: Do not drive for at least [address] if you have dizzy spells or trouble concentrating, or remembering things. Do not return to any contact sports until cleared by your regular provider. MORE INFORMATION: Concussion: A concussion is a minor head injury that may cause temporary problems with the way the brain works. Although concussions are important, they are generally not an emergency or a reason that a person needs to be hospitalized. Some concussion symptoms include confusion, amnesia (forgetful), nausea (sick to your stomach) and vomiting (throwing up), dizziness, fatigue, memory or concentration problems, irritability and sleep problems. For most people, concussions are mild and temporary but some will have more severe and persistent symptoms that require on-going care and treatment. CT Scans: Your evaluation today may have included a CT scan (CAT scan) to look for things like bleeding or a skull fracture (broken bone). CT scans involve radiation and too many CT scans can cause serious health problems like cancer, especially in children. Because of this, your provider may not haveordered a CT scan today if they think you are at low risk for a serious or life threatening problem. If you were given a prescription for medicine here today, be sure to read all of the information (including the package insert) that comes with your prescription. This will include important information about the medicine, its side effects, and any warnings that you need to know about. The pharmacist who fills the prescription can provide more information and answer questions you may have about the medicine. If you have questions or concerns that the pharmacist cannot address, please call or return to the Emergency Department. Remember that you can always come back to the Emergency Department if you are not able to see your regular provider in the amount of time listed above, if you get any new symptoms, or if there is anything that worries you.\ documented in this encounter Medications at Time [...] documented as of this encounter ED Notes Obdulia Richards RN - 01/02/2020 4:37 PM CDT Presents via ambulance with c collar in place. Fell when bending over to clean up after dog. Denies LOC, struck head on ground, complains of head pain 09/18, denies any other injury, A&Ox4 Eunice Levy RN - 01/02/2020 4:33 PM CDT Bed: ED40 Expected date: 01/02/20 Expected time: 4:18 PM Means of arrival: Ambulance Comments: [id number] - 84 fall Vishnu Chance PA-C - 01/02/2020 4:33 PM CDT History Chief Complaint: Fall HPI Meseret Lakhani is a 84 year old female anticoagulated with Coumadin who presents via EMS for evaluation of a fall. Patient was outside picking up dog poop when she lost her balance and fell and hit her head on the sidewalk. She denies any pain or numbness in her extremities. She denies neck pain or other pain. She was able to ambulate afterwards. She has a mild headache but has no dizziness or vision changes or vomiting. Allergies: Oxybutynin Penicillins Medications: Allopurinol Amlodipine Atorvastatin Levothyroxine Metoprolol Lisinopril Macrobid Omeprazole Zoloft Coumadin Past Medical History: HTN Depression Factor V inhibitor disorder Gout Thrombophlebitis Mumps Thyroid diseased Past Surgical History: Bladder augmentation Bladder surgery Family History: History reviewed. No pertinent family history. Social History: Smoking status: never smoker Alcohol use: no Drug use: no The patient presents to the emergency department via EMS. PCP: Gabriella Mariano Marital Status: Review of Systems Musculoskeletal: Negative for neck pain. Skin: Positive for wound. All other systems reviewed and are negative. Physical Exam Patient Vitals for the past 24 hrs: BP Temp Temp src Heart Rate Resp SpO2 Height Weight 01/02/20 1638 (!) 164/56 -- -- -- -- -- 1.6 m (5' 3) 77.1 kg (170 lb) 01/02/20 1635 -- 98 ??F (36.7 ??C) Oral 63 18 96 % -- -- Physical Exam General: Alert and cooperative with exam. Resting comfortably on gurney Head: There is a small occipital scalp hematoma. Scalp is otherwise NC/AT without bruising, hematomas. Eyes: No scleral icterus, PERRL, EOMI ENT: The external nose and ears are normal. TM's normal bilaterally No bruising or facial bone tenderness. The oropharynx is normal without evidence of dental trauma or intraoral lacerations. Neck: Normal range of motion without rigidity. Able to rotate 45 degrees BL. CV: Regular rate and rhythm No pathologic murmur, rubs, or gallops. Resp: Breath sounds are clear bilaterally. No stridor in neck. Non-labored, no retractions or accessory muscle use Abdomen: Abdomen is soft, no distension, no tenderness, no masses. Bowel sounds present in all quadrants. No flank tenderness. MS: No midline cervical, thoracic, or lumbar tenderness PROM of all other major joints performed and unremarkable. Skin: Warm and dry, No bruising. Neuro: Oriented x 3. No gross motor deficits. Strength and sensation grossly intact in all 4 extremities. Cranial nerves 2-12 intact. GCS: 15. Normal finger to nose and heel to chaudhary testing. Gait normal. Psych: Awake. Alert. Normal affect. Appropriate interactions. Emergency Department Course Imaging: Radiographic findings were communicated with the patient who voiced understanding of the findings. CT Head without contrast: IMPRESSION: 1. ??No CT evidence for acute intracranial process. 2. ??Brain atrophy and presumed chronic microvascular ischemic changes as above. as per radiology. Emergency Department Course: Nursing notes and vitals reviewed. (1730) I performed an exam of the patient as documented above. The patient was sent for a CT while in the emergency department, findings above. 185 I rechecked the patient and discussed the results of her workup thus far. Findings and plan explained to the Patient. Patient discharged home with instructions regarding supportive care, medications, and reasons to return. The importance of close follow-up was reviewed. I personally reviewed the laboratory results with the Patient and answered all related questions prior to discharge. Impression & Plan Medical Decision Making: Meseret Lakhani is a 84 year old female who presents for evaluation of closed head injury. By Taiwanese CT criteria, the patient is not very low risk, and therefore after discussion of risks versus benefits CT scan of head was performed and was unremarkable. No indication for imaging of C-spine by NEXUS criteria (No midline tenderness, painful distracting injury, intoxication, focal neuro deficit,encephalopathy), and able to actively rotate neck without pain. Head to toe trauma exam is otherwisenot suggestive of serious injury. We did discuss the small risk of delayed bleed in the setting of anticoagulation, and the need to return for new or worsening symptoms including worsening headache, dizziness, vomiting, numbness weakness or balance issues. The patient acknowledged understanding of this. She will follow-up with her primary care doctor in 2 to 3 days. She will otherwise return if new or worsening symptoms. She ambulated without difficulty in the emergency department. Diagnosis: ICD-10-CM 1. Closed head injury, initial encounter S09.90XA 2. Fall, initial encounter W19.XXXA Disposition: discharged to home Golden Turcios 01/02/2020 [facility] EMERGENCY DEPARTMENT Scribe Disclosure: I, Golden Turcios, am serving as a scribe at 5:31 PM on 01/02/2020 to document services personally performed by Vishnu Chance PA based on my observations and the provider's statements to me. Vishnu Chance PA-C 01/02/20 194 documented in this encounter Plan of Treatment Not on filedocumented as of this encounter Procedures Procedure Name Priority Date/Time Associated Diagnosis Comme nts CT HEAD W/O STAT 01/02/2020 6:38 PM Results f or this CONTRAST CDT procedure are i n the results section. documented in this encounter Results Head CT w/o contrast (01/02/2020 6:38 PM CDT) Anatomical Region Laterality Modality Head, SUBRAD CT NEURO, SUBRAD CT NEURO, UMP CT NEURO, Computed Tomography RAD CT Specimen (Source) Anatomical Collection Method Collection Time Re ceived Time Location / / Volume Laterality 01/02/2020 6:26 PM CDT Impressions 01/02/2020 6:57 PM CDT IMPRESSION: 1. ??No CT evidence for acute intracrani al process. 2. ??Brain atrophy and presumed chronic microvascular ischemic changes as above. Narrative 01/02/2020 6:57 PM CDT EXAM: CT HEAD W/O CONTRAST LOCATION: [facility] DATE/TIME: 01/02/2020 6:26 PM INDICATION: Head trauma, minor, GCS>=13, high clinical risk, initial exam. COMPARISON: Head CT 02/27/2019. TECHNIQUE: Routine without IV contrast. Multiplanar reformats. Dose reduction techniques were used. FINDINGS: INTRACRANIAL CONTENTS: No intracranial h emorrhage, extraaxial collection, or mass effect. ??No CT evidence of acute infarct. Moderate presumed chronic small vessel ischemic changes. Moderate generalized volume loss. No hydrocephalus. VISUALIZED ORBITS/SINUSES/MASTOIDS: No i ntraorbital abnormality. No paranasal sinus mucosal disease. No middle ear or mastoid effusion. BONES/SOFT TISSUES: No acute abnormality . Procedure Note Kody Nichole MD - 01/02/2020Forma tting of this note might be different from the original. EXAM: CT HEAD W/O CONTRAST LOCATION: [facility] DATE/TIME: 01/02/2020 6:26 PM INDICATION: Head trauma, minor, GCS>=13, high clinical risk, initial exam. COMPARISON: Head CT 02/27/2019. TECHNIQUE: Routine without IV contrast. Multiplanar reformats. Dose reduction techniques were used. FINDINGS: INTRACRANIAL CONTENTS: No intracranial h emorrhage, extraaxial collection, or mass effect. No CT evidence of acute infarct. Moderate presumed chronic small vessel ischemic changes. Moderate generalized volume loss. No hydrocephalus. VISUALIZED ORBITS/SINUSES/MASTOIDS: No i ntraorbital abnormality. No paranasal sinus mucosal disease. No middle ear or mastoid effusion. BONES/SOFT TISSUES: No acute abnormality . IMPRESSION: 1. No CT evidence for acute intracranial process. 2. Brain atrophy and presumed chronic mi crovascular ischemic changes as above. Vishnu Chance PA-C Clint CT ORDERABLES documented in this encounter Visit Diagnoses Diagnosis Closed head injury, initial encounter Fall, initial encounter documented in this encounter Care Teams Belt Measurer Relationship Specialty Start Date End Date Gabriella Mariano MD PCP - General 02/27/16 06/30/[address] [address] documented as of this encounter
--- OUTSIDE RECORDS SUMMARY | 2022-06-22 23:05 | XMS_ITS | Encounter Summary ---
:1935 Author Organization [place] Address [address] [facility] [place] [address] Care Team Providers Name Role Phone Gabriella Mariano MD Primary Care Provider Encounter Details Date Type Department Care Team Description 01/02/2020 Travel Social History Tobacco Use Types Packs/Day [...] on filedocumented in this encounter Care Teams Photo Mask Pattern Generator Relationship Specialty Start Date End Date Gabriella Mariano MD PCP - General 02/27/16 06/30/21 [facility] [address] [place] [address] documented as of this encounter
--- OUTSIDE RECORDS SUMMARY | 2022-06-22 23:05 | XMS_ITS | Encounter Summary ---
:1935 Author Organization [place] Address [address] [facility] [address] Care Team Providers Name Role Phone Gabriella Mariano MD Primary Care Provider Encounter Details Date Type Department Care Team Description 02/27/2019 Travel Social History Tobacco Use Types Packs/Day Years Used Date Smoking Tobacco: Never Smokeless Tobacco: Never Sex Assigned at Date Recorded Female 10/29/2021 4:35 PM CDT documented as of this encounter Plan of Treatment Not on filedocumented as of this encounter Visit Diagnoses Not on filedocumented in this encounter Care Teams Degreasing Solution Mixer Relationship Specialty Start Date End Date Gabriella Mariano MD PCP - General 02/27/16 06/30/21 [facility] [address] [place] [address] documented as of this encounter
--- OUTSIDE RECORDS SUMMARY | 2022-06-22 23:06 | XMS_ITS | Clinical Summary ---
:1935 Author Organization [facility] [place] [address] Care Team Providers Name Role Phone Coni Mckeon MD Primary Care Provider Allergies Active Allergy Reactions Severity Noted Date Comments Atorvastatin Myalgia 09/30/2020 Oxybutynin Rash 09/01/2016 Penicillins Rash 09/01/2016 Medications Medication Sig Dispensed Refills Start Date End Date Status sertraline (ZOLOFT) Take 50 mg by mouth 0 Active 50 mg tablet once daily. amLODIPine (NORVASC) Take 1 tablet by 0 02/21/2018 Active 5 mg tablet mouth once daily. levothyroxine Take 100 mcg by 0 02/21/2018 Active (SYNTHROID) 100 mcg mouth once daily. tablet lisinopriL Take 40 mg by mouth 0 02/21/2018 Active (PRINIVIL; ZESTRIL) once daily. 40 mg tablet metoprolol tartrate Take 1 tablet by 0 02/21/2018 Active (LOPRESSOR) 25 mg mouth 2 times daily. tablet omeprazole Take 1 capsule by 0 02/21/2018 Active (PRILOSEC) 40 mg mouth once daily Delayed-Release before a meal. capsule clobetasol 0.05% APPLY SPARINGLY TO 0 09/22/2020 Active (TEMOVATE 0.05% AFFECTED AREA OINTMENT) 0.05 % NIGHTLY FOR 4 WEEKS, ointment THEN TWICE WEEKLY thereafter VITRON-C 65 mg iron- Take 1 Tablet by 0 07/03/2020 Active 125 mg mouth once daily Delayed-Release with a meal. tablet rosuvastatin Take 1 Tablet by 90 Tablet 3 10/15/2020 Active (CRESTOR) 10 mg mouth at bedtime. tabletIndications: Dyslipidemia acetaminophen Take 500 mg by mouth 0 Active (TYLENOL EXTRA every 6 hours if STRGTH) 500 mg needed. Max tablet acetaminophen dose: 4000mg in 24 hrs. ubidecarenone Take 60 mg by mouth 0 Active (coenzyme Q10) 50 mg once daily. tab loperamide HCl Take 2 mg by mouth 0 Active (IMODIUM ORAL) once daily if needed. nitroglycerin Place 1 Tablet (0.4 25 Tablet 2 11/04/2020 Active (NITROSTAT) 0.4 mg mg) under the tongue sublingual every 5 minutes if tabletIndications: needed for Chest Coronary artery Pain. May repeat up disease, angina to 3 doses. If no presence relief after the 3rd unspecified, dose call 911. unspecified vessel or lesion type, unspecified whether huslia or transplanted heart warfarin (COUMADIN) Take 1 Tablet (5 mg) 0 Active 5 mg tablet by mouth once daily. 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 HTN (hypertension) 09/30/2020 Dyslipidemia 09/30/2020 Immunizations Name Administration Dates Next Due Influenza, High-dose Inactivated 06/08/2017, 06/06/2014 Pneumococcal Poly,23-Valent (Pneumovax) 06/08/2017 Pneumococcal conj 13-Valent (Prevnar 13) 06/06/2014 Td (Age >=7 Years) 02/02/2013 Family History Medical History Relation Name Comments Stroke Brother 1 Skinny at 53 Heart attack Brother 2 Chaka [place] Relation Name Status Comments Brother 1 Skinny Brother 2 Chaka Social History Tobacco Use Types Packs/Day Years Used Date Never Smoker Smokeless Tobacco: Never Used Alcohol Use Standard Drinks/Week Comments No 0 (1 standard drink = 0.6 oz pure alcoho l) Sex Assigned at Date Recorded Not on file Obstetrics History Last Filed Vital Signs Vital Sign Reading Time Taken Comments Blood Pressure 122/58 12/19/2020 1:33 PM CDT Pulse 50 12/19/2020 1:33 PM CDT Temperature - - Respiratory Rate - - Oxygen Saturation 96% 12/19/2020 1:33 PM CDT Inhaled Oxygen Concentration - - Weight 73.6 kg (162 lb 3.2 oz) 12/19/2020 1:33 PM CDT Height 161.3 cm (5' 3.5) 12/19/2020 1:33 PM CDT Body Mass Index 28.28 12/19/2020 1:33 PM CDT Plan of Treatment Health Maintenance Due Date Last Done Comments Tdap 1946 Depression screening for age 12+ 1947 Zoster (shingles) series for age 50+ (1 of 1987 2) DEXA/DXA scan for age 65+ 2002 Medicare Wellness for age 65+ 2002 COVID-19 vaccine series (3 - Booster for 11/30/2020 021, 09/14/2020 Pfizer series) BMI (ht and wt on same day) for age 18+ 12/19/2021 12/20/19 21, 02/21/2018 Influenza for age 65+ 04/09/2022 06/08/2017, 06/06/2014 Tetanus booster 02/02/2023 02/02/2013 Pneumococcal series for age 65+ Completed 06/08/2017, 05/10 Results Not on filefrom Last 3 Months Insurance Payer Benefit Plan / Subscriber ID Effective Dates Phone Addre ss Type Group [employer] GOLD MR HU[employer] CHOICE [id number] 2019-Present [address] [address] [place] [address] [address] (Home) [id number] [place] [address] Care Teams Mine Equipment Design Engineer Relationship Specialty Start Date End Date Coni Mckeon MD PCP - General 03/11/20 [address] [place], [place] [id number]
[2022-06-23 02:36] LABS: Hematocrit 29.8 % (33.0-51.0); Mean Corpuscular HGB Conc 27 gm/dL (32-36); Mean Corpuscular Hemoglobin 21 pg (26-34); Mean Corpuscular Volume 78 fL (80-100); White Blood Count* 6.88 K/uL (4.50-11.00)
[2022-06-23 02:37] LABS: Basophils Percent Auto 0.6 % (0.0-3.0); Immature Granulocytes Pct Auto 0.1 %; Lymphocytes Percent Auto 9.7 % (20-44); Monocytes Percent Auto 7.4 % (0.0-11.0); Neutrophils Percent Auto 80.2 % (42.0-72.0); Platelet Count* 189 K/uL (140-440); Slide Review Reflex No
[2022-06-23 04:23] LABS: Ferritin* 8.2 ng/mL (11.1-264.0)
== END 2022-06-22 23:00 | disposition home or self-care (01) ==
LOC: LAB 22:59
PROVIDERS: PCP Emergency Medicine; Visit Provider Internal Medicine Medical Oncology
DX: D64.9 Anemia, unspecified (principal); Z79.01 Long term (current) use of anticoagulants
CPT/HCPCS: 36415; 82728; 85025

== ENCOUNTER 2022-09-22 11:39 | Outpatient (CLI) | payer MEDICARE, SELFPAY ==
[2022-09-22 22:22] LABS: Ferritin* 16.7 ng/mL (11.1-264.0)
== END 2022-09-22 11:40 | disposition home or self-care (01) ==
LOC: LKVREF 11:40
PROVIDERS: PCP Emergency Medicine; Visit Provider Internal Medicine Medical Oncology
DX: D64.9 Anemia, unspecified (principal)
CPT/HCPCS: 82728

== ENCOUNTER 2023-01-29 06:59 | Outpatient (CLI) | payer MEDICARE, SELFPAY ==
--- OUTSIDE RECORDS SUMMARY | 2023-01-29 07:03 | XMS_ITS | Continuity of Care Document ---
Author Name Unknown Organization [facility] Address [address] [address] [place] [address] Phone Care Team Providers Care Fire Support Specialist Name Role Phone Jeni Carey RD Unavailable Unavailable Allergies, Adverse Reactions, Alerts Substance Reaction Status Criticality oxybutynin Rash Active No Information PENICILLIN Rash Active No Information Medications Medication Instructions Dosage Effective Dates (start - stop) Status Comments Vitron-C 65 mg iron-125 mg tablet,delayed release take 1 tablet by oral route 2 times every day 1 tablet - Active warfarin 5 mg tablet take 1 tablet by oral route every day as directed 5 MG - Active levothyroxine 100 mcg capsule take 1 by Oral route every day 1 - Active metoprolol tartrate 25 mg tablet take 1 tablet by ORAL route 2 times every day 25 MG - Active rosuvastatin 10 mg tablet take 1 tablet by oral route every day 10 MG - Active amlodipine 5 mg tablet take 1 tablet by oral route every day 5 MG - Active clobetasol 0.05 % topical ointment apply by topical route 2 times every day a thin layer to the affected area(s) 0.00 - Active Co Q-10 30 mg capsule take 2 capsule by oral route every day 2 capsule - Active nitroglycerin 0.[address] 1 tablet by sublingual route at the 1st sign of attack; may repeat every 5 min until relief; if pain persists after 3 tablets in 15 min, prompt medical attention is recommended 0.4 MG - Active Imodium A-D 2 mg capsule take 1 Capsule by oral route after 1st loose stool, followed by 1 capsule after each subsequent loose stool not to exceed 16 mg/day 2 MG - Active Tylenol Extra Strength 500 mg tablet take 2 tablet by ORAL route every day as needed 1000 MG - Active omeprazole 40 mg capsule,delayed release take 1 capsule by oral route every day before a meal 40 MG - Active Procedures Procedure Date Dietitian Televist 21-30 min Telephone E&M II 11-20 Min FATOU Colonoscopy Flex; W/remov Les- 15 Colonoscopy W/Submucosal Injection Colonoscopy Flex; W/bx 1/mx Level Iv-surg Path Gross/micro 15 Offic/outpt E&m Estab Low-mod 5 C. Difficile Toxin Gene, KRYSTYNA Offic/outpt E&m New Mod-hi Routine Serum Collection Gg; Iga, Igd, Igg, Igm, Ea Advance Directives Directive Yes / No Effective Date File Name No Information Encounters Encounter Description Practice Location Reason(s) For Visit Diagnoses Date Provider Providers Copied on Encounter [facility] [place] [address] [address], [place], [place], [id number], [place] tel:[phone] [facility] GI Symptoms or Concerns (chief complaint) Fecal incontinenceDi etary counseling and surveillance 1 Cherry Ngo. [address], [id number], [place]. tel:[phone] Referring Provider: Referral Self. [facility] ULLOA [address] [address], [place], [id number], [place] tel:[phone] [facility] Irregular bowel habits 1 Chito Adamson. [address], [id number], [place]. tel:[phone] Telephone E&M II 11-20 Min FATOU [facility], [address] [address], [place], [place], [id number], [place] tel:[phone] [facility] GI Symptoms or Concerns (chief complaint) Overflow diarrhea Chito Adamson. [address] [place] [address], [id number], [place]. tel:[phone] Referring Provider: Coni Mckeon MD, [address] [place] [address], [address]. tel:[phone] [facility], [address] [address], [place], [place], [id number], [place] tel:[phone] No Information No Information Referring Provider: Coni Mckeon MD, [address] [place] [address], [address]. tel:[phone] [facility], [address] [address], [place], [place], [id number], [place] tel:[phone] [facility] Colon polypsDivertic ulosis large intestine w/o perforation or abscess w/o bleedingHistor y of colon polypsBenign neoplasm of transverse colonBenign neoplasm of sigmoid colonDvrtclos of lg int w/o perforation or abscess w/o bleeding Bib Santos. [address] [place] [address], [id number], [place]. tel:[phone] Referring Provider: Referral Self. Offic/outpt E&m Estab Low-mod [facility] Dig[facility]ive [facility], [address] [address], [place], [place], [id number], [place] tel:[phone] [facility] GI Symptoms or Concerns (chief complaint) DiarrheaLower abdominal painFecal incontinenceDi etary counseling and surveillanceEs sential (primary) hypertension Bib Santos. [address] [place] [address], [id number], [place]. tel:[phone] Referring Provider: Gabriella Mariano MD S, [address] [place] [address], [address]. tel:[phone] [facility], [address] [address], [place], [id number], [place] tel:[phone] [facility] No Information Bib Santos. [address] [facility], [address], [id number], . tel:[phone] Referring Provider: Referral Self. Offic/outpt E&m New Mod-hi [facility], [address] [address], [place], [id number], [place] tel:[phone] [facility] GI Symptoms or Concerns (chief complaint) DiarrheaAbn X-ray GI TractDietary Surveil/counse lElev Bl Pres W/o HypertnDiarrhe a, unspecifiedAbn ormal findings on diagnostic imaging of other parts of digestive tractElevated blood-pressure reading, without diagnosis of hypertensionDi etary counseling and surveillance Bib Santos. [address], [id number], [place]. tel:[phone] Referring Provider: Gabriella Mariano MD S, [address] [place] [address], [address]. tel:[phone] Family History Family Member Type Diagnosis Age At Onset Son Problem (finding) alcoholism Daughter Problem (finding) diverticulitis of colon Brother Problem (finding) COPD Father Problem (finding) diverticulitis of colon Brother Problem (finding) coronary arterioscleros is Brother Problem (finding) Colon polyps Daughter Problem (finding) Factor V Brother Problem (finding) [place] Mother Problem (finding) gallbladder disease Father Problem (finding) Leukemia Brother Problem (finding) cancer of the esophagus Brother Problem (finding) alcoholism Immunizations Vaccine Date Status Comments SARS-COV-2 (COVID-19) vaccin e, mRNA, spike protein, LNP, preservative free, 30 mcg/0.3mL dose administered Note: [facility] bi-direct ional interface ; Source: Other Registry SARS-COV-2 (COVID-19) vaccin e, mRNA, spike protein, LNP, preservative free, 30 mcg/0.3mL dose administered Note: [facility] bi-direct ional interface ; Source: Other Registry influenza, high-dose seasona l, quadrivalent, .7mL dose, preservative free administered Note: [facility] bi-direct ional interface ; Source: Other Registry Seasonal, quadrivalent, recombinant, injectable influenza vaccine, preservative free administered Note: [facility] bi-direct ional interface ; Source: Other Registry Prevnar 13 administered Note: [facility] bi-d irectional interface ; Source: Other Registry Influenza administered Note: [facility] bi-d irectional interface ; Source: Other Registry influenza, high dose seasona l, preservative-free administered Note: [facility] bi-direct ional interface ; Source: Other Registry Pneumovax 23 administered Note: [facility] bi-d irectional interface ; Source: Other Registry Influenza virus vaccine, injectable, quadrivalent, split virus, preservative free, 3 years or older Fluarix Quad administered Source: Other Provid er Prevnar 13 administered Note: [facility] bi-d irectional interface ; Source: Other Registry influenza, high dose seasona l, preservative-free administered Note: [facility] bi-direct ional interface ; Source: Other Registry Pneumo (2 yrs or older)(PPV) administered Note: Invalid documented admin date was NULL/NULL/2013. ; Source: Other Provider Influenza virus vaccine, injectable, quadrivalent, split virus, preservative free, 3 years or older Fluarix Quad administered Note: Invalid docume nted admin date was NULL/NULL/2013. ; Source: Other Provider tetanus and diphtheria toxoi ds, adsorbed, preservative free, for adult use (2 Lf of tetanus toxoid and 2 Lf of diphtheria toxoid) administered Note: [facility] bi-direct ional interface ; Source: Other Registry Payers Payer name Insurance type Covered republican ID Authoriza tion(s) No Information Social History Type Description Quantity Date Captured Comments Alcohol Use Details Unknown Tejinder-13-2021 Caffeine Use Details Unknown Tobacco Use Status No Information Smoking Status No Information Sex Female Chief Complaint And Reason For Visit From encounter dated '02/18/2021 14:00'. GI Symptoms or Concerns (chief complaint). Description: New Patient Nutrition AssessmentAnthropometrics:no concerns notedOther Supplements:metamucil 2 tsp TIDFood and Exercise History:B: toast with decaf coffeeL: Meals on WheelsS: cookie or chipsD: sandwich or cottage cheese with fruitdrinks mostlywater, some Gatorade, some black or peppermint tea occasionallyEstimated Energy and Nutrition Needs:250-30 kcal/kgNutrition Diagnosis:Altered GI function related to dietary fiber intake as evidenced by resolution of diarrhea with fiber supplement. Nutrition Discussion and Education:I met with Meseret for a nutrition televisit. Meseret had diarrhea which resolved when she added Metamucil, but she continues to have bowel incontinence. She also tells me she urinary incontinence. Meseret has type 2 diabetesand is untreated for this. She relies on Meals on Wheels and does not cook or grocery shop for herself. Her diet is not particularly high in fermentable carbohydrates (FODMAP). She is not eating sugar -free candies, soda pop, or other common dietary triggers of diarrhea. She eats little fruit and vegetable and her diet is low fiber without the additional Metamucil. I discussed with Meseret that she can try bulking up her stools further with whole grains (oats, flax/monica, whole grain bread, Triscut crackers, etc), but it seems more likely this is incontinence is unrelated to food. I did give her the list of high FODMAP foods but strongly recommend she not worry herself over this and just use it to see if there is 1 or 2 foods which she eats regularly that she can adjust on her own. Meseret will plan to f/u with her primary care provider and/or GI provider. Reason For Referral Reason For Referral No Information Plan Of Treatment Date Type Action Status Goal Lifestyle education regardin g diet completed Goal Lifestyle education regardin g diet completed Referral Ordered: Xray Abdomen; Limited (AP View Only) (KUB) Appointment date/timeframe: 01/10/2021 ordered History Of Present Illness Encounter Date Complaint History Of Prese nt Illness GI Symptoms or Concerns New Babs ent Nutrition AssessmentAnthropometrics:no concerns notedOther Supplements:metamucil 2 tsp TIDFood and Exercise History:B: toast with decaf coffeeL: Meals on WheelsS: cookie or chipsD: sandwich or cottage cheese with fruitdrinks mostly water, some Gatorade, some black or peppermint tea occasionallyEstimated Energy and Nutrition Needs:250-30 kcal/kgNutrition Diagnosis:Altered GI function related to dietary fiber intake as evidenced by resolution of diarrhea with fiber supplement. Nutrition Discussion and Education:I met with Meseret for a nutrition televisit. Meseret had diarrhea which resolved when she added Metamucil, but she continues to have bowel incontinence. She also tells me she urinary incontinence. Meseret has type 2 diabetes and is untreated for this. She relies on Meals on Wheels and does not cook or grocery shop for herself. Her diet is not particularly high in fermentable carbohydrates (FODMAP). She is not eating sugar-free candies, soda pop, or other common dietary triggers of diarrhea. She eats little fruit and vegetable and her diet is low fiber without the additional Metamucil. I discussed with Meseret that she can try bulking up her stools further with whole grains (oats, flax/monica, whole grain bread, Triscut crackers, etc), but it seems more likely this is incontinence is unrelated to food. I did give her the list of high FODMAP foods but strongly recommend she not worry herself over this and just use it to see if there is 1 or 2 foods which she eats regularly that she can adjust on her own. Meseret will plan to f/u with her primary care provider and/or GI provider. GI Symptoms or Concerns Ms. Alex salas is an 85-year-old woman with a history of coronary artery disease, thyroid dysfunction, Factor V Leiden mutation (on Coumadin), chronic diarrhea, and anxiety/depression, who was seen in consultation at the request of Dr. Coni Mckeon for symptoms of diarrhea.Ms. Lakhani describes diarrhea that has been ongoing for at least 35 years. She describes intermittent symptoms which at the present time are occurring most days of the week, but not all days. She states that she often will start the morning with a normal stool, but then will have frequent bowel movements which become progressively more liquid. She can have up to 5 or 6 stools per day. Usually by early afternoon, her symptoms will have abated and she will have no bowel movements the rest of the day. She denies any blood in the stool. She does have some cramping pain with bowel movements, which does nick after passage of stool.She cannot identify any specific food triggers. She gets many of h GI Symptoms or Concerns The babs ent is a 79-year-old female with past medical history significant for CAD, thyroid disease, Factor V Leiden deficiency on Coumadin with a history of colon polyps seen in followup.She was initially seen in April at that time with her reported 50-year history of intermittent diarrhea and abdominal pain, also for further evaluation of CBD dilation noted on ultrasound.In regards to her diarrhea, she reports a 50-year history of intermittent diarrhea, worse over the last few years. When she was last seen, it was felt that symptoms were likely functional or due to irritable bowel. She does describe crampy abdominal pain, which occurs prior to an episode and tends to resolve following it. She had been treated with cholestyramine in the past, which seemed to help, but due to the inconvenience of taking this while on other medications, of late she has been more frequently relying on Imodium. When she was last seen, recommendation was made for gradual increase in fi GI Symptoms or Concerns The babs ent is a 79-year-old female with past medical history significant for CAD, thyroid disease, factor V Leiden deficiency, on Coumadin, seen for evaluation of a 50-year history of diarrhea and ductal dilation seen on ultrasound.The patient reports symptoms of intermittent diarrhea over the last 50 years; however, she indicates symptoms have worsened over the last few years. Overall, she is managing symptoms with Imodium; however, she tells me this has never been evaluated before.She reports a colonoscopy in 2012 in [place], polyps were found, a repeat colonoscopy was recommended in three years. The patient tells me she has had multiple previous colonoscopies always with polyps.She has had a recent ultrasound which revealed a normal gallbladder. No gallstones and a common bile duct, which was felt to be prominent at 7 mm. Recent labs have included normal LFTs with a normal albumin of 3.9, a normal CBC with a hemoglobin of 14. Recent C. diff testing record Functional Status Date Functional Assessmen t No Information Instructions Date Instruction Additional Infor norberto 1. Continue with Met amucil dose of 2 tsp three times a day2. Try whole grain breads, crackers, snacks for additional fiber3. Take a look at the list of high FODMAP foods to see if there is anything on there you eat regularly that you can take away for a couple days to see if bowels improve. 4. You are more likely to have success leaving the house if you time it around a time of day where you have not eaten for the previous few hours. Related to Fecal incontinence FODMAP diet Related to Fecal incontinence 1.) Symptoms are sug gestive of diverticulosis related overflow diarrhea.2.) I would recommend starting a daily fiber supplement such as Metamucil and continuing for at least 2-4 weeks to assess whether this provides benefit.3.) If on going troubles I would consider meeting with a claims collector to discuss whether food intolerances may be contributing. Related to Overflow diarrhea Colon Cancer Prevention Related to Colon polyps Colon Polyps Related to Colon polyps Diverticulosis/Diverticulitis Re lated to Colon polyps High Fiber Diet Related to Colon polyps 1. proceed with colo noscopy with biopsies as scheduled2. continue fiber and imodium3. pending response to fiber and results of colonoscopy consider referral to pelvic floor center4. MRCP results received just prior to patient leaving - reveals no bile duct dilation, no filling defects. no further eval of this needed Related to Fecal incontinence Lifestyle education regarding di et Related to Dietary counseling and surveillance 1. MRCP2. stool test s3. thyroid, celiac testing4. fiber5. imodium as needed6. 2 week trial dairy avoidance7. colonoscopy w/ random biopsies for eval diarrhea and polyp surveillance8. f/u 2 months - t/c referral to pelvic floor center if incontinence not controlled Related to Abn X-ray GI Tract Colonoscopy Lifestyle education regarding di et Related to Dietary surveillance and counseling MRCP Biliary/Pancrea tic Ducts WITHOUT And WITH Contrast Assessments Type Assessment Date assessment Fecal incontinence assessment Dietary counseling and surveilla nce Patient Care Teams Name Effective Dates (start - stop) Status Members No Information
== END 2023-01-29 07:00 | disposition home or self-care (01) ==
LOC: OP CLINIC 07:01
PROVIDERS: PCP Emergency Medicine; Visit Provider Internal Medicine
DX: Z12.11 Encounter for screening for malignant neoplasm of colon (principal); K63.5 Polyp of colon; K57.30 Diverticulosis of large intestine without perforation or abscess without bleeding; K64.8 Other hemorrhoids; Z86.010 Personal history of colon polyps; I85.00 Esophageal varices without bleeding; K31.7 Polyp of stomach and duodenum; K29.70 Gastritis, unspecified, without bleeding; D50.9 Iron deficiency anemia, unspecified
CPT/HCPCS: 43239; 45380; 88305; J2250; J3010

== ENCOUNTER 2023-02-05 11:00 | Emergency (ER) | payer MEDICARE, SELFPAY ==
[2023-02-05 11:15] VITALS: BP 205/80; PULSE 58; RESP 18; TEMP 36.8; O2SAT 92; BMI 27.9
--- NOTE | 2023-02-05 11:26 | ED_ITS ---
HPI - General Adult General Time Seen by Provider: 11:26 Date Seen: 02/05/23 Chief complaint: Lower Extremity Swelling Stated complaint: Possible Blood Clot Time Seen by Provider: 02/05/23 11:25 Source: patient and RN notes reviewed Mode of arrival: ambulatory Limitations: no limitations History of Present Illness HPI narrative: Patient is an 87-year-old female that is reporting concern of a blood clot in her left thigh. She has had a history of DVT and is positive for factor 5 Leiden heterozygous status. She is chronically anticoagulated but had to hold it for a week prior to a colonoscopy. She did just start her Coumadin back up this Wednesday, today is Wednesday. She has noted warm red tender area in the left medial thigh. She denies any shortness of breath, no chest pain, no symptoms of pulmonary embolus. She does not note any palpitations or sense of irregular or fast heart rate. No difficulty breathing. Her blood pressure was also quite elevated on arrival. She is having no end organ damage symptoms with this. She states she was post to see her primary doctor on January 26 for routine follow-up in get her medicines renewed. She could not go that day as she was starting the prep for the colonoscopy and did not feel well. She is not seen her until mid February now. She has been out of her metoprolol and lisinopril for about 3 weeks and states her blood pressure has been running elevated. She just got a refill of her amlodipine 5 mg and has been taking that. Confirmed with her that she takes amlodipine 5 mg daily which she has started back up. She is on lisinopril 40 mg daily and metoprolol tartrate 25 mg twice a day which she has been out of both of these for about 3 weeks. Related Data Home Medications Medication Instructions Recorded Confirmed coenzyme Q10 100 mg capsule 100 mg PO QDAY 12/22/22 01/08/23 (CoQ-10) Previous Rx's Medication Instructions Recorded omeprazole 40 mg capsule,delayed 40 mg PO QDAY #90 caps 04/15/22 release iron,carbonyl 65 mg-vitamin C 125 2 tab PO QDAY #60 tabs 06/29/22 mg tablet,delayed release (Vitron-C) warfarin 5 mg tablet 5 mg PO DIRECTED #30 tabs 12/23/22 lisinopril 40 mg tablet 40 mg PO DAILY #30 tabs 01/05/23 peg 3350-electrolytes 236 240 ml PO Q10M #4,000 mL 01/13/23 gram-22.74 gram-6.74 gram-5.86 gram solution (Golytely) peg 3350-electrolytes 236 240 ml PO ONCE #1 bottle 01/15/23 gram-22.74 gram-6.74 gram-5.86 gram solution (Golytely) amlodipine 5 mg tablet 5 mg PO DAILY #90 tabs 01/26/23 levothyroxine 100 mcg tablet 100 mcg PO DAILY #90 tabs 02/04/23 metoprolol tartrate 25 mg tablet 25 mg PO BID #180 tabs 02/04/23 rosuvastatin 10 mg tablet 10 mg PO DAILY #90 tabs 02/04/23 sertraline 100 mg tablet 100 mg PO DAILY #30 tabs 02/04/23 enoxaparin 80 mg/0.8 mL 70 mg (0.7 mL) subcut DAILY #8 mL 02/05/23 subcutaneous syringe (Lovenox) lisinopril 40 mg tablet 40 mg PO DAILY #30 tabs 02/05/23 metoprolol tartrate 25 mg tablet 25 mg PO BID #60 tabs 02/05/23 Allergies Allergy/AdvReac Type Severity Reaction Status Date / Time oxybutynin Allergy Unknown Rash Verified 02/05/23 11:18 Penicillins Allergy Verified 02/05/23 11:18 Review of Systems Status of ROS: Reports: 6 or more systems reviewed and unremarkable except as noted in History and below [facility] Medical History Schwannoma ?D36.10 - Benign neoplasm of peripheral nerves and autonomic nervous system, unspecified (ICD-10) Gait abnormality ?R26.9 - Unspecified abnormalities of gait and mobility (ICD-10) GERD (gastroesophageal reflux disease) ?K21.9 - Gastro-esophageal reflux disease without esophagitis (ICD-10) Sleep apnea (01/16/15) ?G47.30 - Sleep apnea, unspecified (ICD-10) Right trigeminal neuralgia ?G50.0 - Trigeminal neuralgia (ICD-10) Prediabetes ?R73.03 - Prediabetes (ICD-10) History of deep venous thrombosis ?Z86.718 - Personal history of other venous thrombosis and embolism (ICD-10) Gout ?M10.9 - Gout, unspecified (ICD-10) Encounter for follow-up ?Z09 - Encounter for follow-up examination after completed treatment for conditions other than malignant neoplasm (ICD-10) Diabetes mellitus ?E11.9 - Type 2 diabetes mellitus without complications (ICD-10) Chronic diarrhea ?K52.9 - Noninfective gastroenteritis and colitis, unspecified (ICD-10) Surgical History History of colonoscopy with polypectomy ?Z98.890 - Other specified postprocedural states (ICD-10) ?Z86.010 - Personal history of colonic polyps (ICD-10) Family History Brother Diabetes Aneurysm Stroke Rheumatoid arthritis Myocardial infarction Esophageal cancer Mother High blood pressure Father Leukemia Social History Narrative: Past problem- rib pain on left side Smoking Status: Never smoker Do you use any of these nicotine containing products: None Second hand tobacco smoke exposure: No How often do you have a drink containing alcohol: never AUDIT-C Alcohol total score: 0 Non-prescribed substance use: denies use service: No Exam Const: Vital Signs, click to edit/add: Vital Signs - 24 hr 02/05/23 11:15 Temperature 98.2 F Pulse Rate [Right Pulse Oximeter] 58 L Respiratory Rate 18 Blood Pressure [Ri ght Upper Arm] 205/80 H Pulse Oximetry 92 Oxygen Delivery Me thod Room Air Documenting provider has reviewed patient's vital signs: yes Common normals: no apparent distress, average body habitus, oriented x3, no limitations, healthy appearing, alert and well nourished General appearance: cooperative, comfortable, well kempt and well developed HENMT: Common normals: normocephalic, head/scalp atraumatic, hearing grossly normal bilaterally and external nose normal Head and scalp: normocephalic and atraumatic Face and sinus: normal facial exam Nose: external nose normal Eye: Common normals: PERRL, EOMs intact bilaterally, conjunctivae normal and no scleral icterus Conjunctiva: conjunctiva(e) normal Pupil: PERRL Neck & C-Spine: Common normals: full ROM, no lymphadenopathy, supple, no meningeal signs, no JVD and thyroid normal Thyroid: thyroid normal Resp: Common normals: normal respiratory effort, no retractions, no use of accessory muscles and clear to auscultation bilaterally Effort & inspection: able to speak in complete sentences Auscultation: clear to auscultation bilaterally Cardio: Common normals: no JVD, regular rate, regular rhythm, S1 normal heart sound, S2 normal heart sound, no gallops, no clicks and no murmurs Rate: regular rate Rhythm: regular rhythm Heart sounds: S1 normal and S2 normal Extremity: Other: Patient has mildly thickened lower extremities and chronic edema which she states is baseline. There is no calf tenderness. In her left medial thigh she has a superficial varicose vein with overlying erythema and tenderness, can feel palpable cord. Neuro: Common normals: oriented x3 Sensorium/orientation: alert Meningea l signs: no meningeal signs Psych: Appearance: well kempt Course Course Hospital Course: Patient has elevation of her blood pressure with underlying hypertension is been off medications. She also had a recent colonoscopy with underlying factor 5 Leiden status and had to go off Coumadin. She most definitely has a superficial thrombophlebitis in this left thigh, need to rule out underlying DVT. We will see with the extent of the clot burden is, may need to consider initiation of Lovenox until she is anticoagulated on Coumadin. Will be obtaining an INR and some basic labs including a basic metabolic panel and CBC today. I will be giving her 40 mg lisinopril and 25 mg oral metoprolol tartrate. She is asymptomatic as far as her hypertension but we certainly do not want her to be this elevated for long, systolic blood pressure is 200 today. She really needs to have her hypertension treated. Will make sure she has prescriptions for the lisinopril and metoprolol for 1 months time to cover her until she sees her primary care provider. Reevaluation(s) Time of Reevaluation #1: 13:13 Reevaluation #1: Have reviewed with patient that there is superficial thrombophlebitis but no evidence of DVT. Given her history of DVT and the active superficial thrombophlebitis, I would recommend doing Lovenox bridging. She has done that before and is in agreement. She understands inherent risk of bleeding with blood thinners. We have reviewed that she is to stay on the Lovenox until her INR is above 2. Will give 1st dose of Lovenox here in ED and have nursing staff review administration. Vital Signs Vital signs: Initial Vital Signs Temperature 98.2 F 02/05/23 11:15 Temperature Source Temporal Artery Scan 02/05/23 11:15 Pulse Rate 58 L 02/05/23 11:15 Pulse Rhythm Regular 02/05/23 11:15 Pulse Strength 3+ Normal 02/05/23 11:15 Respiratory Rate 18 02/05/23 11:15 Blood Pressure 205/80 H 02/05/23 11:15 Blood Pressure Mean 121 H 02/05/23 11:15 Pulse Oximetry 92 02/05/23 11:15 Oxygen Delivery Method Room Air 02/05/23 11:15 Vital Signs Temperature 98.2 F 02/05/23 11:15 Pulse Rate 58 L 02/05/23 11:15 Respiratory Rate 18 02/05/23 11:15 Blood Pressure 205/80 H 02/05/23 11:15 Pulse Oximetry 92 02/05/23 11:15 Oxygen Delivery Method Room Air 02/05/23 11:15 Temperature 98.2 F 02/05/23 11:15 Pulse Rate 58 L 02/05/23 11:15 Respiratory Rate 18 02/05/23 11:15 Blood Pressure 205/80 H 02/05/23 11:15 Pulse Oximetry 92 02/05/23 11:15 Oxygen Delivery Method Room Air 02/05/23 11:15 Medical Decision Making Lab Data Lab results reviewed: Yes I reviewed the patient's lab results Lab results narrative: Labs were reviewed with patient, she is aware her INR is 0.98 today. Labs: Lab Results 02/05/23 Range/Units 11:44 WBC 4.54 (4.50-11.00) K/uL RBC 4.57 (4.00-5.20) m/uL Hgb 12.9 (12.0-16.0) gm/dL Hct 41.1 (33.0-51.0) % MCV 90 (80-100) fL MCH 28 (26-34) pg MCHC 31 L (32-36) gm/dL RDW Coeff of Layo 17.2 H (11.5-15.5) % Plt Count 150 (140-440) K/uL Neut % (Auto) 81.5 H (42.0-72.0) % Lymph % (Auto) 8.6 L (20-44) % [place] % (Auto) 7.7 (0.0-11.0) % Eos % (Auto) 2.2 (0.0-7.0) % Baso % (Auto) 0.0 (0.0-3.0) % Neut # (Auto) 3.70 (1.7-7.0) K/uL Lymph # (Auto) 0.40 L (0.90-2.90) K/uL [place] # (Auto) 0.30 (0.00-0.90) K/UL Eos # (Auto) 0.10 (0.00-0.50) K/uL Baso # (Auto) 0.00 (0.00-0.30) K/uL INR 0.98 (0.91-1.10) Sodium 143 (135-149) mmol/L Potassium 3.9 (3.6-5.1) mmol/L Chloride 104 (96-114) mmol/L Carbon Dioxide 28 (20-32) mmol/L BUN 15 (7-30) mg/dL Creatinine 0.6 (0.5-1.5) mg/dL Estimated Creat Clear 34.02 Estimated GFR 88 ml/min Glucose 107 (60-115) mg/dL Calcium 9.9 (8.4-10.6) mg/dL Imaging Data Venous US: Attestation: I have reviewed the pertinent imaging results. Radiologist's impression: Patient: MANUEL AZUL Facility:?[facility] Patient ID:?[id number] Site Patient ID:?[id number]. Site :?[id number] Study:?US Extremity Left LEV LT-02/05/2023 12:25:15 PM Ordering Physician:Wilian Quiroz Final Report: INDICATION: Leg pain and swelling. TECHNIQUE: Ultrasound venous duplex lower left extremity. Compression venous exam was performed using gonzalez-scale, color Doppler, and spectral Doppler analysis. COMPARISON: None. FINDINGS: Deep veins: Sonographic imaging demonstrates the left common femoral, deep femoral, superficial femoral, popliteal, posterior tibial and the contralateral right common femoral veins to be fully compressible with normal color Doppler blood flow. Superficial veins: Greater saphenous vein is fully compressible proximally but demonstrates likely compressibility in the midportion, with intraluminal heterogeneous material... No popliteal cyst. IMPRESSION: No DVT in the left lower extremity. Superficial thrombus in the mid greater saphenous vein. Dictated by Víctor Contreras MD @ 02/05/2023 1:06:48 PM (Electronic Signature) Note per circulation librarian, thrombus in the superficial vein is greater than 8 cm from deep system. Discharge Plan Discharge Clinical Impression: Superficial thrombophlebitis, Factor 5 Leiden mutation, heterozygous, Hypertension Patient Disposition: Home, Self-Care Condition: Stable Instructions: Superficial Thrombophlebitis (ED), Hypertension (ED) Additional Instructions: Is very important to take the Lovenox twice daily as prescribed until your INR is above 2. Contact your primary care provider if there is any questions or concerns about her anticoagulation dosing or if there is questions on your Coumadin dose. Keep your scheduled appointment coming up in February, be seen sooner if you have concerns or issues. I have sent refills for 1 month for the lisinopril and metoprolol. It is extremely important that her blood pressure be adequately managed and you should not be off antihypertensives. Activity Level: Activity as Tolerated Discharge Diet: Heart Healthy (2 gm sodium, low fat) Prescriptions: New enoxaparin [Lovenox] 80 mg/0.8 mL syringe 70 mg subcut DAILY Qty: 8 1RF Rx Instructions: will need to be on until INR is above 2. metoprolol tartrate 25 mg tablet 25 mg PO BID Qty: 60 2RF lisinopril 40 mg tablet 40 mg PO DAILY Qty: 30 0RF No Action coenzyme Q10 [CoQ-10] 100 mg capsule 100 mg PO QDAY Vitron-C 65 mg iron- 125 mg tablet,delayed release (DR/EC) 2 tab PO QDAY Qty: 60 6RF omeprazole 40 mg capsule,delayed release(DR/EC) 40 mg PO QDAY Qty: 90 3RF warfarin 5 mg tablet 5 mg PO DIRECTED Qty: 30 0RF Protocol: Dose Management Condition: Wednesday Dose/Route: 0 mg Instruction: 0 tablets Condition: Wednesday Dose/Route: 0 mg Instruction: 0 tablets Condition: Wednesday Dose/Route: 0 mg Instruction: 0 tablets Condition: Wednesday Dose/Route: 7.5 mg Instruction: 1.5 x 5 mg tablets Condition: Dose/Route: 5 mg Instruction: 1 x 5 mg tablet Condition: Wednesday Dose/Route: 5 mg Instruction: 1 x 5 mg tablet Condition: Wednesday Dose/Route: 5 mg Instruction: 1 x 5 mg tablet Protocol Text: Adjustment Start Date: Wednesday02/03/23 INR Value: 1.0 INR Date: 02/03/23 Recheck Date: 02/10/23 lisinopril 40 mg tablet 40 mg PO DAILY Qty: 30 0RF peg 3350-electrolytes [Golytely] 236-22.74-6.74 -5.86 gram recon soln 240 ml PO Q10M Qty: 4000 0RF Rx Instructions: until fecal effluent is clear peg 3350-electrolytes [Golytely] 236-22.74-6.74 -5.86 gram recon soln 240 ml PO ONCE Qty: 1 0RF Rx Instructions: 4pm day prior to procedure. Drink 8oz glass every 15 minutes until 1/2 of solution is gone. 6 hours prior to procedure drink 8 oz glass every 15 minutes until remaining solution gone. amlodipine 5 mg tablet 5 mg PO DAILY Qty: 90 0RF metoprolol tartrate 25 mg tablet 25 mg PO BID Qty: 180 0RF levothyroxine 100 mcg tablet 100 mcg PO DAILY Qty: 90 0RF rosuvastatin 10 mg tablet 10 mg PO DAILY Qty: 90 0RF sertraline 100 mg tablet 100 mg PO DAILY Qty: 30 0RF Follow Up/Referrals: Coni Mckeon MD [Primary Care Provider] - Stand Alone Forms: [employer] Info Instructions
--- NOTE | 2023-02-05 11:32 | CRLHL7_ITS ---
For Patients: As a result of the Century Cures Act, medical imaging exams and procedure reports are released immediately into your electronic medical record. You may view this report before your referring provider. If you have questions, please contact your health care provider. INDICATION: Leg pain and swelling. TECHNIQUE: Ultrasound venous duplex lower left extremity. Compression venous exam was performed using gonzalez-scale, color Doppler, and spectral Doppler analysis. COMPARISON: None. FINDINGS: Deep veins: Sonographic imaging demonstrates the left common femoral, deep femoral, superficial femoral, popliteal, posterior tibial and the contralateral right common femoral veins to be fully compressible with normal color Doppler blood flow. Superficial veins: Greater saphenous vein is fully compressible proximally but demonstrates likely compressibility in the midportion, with intraluminal heterogeneous material... No popliteal cyst. IMPRESSION: No DVT in the left lower extremity. Superficial thrombus in the mid greater saphenous vein. Dictated by Víctor Contreras MD @ 02/05/2023 1:06:48 PM (Electronically Signed)
[2023-02-05] MEDS: lisinopriL 20 MG TABLET 40 MG PO (11:40)
[2023-02-05] MEDS: METOPROLOL TARTRATE 25 MG TABLET PO (11:40)
[2023-02-05 11:52] LABS: Eosinophils Percent Auto 2.2 % (0.0-7.0); Hematocrit 41.1 % (33.0-51.0); Hemoglobin* 12.9 gm/dL (12.0-16.0); Lymphocytes Percent Auto 8.6 % (20-44); Mean Corpuscular HGB Conc 31 gm/dL (32-36); Mean Corpuscular Hemoglobin 28 pg (26-34); Mean Corpuscular Volume 90 fL (80-100); Monocytes Percent Auto 7.7 % (0.0-11.0); Neutrophils Percent Auto 81.5 % (42.0-72.0); RDW Coefficient of Variation % 17.2 % (11.5-15.5); Red Blood Count 4.57 m/uL (4.00-5.20); White Blood Count* 4.54 K/uL (4.50-11.00)
[2023-02-05 12:06] LABS: Chloride* 104 mmol/L (96-114); Potassium* 3.9 mmol/L (3.6-5.1); Sodium* 143 mmol/L (135-149)
[2023-02-05 12:09] LABS: Carbon Dioxide* 28 mmol/L (20-32); Creatinine* 0.6 mg/dL (0.5-1.5); Est. Creatinine Clearance* 34.02; Estimated Glomerular Filt Rate 88 ml/min; INR 0.98 (0.91-1.10); Platelet Count* 150 K/uL (140-440); Prothrombin Time 13.6 Seconds; Slide Review Reflex No
[2023-02-05 12:10] LABS: Blood Urea Nitrogen* 15 mg/dL (7-30); Calcium* 9.9 mg/dL (8.4-10.6); Glucose* 107 mg/dL (60-115)
== END 2023-02-05 13:50 | disposition home or self-care (01) ==
PROVIDERS: Emergency Provider Family Medicine; PCP Emergency Medicine
DX: I80.00 Phlebitis and thrombophlebitis of superficial vessels of unspecified lower extremity (principal); D68.51 Activated protein C resistance; I10 Essential (primary) hypertension
CPT/HCPCS: 36415; 80048; 85025; 85610; 93971; 99284; A9270

== ENCOUNTER 2023-02-07 20:39 | Emergency (ER) | payer MEDICARE, SELFPAY ==
[2023-02-07 20:48] VITALS: BP 177/75; PULSE 57; RESP 16; TEMP 36.3; O2SAT 92; BMI 28.3
--- NOTE | 2023-02-07 20:49 | CRLHL7_ITS ---
For Patients: As a result of the Century Cures Act, medical imaging exams and procedure reports are released immediately into your electronic medical record. You may view this report before your referring provider. If you have questions, please contact your health care provider. INDICATION: Fall occipital impact. TECHNIQUE: Head CT without contrast. COMPARISON: None. FINDINGS: Periventricular areas of low attenuation, likely due to chronic small vessel ischemic changes. Generalized volume loss. Atherosclerosis. No intracranial hemorrhage. No discrete mass or mass effect. There is no midline shift. The basilar cisterns are patent. No hydrocephalus. The gonzalez-white matter interface is otherwise preserved. No acute osseous abnormality. No extracalvarial soft tissue abnormality. The mastoid air cells are clear. The paranasal sinuses are well-aerated. The visualized portions of the orbits and globes are unremarkable. IMPRESSION: No acute intracranial process per unenhanced head CT. Please note that all CT scans at this facility use dose modulation, iterative reconstruction, and/or weight-based dosing when appropriate to reduce radiation dose to as low as reasonably achievable. Dictated by Patricio Dominique MD @ 02/07/2023 10:02:51 PM (Electronically Signed)
--- NOTE | 2023-02-07 20:55 | ED.NURSE ---
MD rodriguez cleared spine, removed c-collar that pt arrived in via ems.
--- NOTE | 2023-02-07 20:56 | CRLHL7_ITS ---
For Patients: As a result of the Century Cures Act, medical imaging exams and procedure reports are released immediately into your electronic medical record. You may view this report before your referring provider. If you have questions, please contact your health care provider. INDICATION: Fall, fall on outstretched hand, wrist injury TECHNIQUE: Wrist radiograph 4 views left COMPARISON: None FINDINGS: Bone: There is a comminuted intra-articular fracture of the distal radius present with dorsal angulation of the distal radial articular surface by 22 degrees. An impacted comminuted fracture of the distal fibula is noted. Severe diffuse osteopenia is present. Joint: The radiocarpal, carpal, and carpometacarpal joints are unremarkable in appearance. Soft tissue: Mild diffuse soft tissue swelling is noted over the distal wrist. No radiopaque foreign bodies are seen. IMPRESSION: 1. There is a comminuted intra-articular fracture of the distal radius present with dorsal angulation of the distal radial articular surface by 22 degrees. An impacted comminuted fracture of the distal fibula is noted. Dictated by Jeffery Wheeler MD @ 02/07/2023 9:58:44 PM Dictated by: Jeffery Wheeler MD @ 02/07/2023 21:58:47 (Electronically Signed)
--- NOTE | 2023-02-07 20:57 | CRLHL7_ITS ---
For Patients: As a result of the Cures Act, medical imaging exams and procedure reports are released immediately into your electronic medical record. You may view this report before your referring provider. If you have questions, please contact your health care provider. INDICATION: .fall; impact occipital TECHNIQUE: CT cervical spine without contrast. COMPARISON: None. FINDINGS: No acute fracture. No listhesis. Bony mineralization is age appropriate. No prevertebral soft tissue hematoma or swelling. No soft tissue abnormality is identified. Multilevel spondylosis. No pathologically enlarged lymph nodes. Atrophic versus resected thyroid. Lung apices are clear. IMPRESSION: Unremarkable cervical spine CT. Please note that all CT scans at this facility use dose modulation, iterative reconstruction, and/or weight-based dosing when appropriate to reduce radiation dose to as low as reasonably achievable. Dictated by Patricio Dominique MD @ 02/07/2023 10:07:43 PM (Electronically Signed)
[2023-02-07] MEDS: ACETAMINOPHEN 500 MG TABLET 1000 MG PO (21:03)
[2023-02-07] MEDS: MORPHINE 2 MG/ML inj IVP (21:04)
--- NOTE | 2023-02-07 21:29 | ED_ITS ---
HPI - Fall General Date Seen: 02/07/23 Chief Complaint: Fall/Minor Trauma Stated Complaint: fall Time Seen by Provider: 02/07/23 20:40 Source: patient and EMS Mode of arrival: EMS Limitations: no limitations History of Present Illness HPI Narrative: Patient is delightful 87-year-old female presents here after a fall at home, she slipped and tripped, landed with a FOOSH type mechanism, with her left hand back, she was seen by EMS, and brought in, as she is on anticoagulants, she did hit the back of her head. There is no loss of conscious, she did not see stars, and denies a headache currently and only has mild neck discomfort. She denies any numbness tingling weakness, but she does seem to think she broke her left wrist which they have splinted. She has had previous falls and did break her left hip with 1 of these, and was fixed by from Orthopedics. She did not take anything for pain, but she was given intranasal fentanyl in the ambulance. MD complaint: fall Fall from: standing Place fall occurred: home Loss of consciousness: No Prolonged down time: no Symptoms prior to fall: none Context: tripped/slipped Related Data Home Medications Medication Instructions Recorded Confirmed coenzyme Q10 100 mg capsule 100 mg PO QDAY 12/22/22 02/07/23 (CoQ-10) Previous Rx's Medication Instructions Recorded omeprazole 40 mg capsule,delayed 40 mg PO QDAY #90 caps 04/15/22 release iron,carbonyl 65 mg-vitamin C 125 2 tab PO QDAY #60 tabs 06/29/22 mg tablet,delayed release (Vitron-C) warfarin 5 mg tablet 5 mg PO DIRECTED #30 tabs 12/23/22 lisinopril 40 mg tablet 40 mg PO DAILY #30 tabs 01/05/23 peg 3350-electrolytes 236 240 ml PO Q10M #4,000 mL 01/13/23 gram-22.74 gram-6.74 gram-5.86 gram solution (Golytely) peg 3350-electrolytes 236 240 ml PO ONCE #1 bottle 01/15/23 gram-22.74 gram-6.74 gram-5.86 gram solution (Golytely) amlodipine 5 mg tablet 5 mg PO DAILY #90 tabs 01/26/23 levothyroxine 100 mcg tablet 100 mcg PO DAILY #90 tabs 02/04/23 metoprolol tartrate 25 mg tablet 25 mg PO BID #180 tabs 02/04/23 rosuvastatin 10 mg tablet 10 mg PO DAILY #90 tabs 02/04/23 sertraline 100 mg tablet 100 mg PO DAILY #30 tabs 02/04/23 enoxaparin 80 mg/0.8 mL 70 mg (0.7 mL) subcut DAILY #8 mL 02/05/23 subcutaneous syringe (Lovenox) lisinopril 40 mg tablet 40 mg PO DAILY #30 tabs 02/05/23 metoprolol tartrate 25 mg tablet 25 mg PO BID #60 tabs 02/05/23 Allergies Allergy/AdvReac Type Severity Reaction Status Date / Time oxybutynin Allergy Unknown Rash Verified 02/05/23 11:18 Penicillins Allergy Verified 02/05/23 11:18 Review of Systems Status of ROS: Reports: 10 or more systems reviewed and unremarkable except as noted in History and below [facility] Medical History Schwannoma ?D36.10 - Benign neoplasm of peripheral nerves and autonomic nervous system, unspecified (ICD-10) Gait abnormality ?R26.9 - Unspecified abnormalities of gait and mobility (ICD-10) GERD (gastroesophageal reflux disease) ?K21.9 - Gastro-esophageal reflux disease without esophagitis (ICD-10) Sleep apnea (01/16/15) ?G47.30 - Sleep apnea, unspecified (ICD-10) Right trigeminal neuralgia ?G50.0 - Trigeminal neuralgia (ICD-10) Prediabetes ?R73.03 - Prediabetes (ICD-10) History of deep venous thrombosis ?Z86.718 - Personal history of other venous thrombosis and embolism (ICD-10) Gout ?M10.9 - Gout, unspecified (ICD-10) Encounter for follow-up ?Z09 - Encounter for follow-up examination after completed treatment for conditions other than malignant neoplasm (ICD-10) Diabetes mellitus ?E11.9 - Type 2 diabetes mellitus without complications (ICD-10) Chronic diarrhea ?K52.9 - Noninfective gastroenteritis and colitis, unspecified (ICD-10) Surgical History History of colonoscopy with polypectomy ?Z98.890 - Other specified postprocedural states (ICD-10) ?Z86.010 - Personal history of colonic polyps (ICD-10) Family History Brother Diabetes Aneurysm Stroke Rheumatoid arthritis Myocardial infarction Esophageal cancer Mother High blood pressure Father Leukemia Social History Narrative: Past problem- rib pain on left side Smoking Status: Never smoker Do you use any of these nicotine containing products: None Second hand tobacco smoke exposure: No How often do you have a drink containing alcohol: never AUDIT-C Alcohol total score: 0 Non-prescribed substance use: denies use service: No Exam Narrative: Exam Narrative: Patient is seen in room 5 she is in no apparent distress she is delightful she is wearing a C-collar her pupils are equal round reactive to light there is no scleral icterus redness or TMs are normal oropharynx is normal, she has a little bit of bruising over her back of her head. Over the occiput. Neck moves for full range of motion, no tenderness to palpation over the midline, chest is good air entry bilaterally no wheezing crackles noted, heart sounds are normal. No clicks murmurs or gallops her abdomen is soft, there is no guarding no organomegaly no tenderness is noted. Pelvis is normal stable to rocking, she is able lift both of her hips bile laterally normally, with normal external and internal rotation. Her left wrist is splinted with an obvious deformity characteristic of a distal radial (Colles ) fracture. Left disk operator strength moves her fingers through full range of motion, saw a fair bit of bruising is noted around the fracture site, she has normal sensation, normal radial pulse, normal cap refill. Elbow has normal range of motion of flexion extension she has a little bit limited on pronation supination but the pain is she localizes and not in her elbow but in her distal radius. Her humerus is nontender, and she is able movement internal external rotation is normal. Const: Vital Signs, click to edit/add: Vital Signs - 24 hr 02/07/23 20:48 02/07/23 22:19 Temperature 97.3 F L Pulse Rate [Left P ulse Oximeter] 57 L 56 L Respiratory Rate 16 18 Blood Pressure [Ri ght Upper Arm] 177/75 H 173/90 H Pulse Oximetry 92 95 Oxygen Delivery Me thod Room Air Room Air Oxygen Flow Rate 2 Documenting provider has reviewed patient's vital signs: yes Course Course Hospital Course: Patient's head CT was negative, neck CT was negative she did have a head distal comminuted and angulated radial fracture, I discussed with the patient that we should try to reduce this, she agreed to this I went over the risks benefits and side effects, she has signed the consent form. Fentanyl was used for some sedation, 50 mcg, further bolstered with 25 mcg, 10 mL of 1% lidocaine was used, in a hematoma block of the distal radius, dorsal approach was used, which is standard, no complications, estimated blood loss 1 mL. With the minimal pain I was able to reduce the fracture, to near anatomic alignment. Hopefully without will hold, in follow-up she is AP posterior splint was placed, sling was given. Acetaminophen for the discomfort Vital Signs Vital signs: Initial Vital Signs Temperature 97.3 F L 02/07/23 20:48 Temperature Source Temporal Artery Scan 02/07/23 20:48 Pulse Rate 57 L 02/07/23 20:48 Respiratory Rate 16 02/07/23 20:48 Blood Pressure 177/75 H 02/07/23 20:48 Blood Pressure Mean 109 H 02/07/23 20:48 Blood Pressure Position Sitting 02/07/23 20:48 Pulse Oximetry 92 02/07/23 20:48 Oxygen Delivery Method Room Air 02/07/23 20:48 Vital Signs Temperature 97.3 F L 02/07/23 20:48 Pulse Rate 57 L 02/07/23 20:48 Respiratory Rate 16 02/07/23 20:48 Blood Pressure 177/75 H 02/07/23 20:48 Pulse Oximetry 92 02/07/23 20:48 Oxygen Delivery Method Room Air 02/07/23 20:48 Temperature 97.3 F L 02/07/23 20:48 Pulse Rate 56 L 02/07/23 22:19 Respiratory Rate 18 02/07/23 22:19 Blood Pressure 173/90 H 02/07/23 22:19 Pulse Oximetry 95 02/07/23 22:19 Oxygen Delivery Method Room Air 02/07/23 22:19 Oxygen Flow Rate 2 02/07/23 22:19 MDM - Fall MDM Narrative Medical decision making narrative: Life-threatening differential diagnosis is considered include: Subarachnoid hemorrhage, subdural hemorrhage, epidural hemorrhage. Other differential diagnosis considered include concussion, closed head injury, or neck fracture. Differential diagnosis includes but is not limited to arthritis, fracture, spinal stenosis, sprain, and strain. This includes the life-threatening complications of fractures. Medical Records Attestation: I reviewed the patient's medical records. Lab Data Attestation: I reviewed the patient's lab results. Imaging Data CT scan - head: Radiologist's impression: Patient: MANUEL AZUL Facility:?[facility] Patient ID:?[id number] Site Patient ID:?[id number]. Site :?1935 Study:?CT Head without contrast-02/07/2023 9:49:13 PM Ordering Physician:Gustabo Seth Final Report: INDICATION: Fall occipital impact. TECHNIQUE: Head CT without contrast. COMPARISON: None. FINDINGS: Periventricular areas of low attenuation, likely due to chronic small vessel ischemic changes. Generalized volume loss. Atherosclerosis. No intracranial hemorrhage. No discrete mass or mass effect. There is no midline shift. The basilar cisterns are patent. No hydrocephalus. The gonzalez-white matter interface is otherwise preserved. No acute osseous abnormality. No extracalvarial soft tissue abnormality. The mastoid air cells are clear. The paranasal sinuses are well-aerated. The visualized portions of the orbits and globes are unremarkable. IMPRESSION: No acute intracranial process per unenhanced head CT. Please note that all CT scans at this facility use dose modulation, iterative reconstruction, and/or weight-based dosing when appropriate to reduce radiation dose to as low as reasonably achievable. Dictated by Patricio Dominique MD @ 02/07/2023 10:02:51 PM\ Patient: MANUEL AZUL Facility:?[facility] Patient ID:?[id number] Site Patient ID:?[id number]. Site :?1935 Study:?XRay Extremity Left wrist-02/07/2023 9:50:05 PM Ordering Physician:Gustabo Seth Final Report: INDICATION: Fall, fall on outstretched hand, wrist injury TECHNIQUE: Wrist radiograph 4 views left COMPARISON: None FINDINGS: Bone: There is a comminuted intra-articular fracture of the distal radius present with dorsal angulation of the distal radial articular surface by 22 deg angel luis. An impacted comminuted fracture of the distal fibula is noted. Severe diffuse osteopenia is present. Joint: The radiocarpal, carpal, and carpometacarpal joints are unremarkable in appearance. Soft tissue: Mild diffuse soft tissue swelling is noted over the distal wrist. No radiopaque foreign bodies are seen. IMPRESSION: 1. There is a comminuted intra-articular fracture of the distal radius present with dorsal angulation of the distal radial articular surface by 22 degrees. An impacted comminuted fracture of the distal fibula is noted. Dictated by Jeffery Wheeler MD @ 02/07/2023 9:58:44 PM Dictated by: Jeffery Wheeler MD @ 02/07/2023 21:58:47 (Electronic Signature) Patient: MANUEL AZUL Facility:?[facility] Patient ID:?[id number] Site Patient ID:?[id number]. Site :?1935 Study:?CT Spine Cervical WITHOUT CONTRAST-02/07/2023 9:51:09 PM Ordering Physician:Gustabo Seth Final Report: INDICATION: .fall; impact occipital TECHNIQUE: CT cervical spine without contrast. COMPARISON: None. FINDINGS: No acute fracture. No listhesis. Bony mineralization is age appropriate. No prevertebral soft tissue hematoma or swelling. No soft tissue abnormality is identified. Multilevel spondylosis. No pathologically enlarged lymph nodes. Atrophic versus resected thyroid. Lung apices are clear. IMPRESSION: Unremarkable cervical spine CT. Please note that all CT scans at this facility use dose modulation, iterative reconstruction, and/or weight-based dosing when appropriate to reduce radiation dose to as low as reasonably achievable. Dictated by Patricio Dominique MD @ 02/07/2023 10:07:43 PM (Electronic Signature) Patient: MANUEL AZUL Facility:?[facility] Patient ID:?[id number] Site Patient ID:?[id number]. Site :?1935 Study:?CT Spine Cervical WITHOUT CONTRAST-02/07/2023 9:51:09 PM Ordering Physician:Gustabo Seth Final Report: INDICATION: .fall; impact occipital TECHNIQUE: CT cervical spine without contrast. COMPARISON: None. FINDINGS: No acute fracture. No listhesis. Bony mineralization is age appropriate. No prevertebral soft tissue hematoma or swelling. No soft tissue abnormality is identified. Multilevel spondylosis. No pathologically enlarged lymph nodes. Atrophic versus resected thyroid. Lung apices are clear. IMPRESSION: Unremarkable cervical spine CT. Please note that all CT scans at this facility use dose modulation, iterative reconstruction, and/or weight-based dosing when appropriate to reduce radiation dose to as low as reasonably achievable. Dictated by Patricio Dominique MD @ 02/07/2023 10:07:43 PM (Electronic Signature) atient: [facility] Facility:?[facility] Patient ID:?[id number] Site Patient ID:?[id number]. Site :?1935 Study:?XRay Extremity Left wrist= post reduction-02/07/2023 11:09:59 PM Ordering Physician:Gustabo Seth Final Report: INDICATION: Reduction, compare to left wrist same day, injury, post reduction TECHNIQUE: Wrist radiograph 4 views left COMPARISON: 02/07/2023 FINDINGS: Bone: The comminuted fracture of the distal radius has been reduced in neutral alignment but there is persistent dorsal displacement by 7 mm. The ulnar fracture has been reduced to neutral alignment. Severe diffuse osteopenia is present. Joint: The radiocarpal, carpal, and carpometacarpal joints are unremarkable in appearance. Soft tissue: Moderate soft tissue swelling is noted. No radiopaque foreign bodies are seen. IMPRESSIONS: 1. The comminuted fracture of the distal radius has been reduced in neutral alignment but there is persistent dorsal displacement by 7 mm. 2. The ulnar fracture has been reduced to neutral alignment. Dictated by Jeffery Wheeler MD @ 02/07/2023 11:21:42 PM Dictated by: Jeffery Wheeler MD @ 02/07/2023 23:21:47 (Electronic Signature) Discharge Plan Discharge Clinical Impression: Fall, Anticoagulation monitoring, INR range 2-3, Head injury, Colles' fracture of left radius Patient Disposition: Home w/ Parent or Adult Condition: Stable Instructions: Arm Fracture in Adults (DC), Fall Prevention for Older Adults (ED), Head Injury (ED), Fall Prevention (ED), Venous Thromboembolism (ED), Safe Use of Anticoagulants (ED) Additional Instructions: Home rest use of acetaminophen for pain. Recommend follow-up this week with Orthopedics we will make you an appointment, return if increasing nausea vomiting weakness, falls, or other issues. We will tell your INR level before you leave. Prescriptions: No Action coenzyme Q10 [CoQ-10] 100 mg capsule 100 mg PO QDAY Vitron-C 65 mg iron- 125 mg tablet,delayed release (DR/EC) 2 tab PO QDAY Qty: 60 6RF enoxaparin [Lovenox] 80 mg/0.8 mL syringe 70 mg subcut DAILY Qty: 8 1RF Rx Instructions: will need to be on until INR is above 2. metoprolol tartrate 25 mg tablet 25 mg PO BID Qty: 60 2RF lisinopril 40 mg tablet 40 mg PO DAILY Qty: 30 0RF omeprazole 40 mg capsule,delayed release(DR/EC) 40 mg PO QDAY Qty: 90 3RF warfarin 5 mg tablet 5 mg PO DIRECTED Qty: 30 0RF Protocol: Dose Management Condition: Wednesday Dose/Route: 0 mg Instruction: 0 tablets Condition: Wednesday Dose/Route: 0 mg Instruction: 0 tablets Condition: Wednesday Dose/Route: 0 mg Instruction: 0 tablets Condition: Wednesday Dose/Route: 7.5 mg Instruction: 1.5 x 5 mg tablets Condition: Dose/Route: 5 mg Instruction: 1 x 5 mg tablet Condition: Wednesday Dose/Route: 5 mg Instruction: 1 x 5 mg tablet Condition: Wednesday Dose/Route: 5 mg Instruction: 1 x 5 mg tablet Protocol Text: Adjustment Start Date: Wednesday02/03/23 INR Value: 1.0 INR Date: 02/03/23 Recheck Date: 02/10/23 lisinopril 40 mg tablet 40 mg PO DAILY Qty: 30 0RF peg 3350-electrolytes [Golytely] 236-22.74-6.74 -5.86 gram recon soln 240 ml PO Q10M Qty: 4000 0RF Rx Instructions: until fecal effluent is clear peg 3350-electrolytes [Golytely] 236-22.74-6.74 -5.86 gram recon soln 240 ml PO ONCE Qty: 1 0RF Rx Instructions: 4pm day prior to procedure. Drink 8oz glass every 15 minutes until 1/2 of solution is gone. 6 hours prior to procedure drink 8 oz glass every 15 minutes until remaining solution gone. amlodipine 5 mg tablet 5 mg PO DAILY Qty: 90 0RF metoprolol tartrate 25 mg tablet 25 mg PO BID Qty: 180 0RF levothyroxine 100 mcg tablet 100 mcg PO DAILY Qty: 90 0RF rosuvastatin 10 mg tablet 10 mg PO DAILY Qty: 90 0RF sertraline 100 mg tablet 100 mg PO DAILY Qty: 30 0RF Follow Up/Referrals: Coni Mckeon MD [Primary Care Provider] - Stand Alone Forms: FND Info Instructions
[2023-02-07] MEDS: fentaNYL 100 MCG/2 ML inj 50 MCG IVP (22:10)
[2023-02-07 22:19] VITALS: BP 173/90; PULSE 56; RESP 18; O2SAT 95
--- NOTE | 2023-02-07 22:19 | CRLHL7_ITS ---
For Patients: As a result of the Century Cures Act, medical imaging exams and procedure reports are released immediately into your electronic medical record. You may view this report before your referring provider. If you have questions, please contact your health care provider. INDICATION: Reduction, compare to left wrist same day, injury, post reduction TECHNIQUE: Wrist radiograph 4 views left COMPARISON: 02/07/2023 FINDINGS: Bone: The comminuted fracture of the distal radius has been reduced in neutral alignment but there is persistent dorsal displacement by 7 mm. The ulnar fracture has been reduced to neutral alignment. Severe diffuse osteopenia is present. Joint: The radiocarpal, carpal, and carpometacarpal joints are unremarkable in appearance. Soft tissue: Moderate soft tissue swelling is noted. No radiopaque foreign bodies are seen. IMPRESSIONS: 1. The comminuted fracture of the distal radius has been reduced in neutral alignment but there is persistent dorsal displacement by 7 mm. 2. The ulnar fracture has been reduced to neutral alignment. Dictated by Jeffery Wheeler MD @ 02/07/2023 11:21:42 PM Dictated by: Jeffery Wheeler MD @ 02/07/2023 23:21:47 (Electronically Signed)
--- OUTSIDE RECORDS SUMMARY | 2023-02-07 22:29 | XMS_ITS | Continuity of Care Document ---
Author Name Unknown Organization [facility] Address [address] [address] [place] [address] Phone Care Team Providers Care Mechatronics Technician Name Role Phone Jeni Carey RD Unavailable [...] Encounter [facility]IO [facility] [address] [address], [place], [place], [id number], [place] tel:[phone] [facility] GI Symptoms or Concerns (chief complaint) Fecal incontinenceDi etary counseling and surveillance 1 Cherry Ngo. [address], [id number], [place]. tel:[phone] Referring Provider: Referral Self. [facility] ULLOA [address] [address], [place], [id number], [place] tel:[phone] [facility] Irregular bowel habits 1 Chito Adamson. [address], [id number], [place]. tel:[phone] Telephone E&M II 11-20 Min FATOU [facility], [address] [address], [place], [place], [id number], [place] tel:[phone] [facility] GI Symptoms or Concerns (chief complaint) Overflow diarrhea Chito Adamson. [address] [place] [address], [id number], [place]. tel:[phone] Referring Provider: Coni Mckeon MD, [address] [place] [address], [address]. tel:[phone] [facility] Digestive [facility], [address] [address], [place], [place], [id number], [place] tel:[phone] No Information No Information Referring Provider: Coni Mckeon MD, [address] [place] [address], [address]. tel:[phone] [facility], [address] [address], [place], [place], [id number], [place] tel:[phone] [facility] Colon polypsDivertic ulosis large intestine w/o perforation or abscess w/o bleedingHistor y of colon polypsBenign neoplasm of transverse colonBenign neoplasm of sigmoid colonDvrtclos of lg int w/o perforation or abscess w/o bleeding Bib Santos. [address] [place] [address], [id number], [place]. tel:[phone] Referring Provider: Referral Self. Offic/outpt E&m Estab Low-mod [facility] Digestive [facility], [address] [address], [place], [place], [id number], [place] tel:[phone] [facility] GI Symptoms or Concerns (chief complaint) DiarrheaLower abdominal painFecal incontinenceDi etary counseling and surveillanceEs sential (primary) hypertension Bib Santos. [address] [place] [address], [id number], [place]. tel:[phone] Referring Provider: Gabriella Mariano MD S, [address] [place] [address], [address]. tel:[phone] [facility], [address] [address], [place], [id number], [place] tel:[phone] [facility] No Information Bib Santos. [address] [facility], [address], [id number], . tel:[phone] Referring Provider: Referral Self. Offic/outpt E&m New Mod-hi [facility], [address] [address], [place], [id number], [place] tel:[phone] [facility] GI Symptoms or Concerns (chief complaint) DiarrheaAbn X-ray GI TractDietary Surveil/counse lElev Bl Pres W/o HypertnDiarrhe a, unspecifiedAbn ormal findings on diagnostic imaging of other parts of digestive tractElevated blood-pressure reading, without diagnosis of hypertensionDi etary counseling and surveillance Bib Santos. [address], [id number], [place]. tel:[phone] Referring Provider: Gabriella Mariano MD S, [address] [place] [address], [address]. tel:[phone] Family History Family Member Type Diagnosis Age At Onset Son Problem (finding) alcoholism Daughter Problem (finding) diverticulitis of colon Brother Problem (finding) COPD Father Problem (finding) diverticulitis of colon Brother Problem (finding) coronary arterioscleros is Brother Problem (finding) Colon polyps Daughter Problem (finding) Factor V Brother Problem (finding) [place] Mother Problem (finding) gallbladder disease Father Problem [...] ; Source: Other Registry Influenza administered Note: [employer] bi-d irectional interface ; Source: Other Registry [...] Registry Payers Payer name Insurance type Covered libertarian ID Authoriza tion(s) No Information Social History [...] before.She reports a colonoscopy in 2012 in [place], polyps were found, a repeat colonoscopy was [...] troubles I would consider meeting with a sharepoint application architect to discuss whether food intolerances may be [...]
[2023-02-07] MEDS: fentaNYL 100 MCG/2 ML inj 25 MCG IVP (22:40)
[2023-02-07] MEDS: LIDOCAINE 1 % PF 30 ML INJECTION (23:08)
[2023-02-07 23:29] LABS: INR 1.14 (0.91-1.10); Prothrombin Time 15.3 Seconds
[2023-02-08 00:04] VITALS: BP 170/80; PULSE 89; RESP 15; TEMP 36.4
[2023-02-08] MEDS: TETANUS/DIPHTH/PERTUSSIS 0.5 ML SYRINGE IM (00:06)
--- NOTE | 2023-02-08 00:24 | PC.NURSE ---
splint to wrist c/d/i, sling applied, patient passed ambulatory road testing. patients friend Lachelle picked patient up to drive her home. Ortho to call patient to set up f/u appointment. registration updated on need for ortho to call patient, patients phone number verified.
== END 2023-02-08 00:23 | disposition home or self-care (01) ==
PROVIDERS: Emergency Provider Family Medicine; PCP Emergency Medicine
DX: S52.572A Other intraarticular fracture of lower end of left radius, initial encounter for closed fracture (principal); W01.0XXA Fall on same level from slipping, tripping and stumbling without subsequent striking against object, initial encounter
CPT/HCPCS: 25605; 36415; 70450; 72125; 73100; 73110; 85610; 90471; 90715; 96374; 96375; 96376; 99284; 99285; A9270; J2001; J2270; J3010

== ENCOUNTER 2023-02-08 16:29 | Observation (INO) | payer MEDICARE, SELFPAY ==
[2023-02-08 16:34] VITALS: BP 171/72; PULSE 56; RESP 18; TEMP 36.6; O2SAT 97; BMI 28.3
--- NOTE | 2023-02-08 17:15 | ED.GENADULT ---
HPI - General Adult General Chief complaint: Extremity Pain/Injury, Upper Stated complaint: extreme pain, cant take care of herself Time Seen by Provider: 02/08/23 16:45 History of Present Illness HPI narrative: This 87-year-old female comes in with her daughter stating that she feels she cannot manage things at home. She fell yesterday and has a fracture of her left wrist. She is wearing a splint and has follow-up arrangements with orthopedic clinic. She states that she did not sleep last night because of discomfort. She has been taking Tylenol. She also states that she typically ambulates with a walker and is unable to use a walker with the current injury. Related Data Home Medications Medication Instructions Recorded Confirmed coenzyme Q10 100 mg capsule 100 mg PO QDAY 12/22/22 02/07/23 (CoQ-10) Previous Rx's Medication Instructions Recorded omeprazole 40 mg capsule,delayed 40 mg PO QDAY #90 caps 04/15/22 release iron,carbonyl 65 mg-vitamin C 125 2 tab PO QDAY #60 tabs 06/29/22 mg tablet,delayed release (Vitron-C) warfarin 5 mg tablet 5 mg PO DIRECTED #30 tabs 12/23/22 lisinopril 40 mg tablet 40 mg PO DAILY #30 tabs 01/05/23 peg 3350-electrolytes 236 240 ml PO Q10M #4,000 mL 01/13/23 gram-22.74 gram-6.74 gram-5.86 gram solution (Golytely) peg 3350-electrolytes 236 240 ml PO ONCE #1 bottle 01/15/23 gram-22.74 gram-6.74 gram-5.86 gram solution (Golytely) amlodipine 5 mg tablet 5 mg PO DAILY #90 tabs 01/26/23 levothyroxine 100 mcg tablet 100 mcg PO DAILY #90 tabs 02/04/23 metoprolol tartrate 25 mg tablet 25 mg PO BID #180 tabs 02/04/23 rosuvastatin 10 mg tablet 10 mg PO DAILY #90 tabs 02/04/23 sertraline 100 mg tablet 100 mg PO DAILY #30 tabs 02/04/23 enoxaparin 80 mg/0.8 mL 70 mg (0.7 mL) subcut DAILY #8 mL 02/05/23 subcutaneous syringe (Lovenox) lisinopril 40 mg tablet 40 mg PO DAILY #30 tabs 02/05/23 metoprolol tartrate 25 mg tablet 25 mg PO BID #60 tabs 02/05/23 Allergies Allergy/AdvReac Type Severity Reaction Status Date / Time oxybutynin Allergy Unknown Rash Verified 02/08/23 16:38 Penicillins Allergy Verified 02/08/23 16:38 Review of Systems Status of ROS: Reports: 10 or more systems reviewed and unremarkable except as noted in History and below Narrative: Constitutional: No fevers, no weight gain or loss. Eyes: No discharge. No vision changes. HENT: No congestion, no sore throat, no ear pain. Cardiovascular: No chest pain, no palpitations. Respiratory: No shortness of breath, no wheezes, no cough. Gastrointestinal: No abdominal pain, no vomiting, no diarrhea. Genitourinary: No dysuria, no hematuria. Musculoskeletal: Left wrist injury in a splint. Skin: No rashes, no pruritis. Neurological: No dizziness, weakness, sensory change, speech change. Endo/Heme/Allergies: No bruising or bleeding. No polydipsia. Pysch: no suicidality, no anxiety, no insomnia. All other systems reviewed and are negative. [facility] Medical History Schwannoma ?D36.10 - Benign neoplasm of peripheral nerves and autonomic nervous system, unspecified (ICD-10) Gait abnormality ?R26.9 - Unspecified abnormalities of gait and mobility (ICD-10) GERD (gastroesophageal reflux disease) ?K21.9 - Gastro-esophageal reflux disease without esophagitis (ICD-10) Sleep apnea (01/16/15) ?G47.30 - Sleep apnea, unspecified (ICD-10) Right trigeminal neuralgia ?G50.0 - Trigeminal neuralgia (ICD-10) Prediabetes ?R73.03 - Prediabetes (ICD-10) History of deep venous thrombosis ?Z86.718 - Personal history of other venous thrombosis and embolism (ICD-10) Gout ?M10.9 - Gout, unspecified (ICD-10) Encounter for follow-up ?Z09 - Encounter for follow-up examination after completed treatment for conditions other than malignant neoplasm (ICD-10) Diabetes mellitus ?E11.9 - Type 2 diabetes mellitus without complications (ICD-10) Chronic diarrhea ?K52.9 - Noninfective gastroenteritis and colitis, unspecified (ICD-10) Surgical History History of colonoscopy with polypectomy ?Z98.890 - Other specified postprocedural states (ICD-10) ?Z86.010 - Personal history of colonic polyps (ICD-10) Family History Brother Diabetes Aneurysm Stroke Rheumatoid arthritis Myocardial infarction Esophageal cancer Mother High blood pressure Father Leukemia Social History Narrative: Past problem- rib pain on left side Smoking Status: Never smoker Do you use any of these nicotine containing products: None Second hand tobacco smoke exposure: No How often do you have a drink containing alcohol: never AUDIT-C Alcohol total score: 0 Non-prescribed substance use: denies use service: No Exam Narrative: Exam Narrative: Constitutional: Well-developed, well-nourished, no acute distress. HEENT: Normocephalic, atraumatic. Neck: Normal range of motion. Nontender. Supple. Heart: Intact distal pulses. Lungs: No chest discomfort. No wheezes, rhonchi, or rales. Abdomen: Nontender. Back: Normal range of motion. Extremities: Left wrist fracture. Fingers have ecchymosis as the patient is on blood thinners. There is no sign of vascular compromise to her fingers. Skin: Intact. No rash. Warm. No erythema or pallor. Neurologic: No altered sensation. No weakness. Alert and oriented. Psychiatric: No suicidality. No anxiety or depression. No insomnia. Nursing notes and vitals signs are reviewed. Const: Vital Signs, click to edit/add: Vital Signs - 24 hr 02/08/23 16:34 02/08/23 18:22 Temperature 97.8 F 97.1 F L Pulse Rate [Pulse Oximeter] 56 L 80 Respiratory Rate 18 16 Blood Pressure [Ri ght Upper Arm] 171/72 H 168/90 H Pulse Oximetry 97 95 Oxygen Delivery Me thod Room Air Room Air Course Vital Signs Vital signs: Initial Vital Signs Temperature 97.8 F 02/08/23 16:34 Temperature Source Temporal Artery Scan 02/08/23 16:34 Pulse Rate 56 L 02/08/23 16:34 Respiratory Rate 18 02/08/23 16:34 Blood Pressure 171/72 H 02/08/23 16:34 Blood Pressure Mean 105 02/08/23 16:34 Blood Pressure Position Sitting 02/08/23 16:34 Pulse Oximetry 97 02/08/23 16:34 Oxygen Delivery Method Room Air 02/08/23 16:34 Vital Signs Temperature 97.8 F 02/08/23 16:34 Pulse Rate 56 L 02/08/23 16:34 Respiratory Rate 18 02/08/23 16:34 Blood Pressure 171/72 H 02/08/23 16:34 Pulse Oximetry 97 02/08/23 16:34 Oxygen Delivery Method Room Air 02/08/23 16:34 Temperature 97.1 F L 02/08/23 18:22 Pulse Rate 80 02/08/23 18:22 Respiratory Rate 16 02/08/23 18:22 Blood Pressure 168/90 H 02/08/23 18:22 Pulse Oximetry 95 02/08/23 18:22 Oxygen Delivery Method Room Air 02/08/23 18:22 Medical Decision Making MDM Narrative Medical decision making narrative: This patient has a left wrist fracture and comes back today because she lives alone at home and was having difficulty with pain management and getting around for daily activities. She has been taking Tylenol without sufficient relief. She did take oxycodone in the past on a few occasions and tolerated this medicine well. She did receive a 5 mg tablet today orally. After 30 minutes she got up to attempt to ambulate with her walker and with assistance of nurses. She was not able to ambulate sufficiently as she only had 1 hand on the walker and she tended to go in circles. I spoke with the hospitalist retail personal banker regarding these matters and she is okay to be admitted probably as an observation admission. Discharge Plan Discharge Clinical Impression: Fracture of wrist Patient Disposition: Admitted As Inpatient Condition: Unchanged Prescriptions: No Action coenzyme Q10 [CoQ-10] 100 mg capsule 100 mg PO QDAY Vitron-C 65 mg iron- 125 mg tablet,delayed release (DR/EC) 2 tab PO QDAY Qty: 60 6RF enoxaparin [Lovenox] 80 mg/0.8 mL syringe 70 mg subcut DAILY Qty: 8 1RF Rx Instructions: will need to be on until INR is above 2. metoprolol tartrate 25 mg tablet 25 mg PO BID Qty: 60 2RF lisinopril 40 mg tablet 40 mg PO DAILY Qty: 30 0RF omeprazole 40 mg capsule,delayed release(DR/EC) 40 mg PO QDAY Qty: 90 3RF warfarin 5 mg tablet 5 mg PO DIRECTED Qty: 30 0RF Protocol: Dose Management Condition: Wednesday Dose/Route: 0 mg Instruction: 0 tablets Condition: Wednesday Dose/Route: 0 mg Instruction: 0 tablets Condition: Wednesday Dose/Route: 0 mg Instruction: 0 tablets Condition: Wednesday Dose/Route: 7.5 mg Instruction: 1.5 x 5 mg tablets Condition: Dose/Route: 5 mg Instruction: 1 x 5 mg tablet Condition: Wednesday Dose/Route: 5 mg Instruction: 1 x 5 mg tablet Condition: Wednesday Dose/Route: 5 mg Instruction: 1 x 5 mg tablet Protocol Text: Adjustment Start Date: Wednesday02/03/23 INR Value: 1.0 INR Date: 02/03/23 Recheck Date: 02/10/23 lisinopril 40 mg tablet 40 mg PO DAILY Qty: 30 0RF peg 3350-electrolytes [Golytely] 236-22.74-6.74 -5.86 gram recon soln 240 ml PO Q10M Qty: 4000 0RF Rx Instructions: until fecal effluent is clear peg 3350-electrolytes [Golytely] 236-22.74-6.74 -5.86 gram recon soln 240 ml PO ONCE Qty: 1 0RF Rx Instructions: 4pm day prior to procedure. Drink 8oz glass every 15 minutes until 1/2 of solution is gone. 6 hours prior to procedure drink 8 oz glass every 15 minutes until remaining solution gone. amlodipine 5 mg tablet 5 mg PO DAILY Qty: 90 0RF metoprolol tartrate 25 mg tablet 25 mg PO BID Qty: 180 0RF levothyroxine 100 mcg tablet 100 mcg PO DAILY Qty: 90 0RF rosuvastatin 10 mg tablet 10 mg PO DAILY Qty: 90 0RF sertraline 100 mg tablet 100 mg PO DAILY Qty: 30 0RF Follow Up/Referrals: Coni Mckeon MD [Primary Care Provider] -
[2023-02-08] MEDS: OXYCODONE 5 MG TABLET PO ×2 (17:22→21:51)
--- OUTSIDE RECORDS SUMMARY | 2023-02-08 17:29 | XMS_ITS | Continuity of Care Document ---
Author Name Unknown Organization [facility] Address [address] [address] [place] [address] Phone Care Team Providers Care Homeowner Association Manager Name Role Phone Jeni Carey RD Unavailable [...] Encounter [facility]TONIO ULL[address] [address], [place], [place], [id number], [place] tel:[phone] [facility] GI Symptoms or Concerns (chief complaint) Fecal incontinenceDi etary counseling and surveillance 1 Cherry Ngo. [address], [id number], [place]. tel:[phone] Referring Provider: Referral Self. [facility] ULLOA [address] [address], [place], [id number], [place] tel:[phone] [facility] Irregular bowel habits 1 Chito Adamson. [address], [id number], [place]. tel:[phone] Telephone E&M II 11-20 Min [facility], [address] [address], [place], [place], [id number], [place] tel:[phone] [facility] GI Symptoms or Concerns (chief complaint) Overflow diarrhea Chito Adamson. [address] [place] [address], [id number], [place]. tel:[phone] Referring Provider: Coni Mckeon MD, [address] [place] [address], [address]. tel:[phone] [facility], [address] [address], [place], [place], [id number], [place] tel:[phone] No Information No Information Referring Provider: Coni Mckeon MD, [address] [place] [address], [address]. tel:[phone] [facility], [address] [address], [place], [place], [id number], [place] tel:[phone] [facility] Colon polypsDivertic ulosis large intestine w/o perforation or abscess w/o bleedingHistor y of colon polypsBenign neoplasm of transverse colonBenign neoplasm of sigmoid colonDvrtclos of lg int w/o perforation or abscess w/o bleeding Bib Santos. [address] [place] [address], [id number], [place]. tel:[phone] Referring Provider: Referral Self. Offic/outpt E&m Estab Low-mod [facility], [address] [address], [place], [place], [id number], [place] tel:[phone] [facility] GI Symptoms or Concerns (chief complaint) DiarrheaLower abdominal painFecal incontinenceDi etary counseling and surveillanceEs sential (primary) hypertension Bib Santos. [address] [place] [address], [id number], [place]. tel:[phone] Referring Provider: Gabriella Mariano MD S, [address] [place] [address], [address]. tel:[phone] [facility], [address] [address], [place], [id number], [place] tel:[phone] [facility] No Information Bib Santos. [address] [facility], [address], [id number], . tel:[phone] Referring Provider: Referral Self. Offic/outpt E&m New Mod-hi [facility], [address] [address], [place], [id number], [place] tel:[phone] [facility] GI Symptoms or Concerns (chief complaint) DiarrheaAbn X-ray GI TractDietary Surveil/counse lElev Bl Pres W/o HypertnDiarrhe a, unspecifiedAbn ormal findings on diagnostic imaging of other parts of digestive tractElevated blood-pressure reading, without diagnosis of hypertensionDi etary counseling and surveillance Bib Santos. [address], [id number], [place]. tel:[phone] Referring Provider: Gabriella Mariano MD S, [address] [place] [address], [address]. tel:[phone] Family History Family Member Type Diagnosis Age At Onset Son Problem (finding) alcoholism Daughter Problem (finding) diverticulitis of colon Brother Problem (finding) COPD Father Problem (finding) diverticulitis of colon Brother Problem (finding) coronary arterioscleros is Brother Problem (finding) Colon polyps Daughter Problem (finding) Factor V Brother Problem (finding) CA Mother Problem (finding) gallbladder disease Father Problem [...] ; Source: Other Registry Influenza administered Note: [employer] bi-d irectional interface ; Source: Other Registry [...] before.She reports a colonoscopy in 2012 in [place], polyps were found, a repeat colonoscopy was [...] troubles I would consider meeting with a relay checker to discuss whether food intolerances may be [...]
--- NOTE | 2023-02-08 18:10 | ED.NURSE ---
Patient unable to toilet self independently, when ambulating, she is unable to push walker with affected hand, it veers off to one side.
[2023-02-08 18:22] VITALS: BP 168/90; PULSE 80; RESP 16; TEMP 36.2; O2SAT 95
--- NOTE | 2023-02-08 18:54 | PM.IMHP1 ---
Hospitalist- H&P: HPI History of Present Illness Date Seen: 02/08/23 Chief complaint: extreme pain, cant take care of herself Narrative: Meseret Lakhani is a 87 year old female with extensive past medical history including hx of DVT, Factor V Leiden (on warfarin; currently being bridged with lovenox) who was seen in ED yesterday after she had a fall and ultimately found to have distal radius fracture. She was discharged home. She lives alone and has two daughters. One daughter lives locally. She was having difficulty with ADLs as her left arm is in splint/cast. She presented back to ED for worsening pain and was admitted as she could not safely take care of herself alone. xr wrist 1. The comminuted fracture of the distal radius has been reduced in neutral alignment but there is persistent dorsal displacement by 7 mm. 2. The ulnar fracture has been reduced to neutral alignment. Review of Systems Status of ROS: Reports: 10 or more systems reviewed and unremarkable except as noted in History and below [facility] Medical History (Updated 02/10/23 @ 13:43 by Agustin Glover MD) Basal cell carcinoma of nose (03/07/15) ?C44.311 - Basal cell carcinoma of skin of nose (ICD-10) Schwannoma ?D36.10 - Benign neoplasm of peripheral nerves and autonomic nervous system, unspecified (ICD-10) Gait abnormality ?R26.9 - Unspecified abnormalities of gait and mobility (ICD-10) GERD (gastroesophageal reflux disease) ?K21.9 - Gastro-esophageal reflux disease without esophagitis (ICD-10) Sleep apnea (01/16/15) ?G47.30 - Sleep apnea, unspecified (ICD-10) Right trigeminal neuralgia ?G50.0 - Trigeminal neuralgia (ICD-10) Prediabetes ?R73.03 - Prediabetes (ICD-10) History of deep venous thrombosis ?Z86.718 - Personal history of other venous thrombosis and embolism (ICD-10) Gout ?M10.9 - Gout, unspecified (ICD-10) Encounter for follow-up ?Z09 - Encounter for follow-up examination after completed treatment for conditions other than malignant neoplasm (ICD-10) Diabetes mellitus ?E11.9 - Type 2 diabetes mellitus without complications (ICD-10) Chronic diarrhea ?K52.9 - Noninfective gastroenteritis and colitis, unspecified (ICD-10) Surgical History (Updated 02/10/23 @ 09:01 by Susan Bishop ~ [facility], [facility]) 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) ?Z96.642 - Presence of left artificial hip joint (ICD-10) History of hysterectomy ?Z90.710 - Acquired absence of both cervix and uterus (ICD-10) History of colonoscopy with polypectomy ?Z98.890 - Other specified postprocedural states (ICD-10) ?Z86.010 - Personal history of colonic polyps (ICD-10) Family History Brother Diabetes Aneurysm Stroke Rheumatoid arthritis Myocardial infarction Esophageal cancer Mother High blood pressure Father Leukemia Social History Narrative: Past problem- rib pain on left side What is your current living situation?: I presently have a place to live Problems where you live: other Problems where you live details: none In the past 12 months, utilities in danger of being shut off: declined to answer In the past 12 mos, have been you worried that your food would run out before you had money to buy more?: declined to answer In the past 12 mos, the food you bought just didn't last and you didn't have money to buy more?: declined to answer Smoking Status: Never smoker Do you use any of these nicotine containing products: None Second hand tobacco smoke exposure: No How often do you have a drink containing alcohol: never AUDIT-C Alcohol total score: 0 Non-prescribed substance use: denies use How often does anyone, including family, friends and others, physically hurt you: never How often does anyone, including family, friends and others, insult or talk down to you: never How often does anyone, including family, friends and others, threaten you with harm: never How often does anyone, including family, friends and others, scream or curse at you: never service: No Meds Home Medications and Allergies Home Medications Medication Instructions Recorded Confirmed Type coenzyme Q10 100 mg capsule 100 mg PO DAILY 12/22/22 02/10/23 History (CoQ-10) iron,carbonyl 65 mg-vitamin C 125 2 tab PO DAILY 02/09/23 02/10/23 History mg tablet,delayed release (Vitron-C) omeprazole 40 mg capsule,delayed 40 mg PO DAILY 02/09/23 02/10/23 History release Allergies Allergy/AdvReac Type Severity Reaction Status Date / Time oxybutynin Allergy Unknown Rash Verified 02/10/23 13:53 Penicillins Allergy Verified 02/10/23 13:53 Exam Narrative: Exam Narrative: Gen: no acute distress HEENT: NCAT EOMI mmm Neck: Supple CV: RRR normal s1 s2 Lungs: CTAB Abd: Soft,nt, nd Neuro: Alert, oriented, CN grossly intact; nonfocal screening?exam Psych: appropriate affect MSK: age appropriate muscle mass; left forearm in cast/splint Const: Vital Signs, click to edit/add: Vital Signs - 24 hr 02/08/23 16:34 02/08/23 18:22 Temperature 97.8 F 97.1 F L Pulse Rate [Pulse Oximeter] 56 L 80 Respiratory Rate 18 16 Blood Pressure [Ri ght Upper Arm] 171/72 H 168/90 H Pulse Oximetry 97 95 Oxygen Delivery Me thod Room Air Room Air Assessment and Plan Assessment and plan (1) Fracture of wrist: Problem comment: The comminuted fracture of the distal radius has been reduced in neutral alignment but there is persistent dorsal displacement by 7 mm. The ulnar fracture has been reduced to neutral alignment. Status: Acute Assessment and Plan: pain control, has outpatient Ortho on 02/11; may consider inpatient ortho consult on 02/10 (2) Colles' fracture of left radius: Status: Acute (3) Fall: Problem comment: PT, OT, SW consults. 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: Problem comment: continue warfarin; check inr Status: Chronic (8) GERD (gastroesophageal reflux disease): Problem comment: continue PPI Status: Chronic (9) Obstructive sleep apnea treated with continuous positive airway pressure (CPAP): Problem comment: daughter to bring in cpap Status: Chronic (10) Iron deficiency anemia: Status: Chronic (11) Hypertension: Problem comment: continue lisinopril, metoprolol, norvasc Status: Chronic (12) Hyperlipidemia: Problem comment: LDL goal less than 70 Status: Chronic Assessment and Plan: continue statin (13) Acquired hypothyroidism: Problem comment: continue synthroid Status: Chronic (14) Anticoagulation goal of INR 2 to 3: Status: Chronic
[2023-02-08 19:54] VITALS: BP 195/75; PULSE 51; RESP 16; TEMP 36.4; O2SAT 92; BMI 28.6
[2023-02-08] MEDS: METOPROLOL TARTRATE 25 MG TABLET PO (21:20)
[2023-02-08] MEDS: SERTRALINE 100 MG TABLET PO (21:21)
[2023-02-08] MEDS: ROSUVASTATIN CALCIUM 10 MG TABLET PO (21:21)
[2023-02-08 21:27] LABS: Basophils Absolute Auto 0.02 K/uL (0.00-0.30); Basophils Percent Auto 0.3 % (0.0-3.0); Eosinophils Absolute Auto 0.15 K/uL (0.00-0.50); Eosinophils Percent Auto 2.3 % (0.0-7.0); Hematocrit 44.6 % (33.0-51.0); Immature Granulocytes Abs Auto 0.06 K/uL (0.00-0.30); Immature Granulocytes Pct Auto 0.9 %; Lymphocytes Percent Auto 10.7 % (20-44); Mean Corpuscular HGB Conc 31 gm/dL (32-36); Mean Corpuscular Hemoglobin 28 pg (26-34); Mean Corpuscular Volume 89 fL (80-100); Monocytes Percent Auto 8.1 % (0.0-11.0); Neutrophils Percent Auto 77.7 % (42.0-72.0); Platelet Count* 155 K/uL (140-440); RDW Coefficient of Variation % 17.1 % (11.5-15.5); White Blood Count* 6.55 K/uL (4.50-11.00)
[2023-02-08 21:31] LABS: Slide Review Reflex No
[2023-02-08 21:39] LABS: Chloride* 98 mmol/L (96-114)
[2023-02-08 21:40] LABS: Potassium* 4.1 mmol/L (3.6-5.1); Sodium* 138 mmol/L (135-149)
[2023-02-08 21:42] LABS: Creatinine* 0.7 mg/dL (0.5-1.5); Est. Creatinine Clearance* 34.02; Estimated Glomerular Filt Rate 85 ml/min
[2023-02-08 21:43] LABS: Blood Urea Nitrogen* 15 mg/dL (7-30); Calcium* 9.8 mg/dL (8.4-10.6); Carbon Dioxide* 33 mmol/L (20-32); Glucose* 138 mg/dL (60-115); INR 1.06 (0.91-1.10); Prothrombin Time 14.5 Seconds
[2023-02-08] MEDS: WARFARIN 5 MG TABLET PO (21:52)
[2023-02-08] MEDS: ENOXAPARIN 80 MG/0.8 ML INJ 70 MG SUBCUT (21:52)
[2023-02-09] VITALS (8 sets, daily range): BP systolic 134–204; BP diastolic 54–85; PULSE 57–64; RESP 14–18; TEMP 36.3–37.3; O2SAT 85–93
--- NOTE | 2023-02-09 05:44 | PC.NURSE ---
Pt arrived to the floor at aound 1919. She fell on the 2nd and has been unable to take care of herself at her [facility]. She is her for pain management and placement for some rehab. She has good CMS in the left upper extremity. Pain is 7/10 per pt. She has been given pain meds and is able to fall asleep easily. She is a 2 person assist at this time. She will benefit from a platform walker to assist in ambulation. She dribbles slightly at time otherwise goes into the bathroom. VSS.
[2023-02-09] MEDS: LEVOTHYROXINE 100 MCG TABLET PO (06:23)
[2023-02-09 07:58] LABS: INR 1.15 (0.91-1.10); Prothrombin Time 15.4 Seconds
[2023-02-09] MEDS: lisinopriL 20 MG TABLET 40 MG PO (09:28)
[2023-02-09] MEDS: AMLODIPINE 5 MG TABLET PO (09:28)
[2023-02-09] MEDS: METOPROLOL TARTRATE 25 MG TABLET PO ×2 (09:28→20:41)
[2023-02-09] MEDS: ENOXAPARIN 80 MG/0.8 ML INJ 70 MG SUBCUT ×2 (09:29→20:40)
--- NOTE | 2023-02-09 09:42 | PM.IMPN1 ---
Progress Note: A&P Assessment and plan (1) Fracture of wrist: Problem details: The comminuted fracture of the distal radius has been reduced in neutral alignment but there is persistent dorsal displacement by 7 mm. The ulnar fracture has been reduced to neutral alignment. Status: Acute (2) Fall: Problem details: PT, OT, SW consults. 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: Problem details: continue warfarin; check inr Status: Chronic (7) GERD (gastroesophageal reflux disease): Problem details: continue PPI Status: Chronic (8) Obstructive sleep apnea treated with continuous positive airway pressure (CPAP): Status: Chronic (9) Hypertension: Problem details: continue lisinopril, metoprolol, norvasc Status: Chronic (10) Hyperlipidemia: Problem details: LDL goal less than 70 Status: Chronic Assessment and Plan: continue statin (11) Congestive heart failure: Problem details: Diastolic, associated with acute MD August 2014 Status: Chronic (12) Acquired hypothyroidism: Problem details: continue synthroid Status: Chronic (13) Depression: Problem details: continue SSRI Status: Chronic Plan 1. Await pt, ot, sw consult will need Short term rehab Time Spent With Patient Total time spent: 30 Subjective Date Seen: 02/09/23 Interval history: no acute events overnight she is eating breakfast this morning planning to work with physical therapy later this morning recieved lovenox this AM Exam Narrative: Exam Narrative: Gen: no acute distress HEENT: NCAT EOMI mmm CV: RRR normal s1 s2 Lungs: CTAB Abd: Soft,nt, nd Neuro: Alert, oriented, CN grossly intact; nonfocal screening?exam Psych: appropriate affect MSK: age appropriate muscle mass; left arm in cast/splint Skin; Warm, dry no rash on face Const: Vital Signs, click to edit/add: Vital Signs - 24 hr 02/08/23 16:34 02/08/23 18:22 02/08/23 19:54 Temperature 97.8 F 97.1 F L 97.5 F L Pulse Rate [Pulse Oximeter] 56 L 80 Pulse Rate [Right] 51 L Respiratory Rate 18 16 16 Blood Pressure [Ri ght Arm] 195/75 H Blood Pressure [Ri ght Upper Arm] 171/72 H 168/90 H Pulse Oximetry 97 95 92 Oxygen Delivery Me thod Room Air Room Air Room Air Oxygen Flow Rate 02/09/23 01:05 02/09/23 03:00 02/09/23 07:00 Temperature 97.3 F L 97.3 F L 98 F Pulse Rate [Pulse Oximeter] Pulse Rate [Right] 59 L 60 60 Respiratory Rate 18 18 16 Blood Pressure [Ri ght Arm] 162/70 H 170/74 H 165/78 H Blood Pressure [Ri ght Upper Arm] Pulse Oximetry 85 L 92 91 Oxygen Delivery Me thod Room Air Nasal Cannula Nasal Cannula Oxygen Flow Rate 2 1.5 02/09/23 07:00 Temperature Pulse Rate [Pulse Oximeter] Pulse Rate [Right] 60 Respiratory Rate 16 Blood Pressure [Ri ght Arm] Blood Pressure [Ri ght Upper Arm] Pulse Oximetry Oxygen Delivery Me thod Oxygen Flow Rate Labs Labs: Laboratory Results - last 24 hr 02/08/23 02/09/23 21:20 05:47 WBC 6.55 RBC 5.00 Hgb 14.0 Hct 44.6 MCV 89 MCH 28 MCHC 31 L RDW Coeff of Layo 17.1 H Plt Count 155 Neut % (Auto) 77.7 H Lymph % (Auto) 10.7 L Burke % (Auto) 8.1 Eos % (Auto) 2.3 Baso % (Auto) 0.3 Neut # (Auto) 5.10 Lymph # (Auto) 0.70 L Burke # (Auto) 0.50 Eos # (Auto) 0.15 Baso # (Auto) 0.02 INR 1.06 1.15 H Sodium 138 Potassium 4.1 Chloride 98 Carbon Dioxide 33 H BUN 15 Creatinine 0.7 Estimated Creat Clear 34.02 Estimated GFR 85 Glucose 138 H Calcium 9.8
[2023-02-09] MEDS: BENZOCAINE/MENTHOL 1 EACH LOZENGE MUCOUS MEM ×2 (11:12→22:03)
--- NOTE | 2023-02-09 14:33 | PC.NURSE ---
End of Shift: Patient pleasant and cooperative. Patient vitally stable, lungs clear, BS WNL, NO IV. Patient 1 assist, walker. Patient rates arm pain 4/10 with movement. Patient urinating, No BM. Patient tolerating regular diet.
[2023-02-09] MEDS: ACETAMINOPHEN 325 MG TABLET 650 MG PO ×2 (15:18→21:54)
[2023-02-09] MEDS: OXYCODONE 5 MG TABLET PO (15:18)
[2023-02-09] MEDS: WARFARIN 5 MG TABLET PO (16:43)
[2023-02-09] MEDS: ROSUVASTATIN CALCIUM 10 MG TABLET PO (20:41)
[2023-02-09] MEDS: SERTRALINE 100 MG TABLET PO (20:41)
[2023-02-09] MEDS: ONDANSETRON ODT 4 MG TAB PO (21:21)
[2023-02-09] MEDS: HYDRALAZINE HCL 20 MG/ML inj 10 MG IVP (21:54)
[2023-02-09] MEDS: SODIUM CHLORIDE 0.9 % (FLUSH) 10 ML SYRINGE 5 ML IVF (21:55)
--- NOTE | 2023-02-09 22:23 | PC.NURSE ---
Shift [id number]- Patient reports pain to wrist with movment. PRN pain medication administered and ice applied with relief. She declines to order meal tray. This evening and tonight blood pressure is elevated. She is nauseous, dizzy while up, and has headache tonight. MD updated about these issues- see new orders. IV initiated to right forearm. Zofran administered with relief. Tylenol and hydralazine also administered. Wrist remains wrapped. She is up with platform walker, gait belt and assist of 1. She declines PM cares.
[2023-02-10] VITALS (8 sets, daily range): BP systolic 114–157; BP diastolic 51–86; PULSE 58–73; RESP 16–18; TEMP 36.3–37.1; O2SAT 85–93
--- NOTE | 2023-02-10 05:47 | PC.NURSE ---
Pleasant and cooperative. Needs short term Rehab services.Walking much improved since Pt was given a platform walker. Up with one and the walker and gait belt. Some incontinence noted. O2 @ 2L for use overnight instead of her CPAP as none of her family has brought it in for her. Good CMS noted to the left hand.
[2023-02-10] MEDS: OXYCODONE 5 MG TABLET PO ×2 (06:34→13:30)
[2023-02-10] MEDS: LEVOTHYROXINE 100 MCG TABLET PO (06:35)
[2023-02-10] MEDS: ACETAMINOPHEN 325 MG TABLET 650 MG PO ×2 (06:35→13:28)
[2023-02-10 07:05] LABS: INR 1.27 (0.91-1.10); Prothrombin Time 16.6 Seconds
[2023-02-10] MEDS: lisinopriL 20 MG TABLET 40 MG PO (08:56)
[2023-02-10] MEDS: AMLODIPINE 5 MG TABLET PO (08:57)
[2023-02-10] MEDS: METOPROLOL TARTRATE 25 MG TABLET PO ×2 (08:57→20:34)
[2023-02-10] MEDS: ENOXAPARIN 80 MG/0.8 ML INJ 70 MG SUBCUT ×2 (08:57→20:34)
[2023-02-10] MEDS: SODIUM CHLORIDE 0.9 % (FLUSH) 10 ML SYRINGE 5 ML IVF (08:58)
--- NOTE | 2023-02-10 13:37 | PM.IMPN1 ---
Progress Note: A&P Assessment and plan (1) Fracture of wrist: Problem details: The comminuted fracture of the distal radius has been reduced in neutral alignment but there is persistent dorsal displacement by 7 mm. The ulnar fracture has been reduced to neutral alignment. Status: Acute Assessment and Plan: Ortho recommending elevation of wrist/forearm (02/10) (2) Fall: Problem details: PT, OT, SW consults. CT Head day prior to admission negative for bleed Status: Acute (3) Deep vein thrombosis: Problem details: continue lovenox bridge and warfarin Status: Acute (4) Factor 5 Leiden mutation, heterozygous: Status: Chronic (5) Anemia: Problem details: Followed by hematology, low ferritin, low iron, low% saturation, normal TIBC iron infusion as per Hematology Status: Chronic (6) GERD (gastroesophageal reflux disease): Problem details: continue PPI Status: Chronic (7) Diabetes mellitus: Problem details: diet controlled Status: Resolved (8) Obstructive sleep apnea treated with continuous positive airway pressure (CPAP): Problem details: daughter to bring in cpap Status: Chronic (9) Hypertension: Problem details: continue lisinopril, metoprolol, norvasc Status: Chronic (10) Hyperlipidemia: Problem details: LDL goal less than 70 Status: Chronic (11) Acquired hypothyroidism: Problem details: continue synthroid Status: Chronic (12) DVT (deep venous thrombosis): Problem details: Multiple, lifelong anticoagulation Status: Chronic (13) Congestive heart failure: Problem details: Diastolic, associated with acute AR August 2014 Status: Chronic Time Spent With Patient Total time spent: 25 Subjective Date Seen: 02/10/23 Interval history: No acute events overnight medically stable for discharge awaiting placement Curbside evaluation of left wrist by Ortho given swelling and purupra of fingers, recommended elevatation of forearm Exam Narrative: Exam Narrative: Gen: no acute distress HEENT: NCAT EOMI mmm CV: RRR normal s1 s2 Lungs: CTAB Abd: Soft,nt, nd Neuro: Alert, oriented, CN grossly intact; nonfocal screening?exam Psych: appropriate affect MSK: age appropriate muscle mass; left forearm in cast Skin; Wpurpura/edema/bruising of left fringers Const: Vital Signs, click to edit/add: Vital Signs - 24 hr 02/09/23 15:10 02/09/23 19:15 02/09/23 21:30 Temperature 99.1 F 98.4 F Pulse Rate [Left P ulse Oximeter] Pulse Rate [Right] 64 60 62 Respiratory Rate 18 16 Blood Pressure [Ri ght Arm] 150/82 H 180/80 H 204/85 H Pulse Oximetry 91 92 93 Oxygen Delivery Me thod Room Air Room Air Room Air Oxygen Flow Rate 02/09/23 23:42 02/10/23 01:11 02/10/23 03:09 Temperature 98.4 F 98 F Pulse Rate [Left P ulse Oximeter] Pulse Rate [Right] 60 67 Respiratory Rate 16 16 16 Blood Pressure [Ri ght Arm] 150/76 H 147/65 H Pulse Oximetry 92 92 90 Oxygen Delivery Me thod Nasal Cannula Nasal Cannula Nasal Cannula Oxygen Flow Rate 1.5 1.5 1.5 02/10/23 08:25 02/10/23 08:25 02/10/23 08:25 Temperature 97.4 F L Pulse Rate [Left P ulse Oximeter] Pulse Rate [Right] 63 63 Respiratory Rate 16 16 16 Blood Pressure [Ri ght Arm] 114/65 Pulse Oximetry 91 91 Oxygen Delivery Me thod Room Air Room Air Oxygen Flow Rate 0 0 02/10/23 11:15 02/10/23 11:20 Temperature 97.7 F Pulse Rate [Left P ulse Oximeter] 58 L Pulse Rate [Right] Respiratory Rate 16 Blood Pressure [Ri ght Arm] 120/51 L Pulse Oximetry 85 L 92 Oxygen Delivery Me thod Room Air Nasal Cannula Oxygen Flow Rate 2 Labs Labs: Laboratory Results - last 24 hr 02/10/23 06:13 INR 1.27 H
--- NOTE | 2023-02-10 14:56 | PC.NURSE ---
End of shift nursing note, care provided from [id number]: Pt alert and oriented, pleasant and cooperative. Vitals WDL. Pt declined need for pain medications until afternoon, PRN Tylenol and Oycodone 5mg admin. Pt tolerating diet, decreased appetite this afternoon, declined tray, snacks at bedside with meds. Pt has 2 friends visiting this afternoon at bedside, pt in good spirits. Up to void w/ Ax1 and platform walker. Pt had shower at start of shift. Up to chair this shift, back to bed after therapy and requested to take nap in afternoon, napped for about 2hours. Ortho saw pt and stated no need to replace LUE cast r/t swollen fingers, pt should further elevate LUE and staff can massage fingers to promote decrease in finger swelling and staff can adjust ISREAL wrap PRN. Pt IV saline locked to R forearm. Pt has call light within reach and able to use appropriately.
--- NOTE | 2023-02-10 15:00 | PC.SOCIAL ---
Discharge planning: Met with pt and friends in room regarding d/c plan. Pt is requesting short term rehab placement at the [facility]. PT has been accepted for admit to LT tomorrow pending insurance prior authorization. UR is requesting prior authorization from [employer]. weigh and charge worker to follow up as needed.
[2023-02-10] MEDS: WARFARIN 3 MG TABLET 6 MG PO (17:00)
[2023-02-10] MEDS: ROSUVASTATIN CALCIUM 10 MG TABLET PO (20:34)
[2023-02-10] MEDS: SERTRALINE 100 MG TABLET PO (20:34)
--- NOTE | 2023-02-10 21:47 | PC.NURSE ---
Pt alert and oriented.Pt pleasant and cooperative. VSS. Pt had no complaints of pain during the shift. Pt arm elevated. Pt one assist with ambulation. Pt was tired and slept most of shift.?
[2023-02-11 03:00] VITALS: BP 152/70; PULSE 62; RESP 16; TEMP 36.6; O2SAT 91
[2023-02-11] MEDS: ACETAMINOPHEN 325 MG TABLET 650 MG PO (04:53)
--- NOTE | 2023-02-11 06:45 | PC.NURSE ---
Shift note: Pt did not report any pain tonight and had adequate sleep. Nurse observed that fingers and body parts distal to the cast appeared edematous and change in color but patient is able move the fingers very well. Charge-nurse and house sup were called by nurse to assess the changes. We concluded to continue monitoring since pat had no pain, able to move fingers and there is return blood <3 seconds when pressed. Systolic Bp has been above 150 but did not exceed 180, therefore no PRN hydralazine given. At 0550, pt complained of pain of 6/10 to the neck and asked for Tylenol which was given and appeared effective.
[2023-02-11] MEDS: LEVOTHYROXINE 100 MCG TABLET PO (07:49)
[2023-02-11 08:18] VITALS: RESP 14; O2SAT 92
[2023-02-11 08:20] VITALS: BP 150/71; PULSE 60; RESP 14; TEMP 36.5; O2SAT 92
[2023-02-11] MEDS: METOPROLOL TARTRATE 25 MG TABLET PO (09:16)
[2023-02-11] MEDS: lisinopriL 20 MG TABLET 40 MG PO (09:16)
[2023-02-11] MEDS: AMLODIPINE 5 MG TABLET PO (09:16)
[2023-02-11] MEDS: ENOXAPARIN 80 MG/0.8 ML INJ 70 MG SUBCUT (09:18)
[2023-02-11 10:38] VITALS: BP 153/61; PULSE 63; RESP 18; TEMP 36.4; O2SAT 93
--- NOTE | 2023-02-11 12:21 | PC.SOCIAL ---
Received prior auth. information from UR. Pt was authorized by [facility] to go to LT for short term rehab. Approval # [id number]. Met with pt in pt's room. Provided update on insurance authorization for short-term rehab in LTCC. Resident will move at 1:00 pm today. Completed LTCC admission packet with pt. Completed preadmission screening. Confirmation #[id number]. Phone call to pt's daughter, Maryuri. Left voicemail providing update and requesting clothing for pt. Requested a phone call back. Social work will continue to follow up as needed.
[2023-02-11 15:02] VITALS: RESP 18; TEMP 36.4
--- NOTE | 2023-02-11 16:27 | PM.DS1 ---
DS: Providers Provider Date Seen: 02/11/23 Date of admission: 02/08/23 19:02 Primary care physician: Coni Mckeon Admitting Clinician: Agustin Glover MD Attending Physician on discharge: Genaro Tineo MD Date of Discharge: 02/11/23 DS: Diagnosis Discharge Diagnosis (1) Colles' fracture of left radius: Status: Acute Problem details: Conservative management per Ortho. Significant bruising associated with anticoagulation. Managed with elevation. (2) Hypertension: Status: Acute (3) Factor 5 Leiden mutation, heterozygous: Status: Chronic (4) Deep vein thrombosis: Status: Acute Problem details: continue lovenox bridge and warfarin (5) Anemia: Status: Chronic Problem details: Followed by hematology, low ferritin, low iron, low% saturation, normal TIBC iron infusion as per Hematology (6) Schwannoma: Status: Chronic Problem details: Followed by Dr. Abreu neuro surgery (7) Gait abnormality: Status: Chronic Problem details: Status post neuro workup an MRI no evidence Parkinson's (8) Diabetes mellitus: Status: Resolved Problem details: diet controlled (9) GERD (gastroesophageal reflux disease): Status: Chronic Problem details: continue PPI (10) Urge incontinence of urine: Status: Chronic (11) Obstructive sleep apnea treated with continuous positive airway pressure (CPAP): Status: Chronic Problem details: daughter to bring in cpap DS: Summary Hospital Course Hospital Course: Meseret Lakhani is a 87 year old female with extensive past medical history including hx of DVT, Factor V Leiden (on warfarin; currently being bridged with lovenox) who was seen in ED yesterday after she had a fall and ultimately found to have distal radius fracture. She was discharged home. She lives alone and has two daughters. One daughter lives locally. She was having difficulty with ADLs as her left arm is in splint/cast. She presented back to ED for worsening pain and was admitted as she could not safely take care of herself alone. Orthopedic consult indicated conservative management. Patient is unable to care for herself independently so arranged to go to long-term care center for rehab. Status at Discharge Functional status at discharge: uses cane/walker Overall status at discharge: patient is progressing back to baseline Time Spent with Patient Time attestation: Total time spent providing and/or coordinating discharge services: Time spent: Greater than 30 minutes Exam Narrative: Exam Narrative: She is alert and appears in no distress. Respirations are clear to auscultation. Cardiovascular: S1, S2, regular rate and rhythm. Abdomen is soft without tenderness. She has intact sensation in her left hand and fingers and moderate bruising around the elbow and also on the fingers. Good perfusion of the fingertips. Const: Vital Signs, click to edit/add: Vital Signs - 24 hr 02/10/23 19:06 02/10/23 23:00 02/10/23 23:00 Temperature 98.7 F Pulse Rate [Left P ulse Oximeter] 65 73 Respiratory Rate 16 16 16 Blood Pressure [Ri ght Arm] 157/70 H Pulse Oximetry 90 90 Oxygen Delivery Me thod Nasal Cannula Nasal Cannula Oxygen Flow Rate 1 1 02/10/23 23:00 02/11/23 03:00 02/11/23 08:18 Temperature 98.1 F 97.9 F Pulse Rate [Left P ulse Oximeter] 73 62 Respiratory Rate 16 16 14 Blood Pressure [Ri ght Arm] 155/68 H 152/70 H Pulse Oximetry 92 91 92 Oxygen Delivery Me thod Nasal Cannula Nasal Cannula Nasal Cannula Oxygen Flow Rate 1 1 1 02/11/23 08:20 02/11/23 10:38 02/11/23 15:02 Temperature 97.7 F 97.5 F L 97.5 F L Pulse Rate [Left P ulse Oximeter] 60 63 Respiratory Rate 14 18 18 Blood Pressure [Ri ght Arm] 150/71 H 153/61 H Pulse Oximetry 92 93 Oxygen Delivery Me thod Nasal Cannula Room Air Oxygen Flow Rate 1 Documenting provider has reviewed patient's vital signs: yes Discharge Plan Discharge Disposition: [facility] Date of Admission: 02/08/23 19:02 Attending Provider on Discharge: Trae Tineo Primary Care Provider: Coni Mckeon Condition: Unchanged Discharge Medications: New warfarin 5 mg tablet 5 mg PO DAILY Qty: 30 0RF Continued coenzyme Q10 [CoQ-10] 100 mg capsule 100 mg PO DAILY enoxaparin [Lovenox] 80 mg/0.8 mL syringe 70 mg subcut DAILY Qty: 8 1RF Rx Instructions: will need to be on until INR is above 2. omeprazole 40 mg capsule,delayed release(/EC) 40 mg PO DAILY Vitron-C 65 mg iron- 125 mg tablet,delayed release (DR/EC) 2 tab PO DAILY lisinopril 40 mg tablet 40 mg PO DAILY Qty: 30 0RF amlodipine 5 mg tablet 5 mg PO DAILY Qty: 90 0RF metoprolol tartrate 25 mg tablet 25 mg PO BID Qty: 180 0RF levothyroxine 100 mcg tablet 100 mcg PO DAILY Qty: 90 0RF rosuvastatin 10 mg tablet 10 mg PO DAILY Qty: 90 0RF sertraline 100 mg tablet 100 mg PO DAILY Qty: 30 0RF Discontinued warfarin 5 mg tablet 5 mg PO DIRECTED Qty: 30 0RF Protocol: Dose Management Condition: Wednesday Dose/Route: 0 mg Instruction: 0 tablets Condition: Wednesday Dose/Route: 0 mg Instruction: 0 tablets Condition: Wednesday Dose/Route: 0 mg Instruction: 0 tablets Condition: Wednesday Dose/Route: 7.5 mg Instruction: 1.5 x 5 mg tablets Condition: Dose/Route: 5 mg Instruction: 1 x 5 mg tablet Condition: Wednesday Dose/Route: 5 mg Instruction: 1 x 5 mg tablet Condition: Wednesday Dose/Route: 5 mg Instruction: 1 x 5 mg tablet Protocol Text: Adjustment Start Date: Wednesday02/03/23 INR Value: 1.0 INR Date: 02/03/23 Recheck Date: 02/10/23 Discharge Orders: Discharge Order (Routine); Ordered 02/11/23 Ordered By: Trae Tineo Activity Level: Activity as Tolerated, Up with assist, Wear Brace and Use Walker Discharge Diet: Regular Follow Up Appointments: Coni Mckeon MD [Primary Care Provider] - Admit to: SNF Discharge Potential: Fair Length of Stay: 30-90 days Can use facility standing orders?: Yes Code Status: DNR/DNI Rehab Potential: Fair Therapy: Physical Therapy and Occupational Therapy Therapy Orders: Evaluate and Treat Oxygen: No Next INR: 5 days INR Goal: 2-3
== END 2023-02-11 13:35 ==
LOC: ED 18:47 → MEDSURG 19:03
PROVIDERS: Admitting Provider Hospitalist; Emergency Provider Emergency Medicine Emergency Medical Services; PCP Emergency Medicine; Visit Provider Hospitalist
DX: S52.532A Colles' fracture of left radius, initial encounter for closed fracture (principal); Z51.81 Encounter for therapeutic drug level monitoring; D64.9 Anemia, unspecified; D50.9 Iron deficiency anemia, unspecified; D68.51 Activated protein C resistance; W19.XXXA Unspecified fall, initial encounter; Z99.89 Dependence on other enabling machines and devices; K21.9 Gastro-esophageal reflux disease without esophagitis; Z79.01 Long term (current) use of anticoagulants; I82.409 Acute embolism and thrombosis of unspecified deep veins of unspecified lower extremity; G47.33 Obstructive sleep apnea (adult) (pediatric); E78.5 Hyperlipidemia, unspecified; E03.9 Hypothyroidism, unspecified; E11.9 Type 2 diabetes mellitus without complications; I11.0 Hypertensive heart disease with heart failure; I50.9 Heart failure, unspecified; R26.9 Unspecified abnormalities of gait and mobility; N39.41 Urge incontinence; D36.10 Benign neoplasm of peripheral nerves and autonomic nervous system, unspecified; Z98.890 Other specified postprocedural states; Z86.718 Personal history of other venous thrombosis and embolism; Z86.010 Personal history of colon polyps; Z96.642 Presence of left artificial hip joint; Z90.710 Acquired absence of both cervix and uterus
CPT/HCPCS: 36415; 80048; 85025; 85610; 96372; 96374; 97110; 97116; 97162; 97166; 97530; 97535; 99283; 99284; A9270; G0378; J0360; J1650

== ENCOUNTER 2023-02-11 12:39 | Inpatient (IN) | payer MEDICARE, SELFPAY ==
--- NOTE | 2023-02-11 12:58 | PC.NURSE ---
Resident was admitted to LTCC today from [facility] due to a left wrist fracture, pain, therapy and unable to care for herself. She had a qualifying hospital stay from 02/08/23-02/11/23. UR notified her [facility] plan and they authorized three days of coverage and requested a review on 02/12/23. Resident will receive PT/OT, pain management, CMS checks and nursing care. Resident and family aware of care and coverage.
[2023-02-11 13:59] VITALS: BP 166/69; PULSE 60; RESP 20; TEMP 36.4; O2SAT 96
--- NOTE | 2023-02-11 14:04 | LTC.ADM ---
LTC Admission Note: o Admit from: Med /Surg o Mode of transport: Wheel chair o Accompanied by: Med/[facility] staff o Transferred via: Walk slowly o Admitting dx:Left Wrist Fracture o Mentation: Alert o Vital Signs: T97.6,P60,BP 166/69,O2 96 and R 20 o Lung sounds: Clear o Overall condition: Friendly and pleasant o Pain: No pain currently o Mood/Behavior: Good o Wound care: No wound except left hand swelling o Assistance level with ADL?s: ! assist o Mobility: Walk with platform walker o Eating: Regular
[2023-02-11 14:14] VITALS: TEMP 36.4; O2SAT 96
[2023-02-11 14:35] LABS: SARS PCR* Negative SARS-CoV-2 (Negative)
--- NOTE | 2023-02-11 15:36 | PC.NURSE ---
Order Request Status: Telephone call was placed at 1554 to [employer] requesting for an order for CPAP application.
--- NOTE | 2023-02-11 16:10 | PC.NURSE ---
Met with resident at bedside. Resident noted to have skin tear on left elbow where injury from fall occurred. Wound measured and Mepilex border applied. Reviewed temporary care plan and provided resident copy of med list. Resident expressed interest in using quarter right side bed rail for mobility while in bed. Consent signed for psychotropic (anti-depressant, sertraline) administration. All questions answered. Patient left in low position with call light in reach. Bed alarm confirmed in place and plugged in.
--- NOTE | 2023-02-11 16:22 | PC.NURSE ---
Resident asked if she had an order for Omeprazole. She does not want to take it, she had gastric bleeding in the past. Will ask provider tomorrow.
--- NOTE | 2023-02-11 16:26 | PC.NURSE ---
Resident placed on EBP precautions due to wound, source control due to new admission, and will initiate AGP precautions when order for CPAP obtained.
[2023-02-11 17:00] VITALS: BP 139/71; PULSE 65; RESP 20; TEMP 37; O2SAT 94
[2023-02-11] MEDS: WARFARIN 5 MG TABLET PO (19:54)
[2023-02-11] MEDS: METOPROLOL TARTRATE 25 MG TABLET PO (19:56)
[2023-02-11] MEDS: ROSUVASTATIN CALCIUM 10 MG TABLET PO (19:57)
--- NOTE | 2023-02-11 20:29 | PC.NURSE ---
Treatment request: Request placed in PROOF TECHNICIAN HELPER Book for Nystatin powder order to treat redness to pericare area.
[2023-02-11 21:00] VITALS: BP 136/69; PULSE 62; RESP 18; TEMP 37.1; O2SAT 93
[2023-02-11] MEDS: ENOXAPARIN 80 MG/0.8 ML INJ 70 MG SUBCUT (21:36)
--- NOTE | 2023-02-11 23:34 | PC.NURSE ---
COVID Status: Result is negative at this time.
--- NOTE | 2023-02-11 23:43 | PC.NURSE ---
Oxygen Need: Resident is placed on 2L O2 via N/C as indicated on Preadmission Assessment sheet, and also per resident's request.
[2023-02-12 01:00] VITALS: BP 145/70; PULSE 62; RESP 18; TEMP 35.7; O2SAT 90
[2023-02-12] MEDS: ACETAMINOPHEN 325 MG TABLET 650 MG PO (01:08)
[2023-02-12] MEDS: LEVOTHYROXINE 100 MCG TABLET PO (06:58)
--- NOTE | 2023-02-12 07:39 | PC.NURSE ---
Order: Okay to utilize CPAP with home settings as requested RBTO by INSTALLATION HELPERWhitley.
[2023-02-12] MEDS: lisinopriL 40 MG TABLET PO (07:41)
[2023-02-12] MEDS: AMLODIPINE 5 MG TABLET PO (07:41)
[2023-02-12] MEDS: COENZYME Q10 100 MG CAPSULE PO (07:41)
[2023-02-12] MEDS: SERTRALINE 100 MG TABLET PO (07:41)
[2023-02-12] MEDS: METOPROLOL TARTRATE 25 MG TABLET PO ×2 (07:41→15:30)
[2023-02-12] MEDS: ENOXAPARIN 80 MG/0.8 ML INJ 70 MG SUBCUT ×2 (09:30→20:20)
[2023-02-12] MEDS: LOPERAMIDE HCL 2 MG CAPSULE PO (11:32)
[2023-02-12 11:41] VITALS: BP 130/63; PULSE 68; RESP 20; TEMP 36.4; O2SAT 91
[2023-02-12 12:02] VITALS: BP 130/63; PULSE 68; RESP 18; TEMP 36.4; O2SAT 91
--- NOTE | 2023-02-12 13:24 | PC.NURSE ---
Medicare Note : Resident was admitted due to wrist fracture from fall. Her vitals are as follows: T97.5, P68, R 20, BP 130/63 and O2 91 . Resident is alert and orientated, mood pleasant. Her left wrist is still very swollen and CMS is good. Resident is currently being transfer and ambulating with 1 assist using platform walker. Currently she is on contact precautions in her room for 10days to due to Covid procedures. Staff are required to wear gloves, gown and mask with her cares. She was neg for Covid yesterday for 1st testing and will have her 3rd testing tomorrow. Resident is also using CPAP at night for her sleep apnea. Goal for discharge is to ensure resident is able to do grooming, toilet transfer ,toileting and dressing by herself. She is with 1 assist with all her cares.
--- NOTE | 2023-02-12 13:56 | PC.NURSE ---
Initial Visit: Resident seen by Dr. Calvo. Orders reviewed with changes. Orders:D/C Omeprazole & Coenzyme Q10, Nystatin powder BID to brea area x 14 days then BID PRN yeasty rash, 1/ (r) side rail up while in bed, OT to do cognitive testing, refer to Ortho for management of left radius fx, in one month check CBC, Imodium 2 MG q6h PRN loose stools, in one week check TSH, A1C, Carvedilol 3.125mg BID, D/C Metoprolol when Carvedilol is available.
[2023-02-12] MEDS: WARFARIN 5 MG TABLET PO (15:30)
--- NOTE | 2023-02-12 16:32 | PC.SOCIAL ---
Addendum entered by MIKAL Chadwick 02/12/23 16:39: Phone call to resident's daughters, Maryuri and Noreen. Left a voicemail for both daughters. Informed that resident is in need of clothing. Provided social work contact phone number and the phone number to the [facility] nurses station. Will continue to follow up as needed. Original Note: Met with resident and completed a PHQ-9. Resident scored a 14 and has been feeling down. Offered a referral for mental health therapy. Resident states that she will think about it. Informed resident that social work will follow up with her. Will continue to monitor resident.
[2023-02-12] MEDS: carvediloL 12.5 MG TABLET 3.125 MG PO (19:51)
[2023-02-12] MEDS: ROSUVASTATIN CALCIUM 10 MG TABLET PO (19:52)
[2023-02-12] MEDS: NYSTATIN POWDER 1 APPLIC TOPICAL (19:52)
--- NOTE | 2023-02-12 21:33 | PC.NURSE ---
Metoprolol Tartate Discontinued 08:00, 16:00 per Carvedilol starting.
[2023-02-13] MEDS: ACETAMINOPHEN 325 MG TABLET 650 MG PO ×5 (00:44→22:42)
[2023-02-13] MEDS: carvediloL 12.5 MG TABLET 3.125 MG PO ×2 (07:52→15:50)
[2023-02-13] MEDS: AMLODIPINE 5 MG TABLET PO (07:52)
[2023-02-13] MEDS: LEVOTHYROXINE 100 MCG TABLET PO (07:52)
[2023-02-13] MEDS: lisinopriL 40 MG TABLET PO (07:53)
[2023-02-13] MEDS: NYSTATIN POWDER 1 APPLIC TOPICAL ×2 (07:53→15:51)
[2023-02-13] MEDS: SERTRALINE 100 MG TABLET PO (07:53)
[2023-02-13] MEDS: ENOXAPARIN 80 MG/0.8 ML INJ 70 MG SUBCUT (08:34)
[2023-02-13 09:40] LABS: SARS PCR* Negative SARS-CoV-2 (Negative)
[2023-02-13] MEDS: LOPERAMIDE HCL 2 MG CAPSULE PO (11:34)
--- NOTE | 2023-02-13 12:48 | PC.NURSE ---
Medicare Note : Resident was admitted due to wrist fracture from fall. Her vitals are as follows: T97.6, P60, R 20, BP 1273/68 and O2 93 . Resident is alert and orientated, mood pleasant. Her left wrist is still bluish color very swollen and CMS is good.She is able to move her fingers and resident feel that her swelling is slowly subsiding. Resident c/o pain on chest ribs in the morning and afternoon and PRN Tylenol 650mg was given both time. Resident has 2 episode of loose stool and she was given PRN Loperamide 2mg at 1120hours. She spend most of time resting in her bed with light off during this shift Windmill Technician ask resident whether she want a stronger pain medication, however she refuse and said that Tylenol is working fine for her. Resident is currently being transfer and ambulating with 1 assist using platform walker. Currently she is on contact precautions in her room for 10days to due to Covid procedures. Staff are required to wear gloves, gown and mask with her cares. She was neg for Covid today for 2nd testing and will have her 3rd testing on Wednesday. Resident is also using CPAP at night for her sleep apnea. Goal for discharge is to ensure resident is able to do grooming, toilet transfer ,toileting and dressing by herself. She is with 1 assist with all her cares.
[2023-02-13 13:17] VITALS: BP 127/68; PULSE 60; RESP 18; TEMP 36.4; O2SAT 93
--- NOTE | 2023-02-13 13:26 | PC.NURSE ---
Loose Stool: Resident had 2 episode of loose sttol and PRN tab Loperamide was given with good results.
--- NOTE | 2023-02-13 13:44 | PC.NURSE ---
Covid Results: It was neg for 2nd Covid testing today. Final test due on Wednesday
[2023-02-13] MEDS: WARFARIN 5 MG TABLET PO (15:51)
[2023-02-13] MEDS: ROSUVASTATIN CALCIUM 10 MG TABLET PO (20:18)
--- NOTE | 2023-02-13 21:37 | PC.NURSE ---
Writernoticed Enoxaparin syringe from [facility] stated give once daily, but MAR schedules injections @ 0:900 & 21:00. Blind Escort notice we are out of Enoxaparin syringes, but shouldn't be out until 02/15/23. Blind Escort called pharmacy which confirmed, we are giving the injections incorrectly; they sent us a 5 day supply, and we are out of syringes. Checking the order, the order states give 70 mg Enoxaparin Daily. The order written by the [facility], Juan Sage, reads give 70 mg Enoxaparin Q12H. Resident has been receiving Enoxaparin Q 12 H - @ 09:00, and 21:00 since her admission to [facility] 02/11/23. Triage - Dr. Calvo - was notified. Dr. Calvo gave order to discontinue the 21:00 Enoxaparin injection and to include intervention for bleeding monitoring. 21:00 Enoxaparin injection d/c'd as of 02/13/23, 18:00. Intervention for Bleeding Monitoring in place. 09:00 Enoxaparin injection remains. Message left for daughter, Maryuri. Resident was notified. Pharmacy delivered new supply of Enoxaparin syringes. DON notified.
[2023-02-14] MEDS: ACETAMINOPHEN 325 MG TABLET 650 MG PO ×3 (03:28→20:59)
[2023-02-14] MEDS: carvediloL 12.5 MG TABLET 3.125 MG PO ×2 (08:20→16:04)
[2023-02-14] MEDS: LEVOTHYROXINE 100 MCG TABLET PO (08:20)
[2023-02-14] MEDS: lisinopriL 40 MG TABLET PO (08:20)
[2023-02-14] MEDS: AMLODIPINE 5 MG TABLET PO (08:20)
[2023-02-14] MEDS: NYSTATIN POWDER 1 APPLIC TOPICAL ×2 (08:20→16:05)
[2023-02-14] MEDS: SERTRALINE 100 MG TABLET PO (08:20)
[2023-02-14] MEDS: ENOXAPARIN 80 MG/0.8 ML INJ 70 MG SUBCUT (09:30)
--- NOTE | 2023-02-14 12:31 | PC.NURSE ---
Medication: Tab Amlodipine for Wednesday dosage was not in the pack,sql report writer took dose from . Fax to pharmacy and also call to notify the issue. Another Medication Tab Vitron C supposed to be 2 tab daily but pharmacy pack it as 1 tab daily. Supply Chain Logistics Manager call pharmacy on Wednesday to inform the issue, however meds did not come on Wednesday. Supply Chain Logistics Manager Fax the MP's order and photocopy of the meds to pharmacy and follow-up with a call. PM staff to follow up with the med order. Currently medication is given taken from other days.
--- NOTE | 2023-02-14 13:03 | PC.NURSE ---
Pain management : Resident has been complaining of ribs pain due to fall very frequently and requesting for Tylenol. Inventory Control/Shipping Receiving call Magalis Powers and request if stronger pain medication could be prescribed to resident .Call was answered by NIA Obrien and inform that Dr Duque has ordered 5mg Oxycodone 6 Hourly PRN .She notify that the prescription has been send the [facility]. Staff to monitor if the meds arrived tonight.
[2023-02-14 14:32] VITALS: BP 138/77; PULSE 72; RESP 18; TEMP 36.4; O2SAT 94
--- NOTE | 2023-02-14 14:42 | PC.NURSE ---
Medicare Note : Resident was admitted due to wrist fracture from fall. Her vitals are as follows: T97.6, P72, R 18, BP 138/77 and O2 94 . Resident is alert and orientated, mood pleasant. Her left wrist is still bluish color swollen and CMS is good.She is able to move her fingers and resident feel that her swelling is slowly subsiding. Resident c/o pain on chest ribs and informed that she was unable to sleep at night due to the pain. Grain Shipper asked if she wants an order for a stronger pain medication and resident replied that she would like stronger pain med beside Tylenol.hoping that she will get a good night rest. PRN Tylenol was given at 0930, and resident slept until 1230 noon. Resident did not have any loose stool today. Resident is currently being transfer and ambulating with 1 assist using platform walker. Currently she is on contact precautions in her room for 10days to due to Covid procedures. Staff are required to wear gloves, gown and mask with her cares. She was neg for 2nd testing and will have her 3rd testing on Wednesday. Resident is also using CPAP at night for her sleep apnea. Goal for discharge is to ensure resident is able to do grooming, toilet transfer ,toileting and dressing by herself. She is with 1 assist with all her cares.
[2023-02-14] MEDS: WARFARIN 5 MG TABLET PO (16:04)
[2023-02-14] MEDS: ROSUVASTATIN CALCIUM 10 MG TABLET PO (19:48)
[2023-02-14 20:59] VITALS: TEMP 36.9
--- NOTE | 2023-02-14 21:19 | PC.NURSE ---
21:00 call made to Magalis regarding Order for Oxycodone 5mg Q6H PRN. Facility still did not receive Oxycodone. Per Aaron Greco NP, the script was sent to wrong pharmacy. STRADDLE BUG OPERATOR sent script to correct pharmacy. Pharmacy provided permission to get Oxycodone 5 mg from the [facility] if necessary. Pharmacy reports they will godinez/send Oxycodone out tonight. Resident requested prn pain pill @ 20:00 and was administered 650 mg Tylenol prn. 21:00 bond underwriter asked resident if she needed Oxycodone from the [facility], resident declined. It is noted facility doesn't have an order for PRN Tylenol for resident. Request for order of PRN Tylenol put in STRADDLE BUG OPERATOR book. Will use [facility] PRN order until then.
[2023-02-14 21:39] VITALS: TEMP 36.9
[2023-02-15] MEDS: OXYCODONE 5 MG TABLET PO ×2 (01:01→12:10)
[2023-02-15] MEDS: AMLODIPINE 5 MG TABLET PO (08:08)
[2023-02-15] MEDS: SERTRALINE 100 MG TABLET PO (08:08)
[2023-02-15] MEDS: NYSTATIN POWDER 1 APPLIC TOPICAL ×2 (08:08→15:59)
[2023-02-15] MEDS: lisinopriL 40 MG TABLET PO (08:08)
[2023-02-15] MEDS: LEVOTHYROXINE 100 MCG TABLET PO (08:08)
[2023-02-15] MEDS: carvediloL 12.5 MG TABLET 3.125 MG PO ×2 (08:08→15:57)
[2023-02-15] MEDS: ENOXAPARIN 80 MG/0.8 ML INJ 70 MG SUBCUT (08:09)
--- NOTE | 2023-02-15 09:35 | PC.NURSE ---
Lab note: Day 5 Covid test completed per protocol. Sample dropped off to hospital lab. Results pending at this time.
--- NOTE | 2023-02-15 10:53 | PC.NURSE ---
Orders note: RACHAEL Arreaga gave new orders for Tylenol 1000 mg BID as well as Daily PRN. PRN order for PSO Tylenol 650 mg has also been discontinued as resident has new Tylenol orders.
--- NOTE | 2023-02-15 11:01 | PC.NURSE ---
Side rail assessment/providers orders/informed consent: Completed side rail utilization assessment, RBVO Right bed rail up to always promote independence/positioning. Requested by resident. Dx: Wrist fracture per Pushpa Arreaga NP. Bed rail informed consent form signed and filed. FDA side rail pamphlet given to resident at this time. Intervention in place.Care plan and care sheets updated.
[2023-02-15 11:29] LABS: SARS PCR* Negative SARS-CoV-2 (Negative)
--- NOTE | 2023-02-15 11:58 | PC.NURSE ---
Lab note: Covid result noted to be negative for day 5 Covid test.
--- NOTE | 2023-02-15 12:28 | PC.SOCIAL ---
Met with resident in room. Resident reports that daughter, Noreen, came to see her yesterday and brought clothing. Resident discusses discharge plans and is hopeful to eventually move to assisted living near [place] to be closer to her daughter. Discussed with resident that short-term rehab will be covered by Medicare, when rehab is completed resident would need to private pay. Informed resident that this worker can begin the process to locating assisted living, but informed resident that rehab may finish before an assisted living is located. Resident understands and states that she may want to go back to independent living with home care in the meantime. Informed resident that this worker will begin locating openings for assisted living and provide resident with an update. Resident informs that both daughters are not wanting to be closely involved with care conferences and have told resident that. Informed Resident this worker will set the care conference and still provide the information to her daughters. Care conference is set for 02/23/23 at 1:30 pm. Phone call to resident's daughter, Maryuri, left voicemail providing information on care conference. Phone call to resident's daughter, Noreen, provided update on care conference. Noreen informs she will visit tomorrow to [facility]. Informed Noreen she may attend by phone if she desired and this worker could email call in information. Noreen provides her email address of [email or web address]. This worker will send a care conference notice to Noreen. Social work will follow up as needed.
--- NOTE | 2023-02-15 13:16 | PC.NURSE ---
Medicare charting: Admitted for left wrist fracture from fall. PT/OT 5 days a week. Resident did complain of pain of 6 out of 10 in the ribs Oxycodone 5mg PRN given at 1210 with relief. Resident transfers one assist with a walker. VS are 112/73, resp. 18, SPO2 93%, temp. 97.9, pulse 74. CMS is within normal limits.
[2023-02-15 13:20] VITALS: BP 112/73; PULSE 74; RESP 18; TEMP 36.6; O2SAT 93
--- NOTE | 2023-02-15 13:21 | PC.NURSE ---
Orders note: New orders per FURNITURE MOVER DRIVER Pushpa Arreaga: 1) Please schedule appointment with ortho to have hard cast placed- currently in a [facility] cast. (seen by ortho in hospital). UMBERTO working on this. 2) Please try to elevate arm on pillow to help with swelling. 3) Okay for right 1/4 side rail while in bed for increased mobility and independence Dx: wrist fx (UMBERTO and DON updated). 4) Okay to use CPAP with home settings.
--- NOTE | 2023-02-15 14:19 | PC.NURSE ---
Pain: Resident complained of a pain of 6/10 in the ribs. Oxycodone 5mg given at 1210 with relief.
--- NOTE | 2023-02-15 14:23 | PC.NURSE ---
Per MARTINA, RT has to evaluate resident's CPAP before it can be used. Intervention inactivated at this time. Evening nurses state resident has not yet used CPAP at HS, though requests PRN oxygen.
--- NOTE | 2023-02-15 15:04 | PC.SOCIAL ---
Resident has a follow-up ortho appointment on , 02/18 @10:30am with ortho at the [facility]. Resident's daughter will drive down to visit on and will transport her to the appointment.
--- NOTE | 2023-02-15 15:10 | PC.NURSE ---
Telephone call to [facility] and spoke with imaging scheduler, Little ([phone]) who was able to get resident in with Dr. Cisco Gooden on , 02/18 at 1020am. This property underwriter spoke with resident about possible transport options and she gave permission for this property underwriter to speak with her daughters about a ride to her appointment. Left voice message for resident's daughter, Maryuri requesting call back. Spoke with daughter, Noreen, who states she was planning to come and see Meseret tomorrow, but will instead plan to come and see her on and take her to her appointment. She notes she will arrive around 9:30am. This property underwriter informed Meseret of plan for Noreen to come take her to her appointment. She confirms understanding. Appointment noted in appointment book at front window cashier of [facility].
[2023-02-15] MEDS: WARFARIN 5 MG TABLET PO (15:57)
[2023-02-15] MEDS: ACETAMINOPHEN 500 MG TABLET 1000 MG PO (20:27)
[2023-02-15] MEDS: ROSUVASTATIN CALCIUM 10 MG TABLET PO (20:27)
[2023-02-16] MEDS: OXYCODONE 5 MG TABLET PO (03:05)
[2023-02-16] MEDS: LEVOTHYROXINE 100 MCG TABLET PO (06:51)
[2023-02-16 07:00] VITALS: BP 110/66; PULSE 60; RESP 18; TEMP 36.1; O2SAT 91
[2023-02-16] MEDS: AMLODIPINE 5 MG TABLET PO (07:23)
[2023-02-16] MEDS: carvediloL 12.5 MG TABLET 3.125 MG PO (07:23)
[2023-02-16] MEDS: ACETAMINOPHEN 500 MG TABLET 1000 MG PO ×2 (07:23→19:09)
[2023-02-16] MEDS: lisinopriL 40 MG TABLET PO (07:24)
[2023-02-16] MEDS: NYSTATIN POWDER 1 APPLIC TOPICAL ×2 (07:24→16:18)
[2023-02-16] MEDS: SERTRALINE 100 MG TABLET PO (07:24)
[2023-02-16 08:01] LABS: INR 2.54 (0.91-1.10); Prothrombin Time 28.6 Seconds
[2023-02-16] MEDS: ENOXAPARIN 80 MG/0.8 ML INJ 70 MG SUBCUT (08:57)
--- NOTE | 2023-02-16 10:10 | PC.NURSE ---
INR: Results today 2.54. Call Coumadin nurse Alina to inform the result. New orders 1) Discontinue Inj S/c Enoxaparin 2) Give Warfarin 2.5mg on the 02/16/23 ( Wednesday) 3) Give 5mg on 02/17 & 02/18 (Wed & ) 4) Test INR on the 02/19/23 ( Wednesday) .
--- NOTE | 2023-02-16 11:14 | PC.SPIRITC ---
Meseret talked about events leading to stay at [facility], along with family and britt. I provided time for life review, grief support, and visit for support.
--- NOTE | 2023-02-16 11:41 | RESP.RT ---
Patients Home CPAP check; Machine, water chamber, mask, tubing, and cord were found clean and functioning. Machine was placed at bedside, ready to use as needed. Machine was turned on and settings checked. New mask cushion placed on mask for patient.
--- NOTE | 2023-02-16 14:24 | PC.NURSE ---
Warfarin order: New order for warfarin send to pharmacy and dosage verified in the system.
[2023-02-16] MEDS: CARVEDILOL 3.125 MG TABLET 3.125 EACH PO (16:17)
[2023-02-16] MEDS: ROSUVASTATIN CALCIUM 10 MG TABLET PO (19:10)
--- NOTE | 2023-02-17 00:30 | PC.NURSE ---
Weekly charting Week 2: Mobility. Vital signs reviewed. BP varies, CERTIFIED OPTICIAN aware, Continue to monitor, Notify provider as needed. comprehensive and temporary care plan reviewed. Nothing added to Temporary care plan. No changes made to baseline care plan. Resident requires SBA of 1 assist, transfer belt, platform walker with transfers and ambulation. Ambulate to all destination in [facility] with platform walker. daily 2x on Am and 2x on PM on walking program. Needs limited staff assist with bed mobility. No wheelchair use. Has Right 1/4 side rails up at all times to assist with bed positioning. No alarms. Fall: No falls since admission. Res is a high fall risk. Fall intervention:Bed and chair alarm in place, Falling star magnet, call light within reach, keep area free of clutters, gripper socks, hourly checks, bed in low position brakes locked, walker at bedside.
[2023-02-17] MEDS: ACETAMINOPHEN 500 MG TABLET 1000 MG PO ×4 (03:48→19:12)
[2023-02-17 07:00] VITALS: BP 112/68; PULSE 69; RESP 18; TEMP 36.4; O2SAT 91
[2023-02-17] MEDS: LEVOTHYROXINE 100 MCG TABLET PO (07:07)
[2023-02-17] MEDS: lisinopriL 40 MG TABLET PO (07:08)
[2023-02-17] MEDS: CARVEDILOL 3.125 MG TABLET 3.125 EACH PO ×2 (07:08→15:17)
[2023-02-17] MEDS: AMLODIPINE 5 MG TABLET PO (07:08)
[2023-02-17] MEDS: NYSTATIN POWDER 1 APPLIC TOPICAL ×2 (07:08→15:17)
[2023-02-17] MEDS: SERTRALINE 100 MG TABLET PO (07:08)
--- NOTE | 2023-02-17 09:32 | PC.NURSE ---
Weekly Charting-Week 2: Mobility Vital signs reviewed. Blood pressure values noted to be varied. Staff to continue to monitor and update provider PRN. No additions noted to temporary care plan. Baseline care plan completed upon admission. Right 1/4 side rail used to assist with repositioning in bed. Resident requires limited assist of 1 with bed mobility and transferring. Ambulate to all destination in [facility] with platform walker and SBA of 1. Nursing staff to ambulate with patient daily 2x on AM and 2x on PM shift for walking program. Resident is high risk for fall. Interventions in place to help prevent falls include: call light within reach, hourly safety checks, falling star magnet, chair and bed alarms in place and bed in lowest position with bed brakes on.
--- NOTE | 2023-02-17 09:38 | PC.NURSE ---
OT discontinued resident's chair alarm as resident has been deemed cognitively intact per OT. Floor staff updated.
[2023-02-17 10:15] VITALS: BMI 28.0
--- NOTE | 2023-02-17 10:42 | PC.NURSE ---
Medicare Charting: Resident admitted for rehab related to a fall and left wrist fracture. She has not complained of pain in her wrist today. She receives Tylenol 1000mg TID. Vital signs are stable. Continues with itchiness in the periarea. Good pericares and Nystatin applied. No longer receiving Lovenox injections and continuing with Warfarin. Continues on precautions due to admission.
--- NOTE | 2023-02-17 12:44 | PC.NURSE ---
Meseret has appointment [facility] on 02/19/2023 at 1100. This race and sports book writer asked Meseret if she would still like to plan to attend. 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 She was unsure if she would recieve an infusion during appointment. Sixth Grade Teacher called infusion center [phone] and confirmed it is just a follow up with the provider and she will NOT be recieving an infusion. They request Meseret is at appointment by 1040am. Sixth Grade Teacher noted appointment time and date on calendar at RN station.
[2023-02-17] MEDS: WARFARIN 5 MG TABLET PO (15:17)
[2023-02-17 15:20] VITALS: TEMP 36.7
[2023-02-17 16:58] VITALS: TEMP 36.7
[2023-02-17] MEDS: ROSUVASTATIN CALCIUM 10 MG TABLET PO (19:12)
[2023-02-18] MEDS: OXYCODONE 5 MG TABLET PO ×3 (00:40→21:39)
[2023-02-18] MEDS: LEVOTHYROXINE 100 MCG TABLET PO (06:56)
[2023-02-18 07:00] VITALS: BP 163/79; PULSE 70; RESP 18; TEMP 36.4; O2SAT 94; BMI 27.6
[2023-02-18] MEDS: SERTRALINE 100 MG TABLET PO (08:08)
[2023-02-18] MEDS: CARVEDILOL 3.125 MG TABLET 3.125 EACH PO ×2 (08:08→15:00)
[2023-02-18] MEDS: ACETAMINOPHEN 500 MG TABLET 1000 MG PO ×2 (08:08→21:07)
[2023-02-18] MEDS: lisinopriL 40 MG TABLET PO (08:08)
[2023-02-18] MEDS: AMLODIPINE 5 MG TABLET PO (08:08)
[2023-02-18] MEDS: NYSTATIN POWDER 1 APPLIC TOPICAL ×2 (08:08→15:00)
--- NOTE | 2023-02-18 10:50 | PC.NURSE ---
Medicare charting: Resident was admitted from hospital for rehab related to a fall and left wrist fracture. She sustained a abrasion on left elbow. CMS is good to fingers to left hand. Vital signs are stable T-97.6, P-70, R-18, B/P-163/79 and O2 sats were 94% on RA. Some complaint of pain in wrist this morning due to sleeping differently last night that caused her discomfort. Abrasion is healing and measuring 1.5cmx2.0cm.
--- NOTE | 2023-02-18 10:56 | PC.NURSE ---
Ortho Appointment: Meseret was taken by daughter to her ortho appointment in [place].
--- NOTE | 2023-02-18 14:50 | PC.NURSE ---
Resident came back from ortho anupama at 1300hrs. No written order from the physician. Verbal order from resident that the Dr change the cast and applied it back. To see him back on the March 04 at 1400 hours.
[2023-02-18] MEDS: WARFARIN 5 MG TABLET PO (15:00)
[2023-02-18] MEDS: ROSUVASTATIN CALCIUM 10 MG TABLET PO (21:07)
--- NOTE | 2023-02-18 21:47 | PC.NURSE ---
Resident reported to magnetic tape typewriter operator she wants to talk to a manager social media for mental health issues. Resident's two daughters do not get along, do not talk to eachother, which is not helpful for resident in finding a place for her to live, that they both agree on.
--- NOTE | 2023-02-18 23:31 | PC.NURSE ---
Overheard Resident calling out for help. Call light on. MADDISON went to resident room found out that Resident in [id number] was inside the room wondering looking for insulin and medication naked wearing pull up. RN said sorry for the situation, making sure resident is safe in the room and will not make happened again. Requested to close the door at all times.
[2023-02-19 08:05] LABS: INR 2.89 (0.91-1.10); Prothrombin Time 31.6 Seconds
[2023-02-19 08:06] LABS: Hemoglobin A1C* 5.22 % (0-5.6)
[2023-02-19] MEDS: ACETAMINOPHEN 500 MG TABLET 1000 MG PO ×2 (08:26→20:41)
[2023-02-19] MEDS: LEVOTHYROXINE 100 MCG TABLET PO (08:26)
[2023-02-19] MEDS: NYSTATIN POWDER 1 APPLIC TOPICAL ×2 (08:27→16:14)
[2023-02-19] MEDS: CARVEDILOL 3.125 MG TABLET 3.125 EACH PO ×2 (08:27→16:14)
[2023-02-19] MEDS: lisinopriL 40 MG TABLET PO (08:27)
[2023-02-19] MEDS: AMLODIPINE 5 MG TABLET PO (08:27)
[2023-02-19] MEDS: SERTRALINE 100 MG TABLET PO (08:28)
[2023-02-19 10:29] VITALS: BP 163/83; PULSE 71; RESP 18; TEMP 36.8; O2SAT 96
--- NOTE | 2023-02-19 10:32 | LTC.MORTHO ---
[facility] Medicare Ortho Note: o Admission dx:right wrist fracture o Daily VS: T 98.2 BP: 163/83 p: 71 RR: 18 O2: 96% o Pain management: o CMS: No numbness or tingling reported in right fingers. Resident able to wiggle all fingers. o Incision (s/s infection, dressing): NA o PT/OT: o Transfers: Ambulates with walker and assist of 1 o Bed Mobility: o Ambulation: Assist of 1 with walker o Goals for discharge:
[2023-02-19 11:18] LABS: Iron* 54 ug/dL (37-170)
[2023-02-19 11:27] LABS: Percent Iron Saturation 17 % (20-50); Total Iron Binding Capacity 311 ug/dL (265-497)
[2023-02-19 11:54] LABS: Ferritin* 72.1 ng/mL (11.1-264.0)
[2023-02-19] MEDS: OXYCODONE 5 MG TABLET PO (13:55)
--- NOTE | 2023-02-19 17:00 | PC.NURSE ---
INR: INR result for today, 02/19/23, is 2.89. Telephone call was made at 1520 to Coumadin clinic for an update on result. Spoke with nurse, Alina. 'Telephone order Read-back' was given for Warfarin as follows: 1) Give Warfarin 2.5mg today (02/19/23). 2) Give 5mg on Wednesday (02/20/23), and Wednesday (02/21/23). 3) Re-check INR on Wednesday (02/22/23).
[2023-02-19] MEDS: ROSUVASTATIN CALCIUM 10 MG TABLET PO (20:41)
[2023-02-19] MEDS: WARFARIN 2.5 MG TABLET PO (20:42)
[2023-02-20 07:00] VITALS: BP 178/76; PULSE 62; RESP 18; TEMP 36.4; O2SAT 94
[2023-02-20] MEDS: ACETAMINOPHEN 500 MG TABLET 1000 MG PO ×2 (08:05→19:17)
[2023-02-20] MEDS: LEVOTHYROXINE 100 MCG TABLET PO (08:05)
[2023-02-20] MEDS: AMLODIPINE 5 MG TABLET PO (08:06)
[2023-02-20] MEDS: CARVEDILOL 3.125 MG TABLET 3.125 EACH PO ×2 (08:06→15:48)
[2023-02-20] MEDS: SERTRALINE 100 MG TABLET PO (08:06)
[2023-02-20] MEDS: lisinopriL 40 MG TABLET PO (08:06)
[2023-02-20] MEDS: NYSTATIN POWDER 1 APPLIC TOPICAL ×2 (08:06→15:48)
--- NOTE | 2023-02-20 10:19 | PC.NURSE ---
Medicare charting: Diagnosis: (L) wrist fracture from fall. PT/OT 5x a week. Resident has yet to complain of pain on this shift. Resident transfers with one assist using platform walker. VS 178/76, SPO2 94%, Pulse 62, Resp. 18, temp. 97.5. CMS is within normal limits.
--- NOTE | 2023-02-20 14:24 | PC.NURSE ---
Status: Resident complained to staff that she has left knee pain when she wakes up in the morning and when she gets up and moves around the pain goes away.
[2023-02-20] MEDS: ROSUVASTATIN CALCIUM 10 MG TABLET PO (19:17)
[2023-02-20] MEDS: WARFARIN 5 MG TABLET PO (19:18)
[2023-02-20] MEDS: OXYCODONE 5 MG TABLET PO (21:51)
[2023-02-21 07:00] VITALS: BP 132/69; PULSE 65; RESP 18; TEMP 37.2; O2SAT 90
[2023-02-21] MEDS: NYSTATIN POWDER 1 APPLIC TOPICAL ×2 (07:14→16:03)
[2023-02-21] MEDS: AMLODIPINE 5 MG TABLET PO (07:14)
[2023-02-21] MEDS: lisinopriL 40 MG TABLET PO (07:14)
[2023-02-21] MEDS: ACETAMINOPHEN 500 MG TABLET 1000 MG PO ×3 (07:14→19:17)
[2023-02-21] MEDS: LEVOTHYROXINE 100 MCG TABLET PO (07:14)
[2023-02-21] MEDS: SERTRALINE 100 MG TABLET PO (07:14)
[2023-02-21] MEDS: CARVEDILOL 3.125 MG TABLET 3.125 EACH PO ×2 (07:14→16:03)
[2023-02-21] MEDS: WARFARIN 5 MG TABLET PO (07:14)
--- NOTE | 2023-02-21 10:37 | PC.NURSE ---
Medicare charting: Diagnosis: (L) wrist fracture from fall PT/OT five times a week Pain of 6 in left arm requested Tylenol 1000mg Mobility: transfers/ambulates with one assist using the platform walker Daily VS 132/69, pulse 65, Resp 18, SPO2 90%, Temp 98.2 CMS check QS: Within normal limits.
[2023-02-21] MEDS: ROSUVASTATIN CALCIUM 10 MG TABLET PO (19:17)
[2023-02-21] MEDS: MAG HYDROX/ALUMINUM HYD/SIMETH 30 ML ORAL.SUSP PO (20:24)
[2023-02-21] MEDS: OXYCODONE 5 MG TABLET PO (22:40)
[2023-02-22] MEDS: ACETAMINOPHEN 500 MG TABLET 1000 MG PO ×3 (02:28→19:37)
--- NOTE | 2023-02-22 05:39 | PC.NURSE ---
Pain management Resident requested at 2240 oxycodone 5 mg for pain on her left wrist ; Tylenol 1000mg at 0228 for leg pain.
[2023-02-22] MEDS: LEVOTHYROXINE 100 MCG TABLET PO (08:01)
[2023-02-22] MEDS: lisinopriL 40 MG TABLET PO (08:02)
[2023-02-22] MEDS: AMLODIPINE 5 MG TABLET PO (08:02)
[2023-02-22] MEDS: NYSTATIN POWDER 1 APPLIC TOPICAL ×2 (08:02→16:01)
[2023-02-22] MEDS: CARVEDILOL 3.125 MG TABLET 3.125 EACH PO ×2 (08:02→16:01)
[2023-02-22] MEDS: SERTRALINE 100 MG TABLET PO (08:06)
[2023-02-22 08:10] LABS: INR 2.67 (0.91-1.10); Prothrombin Time 29.7 Seconds
--- NOTE | 2023-02-22 08:35 | PC.NURSE ---
Lab note: INR result of 2.67 today. Dry Ice Machine Operator will call result into Coumadin Clinic this morning to obtain new Coumadin orders and next INR date.
[2023-02-22 09:47] VITALS: BP 166/78; PULSE 66; RESP 16; TEMP 36.6; O2SAT 93
[2023-02-22] MEDS: LOPERAMIDE HCL 2 MG CAPSULE PO (09:58)
--- NOTE | 2023-02-22 10:16 | PC.NURSE ---
Order note: New telephone order given by [facility] Cou[facility]in [facility] nurse Alina Arreaga: Coumadin 2.5 mg po every Wednesday, Wednesday and Wednesday and Coumadin 5 mg po all other days- every Wednesday, Wednesday, and Wednesday. Next INR ordered in 1 week for Wednesday03/01/23. Director Advertising has faxed orders over to [facility] pharmacy along with [facility]. Next INR date has been posted on unit calendar.
--- NOTE | 2023-02-22 10:21 | PC.SOCIAL ---
[phone] and spoke with director sales and marketing. There are openings. Faxed referral to [phone]. Phone call to [facility] in [place] at [phone]. Left a voicemail with Jennifer Donahue in marketing inquiring on availability in Assisted Living. Will continue to follow up as needed. Met with resident in room and provided her with an update. Provided resident with contact information for both Assisted Living facilities. Resident is more interested in the [facility]. Resident states that she has a small dog that she would like to take with her. Resident will reach out to [facility] and ask facility questions that she has.
[2023-02-22] MEDS: WARFARIN 5 MG TABLET PO (10:24)
--- NOTE | 2023-02-22 10:48 | LTC.MORTHO ---
Medicare Note Medicare charting: Diagnosis: (L) wrist fracture from fall PT/OT five times a week Pain rated 0 on scale of 0 to 10. Mobility: transfers/ambulates with one assist using the platform walker Daily VS 166/78, pulse 66, Resp 18, SPO2 93%, Temp 97.8 CMS check QS: Within normal limits.
--- NOTE | 2023-02-22 14:48 | PC.SPIRITC ---
Visit provided for support and connection.
[2023-02-22] MEDS: OXYCODONE 5 MG TABLET PO (16:57)
[2023-02-22] MEDS: WARFARIN 2.5 MG TABLET PO (19:35)
[2023-02-22] MEDS: ROSUVASTATIN CALCIUM 10 MG TABLET PO (19:37)
[2023-02-23 07:00] VITALS: BP 108/65; PULSE 68; RESP 18; TEMP 36.6; O2SAT 91
[2023-02-23] MEDS: NYSTATIN POWDER 1 APPLIC TOPICAL ×2 (07:27→15:47)
[2023-02-23] MEDS: AMLODIPINE 5 MG TABLET PO (07:27)
[2023-02-23] MEDS: CARVEDILOL 3.125 MG TABLET 3.125 EACH PO ×2 (07:27→15:47)
[2023-02-23] MEDS: LEVOTHYROXINE 100 MCG TABLET PO (07:27)
[2023-02-23] MEDS: ACETAMINOPHEN 500 MG TABLET 1000 MG PO ×2 (07:27→20:05)
[2023-02-23] MEDS: lisinopriL 40 MG TABLET PO (07:27)
[2023-02-23] MEDS: SERTRALINE 100 MG TABLET PO (07:28)
--- NOTE | 2023-02-23 11:58 | PC.NURSE ---
Wound: Wound rounds completed with TRANSMITTER ENGINEER. Open wound to L elbow is now scabbed over. Mepilex dressing removed and left RYAN. Staff to continue to monitor scab.
--- NOTE | 2023-02-23 14:11 | PC.NURSE ---
Medicare charting: Meseret was admitted for rehab related to a fall and left wrist fracture. She did not ask for Oxycodone today and the Tylenol was effective. She continues with OT/PT for strengthening and healing. Her CMS is good. She walked to lunch with platform walker and assist of one.
--- NOTE | 2023-02-23 14:44 | PC.SOCIAL ---
Resident's care conference held today at 1:30 pm in resident's room. No family present. Updates from Nursing, Dietary, therapy, and Social Work. Reviewed resident's care plan. Discussed discharge plans. Resident does not want to return to previous living situation as she thinks it is unsafe for her. PT will be done with services this Wednesday and OT will run until mid-next week. Discussed the private pay rate which is about $415.00 a day. Discussed resident's mood, resident has been feeling more depressed lately and is interested in mental health services. Due to resident discharging soon, social work will provide resident with a list of mental health therapists in the area to start mental health therapy.
--- NOTE | 2023-02-23 14:55 | PC.SOCIAL ---
Met with resident to discuss discharge plans. Resident is wanting to stay at LT until Assisted Living in located. Provided information that [facility] accepts pets with a one time pet fee of $800.00. Discussed that [facility] is going to require that resident prove she can privately pay 2 years. Resident states that she does not have enough to private pay for 2 years. Resident reports that she has $68,000.00 in her account and receives $1,400.00 a month in social security and $160.00 a month in annuity payments. Resident's daughter (Noreen) called during our visit and was placed on speaker phone. Resident's daughter states she would like this worker to look into [facility] on the [address] in [facility] as an option as it is about 15 miles from [place]. Phone call to Monique at [facility] the [facility] in [facility] at [phone]. Monique informs that there are openings in Assisted Living and requests that a referral be sent to her at [email or web address]. Monique informs that pets are allowed in Assisted Living. Discussed cost and the base rate is $3,500.00 plus the cost of services that are needed. Resident will be required to show she can private pay for 1 year. E-mailed referral to Monique. Provided update to resident. Social work will continue to follow up as needed.
--- NOTE | 2023-02-23 15:00 | PC.NURSE ---
CARE CONFERENCE: Admission. All members of the IDT team present. Resident present. No family present, resident tried to contact her daughter with no response. Nursing discussed current ADL needs, 1 staff assist. This conversation was followed up by therapy regarding recommendations/needs presently and at discharge. Resident is currently using a platform walker but has difficulty navigating with this and doesnt feel comfortable with it yet. Hoping that once a hard cast is put on that her ability to use her thumb on the affected side that this will improve. Resident also has poor endurance and her legs become weak after awhile and she has difficulty getting out of the recliner without assistance. Has exercise packet for exercises she can do independently in her room. Will need help with ADLs, meals, laundry etc for discharge. Resident and SW are working together regarding [facility] placement. Resident ideally [facility] to [facility] near [facility] as that is where her daughter is. She does not want to return to her previous home and wants to stay in the LTC until other placement is arranged. SW will provide more info on this as able. Resident had an open area on her L elbow that has scabbed over and is now healing and open to air. INR management is going well. No med changes at this time. Pain is better controlled per resident report. Is eating well, wt has been stable since admit. SW noted that resident has significant mood changes and resident concurs that this has been an issue. She would like to meet with psychotherapist, but she notes that she understands if she is unable to get this scheduled before she discharges but would like to have this arranged at her new facility when one is found. SW will follow up and make this referral in hopes to help her as soon as possible. Resident reports her mood has improved some and that she was overwhelmed when hearing about having to pay privately etc. Last day of PT is set for 02/26/23, OT is ongoing at this time. PT may continue to see her 2-3 days a week if resident stays beyond Wednesday of this week. Medications are managed and administered by nursing. Resident is considered vulnerable due to her need for assistance with ADLs and med management. No further concerns. Resident is happy with the care she is receiving. Discharge planning is in progress.
[2023-02-23] MEDS: WARFARIN 5 MG TABLET PO (15:47)
[2023-02-23] MEDS: ROSUVASTATIN CALCIUM 10 MG TABLET PO (20:05)
--- NOTE | 2023-02-24 00:23 | PC.NURSE ---
Weekly Charting Week 3. Toileting and Skin. Vital signs reviewed. BP variable, PRECISION ASSEMBLER BENCH aware, Notify provider as needed. Baseline care plan and temporary care plan reviewed with no changes made. Resident is continent of bowel, has occasional urine incontinent. Able to use call light to use toilet. Res require one assist with toileting. Staff manage brea cares, personal hygiene, pad and clothing, wear large pull up. SKIN: Redness on brea area, applied nystatin powder. Calluses on Left 5th toe and Right great toe. 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 Skin check done on bath days and during cares.
[2023-02-24 07:00] VITALS: BP 152/63; RESP 18; TEMP 36.9; O2SAT 98
[2023-02-24] MEDS: LEVOTHYROXINE 100 MCG TABLET PO (07:25)
[2023-02-24] MEDS: lisinopriL 40 MG TABLET PO (07:25)
[2023-02-24] MEDS: NYSTATIN POWDER 1 APPLIC TOPICAL ×2 (07:25→16:37)
[2023-02-24] MEDS: ACETAMINOPHEN 500 MG TABLET 1000 MG PO ×2 (07:25→19:50)
[2023-02-24] MEDS: CARVEDILOL 3.125 MG TABLET 3.125 EACH PO ×2 (07:25→16:37)
[2023-02-24] MEDS: SERTRALINE 100 MG TABLET PO (07:25)
[2023-02-24] MEDS: AMLODIPINE 5 MG TABLET PO (07:25)
--- NOTE | 2023-02-24 08:18 | PC.NURSE ---
Weekly Charting- Week 3: Toileting & Skin Vital signs reviewed. Blood pressures noted to have variable values though provider is aware. Nursing to continue to monitor vital signs and update provider with concerns PRN. Skin concerns noted upon last weekly skin assessment include: Rt forearm blood blister 1cmx0.8cm, Rt tricep bruise from fall [id number] resolving, Random bruising over abdomen from injections, Left tricep bruise from fall resolving. Abrasion to left elbow from previous fall before admission noted to be scabbed over and currently RYAN with no s/s of infection observed. Nystatin Powder being applied to redness to groin BID. Skin checks done with weekly bath and with cares. Resident continent of bowel and generally continent of bladder though wears size large pull up for urinary incontinence. MADDISON reports resident did have an incontinent bowel episode yesterday. Resident is assist of 1 with toileting including staff providing brea cares and changing incontinent product when needed.
--- NOTE | 2023-02-24 13:42 | PC.NURSE ---
Medicare charting: Meseret was admitted to [facility] for rehab related to a fall sustaining a left wrist fracture. She continues with PT/OT and is working on dressing herself. She did not report pain today. She is being assisted with the platform walker and assistance of one. Daily vital sign were stable. T-98.4, P-63, R-18, B/P-152/63 and o2sats 98% on RA. CMS check was good. Bruising is lessening.
--- NOTE | 2023-02-24 14:12 | PC.NURSE ---
Met with resident and issued a NOMNC. Resident's last day of custodial and therapy will be 02/26/23. Her first day off will be 02/27/23. Resident agreed to last day of coverage and to pay privately until she is has an Assisted Living to move to. She does not want to go to her apartment, she does not feel safe there.
--- NOTE | 2023-02-24 15:22 | PC.SOCIAL ---
Received the following email from Dominga Castañeda at [facility] on the [address] in [facility]. I have reviewed the information you provided. Based off of that, it sounds like your patient would be appropriate for our assisted living. I have attached our application and financial questionnaire. I have immediate openings for private pay, but I do have a waiting list for EW. We do require an assessment be completed prior to agreeing to admission, so we would have to coordinate that. As long as she can safely manage her dog that would be fine, but we do not offer any assistance with pets as a service. If it got to the point where it was difficult for her to care for the dog or the dog was a disturbance for other residents, she would no longer be able to have the dog here.?If you could share the information with the family that would be wonderful, if not I can give her a call and get an e-mail address from her.?Thank you! Provided the information to resident and discussed. Resident states that she is not sure if she wants to pursue [facility] and states that she has been looking at [facility] and asks this worker to follow up with this assisted living facility. Resident will discuss further with her daughters. Phone call to Hoister at [facility] at [phone]. Left voicemail inquiring on availability in Assisted Living and asked for a return phone call. Social work will continue to follow up as necessary.
--- NOTE | 2023-02-24 16:01 | PC.SPIRITC ---
I provided visit for support and connection.
[2023-02-24] MEDS: WARFARIN 2.5 MG TABLET PO (16:37)
[2023-02-24] MEDS: ROSUVASTATIN CALCIUM 10 MG TABLET PO (19:50)
[2023-02-25] MEDS: OXYCODONE 5 MG TABLET PO (03:49)
[2023-02-25] MEDS: LEVOTHYROXINE 100 MCG TABLET PO (06:53)
[2023-02-25 07:00] VITALS: BP 114/68; PULSE 60; RESP 18; TEMP 36.8; O2SAT 92; BMI 61.7
[2023-02-25] MEDS: CARVEDILOL 3.125 MG TABLET 3.125 EACH PO ×2 (07:34→15:56)
[2023-02-25] MEDS: lisinopriL 40 MG TABLET PO (07:34)
[2023-02-25] MEDS: AMLODIPINE 5 MG TABLET PO (07:34)
[2023-02-25] MEDS: ACETAMINOPHEN 500 MG TABLET 1000 MG PO ×2 (07:34→20:02)
[2023-02-25] MEDS: SERTRALINE 100 MG TABLET PO (07:34)
[2023-02-25] MEDS: NYSTATIN POWDER 1 APPLIC TOPICAL ×2 (07:34→15:56)
--- NOTE | 2023-02-25 10:04 | PC.SOCIAL ---
Received a voicemail from Nina at [facility] ([phone]). Nina states that she has been in contact with resident several times and resident's daughter will be visiting the facility for a tour. Nina will provide family with the application and financial information. Nina requests that this worker fax referral to the Attn: Roro at [phone]. Faxed referral to [facility]. Provided update to resident. Social work will follow up as needed.
--- NOTE | 2023-02-25 11:15 | PC.SOCIAL ---
Addendum entered by MIKAL Chadwick 02/25/23 15:50: Received a follow up e-mail from Maryuri Hung (resident's daughter). Maryuri informs that resident has chosen to go to [facility] [place] and will be touring the facility on Wednesday. Provided response and informed that this worker faxed requested medical information this morning to [facility]. Will follow up as needed. Original Note: Resident's daughter (Maryuri Hung) calls this worker requested information be e-mailed to her on the Assisted Living facilities that this worker has reached out to. Maryuri's e-mail is [email or web address]. E-mailed information on [facility] in [place], [facility] in [place], [facility] [address] in [facility], and [facility]. Provided brief summary on information that was discussed with each facility. Social work will follow up as needed.
--- NOTE | 2023-02-25 14:42 | PC.NURSE ---
Medicare Charting: Resident was admitted due to fall at home sustaining a left wrist fx. No complaints of pain today. UP ambulating with staff and Therapy OT/PT using the platform walker.
[2023-02-25] MEDS: WARFARIN 5 MG TABLET PO (15:56)
[2023-02-25] MEDS: ROSUVASTATIN CALCIUM 10 MG TABLET PO (20:02)
--- NOTE | 2023-02-25 22:02 | PC.NURSE ---
MDS CLARIFICATION: Possible discrepancies noted in [facility] ADL Charting. Staff were interviewed for clarification. During the 7-day lookback, it was determined based off of staff interviews that resident did not require any weight bearing assistance with ambulation in her room, but did require guided maneuvering. Coded as limited assist.
[2023-02-26] MEDS: LEVOTHYROXINE 100 MCG TABLET PO (06:40)
[2023-02-26 07:00] VITALS: BP 132/74; PULSE 73; RESP 18; TEMP 36.9; O2SAT 116
[2023-02-26] MEDS: ACETAMINOPHEN 500 MG TABLET 1000 MG PO ×2 (08:09→19:36)
[2023-02-26] MEDS: NYSTATIN POWDER 1 APPLIC TOPICAL (08:09)
[2023-02-26] MEDS: AMLODIPINE 5 MG TABLET PO (08:09)
[2023-02-26] MEDS: CARVEDILOL 3.125 MG TABLET 3.125 EACH PO ×2 (08:09→15:00)
[2023-02-26] MEDS: SERTRALINE 100 MG TABLET PO (08:09)
[2023-02-26] MEDS: lisinopriL 40 MG TABLET PO (08:09)
--- NOTE | 2023-02-26 13:05 | PC.NURSE ---
Medicare Charting: Resident was admitted to [facility] for rehab related to a fall at home were she sustained a left wrist fracture. She has been working with PT/OT to meet goal to be able to return to Assisted Living. She has choosen assisted living in [place], [place]. No complaint of wrist pain this shift. She attempted to dress herself this morning. She is mobil with use of the platform walker and assist of one. VS-T-98.4, P-73, R-8, B/P-132/74 and 02sat 97% on RA. Good CMS.
--- NOTE | 2023-02-26 13:10 | PC.NURSE ---
Recert visit : Resident was seen by Dr Calvo. Ordered was reviewed and renewed of 45 days with no changes . POLST fax to [employer]
[2023-02-26] MEDS: LOPERAMIDE HCL 2 MG CAPSULE PO (14:19)
[2023-02-26] MEDS: WARFARIN 2.5 MG TABLET PO (15:00)
[2023-02-26] MEDS: ROSUVASTATIN CALCIUM 10 MG TABLET PO (19:36)
[2023-02-27] MEDS: SERTRALINE 100 MG TABLET PO (07:17)
[2023-02-27] MEDS: AMLODIPINE 5 MG TABLET PO (07:17)
[2023-02-27] MEDS: CARVEDILOL 3.125 MG TABLET 3.125 EACH PO ×2 (07:17→15:23)
[2023-02-27] MEDS: ACETAMINOPHEN 500 MG TABLET 1000 MG PO ×2 (07:17→19:46)
[2023-02-27] MEDS: LEVOTHYROXINE 100 MCG TABLET PO (07:17)
[2023-02-27] MEDS: lisinopriL 40 MG TABLET PO (07:17)
[2023-02-27] MEDS: LOPERAMIDE HCL 2 MG CAPSULE PO (09:58)
[2023-02-27] MEDS: WARFARIN 5 MG TABLET PO (15:24)
[2023-02-27] MEDS: OXYCODONE 5 MG TABLET PO (15:28)
[2023-02-27] MEDS: ROSUVASTATIN CALCIUM 10 MG TABLET PO (19:47)
[2023-02-28] MEDS: LEVOTHYROXINE 100 MCG TABLET PO (07:40)
[2023-02-28] MEDS: lisinopriL 40 MG TABLET PO (08:29)
[2023-02-28] MEDS: SERTRALINE 100 MG TABLET PO (08:29)
[2023-02-28] MEDS: CARVEDILOL 3.125 MG TABLET 3.125 EACH PO ×2 (08:29→15:41)
[2023-02-28] MEDS: ACETAMINOPHEN 500 MG TABLET 1000 MG PO ×2 (08:29→19:05)
[2023-02-28] MEDS: AMLODIPINE 5 MG TABLET PO (08:29)
[2023-02-28] MEDS: WARFARIN 5 MG TABLET PO (15:42)
[2023-02-28] MEDS: ROSUVASTATIN CALCIUM 10 MG TABLET PO (19:05)
[2023-02-28] MEDS: OXYCODONE 5 MG TABLET PO (19:11)
[2023-03-01] MEDS: AMLODIPINE 5 MG TABLET PO (08:00)
[2023-03-01] MEDS: CARVEDILOL 3.125 MG TABLET 3.125 EACH PO ×2 (08:00→16:54)
[2023-03-01] MEDS: SERTRALINE 100 MG TABLET PO (08:00)
[2023-03-01] MEDS: lisinopriL 40 MG TABLET PO (08:00)
[2023-03-01] MEDS: LEVOTHYROXINE 100 MCG TABLET PO (08:00)
[2023-03-01] MEDS: ACETAMINOPHEN 500 MG TABLET 1000 MG PO ×2 (08:00→20:09)
[2023-03-01] MEDS: LOPERAMIDE HCL 2 MG CAPSULE PO (09:10)
[2023-03-01 10:00] LABS: INR 2.14 (0.91-1.10)
--- NOTE | 2023-03-01 10:15 | PC.NURSE ---
Lab note: INR result of 2.14 today.
--- NOTE | 2023-03-01 10:18 | PC.NURSE ---
Order note: Administrative Office Assistant called INR result of 2.14 in to [facility]. New telephone order per [facility] Coumadin nurse Cecelia per Pushpa Arreaga NP: Give Warfarin 2.5 mg po every Wednesday and Wednesday and Warfarin 5 mg po all other days (every Wednesday, Wednesday, Wednesday, and Wednesday. Next INR ordered to be completed in 1 week on 03/08/23. Orders faxed to both [facility] pharmacy and [facility].
--- NOTE | 2023-03-01 10:24 | PC.NURSE ---
Outing: Resident went out with daughter Maryuri at this time. Plans to be back around 1330.
--- NOTE | 2023-03-01 10:51 | PC.NURSE ---
Pharmacy note: Rice Farmworker called both [facility] and [facility] to ensure Warfarin order was received. Both pharmacies report they have received new order[facility]in order.
--- NOTE | 2023-03-01 13:08 | PC.NURSE ---
Status: Resident complained to clinical writer that she has been having diarrhea every morning after breakfast. Requested an Imodium before outing for diarrhea prevention.
--- NOTE | 2023-03-01 17:00 | PC.NURSE ---
Out of facility: Resident returned to LT[facility] at approximately, 1700.
[2023-03-01] MEDS: ROSUVASTATIN CALCIUM 10 MG TABLET PO (20:09)
[2023-03-01] MEDS: OXYCODONE 5 MG TABLET PO (20:44)
[2023-03-02] MEDS: LEVOTHYROXINE 100 MCG TABLET PO (07:49)
[2023-03-02] MEDS: ACETAMINOPHEN 500 MG TABLET 1000 MG PO ×3 (07:49→20:01)
[2023-03-02] MEDS: SERTRALINE 100 MG TABLET PO (07:50)
[2023-03-02] MEDS: CARVEDILOL 3.125 MG TABLET 3.125 EACH PO ×2 (07:50→15:57)
[2023-03-02] MEDS: lisinopriL 40 MG TABLET PO (07:50)
[2023-03-02] MEDS: AMLODIPINE 5 MG TABLET PO (07:50)
[2023-03-02] MEDS: WARFARIN 5 MG TABLET PO (15:57)
[2023-03-02] MEDS: ROSUVASTATIN CALCIUM 10 MG TABLET PO (20:01)
--- NOTE | 2023-03-03 01:35 | PC.NURSE ---
WEEKLY CHARTING WEEK 4 : COMMUNICATION,HEARING/VISION,COGNITION/BEHAVIORS 7 CLINICAL MONITORING. Vitals review, no issues. Admission/ readmission baseline care plan reviewed , no new plan. Resident has adequate hearing, wears glasses. She is alert and oriented x4 , no behaviors noted since admission but has history of depression and takes Sertraline 100 mg daily. Nurse administrate medications. Resident is not on any psychotic med ; health stable , will be discharged this week.
[2023-03-03] MEDS: OXYCODONE 5 MG TABLET PO (05:30)
--- NOTE | 2023-03-03 06:18 | PC.NURSE ---
Pain management Resident received Oxycodone 5 mg and ice pack for back pain at 0530 .
--- NOTE | 2023-03-03 07:33 | PC.NURSE ---
Weekly Charting- Week 4: Vital signs reviewed. B/P noted to be variable though resident has no hypertensive symptoms noted. Nursing to continue to monitor vital signs as ordered and update provider with concerns PRN. Baseline and temporary care plans are in place and have been reviewed with no changes made. Resident is currently taking Zoloft 100 mg daily though has had no adverse effects or behaviors or mood concerns noted since admission. Resident is alert & oriented x 4 and is able to use call light to make needs known. Hearing is noted to be intact and resident wears prescription glasses for vision impairment. All medications are administered by licensed nurse with no adverse reactions noted. CROWN CERAMIST made order changes on 03/02/23 which included increasing scheduled Tylenol 1000 mg to TID, decreasing PRN Oxycodone 5 mg to daily PRN and discontinuing PRN Nystatin Powder. Chronic health conditions remain stable. Resident has ortho appointment at clinic on 03/04/23 to help determine future discharge plan.
[2023-03-03] MEDS: LEVOTHYROXINE 100 MCG TABLET PO (07:38)
[2023-03-03] MEDS: CARVEDILOL 3.125 MG TABLET 3.125 EACH PO ×2 (07:38→15:20)
[2023-03-03] MEDS: ACETAMINOPHEN 500 MG TABLET 1000 MG PO ×4 (07:38→22:52)
[2023-03-03] MEDS: AMLODIPINE 5 MG TABLET PO (07:38)
[2023-03-03] MEDS: lisinopriL 40 MG TABLET PO (07:38)
[2023-03-03] MEDS: SERTRALINE 100 MG TABLET PO (07:39)
--- NOTE | 2023-03-03 14:06 | PC.SOCIAL ---
Met with resident in room to discuss care conference due to sig change from going off therapies. Resident is declining a care conference. Resident has plans to move to [place] [facility] within the next week and does not think a care conference is necessary.
[2023-03-03] MEDS: WARFARIN 5 MG TABLET PO (15:20)
--- NOTE | 2023-03-03 16:03 | PC.SPIRITC ---
I provided visit for connection and support.
[2023-03-03 17:00] VITALS: BMI 27.8
[2023-03-03] MEDS: ROSUVASTATIN CALCIUM 10 MG TABLET PO (19:43)
[2023-03-04 07:00] VITALS: BP 119/68; PULSE 70; RESP 18; TEMP 36.6; O2SAT 95; BMI 27.4
[2023-03-04] MEDS: LEVOTHYROXINE 100 MCG TABLET PO (07:06)
[2023-03-04] MEDS: AMLODIPINE 5 MG TABLET PO (07:08)
[2023-03-04] MEDS: CARVEDILOL 3.125 MG TABLET 3.125 EACH PO ×2 (07:10→15:58)
[2023-03-04] MEDS: lisinopriL 40 MG TABLET PO (07:10)
[2023-03-04] MEDS: SERTRALINE 100 MG TABLET PO (07:10)
--- NOTE | 2023-03-04 08:51 | PC.SPIRITC ---
I provided visit for support, normalized mixed feelings Meseret expressed about being discharged.
[2023-03-04 08:58] VITALS: BMI 27.8
[2023-03-04] MEDS: ACETAMINOPHEN 500 MG TABLET 1000 MG PO ×3 (11:14→19:52)
[2023-03-04] MEDS: LOPERAMIDE HCL 2 MG CAPSULE PO (12:47)
--- NOTE | 2023-03-04 13:34 | PC.NURSE ---
Ortho Appt : Resident left facility at 1330 for her ortho appt at 1400 hrs with daughter. File was given with latest meds list, physician order and progress note.
--- NOTE | 2023-03-04 15:35 | PC.SOCIAL ---
Met with resident and resident's daughter in room. Resident will plan to discharge on 03/08/23 at 10:00 am. Daughter will pick resident up from [facility]. Resident will go to Ortho appointment this afternoon and provide an update on cast and if she needs a walker hand food service manager. Social work will follow up as needed.
[2023-03-04] MEDS: WARFARIN 5 MG TABLET PO (15:58)
--- NOTE | 2023-03-04 16:33 | PC.NURSE ---
Resident returned to facility from ortho appt with following order: Today patient placed back into splint for another 2-2.5 weeks. Anything that is free from splint is safe to move, i.e. fingers, elbow, etc. I think it's reasonable for patient to return to her home whenever she feels able to do so. She will need prescription for platform walker, this is provided for her today. I would like to see patient back in 2-2.5 weeks for clinical re-assessment and skin check. Cisco Hunter M.D. Order faxed to [facility]
[2023-03-04] MEDS: OXYCODONE 5 MG TABLET PO (18:58)
[2023-03-04] MEDS: ROSUVASTATIN CALCIUM 10 MG TABLET PO (19:52)
[2023-03-05] MEDS: ACETAMINOPHEN 500 MG TABLET 1000 MG PO ×3 (07:11→19:56)
[2023-03-05] MEDS: LEVOTHYROXINE 100 MCG TABLET PO (07:11)
[2023-03-05] MEDS: lisinopriL 40 MG TABLET PO (07:12)
[2023-03-05] MEDS: AMLODIPINE 5 MG TABLET PO (07:12)
[2023-03-05] MEDS: SERTRALINE 100 MG TABLET PO (07:12)
[2023-03-05] MEDS: CARVEDILOL 3.125 MG TABLET 3.125 EACH PO ×2 (07:12→15:31)
--- NOTE | 2023-03-05 12:24 | REH.PT ---
Assessed pt for continued use of platform walker. Pt demonstrated ability to navigate use of 4ww and expressed that she prefers the 4ww for improved mobility. Platform is no longer needed.
[2023-03-05] MEDS: WARFARIN 2.5 MG TABLET PO (15:31)
[2023-03-05] MEDS: OXYCODONE 5 MG TABLET PO (15:33)
--- NOTE | 2023-03-05 15:42 | PC.SOCIAL ---
Received a phone call from [place] at [facility]. Resident is ready to admit on Wednesday to their facility. Director is Sanna and her phone number is [phone]. Provided information to [facility] nursing.
[2023-03-05] MEDS: ROSUVASTATIN CALCIUM 10 MG TABLET PO (19:57)
[2023-03-06] MEDS: lisinopriL 40 MG TABLET PO (07:48)
[2023-03-06] MEDS: LEVOTHYROXINE 100 MCG TABLET PO (07:48)
[2023-03-06] MEDS: AMLODIPINE 5 MG TABLET PO (07:48)
[2023-03-06] MEDS: ACETAMINOPHEN 500 MG TABLET 1000 MG PO ×3 (07:48→20:48)
[2023-03-06] MEDS: SERTRALINE 100 MG TABLET PO (07:48)
[2023-03-06] MEDS: CARVEDILOL 3.125 MG TABLET 3.125 EACH PO ×2 (07:48→16:23)
[2023-03-06] MEDS: WARFARIN 5 MG TABLET PO (16:23)
[2023-03-06] MEDS: ROSUVASTATIN CALCIUM 10 MG TABLET PO (20:48)
[2023-03-07] MEDS: OXYCODONE 5 MG TABLET PO (03:15)
[2023-03-07] MEDS: LEVOTHYROXINE 100 MCG TABLET PO (08:08)
[2023-03-07] MEDS: ACETAMINOPHEN 500 MG TABLET 1000 MG PO ×3 (08:09→19:18)
[2023-03-07] MEDS: lisinopriL 40 MG TABLET PO (08:09)
[2023-03-07] MEDS: CARVEDILOL 3.125 MG TABLET 3.125 EACH PO ×2 (08:09→15:32)
[2023-03-07] MEDS: AMLODIPINE 5 MG TABLET PO (08:09)
[2023-03-07] MEDS: SERTRALINE 100 MG TABLET PO (08:10)
--- NOTE | 2023-03-07 09:53 | PC.NURSE ---
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 She reports she never had any problems with writing before her injury and is interested in any treatment that could be provided for this. According to online sources, dysgraphia can be treated with occupational therapy. Resident previously completed therapy services. Note left for provider with resident's request to pursue tx for dysgraphia.
[2023-03-07] MEDS: WARFARIN 5 MG TABLET PO (15:32)
[2023-03-07] MEDS: ROSUVASTATIN CALCIUM 10 MG TABLET PO (19:20)
[2023-03-07] MEDS: LOPERAMIDE HCL 2 MG CAPSULE PO (20:03)
--- NOTE | 2023-03-07 22:01 | PC.NURSE ---
Bowel Status: Resident reported three loose stool. Requested for Imodium at 2002. Information would be relayed to incoming shift.
[2023-03-08] MEDS: LEVOTHYROXINE 100 MCG TABLET PO (06:52)
[2023-03-08] MEDS: ACETAMINOPHEN 500 MG TABLET 1000 MG PO (07:11)
[2023-03-08] MEDS: SERTRALINE 100 MG TABLET PO (07:11)
[2023-03-08] MEDS: CARVEDILOL 3.125 MG TABLET 3.125 EACH PO (07:11)
[2023-03-08] MEDS: lisinopriL 40 MG TABLET PO (07:11)
[2023-03-08] MEDS: AMLODIPINE 5 MG TABLET PO (07:11)
[2023-03-08 08:10] LABS: INR 2.54 (0.91-1.10); Prothrombin Time 28.6 Seconds
--- NOTE | 2023-03-08 08:39 | PC.NURSE ---
Lab result: INR result noted to be 2.54 today. Results given to SOLDERER DIPPER. Per SOLDERER DIPPER, staff are not to call result into [facility] as resident is having INR drawn on 03/10/23 and LOBBY ATTENDANT has ordered to keep resident on same Coumadin dose as she is currently taking.
--- NOTE | 2023-03-08 10:50 | PC.NURSE ---
Discharge note: Resident discharged to [facility] in [place] at 1045 today with family transportation provided. All medications sent with resident and Medicare A med credit form has been faxed to [facility].
--- NOTE | 2023-03-08 10:52 | PC.NURSE ---
RECAPITULATION NOTE: Resident admitted to [facility] on 02/11/2023 after hospitalization from a fall at home which resulted in head and left shoulder injury. Resident received physical and occupational therapy until their last covered day of service, which was 02/26/2023. NOMNC was given to resident on 02/24/23 and resident discharged to a new assisted living facility ([facility]) with daughter, Maryuri, on 03/08/2023. Prescriptions for refills of her medications sent with resident and daughter. Also provided resident with DC orders and referral to in-home PT/OT services. Resident will start in-home care services with company contracted with [facility] - they will reach out to patient to schedule start of care visit. Spoke with DON at [facility] on 03/05/23 who states they can perform an INR lab draw on Wednesday, 03/10 and send orders to resident's PCP to review and make recommendations on her Coumadin dosing. Faxed all DC orders to [facility] ( ). Also faxed information to [facility] for PCP (Coni Mckeon MD) to review (PH: [phone] ). Reviewed resident's DC plan with resident who signed and dated plan. Copy of signed discharge plan given to resident and original placed in patient file. Remaining supply of medications sent home with resident. Information regarding how to reduce risk of falls and how to properly dispose of medications included in DC packet. All questions answered from resident and family.?
--- NOTE | 2023-03-12 08:02 | PC.NURSE ---
MDS CLARIFICATION: Discrepancies suspected in [facility] ADL charting. Staff were interviewed for clarification. Transfers: per staff, resident did not require weight-bearing assistance but rather guided maneuvering during the lookback. Coded as limited assist. Amb in and out of room: per staff, resident did not require weight-bearing assistance but rather guided maneuvering during the lookback. Coded as limited assist. Loc on and off unit: per staff, resident did not require weight-bearing assistance but rather guided maneuvering during the lookback. Coded as limited assist. Eating: per staff report, resident ate in her room only during the lookback. Resident did not have supervision but staff did provide set up assist. Coded as independent with set up.
--- NOTE | 2023-03-12 08:02 | PC.NURSE ---
CAAs: were not completed as resident discharged before MDS/CAA completion date. Not needed for care planning.
== END 2023-03-08 10:45 | disposition home or self-care (01) | DRG 560 ==
PROVIDERS: Family Medicine; Admitting Provider Family Medicine; Family Provider Nurse Practitioner Gerontology; PCP Emergency Medicine; Visit Provider Family Medicine
DX: S52.532D Colles' fracture of left radius, subsequent encounter for closed fracture with routine healing (principal); D68.51 Activated protein C resistance; I10 Essential (primary) hypertension; D64.9 Anemia, unspecified; E11.9 Type 2 diabetes mellitus without complications; K21.9 Gastro-esophageal reflux disease without esophagitis; R26.9 Unspecified abnormalities of gait and mobility
CPT/HCPCS: 36415; 82728; 83036; 83540; 83550; 84443; 85610; 87635; 97110; 97112; 97116; 97161; 97165; 97530; 97535

== ENCOUNTER 2023-02-19 10:48 | Outpatient (RCR) | payer MEDICARE, SELFPAY ==
--- NOTE | 2022-12-31 12:43 | URNOTE ---
Received request for prior auth for Ferric Carboxymaltose ([id number]). Per [facility], this has been approved 12/29/2022-12/30/2023. Auth #[id number]
[2023-01-01 13:30] VITALS: BP 149/64; PULSE 54; TEMP 36.7; O2SAT 95
[2023-01-01 13:55] VITALS: BP 138/63; PULSE 63; RESP 16; TEMP 36.4; O2SAT 96
[2023-01-01] MEDS: FERRIC CARBOXYMALTOSE 750 MG in 0.9 % SODIUM CHLORIDE 250 ml 250 ML 1060 MG IVPB (14:04)
[2023-01-01 14:10] LABS: Fecal Occult Blood* Positive (Negative)
[2023-01-01 14:25] VITALS: BP 155/73; PULSE 54; RESP 14; TEMP 36.6; O2SAT 93
[2023-01-08 13:00] VITALS: BP 161/70; PULSE 57; RESP 16; TEMP 36.1; O2SAT 94
[2023-01-08] MEDS: FERRIC CARBOXYMALTOSE 750 MG in 0.9 % SODIUM CHLORIDE 250 ml 250 ML 1060 MG IVPB (13:45)
== END 2023-06-30 23:59 | disposition home or self-care (01) ==
LOC: CCIC 10:48
PROVIDERS: PCP Emergency Medicine; Visit Provider Internal Medicine Hematology & Oncology
DX: D50.9 Iron deficiency anemia, unspecified (principal); R19.7 Diarrhea, unspecified
CPT/HCPCS: 82270; 82728; 83540; 83550; 85025; 96374; 99212; 99214; J1439; J7050

== ENCOUNTER 2023-03-18 10:32 | Outpatient (CLI) | payer MEDICARE, SELFPAY | END 2023-03-18 10:33 | disposition home or self-care (01) | PROVIDERS: PCP Emergency Medicine; Visit Provider Emergency Medicine | DX: E03.9 Hypothyroidism, unspecified (principal); E78.5 Hyperlipidemia, unspecified; I10 Essential (primary) hypertension; E11.9 Type 2 diabetes mellitus without complications | CPT/HCPCS: 80053; 80061; 84439; 84443 ==

== ENCOUNTER 2023-03-25 14:58 | Outpatient (CLI) | payer MEDICARE, SELFPAY ==
--- NOTE | 2023-03-25 15:00 | CRLHL7_ITS ---
For Patients: As a result of the Century Cures Act, medical imaging exams and procedure reports are released immediately into your electronic medical record. You may view this report before your referring provider. If you have questions, please contact your health care provider. CLINICAL HISTORY: Left carotid stenosis TECHNIQUE: The carotid circulations and the vertebral arteries in the neck were examined with gonzalez-scale ultrasound, color-flow and Doppler spectral analysis. Degrees of stenosis were determined using SRU 2002 Consensus Panel Criteria. FINDINGS: Sonographic images demonstrate bilateral atherosclerotic plaque formation, left greater than right, without suspicious soft tissue mass. There was antegrade blood flow demonstrated within the vertebral arteries and the subclavian arteries demonstrated a normal triphasic waveform. The spectral Doppler tracings of the common carotid, internal and external carotid arteries demonstrate abnormal turbulence and spectral broadening within the proximal left ICA. There was significant elevation of peak systolic blood flow which would indicate a hemodynamically-significant stenosis by SRU criteria within the proximal left ICA measuring 139 cm/second. The ICA/CCA peak systolic velocity ratio measures 1.1 on the right and 2.0 on the left. IMPRESSION: 50-69 percent stenosis of the left proximal ICA. Less than 50 percent stenosis of the right ICA. Dictated by Patricio Keller MD @ 03/26/2023 9:14:49 AM (Electronically Signed)
== END 2023-03-25 14:59 | disposition home or self-care (01) ==
LOC: US 14:59
PROVIDERS: PCP Emergency Medicine; Visit Provider Emergency Medicine
DX: I65.29 Occlusion and stenosis of unspecified carotid artery (principal); I35.0 Nonrheumatic aortic (valve) stenosis
CPT/HCPCS: 93880

== ENCOUNTER 2023-04-08 14:11 | Outpatient (CLI) | payer MEDICARE, SELFPAY ==
--- NOTE | 2023-04-08 14:30 | CRLHL7_ITS ---
For Patients: As a result of the Cures Act, medical imaging exams and procedure reports are released immediately into your electronic medical record. You may view this report before your referring provider. If you have questions, please contact your health care provider. DXA BONE MINERAL DENSITY STUDY Reason for exam: Colles??? fracture of left radius, initial encounter. Current height (in): 63.5. Weight (lb): 157. Menopause age: 42. Ethnicity: White. 1. Have you had a previous hip or vertebral fracture? Yes. 2. Have you had any fractures during your adult life which did not result from significant trauma (e.g., auto accident)? Yes. 3. Did either of your parents have a hip fracture? No. 4. Do you smoke? No. 5. Have you ever taken Glucocorticoids? No. 6. Do you have rheumatoid arthritis? No. 7. Do you have secondary osteoporosis? No. 8. Do you drink 3 or more alcoholic drinks per day? No. 9. Are you being treated for osteoporosis? No. 10. Have you ever taken any of the following medications: Actonel, Evista, Fosamax, Miacalcin, Reclast, Boniva, Forteo, HRT (i.e., estrogen/hormone therapy), Protelos, Prolia, Vitamin D, Calcium, other ??? please specify. ANSWER: Yes, vitamin D, HRT, and calcium. 11. Do you have any of the following medical conditions: Anorexia or bulimia, asthma or emphysema, end stage renal disease, hyperparathyroidism, any seizure disorders, cancer, inflammatory bowel diseases, hysterectomy, other ??? please specify. ANSWER: Yes, inflammatory bowel diseases and hysterectomy. 12. What was your maximum height (inches)? 68. 13. Do you perform weight bearing exercise regularly? No. 14. Do you regularly consume dairy products? No. 15. Do you drink caffeinated beverages? Yes. If female: 16. At what age did your period start? 15. 17. Are you premenopausal? No. 18. How many full-term pregnancies have you had? 5. 19. Have you ever missed your period for more than 6 months in a row (not including or menopause)? No. TECHNIQUE: Bone mineral density study was performed using the [employer]. FINDINGS: The results of the study expressed as bone mineral density (BMD) are as follows: Lumbar spine L1 to L4: BMD: 1.091 g/cm2. T-score: 0.4. Z-score: 3.3 Neck Right: BMD: 0.498 g/cm2. T-score: -3.2. Z-score: -0.6 Total Right: BMD: 0.693 g/cm2. T-score: -2.0. Z-score: 0.3 IMPRESSION: Osteoporosis. Patricio Keller M.D. Diagnostic Radiologist [email or web address] ROBERTO/tessie kurtz/Dictated by: Patricio Keller MD @ 04/08/2023 3:13:00 PM (Electronically Signed)
== END 2023-04-08 14:12 | disposition home or self-care (01) ==
LOC: RAD 14:12
PROVIDERS: PCP Emergency Medicine; Visit Provider Emergency Medicine
DX: S52.532A Colles' fracture of left radius, initial encounter for closed fracture (principal); M81.0 Age-related osteoporosis without current pathological fracture
CPT/HCPCS: 77080